=== PATIENT | female | born 1940 | race Caucasian/White ===

== ENCOUNTER 2023-09-08 22:18 | Inpatient (IN) | payer MEDICARE, SELFPAY ==
[2023-09-08 16:51] VITALS: BP 184/76
--- NOTE | 2023-09-08 17:14 | CM ---
Addendum entered by Jayleen Vee RN 09/08/23 17:56:
Due to patients history of carrying knives on her person, CM updated bedside RN to take safety precautions when handling patient's belongings.
Original Note:
Patient was consulted for discharge planning. CM confirmed that patient has an emergency guardian Kishor Pete ([phone]). [employer] filed with the courts for guardianship and patient was ordered a temporary guardian due to patient's inability to
care for herself. As per Kishor, patient has been hallucinating and wandering multiple times a week often with extended police attempts to find her. Patient has not followed up on any medical care and has not taken her medications since her last
admission in 03/2024.
Kishor is requesting placement efforts and is further requesting all information be given to him and he will updated patient's financial POA and health care POA who are listed as contacts.
Kishor is requesting that all medical decisions especially discharge disposition is to be made by him and patient cannot make decisions for herself.
CM will update bedside RN.
[2023-09-08 17:30] LABS: Urine Albumin Trace (Neg - Trace); Urine Bilirubin Negative (Negative); Urine Character Clear (Clear); Urine Color Yellow; Urine Glucose Negative (Negative); Urine Ketone Negative (Negative); Urine Leukocyte Negative (Negative); Urine Nitrite Negative (Negative); Urine Occult Blood Trace (Negative); Urine Urobilinogen Negative (Neg - 1+)
[2023-09-08 17:43] LABS: Urine Bacteria Moderate (Negative); Urine Red Blood Cell 0-2 /HPF (0-2); Urine White Cell 0-2 /HPF (0-5)
[2023-09-08 17:44] LABS: Urine Hyaline Cast 0-2 /LPF (0-2)
--- NOTE | 2023-09-08 17:50 | ED.GENMED ---
History of Present Illness
General
Chief Complaint: Change in Mental Status
Source: patient and ambulance crew
Exam Limitations: clinical condition
Time Seen by Provider: 09/08/23 16:49
Nursing documentation reviewed up to this point in time: agreed with
Travel History
Have you had any contact with someone who has COVID-19?: Unable to Answer
Do you have any symptoms of coronavirus? Fever > 100 degrees, chills, cough, shortness of breath, sore throat, loss of taste or smell, muscle aches, or headache?: Unable to Answer
History of Present Illness
History of Present Illness:
pt is a 82 y/o F from home via EMS
for fall
unwitnessed, found on ground by a tenant who lives o [facility] property pt owns.
this patient is poor historian
well known to EMS
she has had poilce or EMS calls weekly, someitimes several times a week. she tends to wander and be found by police, or a few people who check in on her find her after she has fallen or she has been confused, etc. but pt has apparently been
oriented 'enough' to decline transport
but she now is a case for department of aging and has a medical POA now
pt was on the ground unabel to get up and doesn' tknow what happened, or how long she was down there
pt has c/o lower back pain
she has bruises on her hands and eft shoulder
she denies headache
she is difficult to have converation with , she doesn't want to be here and doesn't believe she should be here.
Past History
Past History
ED Past Medical History: Cancer (Ovarian), GERD and Other (Small bowel obstruction, osteoarthritis)
ED Past Surgical History: Appendectomy, Gynecological (Hysterectomy, ovarian cancer), Orthopedic (Right knee) and Tonsilectomy
Social History
Tobacco: Non-smoker
Alcohol: None
Drug: None
Living: with roommate
Family History
Family History: Other (Noncontributory)
Review of Systems
Review of Systems
Allergies reviewed?: Yes
Unable to obtain full review of systems at this time due to: dementia
All Other Systems: Not applicable
Phy Exam
Physical Exam
Physical Exam:
GENERAL: Alert ,
HEAD: NCAT
EYE: pupils equal and reactive, no nystagmus, no photophobia
NECK: Supple,full rom, nontender
ENT: o/p clr, mmm.
CARDIAC: Regular rate and rhythm . no edema
LUNGS: Clear breath sounds bilaterally, no acute respiratory distress, no wheezes/rales/rhonchi
ABDOMEN: Soft, without focal tenderness, no r/g, no cvat
NEUROLOGICAL: Alert and orientedx2 disorienetd to situation, ocnfusing words, nonsensical words at times, tangential, cn intact, no facial asymmetry, 5/5 strength in UE/LE, sensation intact, romberg neg, ambulates wih cane , neg pronator drift
SKIN: Warm and dry, skin intact.
MUSCULOSKELETAL: No edema, well perfused.
PSYCH: agitated at times, confused
Course
Orders/Labs/Results
Orders:
Orders
09/08/23 Dinner
Regular
At Your Request: Full Participation
Does patient need a safe tray?: No
09/08/23 16:34
Case Management Consult ONCE
Case Management Consult: Discharge Planning
Requested By:: NURSING
09/08/23 16:50
Electrocardiogram (*1) Stat
Reason for Study: Other
Other Reason for Exam: neuro symptoms
CT Cervical Spine W/o Iv Contr Urgent
Comment:
Reason For Exam: on ground, ams
CT Head W/o Iv Contrast Urgent
Comment:
Reason For Exam: fall
Cardiac Monitoring- Treatment ONCE
EKG- Treatment ONCE
CR Chest - 2 Views Urgent
Comment:
Reason For Exam: fall on ground unkonwn
Lumbar Spine Complete, 4 View [CR Lumbar Spine Comp Min 4 Vw*] Urgent
Comment:
Reason For Exam: fall back ain
Pelvis, 1 or 2 Views CR [CR Pelvis - 1 Or 2 Views ] Urgent
Comment:
Reason For Exam: fall on ground
09/08/23 17:14
Urinalysis Reflex To Culture Urgent
Date Specimen was Collected: 09/08/23
Time Specimen was Collected: 17:13
Urine Microscopic Reflex Cult Urgent
Urine Culture Urgent
FRAN Source: U
Specimen Description:
Date Specimen was Collected: 09/08/23
Time Specimen was Collected: 17:13
09/08/23 19:47
CPK [Creatine Phosphokinase] Urgent
Complete Blood Count/With Diff Urgent
Comprehensive Metabolic Panel Urgent
09/08/23 21:08
Admit/Transfer Patient As Directed
Co-Sign Provider:
Level of Care: Inpatient admission
Assign to:: Medical/Surgical
Physician / Group: laura hicks
Diagnosis: fall with lower back pain compression fx lumbar, dementia
Reason for Hospitalization: fall with lower back pain compression fx lumbar, dementia
Expected length of stay greater than two midnights?: Yes
ELOS- Estimated Length of Stay in days: 3
I certify the patient meets the requirements for IP care: Yes
Code Status As Directed
Resuscitation Status: Full Code
09/08/23 21:15
0.9% Sodium Chloride 1000 ml [Nss] 1,000 ml IV 80 mls/hr
09/08/23 22:00
Flush (0.9% Sodium Chloride) [Flush (Nss)] See Dose Instructions IV PER PROTOCOL
09/08/23 22:50
Acetaminophen [Tylenol] 650 mg PO Q4HPRN PRN
09/08/23 22:50
Case Management Consult ONCE
Case Management Consult: Discharge Planning
Comment: nh placement per POa
Activity As Directed
Activity Level: With Assistance
Vital Signs As Directed
Frequency: Per unit guidelines
OT Consult [Ot Eval And Treat] Routine
PT Consult [Pt Eval And Treat] Routine
Activity Level: With Assistance
DX Deep Vein Thrombosis Video Routine
09/09/23 06:00
Basic Metabolic Panel IN AM
Complete Blood Count/With Diff IN AM
09/09/23 08:00
Amlodipine [Norvasc] 10 mg PO DAILY
09/09/23 18:00
Enoxaparin Sodium [Lovenox] 40 mg SC QPM
Abnormal Lab Results
09/08/23 09/08/23
17:14 19:47
Absolute Neuts (auto) 7.5 H 10^3/uL
(1.4-6.5)
Absolute Lymphs (auto) 1.0 L 10^3/uL
(1.2-3.4)
Absolute Monos (auto) 0.8 H 10^3/uL
(0.1-0.6)
Neutrophils % 80.2 H %
(42.2-75.2)
Lymphocytes % 10.6 L %
(20.5-51.1)
Chloride 111 H mmol/L
(98-107)
Carbon Dioxide 18 L mmol/L
(22-30)
BUN 30 H mg/dl
(7-17)
Creatinine 1.2 H mg/dL
(0.6-1.0)
Glucose 106 H mg/dl
(70-99)
Total Bilirubin 1.5 H mg/dl
(0.2-1.3)
Creatine Kinase 512 H U/L
(30-135)
Ur Occult Blood Reflex Trace A
(Negative)
Urine Bacteria (Reflex) Moderate A
(Negative)
09/08/23 19:47
09/08/23 19:47
Vital Signs
Initial and Last Documented VS:
Initial Vital Signs
Temp Pulse Resp BP Pulse Ox
97.8 F 81 18 184/76 97
09/08/23 16:51 09/08/23 16:51 09/08/23 16:51 09/08/23 16:51 09/08/23 16:51
Last Documented Vital Signs
Temp Pulse Resp BP Pulse Ox
98.3 F 86 20 143/101 97
09/08/23 22:58 09/08/23 22:58 09/08/23 22:58 09/08/23 22:58 09/08/23 22:58
MDM/Problems Addressed
Differential Diagnosis Includes:
dementia, uti, confusion, head injury, electrolyte disturbance, metnal illenss
MDM/Problems Addressed:
82 y/o F noncompliant with meds; [place]; other tenants on [place] check on her from time to time; she has been declining, wandering, confused, mixing up words for months to a year;
today someone found her on the ground, she had fallen but unknown down time, awake and alert, well known to paramedics, who go there a few times a week; pt has a case with dept of aging and she has medical POA who betty from case management called;
no obvious medical causes for her chronic confusion/dementia; case management is working on placement; head/neck ct neg; labs were difficult to obtain but are pending; ua had bacteria but she also had bm at the same time;
*Critical Care Note
Total Time (30-74mins, 75-104mins- exclusive of procedures): Not Applicable
ED Attending Note
-
Portions of this chart may have been created with voice recognition software.� Occasional wrong word or��sound alike� substitutions may have occurred due to the inherent limitations of voice recognition software.
Discharge Plan
Departure
Patient Disposition: Admit
Date of Disposition: 09/08/23
Time of Disposition: 20:09
Admit to: Med/Surg
Presentation/result/management discussed w/ accepting MD/DO: Hospitalist
Consults for patient: Case Management
Condition: Fair
Covid-19: Not Applicable
Discharge Problem:
Altered mental state, Hypertension, Unable to care for self
Interventions
Interventions:
*Risk Screen - Suicide Last Done: 09/08/23 16:36
*General Assessment Last Done: 09/08/23 16:36
*Neglect/Abuse Screening Last Done: 09/08/23 16:36
ED- Fall Risk Assessment Last Done: 09/08/23 18:38
*ED COVID-19 Vaccine History Last Done: 09/08/23 16:36
*Nursing Disposition Last Done: 09/08/23 22:46
ED- Neurological Assessment Last Done: 09/08/23 16:36
Discharge Date and Time
Discharge Date/Time: 09/08/23 22:47
[2023-09-08 19:55] LABS: % Basophils 0.5 % (0-2); % Immature Granulocytes 0.4 % (0-0.5); % Lymphocytes 10.6 % (20.5-51.1); % Monocytes 8.3 % (1.7-9.3); % Neutrophils 80.2 % (42.2-75.2); Absolute Basophils 0.1 10^3/uL (0-0.2); Absolute Monocytes 0.8 10^3/uL (0.1-0.6); Absolute Neutrophils 7.5 10^3/uL (1.4-6.5); Hematocrit 42.6 % (37.0-47.0); Hemoglobin 14.6 g/dL (12.0-16.0); Mean Corp Hgb Conc. 34.3 g/dL (33.0-37.0); Mean Corpuscular Hgb 29.7 pg (27.0-31.0); Mean Corpuscular Volume 86.8 fL (81.0-99.0); Mean Platelet Volume 10.2 fL (7.4-10.4); Nucleated Red Blood Cells % 0 %; Platelet Count 197 10^3/uL (130-400); Red Blood Cell Count 4.91 10^6/uL (4.20-5.40); Red Cell Dist. Width 13.8 % (11.5-14.5); White Blood Cell Count 9.3 10^3/uL (4.8-10.8)
[2023-09-08 20:00] VITALS: BP 190/51
[2023-09-08 20:07] LABS: ALT (SGPT) 21 U/L (0-35); AST (SGOT) 33 U/L (14-36); Albumin 3.9 g/dl (3.5-5.0); Alkaline Phosphatase 103 U/L (38-126); Blood Urea Nitrogen 30 mg/dl (7-17); Calcium 8.7 mg/dl (8.4-10.2); Carbon Dioxide 18 mmol/L (22-30); Creatine Phosphokinase 512 U/L (30-135); Glucose 106 mg/dl (70-99); Total Bilirubin 1.5 mg/dl (0.2-1.3); Total Protein 7.3 g/dl (6.3-8.2); eGFR 44.64
[2023-09-08 20:27] LABS: Chloride 111 mmol/L (98-107); Potassium 4.5 mmol/L (3.5-5.1); Sodium 141 mmol/L (135-145)
--- NOTE | 2023-09-08 20:32 | HPS.HSE ---
Addendum entered and electronically signed by Dragan Guadarrama MD 09/08/23 21:18:
Question patient compliance with hypertensive medications. Will start amlodipine at this time for elevated blood pressure. Can also add lisinopril tomorrow if persistently high blood pressure.
Addendum entered and electronically signed by Dragan Guadarrama MD 09/08/23 21:14:
Patient seen examined independently with TAPER OPERATOR. 82-year-old female past medical history of hypertension, ovarian cancer, dementia presenting with fall. She was found on the ground for unknown period of time. Complains of lower back pain. Lumbar
x-ray shows possible mild T12, L1 and L2 compression fractures. Pelvic x-ray shows no acute fracture. Labs show creatinine 1.2 likely CKD. CK of 500 mild rhabdo. Tylenol and lidocaine patch if patient agreeable. PT/OT.
Original Note:
Family Physician
-
Family Physician: NOT KNOW UNKNOWN - PT DOES
Chief Complaint
-
Fall, back pain, confusion with dementia
History of Present Illness
82-year-old female who [place] alone [place] farm has been declining, wandering with confusion for up to 1 year. She was found on the ground today unknown downtime. She believes she fell on a wet area by sleeping. When distracted she does complain of
lower back pain right and left buttocks. But then becomes agitated stating she did not fall has no memory of falling. She states that she wants to go home and has no interest in being admitted at this time. She is insisting on returning home to
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 She goes on to say she has multiple people to come out from the [facility] to help feed the horses. She is paranoid that her neighbor is' doing the wrong way' she appears to confuse her words
she thinks it is 2043. She states she does live in [place]. She denies headache, fever, chills, chest pain, abdominal pain, nausea, vomiting, diarrhea, urinary symptoms.
She is apparently well-known to paramedics who go out there a few times a week but she refused to come to the hospital. The patient was assigned a medical POA who is asking ER case management for placement.. The patient has a PMH of HTN, chronic
ambulatory dysfunction uses cane, chronic Anemia, Dementia, ovarian CA, OA.
Medical History
Past Medical History
Past Medical History: Reports Other (HTN, Chronic Anemia, Dementia, ovarian CA, OA, chronic ambulatory dysfunction uses cane)
Past Surgical History: Reports None
Social History
Tobacco: Non-smoker
Alcohol: None
Drug: None
Personal: Single
Living: Alone
Employment: Retired
Family History
Family History: Other (Patient reports old age)
Allergies / Home Medications
Allergies reflects when Allergies were last updated in [facility].
Home Medications with original date entered in [facility]
Allergy/Medication List:
Allergies
Allergy/AdvReac Type Severity Reaction Status Date / Time
No Known Allergies Allergy Unverified 03/04/23 13:41
Home Medications
amlodipine 10 mg tablet 10 mg PO DAILY #30 tabs 03/09/23
lisinopril 10 mg tablet 20 mg PO DAILY #60 tabs 03/09/23
Review of Systems
-
History Source: Patient and Other (ER record)
A 12 point ROS was completed and negative except as noted: Yes
Constitutional: Denies Fever, Fatigue or Chills
EENT: Denies Sore Throat, Mouth Swelling or Runny Nose
Respiratory: Denies Cough or Trouble Breathing
Cardiac: Denies Chest Pain, Diaphoresis or Palpitations
Abdomen/GI: Denies Abdominal Pain, Nausea, Vomiting, Diarrhea, Constipated, Bloody Stools or Black Stools
: Denies Dysuria, Frequency, Flank Pain or Incontinence
Musculoskeletal: Reports Other (Points to lower lumbar pain rating to left and right hip when distracted); Denies Joint Pain or Edema
Skin: Denies Itching or Rash
Neurological: Denies Dizzy or Weakness
Hematologic/Lymphatic: Reports No Symptoms
Psych: Reports Calm
Physical Exam
Vital Signs
Vital Signs
Temp Pulse Resp BP Pulse Ox
97.8 F 81 18 184/76 97
09/08/23 16:51 09/08/23 16:51 09/08/23 16:51 09/08/23 16:51 09/08/23 16:51
Physical Exam
General: Comfortable and Conversant; No Pain, Fever or Chills
HEENT: NormoCephalic, Anicteric, Moist mucous membranes, Atraumatic, No Ptosis and Neck Nontender
Respiratory: Clear; No Wheezes, Rales or Rhonchi
Cardiac: S1/S2 and Regular Rhythm; No Murmur, Rub, Gallop or Peripheral Edema
Breast: Deferred by me
GI: Soft, Non Tender, Non Distended, Normal Bowel Sounds and No Hepatosplenomegaly
Rectal: Deferred by Provider
Genito-urinary: Deferred by me
Musculoskeletal: No Clubbing, No Cyanosis, No Edema and Other (Tenderness lower lumbar to left and right buttocks)
Skin: Warm, Dry and Other (Red contusions bilateral knees no open abrasions); No Rash, Jaundice or Ulcers
Neuro: Awake, Alert, Oriented (To name and [place] thinks it is 2043 does speak with paranoid state and nonsensical words) and No Sensory Deficits; No Slurred Speech or Facial Droop
Psych: Agitated
Laboratory Results
-
09/08/23 19:47
09/08/23 19:47
Laboratory Results
Total Bilirubin 1.5 mg/dl (0.2-1.3) H 09/08/23 19:47
AST 33 U/L (14-36) 09/08/23 19:47
ALT 21 U/L (0-35) 09/08/23 19:47
Alkaline Phosphatase 103 U/L (38-126) 09/08/23 19:47
Troponin I Cancelled 09/08/23 19:34
Data Reviewed
-
Diagnostic Radiology: Report Reviewed by me
Lab Data: Labs Reviewed by me
Impression/Plan
-
Impression/plan:
Admit to MedSurg
# Advanced dementia with self-care deficit/Hx sundowning
Confused has medical POA assigned
Oriented to name and place , thinks it is 2043 rambles with statements nonsensical words
-Consult case management for placement
-Fall precautions
#Fall with new T12-L1 and L2 compression fractures/Recurrent falls
#Chronic ambulatory dysfunction uses cane as needed
-Tylenol as needed pain
-PT/OT/case management eval
Lumbar x-ray: Mild T12-L1 and L2 compression fractures new from previous exam
Pelvis x-ray: Mild bilateral OA left greater than right
CT cervical spine multilevel DDD
CT head: No acute intracranial abnormality
CXR: No active cardiopulmonary disease
#Mild rhabdomyolysis
-Creatinine kinase 512
-IV NSS
#CKD 3B
Creat 1.2 appears near baseline
-Follow BMP
#HTN�benign
184/76
-Resume amlodipine 10 mg daily,
HOLD lisinopril 20 mg daily has not been filled since March 2023
-IV hydralazine as needed SBP greater than 165
#Chronic anemia
Hgb 14.6
#Hx ovarian CA per chart
Hx OA per chart
DVT prophylaxis
Subcu Lovenox
Full code
[2023-09-08 22:58] VITALS: BP 143/101; BMI 22.6
[2023-09-08 23:00] VITALS: BP 143/101
[2023-09-08] MEDS: NSS 1000 IV (23:22)
--- NOTE | 2023-09-08 23:26 | PTCARENOTE ---
Pt arrived on unit @22:58. Pt apprehensive about neurological assessment and admission questions; feels she does not belong at the hospital and wants to go home. Pt oriented to room and call [place]ston. Will continue to monitor.
--- NOTE | 2023-09-09 07:00 | PTCARENOTE ---
2/- Patient is AAOX1, confused, incoherent speech, scattered thinking and paranoia. She is physically and verbally aggressive, noncompliant and refusing all care. She has a hx of carrying blades in her belongings, and a small razor blade is found
in her belongings bag at this time. Patient attempts to hit and punch staff, get out of bed despite fall precautions. Notified Physician of the behavior and the weapon found.
[2023-09-09] MEDS: NSS IV (07:22)
[2023-09-09] MEDS: NORVASC PO (07:23)
[2023-09-09 07:30] VITALS: BP 153/78
--- NOTE | 2023-09-09 09:49 | W.PN.HOSP.TC ---
Today's Communication/Plan
-
Await labs
Psychiatry consult
Discharge planning
Assessment / Plan
Assessment / Plan
Gen-awake, alert, confused, NAD
HEENT-NC, AT, anicteric, clear oral mm
Neck-supple
CV-reg, no M, +S1/S2
Lungs-clear B/L
Abd-soft, NT, ND
Ext-no edema
Musculoskeletal-no cyanosis, clubbing
Skin-warm and dry
Neuro-grossly non-focal
Psych-calm, cooperative
Delirium -with underlying cognitive impairment, likely dementia. Unclear at baseline. She remains confused today. As needed Haldol ordered for agitation.
Multiple vertebral compression fractures -likely due to trauma of fall and underlying osteoporosis. Continue analgesics.
Mild rhabdomyolysis -CPK 512 on admission. Recheck today.
Suspected dementia -likely Alzheimer's type.
Ambulatory dysfunction -PT/OT.
Essential hypertension -continue amlodipine. Lisinopril on hold for elevated creatinine.
History of ovarian cancer
GERD
Full code
Dispo -medically stable for discharge to long-term care. Ideally needs a memory care unit given her cognitive impairment. Not safe to live alone. Discussed with case management.
Anticipated Discharge: Within 24 hours
Subjective/Interval History
-
Date of Service: September 09, 2023
Patient seen and examined. No complaints. She is very confused. Not oriented.
Objective Data
-
Labs:
Laboratory Results
09/09/23
06:00
WBC Pending
Hgb Pending
Hct Pending
Plt Count Pending
Sodium Pending
Potassium Pending
Chloride Pending
Carbon Dioxide Pending
BUN Pending
Creatinine Pending
Glucose Pending
Calcium Pending
Vital Signs:
Vital Signs
Temp Pulse Resp BP Pulse Ox
97.8 F 91 18 153/78 95
09/09/23 07:30 09/09/23 07:30 09/09/23 07:30 09/09/23 07:30 09/09/23 07:30
I&O
09/08/23 09/09/23 09/10/23
06:59 06:59 06:59
Intake Total 1120 / 1120
Balance 1120 / 1120
Review of Systems
-
Unable to obtain full review of systems at this time due to: Dementia and Acuity
History Source: Patient
All other systems: Reviewed and negative
[2023-09-09] MEDS: HALDOL 2 MG IM (09:51)
--- NOTE | 2023-09-09 14:17 | CM ---
Addendum entered by Marcie West 09/10/23 09:10:
CM spoke with Valeriano Blanc from [facility], will talk to DON about accepting patient, would like to try to accept patient skilled and then transition. Per Valeriano, they do not have a memory care unit but have a dementia unit. Valeriano's contact is
[phone]. CM will update Guardian with facility information.
Addendum entered by Marcie West 09/09/23 15:50:
Per Jennifer [facility] and [facility] unable to accept patient. CM spoke with Letha from [facility], unable to accept patient, no LTC beds at this time.
Original Note:
CM spoke with patients Guardian, Vijay Freeman ([phone]). Mr. Freeman emailed CM psychological assessment for patient. Per Guardian, patient has some funds for private pay, would eventually need to transition to Medicaid. Per psychological
assessment provided by Guardian, no mental health diagnosis documented. Guardian requesting referral sent to [facility] as number once choice. Additional referrals sent to [facility], [facility], and [facility].
Psychiatry consult ordered. CM will continue to follow for discharge planning needs, will continue to update Guardian on process.
Plan; LTC with memory unit, pending accepting facilities.
--- NOTE | 2023-09-09 15:02 | CON.MD ---
Consultation - Medical
-
patient seen chart reviewed. discussed w nursing and cm. this pt is known to me from prior consultation. she was seen in march of 2023. she was here bc cellulitis from cat scratch. at that time discussion was held as to whether she required a
supervised living arrangement but in t he end she was dc to home. i suspected a degree of dementia (she has a normal cat scan of the brain) and wanted to do a moca but she refused. she is here today after being found down. she was found by a
neighbor. she has been known to wander in the neighborhood later at night. she is quite bruised. (elevated ck) she could not tell me why she is here . she told me 'here' is a movie theater. she was unable to give the year or the president. she
did say it was 'sep or october'. she then said she does not pay attention to such things. she denies that she is depressed. she denies hallucinations. it was noted last time she carried sharp objects in her purse. this time she had a cook box filler. i
asked her about it. she said she did not know why she had one. she was agitated earlier in her stay and would not take po meds and was given im haldol. at this point she is quite calm.
past psych hx to my knowledge she has no prior psych hx in terms of depression or psychosis that has been treated. it was suspected by this junior copywriter on the last admission that there was underlying paranoia
medial hx frequent falls. from the spine xrays osteoporosis and compression fx suspected hx ovarian cancer w resection gerd hx small bowel obstruction djd
family hx not known
social patient resided with a dear friend for over 50 years . that friend and left her a [address] farm and an old farm house to live in for the rest of her life. she was also left money to support self but if i remember correctly the poa told
me last go around that some of that money has dissipated for a variety of reasons including a scam
mse patient is alert but oriented only to name. she believes she is at the [employer]. speech is normal in rate and tone but nothing that she said communicated information meaningfully. thought process is rambling tangential and disorganized. her mood
right now is pleasant enough affect a bit constricted no si no hi cognitively impaired insight judgment lacking
dx likely dementia no bovious cause for tme.
plan in my opinion this patient should not reside on her own. she had someone looking in on her but that person is now on vacation. at some point she will need a guardian. at this moment no one could say she is competent to make decisions on her
own behalf. she does not know where she is. she has no concept of the dangers to her safety that wandering around late at night pose....even it one were to consider only falls given her frailty this is a real risk. prn risperdal concentrate for
agitation posing a risk to self or others
[2023-09-09] MEDS: RISPERDAL ORAL SOLUTION 0.5 MG PO (19:29)
[2023-09-09 22:45] VITALS: BP 166/65
--- NOTE | 2023-09-09 22:57 | PTCARENOTE ---
Pt refused to have temperature checked during this shift. Pt stated 'I'm not doing all this crap'. Pt educated by this RN on importance of checking temperature every 8 hours but pt is still refusing.
--- NOTE | 2023-09-10 02:00 | PTCARENOTE ---
Pt reports seeing a 'white fluffy thing' on the ground next to her Capri chair. Pt also reports seeing a chicken while sitting at the nurse's station. Will continue to monitor.
--- NOTE | 2023-09-10 05:53 | PTCARENOTE ---
Capri chair order renewed with 4 side-rails added by GALINA Fofana. Will continue to monitor.
[2023-09-10] MEDS: NORVASC PO (07:11)
[2023-09-10 07:55] VITALS: BP 141/67
--- NOTE | 2023-09-10 12:04 | W.PN.HOSP.TC ---
Today's Communication/Plan
-
Check labs
Discharge planning
Assessment / Plan
Assessment / Plan
Gen-awake, alert, confused, NAD
HEENT-NC, AT, anicteric, clear oral mm
Neck-supple
CV-reg, no M, +S1/S2
Lungs-clear B/L
Abd-soft, NT, ND
Ext-no edema
Musculoskeletal-no cyanosis, clubbing
Skin-warm and dry
Neuro-grossly non-focal
Psych-calm, cooperative
Delirium -with underlying cognitive impairment, likely dementia. Unclear at baseline. Appreciate psychiatry input. Continue as needed risperidone. Behaviors are under control.
Multiple vertebral compression fractures -likely due to trauma of fall and underlying osteoporosis. Continue analgesics.
Mild rhabdomyolysis -CPK 512 on admission. Recheck today.
Suspected dementia -likely Alzheimer's type.
Ambulatory dysfunction -PT/OT.
Essential hypertension -continue amlodipine. Lisinopril on hold for elevated creatinine.
History of ovarian cancer
GERD
Full code
Dispo -medically stable for discharge to long-term care. Ideally needs a memory care unit given her cognitive impairment. Not safe to live alone. Discussed with case management.
Anticipated Discharge: Within 24 hours
Subjective/Interval History
-
Date of Service: September 10, 2023
Patient seen and examined. Pleasantly confused. Sitting in a chair at the nurses station. No complaints.
Objective Data
-
Vital Signs:
Vital Signs
Temp Pulse Resp BP Pulse Ox
98.2 F 79 16 141/67 96
09/10/23 07:55 09/10/23 07:55 09/10/23 07:55 09/10/23 07:55 09/10/23 07:55
I&O
09/09/23 09/10/23 09/11/23
06:59 06:59 06:59
Intake Total 1120 / 1119 960 / 960
Balance 1119 960 / 960
Review of Systems
-
Unable to obtain full review of systems at this time due to: Dementia
History Source: Patient
All other systems: Reviewed and negative
--- NOTE | 2023-09-10 13:39 | W.PN.UPDATE ---
Update Note
Progress Note Update
patient seen chart reviewed. discussed with nursing mrs romero was sitting in the nurse's station w her aide in attendance while eating her lunch w gusto. she did not realize that she was about to bite into an alcohol swab and the receipt from her
lunch which was wedged in her sandwich. she can offer no logical conversation at this point . she did receive one prn over the past 24 hours. i continue to feel this patient cannot return home on her own and will require placement in a supervised
facility
--- NOTE | 2023-09-10 14:39 | CM ---
CM spoke with Guardian, Vijay [facility], confirmed CM is able to fax clinical document. Per Vijay, the financial information has been overnighted from [facility] and he will hopefully receive them tomorrow. Per Vijay, he was just informed that the
patient may have some sort of Half-Way Care Policy which he should also have more information on tomorrow. Vijay inquiring if [facility] can accept patient, per [facility], unable to accept, facility does not have dementia unit. CM reports that
[facility] may be able to accept patient pending their bed availability. CM reports that other referrals that have been unable to accept patient. CM will continue to follow for discharge planning needs, will call Vijay tomorrow
to obtain update on LTC policy and financial information as it will be needed for placement.
Plan; SNF with memory care unit, pending accepting facility
[2023-09-10 15:20] VITALS: BP 163/50
[2023-09-10 23:33] VITALS: BP 121/63
[2023-09-11 07:30] VITALS: BP 172/81
[2023-09-11] MEDS: NORVASC PO (08:33)
--- NOTE | 2023-09-11 08:35 | PN.CDI ---
CDI
- -
CDI:
Physician Documentation Request
Admit Date: 09/08/23 22:18
Dear Doctor Maycol,
Patient admitted after being found down.
ED Physician documentation: 'unwitnessed, found on ground by a tenant...pt was on the ground unabel to get up and doesn' tknow what happened, or how long she was down there'
09/10 Hospitalist PN: 'Mild rhabdomyolysis -CPK 512 on admission. Recheck today.'
Please clarify the type of rhabdomyolysis being monitored/treated:
Traumatic rhabdomyolysis
Nontraumatic rhabdomyolysis
Other
Use of terms such as suspected, likely, concern for, or probable (associated with a specific diagnosis that is being evaluated, monitored, or treated as if it exists) are acceptable and can be coded in the inpatient setting, when documented at the
time of discharge.
Thank you,
Mae Orta RN, BSN
CDI Specialist
Available via [place] text
Please use your independent medical judgment in providing your response.
--- NOTE | 2023-09-11 09:05 | W.PN.HOSP.TC ---
Addendum entered and electronically signed by Shun Severino DO 09/11/23 11:06:
Traumatic rhabdomyolysis
Addendum entered and electronically signed by Shun Severino, 09/11/23 09:35:
I spoke with POVladimir Vijay Freeman, Gave him an update. All questions answered. I explained to Kishor. Natalia remains incompetent and lacks decision-making capacity for her own safety. Not safe to live alone anymore. Will need long-term care.
Suspect she has underlying dementia.
Kishor agrees with changing CODE STATUS to DO NOT RESUSCITATE.
Original Note:
Today's Communication/Plan
-
Discharge planning
Assessment / Plan
Assessment / Plan
Gen-awake, alert, confused, NAD
HEENT-NC, AT, anicteric, clear oral mm
Neck-supple
CV-reg, no M, +S1/S2
Lungs-clear B/L
Abd-soft, NT, ND
Ext-no edema
Musculoskeletal-no cyanosis, clubbing
Skin-warm and dry
Neuro-grossly non-focal
Psych-calm, cooperative
Delirium -with underlying cognitive impairment, likely dementia. Unclear at baseline. Appreciate psychiatry input. Continue as needed risperidone. Behaviors are under control.
Multiple vertebral compression fractures -likely due to trauma of fall and underlying osteoporosis. Continue analgesics.
Mild rhabdomyolysis -CPK 512 on admission. Refusing repeat labs.
Suspected dementia -likely Alzheimer's type.
Ambulatory dysfunction -PT/OT.
Essential hypertension -continue amlodipine. Lisinopril on hold for elevated creatinine.
History of ovarian cancer
GERD
Full code
Dispo -medically stable for discharge to long-term care. Ideally needs a memory care unit given her cognitive impairment. Not safe to live alone. Discussed with case management.
I left a voicemail for POVladimir to call me back to discuss her plan of care. Also to discuss CODE STATUS as I believe she should be DNR.
Anticipated Discharge: Within 24 hours
Subjective/Interval History
-
Date of Service: September 11, 2023
Patient seen and examined. Sitting in the chair brushing her teeth. No complaints. Looks preoccupied.
Objective Data
-
Vital Signs:
Vital Signs
Temp Pulse Resp BP Pulse Ox
97.5 F 76 20 121/63 96
09/10/23 23:33 09/10/23 23:33 09/10/23 23:33 09/10/23 23:33 09/10/23 23:33
I&O
09/10/23 09/11/23 09/12/23
06:59 06:59 06:59
Intake Total 960 / 960 1560 / 1560
Balance 960 / 960 1560 / 1560
Review of Systems
-
Unable to obtain full review of systems at this time due to: Dementia
History Source: Patient
All other systems: Reviewed and negative
--- NOTE | 2023-09-11 13:06 | W.PN.UPDATE ---
Update Note
Progress Note Update
reviewed chart. did not see patient today. case toma tells me she has been more manageable. she had a visitor in her room this am when i attempted to see her and i did not disturb them. placement is being sought. she did not require a prn yesterday
nor today. filled cm in on some of the patient's background social hx.
[2023-09-11 15:30] VITALS: BP 111/68
--- NOTE | 2023-09-11 16:00 | CM ---
CM met with patients Guardian, preferring referral to [facility] as has a secure unit. Guardian still waiting to receive financials and LTC policy, will update CM once receives them. CM will place call to Milla, Liaison at , discussed no
other history of mental illness documented, discussed dementia behaviors. Per Milla, believes they can accept patient, will confirm with CM. CM will await updated PT/OT evals, will start authorization through insurance for intermediate time. CM
will continue to follow for discharge planning needs.
Plan; SNF with transition to LTC at [facility], awaiting updated PT/OT evals to begin auth.
[2023-09-11] MEDS: RISPERDAL ORAL SOLUTION 0.5 MG PO (21:25)
--- NOTE | 2023-09-11 23:00 | PTCARENOTE ---
Pt refused to have vital signs taken at 2300. Pt verbally aggressive towards staff and refusing vitals despite education from this RN on the importance of checking vital signs. Will continue to monitor.
[2023-09-12 07:30] VITALS: BP 136/64
[2023-09-12] MEDS: NORVASC PO (08:43)
--- NOTE | 2023-09-12 09:48 | W.PN.HOSP.TC ---
Today's Communication/Plan
-
Discharge planning
Assessment / Plan
Assessment / Plan
Gen-awake, alert, confused, NAD
HEENT-NC, AT, anicteric, clear oral mm
Neck-supple
CV-reg, no M, +S1/S2
Lungs-clear B/L
Abd-soft, NT, ND
Ext-no edema
Musculoskeletal-no cyanosis, clubbing
Skin-warm and dry
Neuro-grossly non-focal
Psych-calm, cooperative
Delirium -with underlying cognitive impairment, likely dementia. Unclear at baseline. Appreciate psychiatry input. Continue as needed risperidone. Behaviors are under control.
Multiple vertebral compression fractures -likely due to trauma of fall and underlying osteoporosis. Continue analgesics.
Mild rhabdomyolysis -CPK 512 on admission. Refusing repeat labs.
Suspected dementia -likely Alzheimer's type.
Ambulatory dysfunction -PT/OT.
Essential hypertension -continue amlodipine. Lisinopril on hold for elevated creatinine.
History of ovarian cancer
GERD
DNR -confirmed with POA.
Dispo -medically stable for discharge to long-term care.
Anticipated Discharge: Within 24 hours
Subjective/Interval History
-
Date of Service: September 12, 2023
Patient seen and examined. Very tangential. Concerned that her parents have . No complaints.
Objective Data
-
Vital Signs:
Vital Signs
Temp Pulse Resp BP Pulse Ox
98.1 F 51 16 111/68 96
09/11/23 15:30 09/11/23 15:30 09/11/23 15:30 09/11/23 15:30 09/11/23 15:30
I&O
09/11/23 09/12/23 09/13/23
06:59 06:59 06:59
Intake Total 1560 / 1560 600 / 600 480 / 480
Balance 1560 / 1560 600 / 600 480 / 480
Review of Systems
-
Unable to obtain full review of systems at this time due to: Dementia
History Source: Patient
All other systems: Reviewed and negative
--- NOTE | 2023-09-12 10:09 | W.PN.UPDATE ---
Update Note
Progress Note Update
patient seen chart reviewed. mrs romero is all dressed up ready to go somewhere and she continues to be very confused at times difficult to manage. two staff members were escorting her back to her room. you cannot reason with her. she has received
risperdal in the evening for the last two days which seems to be the most difficult time. will make it a scheduled order in the early evening.
[2023-09-12] MEDS: RISPERDAL ORAL SOLUTION 0.5 MG PO ×2 (10:57→22:14)
--- NOTE | 2023-09-12 12:43 | CM ---
KELLY spoke with Milla from [facility], able to accept patient for SNF. CM faxed auth with updated PT/OT evaluations to [facility], pending reference number [id number]. CM will continue to follow for discharge planning needs.
Plan; [facility], pending auth approval.
[2023-09-12] MEDS: ZYPREXA 2.5 MG IM (13:36)
[2023-09-12] MEDS: STERILE WATER FOR INJECTION 2.10000000000000009 ML IM (13:37)
--- NOTE | 2023-09-12 14:00 | PTCARENOTE ---
Addendum entered by Dagmar Rasmussen RN 09/12/23 14:11:
Dr. Severino notified of skin tear to right wrist.
Original Note:
Patient became agitated in her milka chair, taking off tray and throwing it, unable to be redirected. Code purple called. Patient tried to use her cane to swing at staff. Security assisted with removal of cane for safety and skin tear occured on her
right wrist, approximately 5cm. Area cleansed with NSS and optifoam dressing applied. Zyprexa administered IM per order to left deltoid without difficulty. At moment, eating lunch and calmer. She is confused and thinking she is at a place where she
owns the property and has responsibility for it. Attempts to reorient.
[2023-09-12] MEDS: RISPERDAL ORAL SOLUTION PO ×2 (17:59→18:03)
--- NOTE | 2023-09-12 23:38 | PTCARENOTE ---
Pt refused pm vital signs.
[2023-09-13] MEDS: NORVASC PO (08:00)
--- NOTE | 2023-09-13 12:20 | W.PN.HOSP.TC ---
Today's Communication/Plan
-
Discharge planning
Assessment / Plan
Assessment / Plan
Gen-awake, alert, confused, NAD
HEENT-NC, AT, anicteric, clear oral mm
Neck-supple
CV-reg, no M, +S1/S2
Lungs-clear B/L
Abd-soft, NT, ND
Ext-no edema
Musculoskeletal-no cyanosis, clubbing
Skin-warm and dry
Neuro-grossly non-focal
Psych-calm, cooperative
Delirium -with underlying cognitive impairment, likely dementia. Unclear at baseline. Appreciate psychiatry input. Continue risperidone. Behaviors are under control.
Multiple vertebral compression fractures -likely due to trauma of fall and underlying osteoporosis. Continue analgesics.
Mild rhabdomyolysis -CPK 512 on admission. Refusing repeat labs.
Suspected dementia -likely Alzheimer's type.
Ambulatory dysfunction -PT/OT.
Essential hypertension -continue amlodipine. Lisinopril on hold for elevated creatinine.
History of ovarian cancer
GERD
DNR -confirmed with POA.
Dispo -medically stable for discharge to long-term care. Awaiting insurance authorization.
Anticipated Discharge: 24 - 48 hours
Subjective/Interval History
-
Date of Service: September 13, 2023
Patient seen and examined. Sitting in the chair in the nurses station. Trying to eat breakfast. No complaints.
Objective Data
-
Vital Signs:
Vital Signs
Temp Pulse Resp BP Pulse Ox
98.0 F 76 16 136/64 98
09/12/23 07:30 09/12/23 07:30 09/12/23 07:30 09/12/23 07:30 09/13/23 08:00
I&O
09/12/23 09/13/23 09/14/23
06:59 06:59 06:59
Intake Total 600 / 600 1560 / 1560
Balance 600 / 600 1560 / 1560
Review of Systems
-
Unable to obtain full review of systems at this time due to: Dementia
History Source: Patient
All other systems: Reviewed and negative
[2023-09-13] MEDS: RISPERDAL ORAL SOLUTION 0.5 MG PO ×3 (15:02→23:47)
[2023-09-14] MEDS: NORVASC PO (10:00)
--- NOTE | 2023-09-14 10:04 | W.PN.HOSP.TC ---
Today's Communication/Plan
-
Discharge planning
Assessment / Plan
Assessment / Plan
Refused exam today
Delirium -with underlying cognitive impairment, likely dementia. Unclear at baseline. Appreciate psychiatry input. Continue risperidone. Behaviors improving.
Multiple vertebral compression fractures -likely due to trauma of fall and underlying osteoporosis. Continue analgesics.
Mild rhabdomyolysis -CPK 512 on admission. Refusing repeat labs.
Suspected dementia -likely Alzheimer's type.
Ambulatory dysfunction -PT/OT.
Essential hypertension -continue amlodipine. Lisinopril on hold for elevated creatinine.
History of ovarian cancer
GERD
DNR -confirmed with POA.
Dispo -medically stable for discharge to long-term care. Awaiting insurance authorization.
Anticipated Discharge: Within 24 hours
Subjective/Interval History
-
Date of Service: September 14, 2023
Patient seen but refused to be examined. Sitting in the chair at the nurses station. No complaints.
Objective Data
-
Vital Signs:
Vital Signs
Temp Pulse Resp BP Pulse Ox
98.0 F 56 16 136/64 96
09/12/23 07:30 09/13/23 15:00 09/12/23 07:30 09/12/23 07:30 09/13/23 15:00
I&O
09/13/23 09/14/23 09/15/23
06:59 06:59 06:59
Intake Total 1560 / 1560 1140 / 1140
Balance 1560 / 1560 1140 / 1140
Review of Systems
-
Unable to obtain full review of systems at this time due to: Dementia
--- NOTE | 2023-09-14 10:30 | PTCARENOTE ---
10am Pt confused most of time, refusing for pt tech to check vital signs and refused am Norvasc [address] Severino notified, continue to monitor pt closely.
--- NOTE | 2023-09-14 15:12 | CM ---
CM following re: d/c planning.
Pt remains in milka chair.
[employer] auth still pending.
D/c plan is for SNF placement at [facility].
Will continue to follow pt's behaviors.
[2023-09-14] MEDS: RISPERDAL ORAL SOLUTION 0.5 MG PO ×2 (17:22→22:53)
--- NOTE | 2023-09-15 | PTCARENOTE ---
Pt agitated, refusing 2300 vital signs tonight. Restraint order renewed.
[2023-09-15 07:24] VITALS: BP 119/62
[2023-09-15] MEDS: NORVASC PO (08:48)
[2023-09-15] MEDS: RISPERDAL ORAL SOLUTION 0.5 MG PO (10:28)
--- NOTE | 2023-09-15 11:51 | W.PN.HOSP.TC ---
Today's Communication/Plan
-
monitor vitals
see plan
cw risperidone
psych eval today
dispo planning
updated guardian over the phone
Assessment / Plan
Assessment / Plan
Gen-awake, alert, confused, NAD
HEENT-NC, AT, anicteric, clear oral mm
Neck-supple
CV-reg, no M, +S1/S2
Lungs-clear B/L
Abd-soft, NT, ND
Ext-no edema
Musculoskeletal-no cyanosis, clubbing
Skin-warm and dry
Neuro-AAOX1
Psych-calm, cooperative
Delirium -with underlying cognitive impairment, likely dementia. Unclear at baseline. Appreciate psychiatry input. Continue risperidone. Behaviors improving. Patient is hallucinating at times, she is talking to someone in the room
Multiple vertebral compression fractures -likely due to trauma of fall and underlying osteoporosis. Continue analgesics.
Mild rhabdomyolysis -CPK 512 on admission. Refusing repeat labs.
Suspected dementia -likely Alzheimer's type.
Ambulatory dysfunction -PT/OT.
Essential hypertension -continue amlodipine. Lisinopril on hold for elevated creatinine.
History of ovarian cancer
GERD
DNR -confirmed with POA.
Dispo - needs to go to [facility]. Needs psychiatry evaluation prior
Anticipated Discharge: Today
Subjective/Interval History
-
Date of Service: September 15, 2023
continues to have hallucinations
Objective Data
-
Vital Signs:
Vital Signs
Temp Pulse Resp BP Pulse Ox
97.6 F 81 18 119/62 99
09/15/23 07:24 09/15/23 07:24 09/15/23 07:24 09/15/23 07:24 09/15/23 07:24
I&O
09/14/23 09/15/23 09/16/23
06:59 06:59 06:59
Intake Total 1140 / 1140 240 / 240
Balance 1140 / 1140 240 / 240
--- NOTE | 2023-09-15 13:46 | CM ---
Addendum entered by Marcie West 09/15/23 16:13:
Per Hospitalist, plan for discharge tomorrow. Milla at [facility] updated, Guardian updated. CM will continue to follow for discharge planning needs.
Plan: [facility] SNF, will require ambulance transport.
Original Note:
CM received voicemail from [place] from [facility] [phone], patient SNF approved, skilled level 1, 09/15-09/21, next review on 09/22 to Marci: [phone], fax: [phone]. Auth #[id number].
CM spoke with Milla from [facility], discussed patient still on milka-chair restraint, Milla aware, states they can admit patient today. CM placed call to guardian Vijay Freeman, discussed SNF approval. Vijay asking for SNF approval letter,
CM faxed to Vijay. CM reviewed with Hospitalist, Psych to see patient before discharge today. CM provided update to Milla that psych will see patient before discharge. CM will continue to follow for discharge planning needs.
Plan; [facility] SNF, will require ambulance transport.
--- NOTE | 2023-09-15 14:52 | W.PN.UPDATE ---
Update Note
Progress Note Update
Pt seen, reviewed with nursing staff. Pt sitting up in chair, ate most of lunch on tray. Pt is alert, has ongoing irritable affect, uncooperative with answering questions, appears suspicious. No overt signs of hallucinations. Staff reports pt
refuses po medications, takes Risperidone liquid in coffee/juice. Reviewed record/previous consults; pt likely has dementia. Staff reports pt has a court-appointed guardian. She has been less aggressive per staff, since on Risperidone, though still
agitated at times, noted again last night. Pt noted with signs of visual hallucinations, alert and oriented x 1.
Imp: TME, resolving
Likely dementia, with intermittent agitation
Rec: Try adjusting Risperidone liquid; options are very limited since pt refusing po meds
will follow
[2023-09-15 15:17] VITALS: BP 133/72
[2023-09-15] MEDS: RISPERDAL ORAL SOLUTION 1 MG PO (18:01)
[2023-09-15 23:23] VITALS: BP 98/74
[2023-09-16 07:00] VITALS: BP 173/66
[2023-09-16] MEDS: NORVASC 10 MG PO (10:00)
--- NOTE | 2023-09-16 12:10 | W.PN.HOSP.TC ---
Today's Communication/Plan
-
Monitor vital signs see plan
Restart lisinopril
Continue with risperidone
Discharge today
Time of discharge 36 minutes
Assessment / Plan
Assessment / Plan
Gen-awake
HEENT-NC, AT, anicteric, clear oral mm
CV-reg, no M, +S1/S2
Lungs-clear B/L
Neuro-AAOX1
Psych-calm, cooperative
Delirium -with underlying cognitive impairment, likely dementia. Unclear at baseline. Appreciate psychiatry input. Continue risperidone. Behaviors improving. Patient is hallucinating at times, she is talking to someone in the room at times which
is improving. Spoke with guardian too 09/15 and it appears this has been going before july 2023. Per psych we increased risperidone
Multiple vertebral compression fractures -likely due to trauma of fall and underlying osteoporosis. Continue analgesics.
Mild rhabdomyolysis -CPK 512 on admission. Refusing repeat labs.
Suspected dementia -likely Alzheimer's type.
Ambulatory dysfunction -PT/OT.
Essential hypertension -continue amlodipine. restart Lisinopril o
History of ovarian cancer
GERD
DNR -confirmed with POA.
Dispo - needs to go to [facility]
Anticipated Discharge: Today
Subjective/Interval History
-
Date of Service: September 16, 2023
denies pain
Objective Data
-
Vital Signs:
Vital Signs
Temp Pulse Resp BP Pulse Ox
97.5 F 76 18 173/66 94
09/16/23 07:00 09/16/23 07:00 09/16/23 07:00 09/16/23 07:00 09/16/23 09:00
I&O
09/15/23 09/16/23 09/17/23
06:59 06:59 06:59
Intake Total 240 / 240 840 / 840
Balance 240 / 240 840 / 840
--- NOTE | 2023-09-16 12:14 | W.DCSUMMARY ---
Discharge Summary
Discharge Data
Date of Admission: 09/08/23
Date of Discharge: 09/16/23
-
Pending Results: No
Hospital Course
82-year-old female with past medical history of dementia, essential hypertension, amatory dysfunction, ovarian cancer, GERD, paranoia came to the hospital after a fall. Lumbar x-ray was consistent with mild T12, L1 and L2 compression fracture.
Patient hospital course was complicated by acute delirium and paranoia for which patient was seen by psychiatry. Psychiatry then started patient on risperidone which was improving her symptoms. She also had mild rhabdomyolysis.. She was also
evaluated by physical therapy who recommended 24-hour care.Once patient agitation was improving she was then discharged with instructions to follow-up outpatient.
Discharge Plan
-
Patient Disposition: Other
Discharge Diagnosis/Procedures: Suspect delirium
Dementia with behavioral disturbances
Mild rhabdomyolysis
Ambulatory dysfunction
Diet: As tolerated
Activity: With assistance and As tolerated
Driving Restrictions: Not until seen by your Dr
Bathing Restrictions: None
Referrals:
UNKNOWN - PT DOES,NOT KNOW [Family Provider] - in less than 1 week
Prescriptions:
New
risperidone 1 mg/mL Solution
0.5 mg PO [id number] PRN (Reason: agitation) Qty: 0 0RF
risperidone 1 mg/mL Solution
1 mg PO QPM Qty: 0 0RF
Continued
amlodipine 10 mg Tablet
10 mg PO DAILY Qty: 30 1RF
Patient Comments:
has not been filled since d/c in march
lisinopril 10 mg Tablet
20 mg PO DAILY Qty: 60 1RF
Hold Instructions: until BP>140/90
Patient Comments:
has not been filled since d/c in march
Discharge Orders:
Discharge Patient (As Directed); Ordered 09/16/23
Ordered By: Sigifredo Oliveros
Discharge Date and Time
Discharge Date/Time: 09/16/23 17:27
--- NOTE | 2023-09-16 12:32 | CM ---
CM sent updated clinicals to Milla at [facility], confirmed facility has liquid Risperidone. Per Hospitalist, patient clear for discharge today. CM spoke with patients Guardian, 5:00 p.m. ambulance transport to [facility]. CM discussed
patient has a knife in security, per Guardian, leave knife in security and he will pick it up later or have it destroyed. Milla at [facility] aware of transport time. CM will continue to follow for discharge planning needs.
Plan; [facility] SNF, 5:00 p.m. ambulance transport
Report: [phone]
--- NOTE | 2023-09-16 17:25 | PTCARENOTE ---
pt was received in bed with bilateral eyes closed but easily aroused to sound and touch. pt was oriented to self not to place or time. pt remains confused and forgetful. pt received her norvasc during this shift but would not allow for a repeat
blood pressure. pt refused her breakfast and ate 100% of her lunch. report was called to rodo hawk. pt did not have an iv site or tele pack to remove. all personal belongings were collected and packed. pt left hospital with acute care
--- NOTE | 2023-09-17 13:34 | CM ---
KELLY received call from person at [facility] by the name of Rosa Carty [phone]. CM called to guardian and left. CM updated material handling warehouse supervisor re call.
== END 2023-09-16 17:27 | DRG 884 ==
LOC: 4 WEST ACU 22:18
PROVIDERS: Physician Assistant; ADMITTING PHYSICIAN Hospitalist; ATTENDING PHYSICIAN Internal Medicine; EMERGENCY PHYSICIAN Emergency Medicine; OTHER PHYSICIAN Psychiatry & Neurology Psychiatry
DX: F03.918 Unspecified dementia, unspecified severity, with other behavioral disturbance (principal); G92.8 Other toxic encephalopathy; S32.018A Other fracture of first lumbar vertebra, initial encounter for closed fracture; S32.028A Other fracture of second lumbar vertebra, initial encounter for closed fracture; M80.08XA Age-related osteoporosis with current pathological fracture, vertebra(e), initial encounter for fracture; R44.3 Hallucinations, unspecified; I12.9 Hypertensive chronic kidney disease with stage 1 through stage 4 chronic kidney disease, or unspecified chronic kidney disease; F03.911 Unspecified dementia, unspecified severity, with agitation; N18.9 Chronic kidney disease, unspecified; Z85.43 Personal history of malignant neoplasm of ovary; D64.9 Anemia, unspecified; N18.32 Chronic kidney disease, stage 3b; K21.9 Gastro-esophageal reflux disease without esophagitis; T79.6XXA Traumatic ischemia of muscle, initial encounter; Z66 Do not resuscitate; W19.XXXA Unspecified fall, initial encounter
CPT/HCPCS: 70450; 71046; 72110; 72125; 72170; 80053; 81003; 81015; 82550; 85025; 87086; 93005; 96372; 97116; 97162; 97166; 97530; 97535; 99285; J2358

== ENCOUNTER 2023-11-11 11:57 | Emergency (ER) | payer MEDICARE, SELFPAY ==
[2023-11-11 12:04] VITALS: BP 116/52
[2023-11-11 12:05] VITALS: BP 116/52
[2023-11-11 12:13] LABS: % Basophils 0.7 % (0-2); % Eosinophils 0.3 % (0-6); % Immature Granulocytes 0.3 % (0-0.5); % Lymphocytes 19.3 % (20.5-51.1); % Monocytes 10.2 % (1.7-9.3); % Neutrophils 69.2 % (42.2-75.2); Absolute Basophils 0.1 10^3/uL (0-0.2); Absolute Lymphocytes 1.7 10^3/uL (1.2-3.4); Absolute Monocytes 0.9 10^3/uL (0.1-0.6); Absolute Neutrophils 6.2 10^3/uL (1.4-6.5); Hematocrit 31.5 % (37.0-47.0); Hemoglobin 9.7 g/dL (12.0-16.0); Mean Corp Hgb Conc. 30.8 g/dL (33.0-37.0); Mean Corpuscular Hgb 28.7 pg (27.0-31.0); Mean Corpuscular Volume 93.2 fL (81.0-99.0); Mean Platelet Volume 10.1 fL (7.4-10.4); Nucleated Red Blood Cells % 0 %; Platelet Count 248 10^3/uL (130-400); Red Blood Cell Count 3.38 10^6/uL (4.20-5.40); Red Cell Dist. Width 14.5 % (11.5-14.5); White Blood Cell Count 8.9 10^3/uL (4.8-10.8)
--- NOTE | 2023-11-11 12:21 | ED.GENMED ---
History of Present Illness
General
Chief Complaint: Change in Mental Status
Source: patient, ambulance crew and detention
Time Seen by Provider: 11/11/23 12:07
Travel History
Have you had any contact with someone who has COVID-19?: No
Do you have any symptoms of coronavirus? Fever > 100 degrees, chills, cough, shortness of breath, sore throat, loss of taste or smell, muscle aches, or headache?: No
History of Present Illness
History of Present Illness:
83-year-old female with past medical history of dementia, previous ovarian cancer, anxiety and depression presenting to the emergency department via EMS from [facility] after patient was found to be very argumentative with staff
today, hitting staff, attempting trip staff and other residents, through a computer screen and medications. Staff also noted that patient seemed to be somewhat delusional stating that people were poisoning her. Patient did not receive her as
needed Risperdal prior to coming due to agitation but nursing staff at [facility] did state that patient seemed to be a little bit more calm prior to her leaving to come to the hospital. Nursing staff at [facility] states they did get in
contact with patient's family member who wanted the patient to be evaluated at the hospital. Patient has no other specific concerns at this time.
Past History
Past History
ED Past Medical History: Cancer (Ovarian), GERD and Other (Small bowel obstruction, osteoarthritis)
ED Past Surgical History: Appendectomy, Gynecological (Hysterectomy, ovarian cancer), Orthopedic (Right knee) and Tonsilectomy
Social History
Tobacco: Non-smoker
Alcohol: None
Drug: None
Personal: Single
Living: detention
Family History
Family History: Other (Noncontributory)
Review of Systems
Review of Systems
All Other Systems: ROS reviewed and negative except as documented in HPI and ROS
Phy Exam
Physical Exam
Physical Exam:
GENERAL: Alert , in no apparent distress
EYE: conjunctiva clear
NECK: Supple
ENT: o/p clr, mmm.
CARDIAC: Regular rate and rhythm
LUNGS: Clear breath sounds bilaterally, no acute respiratory distress, no wheezes/rales/rhonchi
NEUROLOGICAL: Alert and oriented to self and place but not year
SKIN: Warm and dry, small contusion to the left hand and right lower extremity which appear older in nature
MUSCULOSKELETAL: well perfused.
PSYCH: Normal and appropriate interaction. Somewhat angry affect
Scores
Heart Failure Risk
Heart Failure Risk Score: Not Applicable
Heart Score for Chest Pain Patients
STEMI patient?: Not applicable
Withdrawal Assessment of Alcohol
Withdrawal Assessment Completed?: Not applicable
Course
Orders/Labs/Results
Orders:
Orders
11/11/23 12:03
Electrocardiogram (*1) Urgent
Reason for Study: Fatigue / Weakness
11/11/23 12:04
EKG- Treatment ONCE
11/11/23 12:06
Complete Blood Count/With Diff Urgent
Comprehensive Metabolic Panel Urgent
11/11/23 12:17
Risperidone [Risperdal] 0.5 mg PO NOW STA
11/11/23 12:26
Urinalysis Reflex To Culture Urgent
Date Specimen was Collected: 11/11/23
Time Specimen was Collected: 12:20
Urine Microscopic Reflex Cult Urgent
Urine Culture Urgent
FRAN Source: U
Specimen Description:
Date Specimen was Collected: 11/11/23
Time Specimen was Collected: 12:20
11/11/23 12:44
0.9% Sodium Chloride 500 ml [Nss] 500 ml IV BOLUS
Abnormal Lab Results
11/11/23 11/11/23
12:06 12:26
RBC 3.38 L 10^6/uL
(4.20-5.40)
Hgb 9.7 L g/dL
(12.0-16.0)
Hct 31.5 L %
(37.0-47.0)
MCHC 30.8 L g/dL
(33.0-37.0)
Absolute Monos (auto) 0.9 H 10^3/uL
(0.1-0.6)
Lymphocytes % 19.3 L %
(20.5-51.1)
Monocytes % 10.2 H %
(1.7-9.3)
Chloride 111 H mmol/L
(98-107)
BUN 34 H mg/dl
(7-17)
Creatinine 1.5 H mg/dL
(0.6-1.0)
Total Protein 6.2 L g/dl
(6.3-8.2)
Albumin 2.9 L g/dl
(3.5-5.0)
Urine Ketones Trace A
(Negative)
Leukocyte Esterase Rfl 1+ A
(Negative)
Urine Bacteria (Reflex) Few A
(Negative)
Urine Yeast Few A
(Negative)
11/11/23 12:06
11/11/23 12:06
Vital Signs
Initial and Last Documented VS:
Initial Vital Signs
Resp Pulse Ox
14 99
11/11/23 12:02 11/11/23 12:02
Last Documented Vital Signs
Temp Pulse Resp BP Pulse Ox
97.8 F 76 16 97/53 97
11/11/23 12:04 11/11/23 14:00 11/11/23 14:00 11/11/23 14:00 11/11/23 14:00
MDM/Problems Addressed
Differential Diagnosis Includes:
Exacerbation of dementia, urinary tract infection, electrolyte disturbance
MDM/Problems Addressed:
83-year-old female presenting to the emergency department for evaluation at the request of her detention for agitation. Patient was reportedly very difficult to redirect and argumentative towards staff and based off of the nursing staff at the
facility they were concerned for possible infectious etiology but were also having a very difficult time redirecting the patient. Patient is much more calm and cooperative here. She still notes to me that she does not wish to be here and wants to
be home. I will trial a dose of her as needed Risperdal. I do anticipate patient will be able to be discharged back to [facility] for continued care there.
Chronic conditions affecting care: Neurological disorder
Acute Exacerbation and/or Progression of Chronic Illness: Neurological disorder
*Pulse Oximetry
Patient hypoxic: no
*Critical Care Note
Total Time (30-74mins, 75-104mins- exclusive of procedures): Not Applicable
Data Reviewed
Review of Other/Old Records Reveals: Labs and Discharge Summary
Comment
Comment:
On patient's discharge summary from September 2023 it appeared that patient had a very similar presentation with acute delirium and paranoia. Seen by psychiatry who started the patient on Risperdal with reported improvement of her symptoms.
Patient Management
Social determinants of health affecting care: Living situation
Discussion with other providers: halfway staff
Escalation/DeEscalation of care consider admission/obs:
Patient's labs show mild exacerbation of her chronic kidney disease. We treated this with a 500 mL bolus of saline. She also has known chronic anemia. She remains calm and cooperative in the emergency department. No signs of infection. I
contacted [facility] again and notified them of patient's workup. Patient is otherwise stable for discharge back to [facility] for continued care.
ED Attending Note
-
Portions of this chart may have been created with voice recognition software.� Occasional wrong word or��sound alike� substitutions may have occurred due to the inherent limitations of voice recognition software.
Discharge Plan
Departure
Patient Disposition: Shelter/SNF
Date of Disposition: 11/11/23
Time of Disposition: 13:35
Patient with high blood pressure during this ER visit?: No
Discharge Problem:
Agitation
Instructions: Dementia (DC)
Prescriptions:
No Action
amlodipine 10 mg Tablet
10 mg PO DAILY Qty: 30 1RF
lisinopril 10 mg Tablet
20 mg PO DAILY Qty: 60 1RF
Hold Instructions: until BP>140/90
acetaminophen [Tylenol] 325 mg Tablet
650 mg PO Q6HPRN PRN (Reason: mild pain)
acetaminophen 650 mg Suppository
650 mg TN Q4HPRN PRN (Reason: moderate pain)
magnesium hydroxide [Milk of Magnesia] 400 mg/5 mL Suspension
2,400 mg PO [id number] PRN (Reason: if no bm by 3rd day)
fluticasone furoate 27.5 mcg/actuation [place],Suspension
1 spray INTRANASAL DAILY
melatonin 5 mg Tablet
5 mg PO HS
risperidone 1 mg/mL solution
1 mg PO DAILY
Referrals:
Eusebio Daly I., DO [Family Provider] -
Interventions
Interventions:
*Risk Screen - Suicide Last Done: 11/11/23 12:50
*General Assessment Last Done: 11/11/23 12:50
*Neglect/Abuse Screening Last Done: 11/11/23 12:50
*ED COVID-19 Vaccine History Last Done: 11/11/23 12:50
ED- Neurological Assessment Last Done: 11/11/23 12:10
ED Swallowing Screen Last Done: 11/11/23 12:10
Discharge Date and Time
Print Language: AZERBAIJANI
[2023-11-11] MEDS: RISPERDAL 0.5 MG PO (12:24)
[2023-11-11 12:39] LABS: ALT (SGPT) < 10 U/L (0-35); AST (SGOT) 18 U/L (14-36); Albumin 2.9 g/dl (3.5-5.0); Alkaline Phosphatase 97 U/L (38-126); Blood Urea Nitrogen 34 mg/dl (7-17); Calcium 8.7 mg/dl (8.4-10.2); Carbon Dioxide 22 mmol/L (22-30); Chloride 111 mmol/L (98-107); Glucose 91 mg/dl (70-99); Sodium 140 mmol/L (135-145); Total Bilirubin 0.5 mg/dl (0.2-1.3); Total Protein 6.2 g/dl (6.3-8.2); eGFR 33.94
[2023-11-11] MEDS: NSS 500 IV (12:47)
[2023-11-11 12:59] LABS: Urine Albumin Negative (Neg - Trace); Urine Bilirubin Negative (Negative); Urine Character Clear (Clear); Urine Color Yellow; Urine Glucose Negative (Negative); Urine Ketone Trace (Negative); Urine Leukocyte 1+ (Negative); Urine Nitrite Negative (Negative); Urine Occult Blood Negative (Negative); Urine Urobilinogen Negative (Neg - 1+)
[2023-11-11 13:00] VITALS: BP 108/43
[2023-11-11 13:16] LABS: Urine Bacteria Few (Negative); Urine Red Blood Cell 0-2 /HPF (0-2); Urine Yeast Few (Negative)
[2023-11-11 14:00] VITALS: BP 97/53
== END 2023-11-11 14:50 ==
LOC: EMR 11:57
PROVIDERS: Physician Assistant Medical; EMERGENCY PHYSICIAN Emergency Medicine; FAMILY PHYSICIAN Internal Medicine
DX: R45.1 Restlessness and agitation (principal); F22 Delusional disorders; S60.222A Contusion of left hand, initial encounter; S80.11XA Contusion of right lower leg, initial encounter; X58.XXXA Exposure to other specified factors, initial encounter; D64.9 Anemia, unspecified; F03.911 Unspecified dementia, unspecified severity, with agitation; N18.9 Chronic kidney disease, unspecified; K21.9 Gastro-esophageal reflux disease without esophagitis; M19.90 Unspecified osteoarthritis, unspecified site; F41.9 Anxiety disorder, unspecified; F32.A Depression, unspecified; Z85.43 Personal history of malignant neoplasm of ovary
CPT/HCPCS: 99284; 96360; 80053; 81003; 81015; 85025; 87086; 93005

== ENCOUNTER 2024-03-16 23:27 | Inpatient (IN) | payer MEDICARE, SELFPAY ==
[2024-03-16] VITALS (7 sets, daily range): BP systolic 133–144; BP diastolic 31–52
--- NOTE | 2024-03-16 18:27 | ED.GENMED ---
History of Present Illness
General
Chief Complaint: Heart Rate Problem
Source: patient
Exam Limitations: none
Time Seen by Provider: 03/16/24 18:07
Nursing documentation reviewed up to this point in time: agreed with
History of Present Illness
History of Present Illness:
83 yr old female with past medical history of dementia essential hypertension ovarian cancer GERD paranoia sent by [facility] for eval. Pt presents awake alert sent for low heart rate. PT has hx of dementia sts ' I don't want to be here.
'PT has no complaints. I spoke to legal guardian Vijay Zuniga and notify him that patient is here for a low heart rate. He does state he is aware she is a DNR however would wants her evaluated. Pt however arrives yelling non cooperative
refusing to have any blood work got up off of stretcher on her own and tried to leave.
Past History
Past History
ED Past Medical History: Cancer (Ovarian), GERD and Other (Small bowel obstruction, osteoarthritis)
ED Past Surgical History: Appendectomy, Gynecological (Hysterectomy, ovarian cancer), Orthopedic (Right knee) and Tonsilectomy
Social History
Tobacco: Non-smoker
Alcohol: None
Drug: None
Personal: Single
Living: shelter
Family History
Family History: Other (Noncontributory)
Review of Systems
Review of Systems
Allergies reviewed?: Yes
Unable to obtain full review of systems at this time due to: dementia
Phy Exam
General Physical Exam
General Presentation: no apparent distress
General age: appears stated age
General Skin: warm and dry
General Habitus: elderly
General Mental: confused and other (confused and agitated )
General Hydration: appears well hydrated
Cardiovascular Exam
Cardiovascular Exam: regular rate/rhythm, no murmur and normal peripheral pulses
Pulmonary Exam
Pulmonary Exam: lungs clear
Neurological Exam
Neurological Exam: alert and oriented x3
Musculoskeletal Exam
Musculoskeletal Exam: full ROM
Skin Exam
Skin Exam: normal color and warm/dry
Psychiatric Exam
Psychiatric Exam: normal mood/affect
Course
Orders/Labs/Results
Orders:
Orders
03/16/24 18:11
EKG [Electrocardiogram (*1)] Urgent
Reason for Study: Tachycardia
EKG- Treatment ONCE
03/16/24 19:29
Lorazepam [Ativan] 1 mg IM NOW STA
03/16/24 20:36
Complete Blood Count/With Diff Urgent
Comprehensive Metabolic Panel Urgent
03/16/24 21:28
Calcium Gluconate 1 gram/100mL [Calcium Gluconate] 1 gram in 100 ml IV ONCE
03/16/24 22:46
0.9% Sodium Chloride 500 ml [Nss] 500 ml IV BOLUS
03/16/24 23:25
Haloperidol Lactate [Haldol] 1 mg IM NOW STA
03/16/24 23:26
Haloperidol Lactate [Haldol] 5 mg .ROUTE .STK-MED ONE
03/16/24 23:27
Admit/Transfer Patient As Directed
Co-Sign Provider:
Level of Care: Inpatient admission
Assign to:: Telemetry
Physician / Group: Hussein
Diagnosis: PEDRO, Hyperkalemia, Bradycardia
Reason for Telemetry: Arrhythmia
Date to Stop Telemetry: 03/19/24
Time to Stop Telemetry: 11:00
Reason for Hospitalization: PEDRO, Hyperkalemia, Bradycardia
Expected length of stay greater than two midnights?: Yes
ELOS- Estimated Length of Stay in days: 2
I certify the patient meets the requirements for IP care: Yes
Haloperidol Lactate [Haldol] 5 mg IM NOW STA
PRN Pain Medication Management As Directed
May give lesser potent ordered pain med per pt: Yes
preference::
Protocol:: Medication orders for pain may be administered in a
manner that supports deferring to patient preference
when the pt is:
- Requesting an ordered lesser potent pain medication.
Least to most potent pain medications are defined
as: acetaminophen < NSAID < tramadol < opioids
(morphine, oxycodone, hydromorphone).
- Requesting a lesser dose of the same medication IF
ORDERED.
- Requesting a less intrusive route of administration
if both routes are prescribed by the provider (PO <
IV).
03/16/24 23:29
Code Status As Directed
Resuscitation Status: Do not resuscitate
Based on pt advanced directive or healthcare POA form: Yes
03/16/24 23:30
DNR Bracelet Application ONCE
03/17/24 00:00
Risperidone [Risperdal Oral Solution] 1 mg PO NOW STA
03/19/24 11:00
DC Protocol for Telemetry ONCE
Abnormal Lab Results
03/16/24
20:36
RBC 3.18 L 10^6/uL
(4.20-5.40)
Hgb 9.1 L g/dL
(12.0-16.0)
Hct 28.1 L %
(37.0-47.0)
MCHC 32.4 L g/dL
(33.0-37.0)
RDW 15.4 H %
(11.5-14.5)
Absolute Monos (auto) 0.7 H 10^3/uL
(0.1-0.6)
Potassium 5.7 H mmol/L
(3.5-5.1)
Chloride 113 H mmol/L
(98-107)
Carbon Dioxide 20 L mmol/L
(22-30)
BUN 51 H mg/dl
(7-17)
Creatinine 2.0 H mg/dL
(0.6-1.0)
Albumin 3.2 L g/dl
(3.5-5.0)
03/16/24 20:36
03/16/24 20:36
Vital Signs
Initial and Last Documented VS:
Initial Vital Signs
Temp Pulse Resp BP Pulse Ox
97.6 F 53 14 133/31 98
03/16/24 18:09 03/16/24 18:09 03/16/24 18:09 03/16/24 18:09 03/16/24 18:09
Last Documented Vital Signs
Temp Pulse Resp BP Pulse Ox
97.6 F 81 18 167/66 92
03/16/24 18:09 03/17/24 00:15 03/17/24 00:15 03/17/24 00:02 03/16/24 22:44
Mental Health Aides Teacher consulted with Physician
Mental Health Aides Teacher consulted with physician?: Yes
Name of Physician Consulted: DR Molina
MDM/Problems Addressed
MDM/Problems Addressed:
Patient is document is 83-year-old female with history of dementia, agitation paranoia sent by [facility] for low heart rate in the 40s. Patient presents awake alert however confused which is baseline apparently very agitated
yelling refusing initial blood work. I did speak with court appointed power of scenic artist who does acknowledge the patient is a DNR but does wish for patient to be evaluated. Case reviewed ED physician patient was given Ativan IM will attempt blood
work. EKG on arrival HR 41
Pt 's HR incidentally now in NSR 60s70s . After Ativan was given patient calmer did allow blood work however IV line needed to be attempted again. Blood work reviewed normal white count hemoglobin low at 9.1(was 9.09 November 2023) patient's potassium
however is elevated at 5.7 and her BUN/creat is 51/2.0.
Patient's blood pressure stable she remains awake alert no acute distress.
I did speak with patient's legal guardian and he does want patient evaluated, she is a DNR. She is not able to give any history. Case reviewed with nephrology bladder scan performed showing 200 cc of urine. Lokelma ordered IV calcium ordered.
Will admit to the hospital service
Chronic conditions affecting care:
dementia reflux
*Pulse Oximetry
Patient hypoxic: no
*EKG
Interpretation: abnormal
Heart Rate: 41
Rate: bradycardiac
Rhythm: sinus
Ischemia: no ischemia
*Critical Care Note
Total Time (30-74mins, 75-104mins- exclusive of procedures): Not Applicable
ED Attending Note
-
Portions of this chart may have been created with voice recognition software.� Occasional wrong word or��sound alike� substitutions may have occurred due to the inherent limitations of voice recognition software.
Discharge Plan
Departure
Patient Disposition: Admit
Date of Disposition: 03/16/24
Time of Disposition: 22:57
Presentation/result/management discussed w/ accepting MD/DO: Hospitalist
Condition: Fair
Covid-19: Not Applicable
Discharge Problem:
Bradycardia, Acute renal insufficiency, Acute hyperkalemia
Interventions
Interventions:
*Risk Screen - Suicide Last Done: 03/16/24 18:09
*General Assessment Last Done: 03/16/24 18:09
*Neglect/Abuse Screening Last Done: 03/16/24 18:09
ED- Fall Risk Assessment Last Done: 03/16/24 18:09
*ED COVID-19 Vaccine History Last Done: 03/16/24 18:09
ED- Cardiac Assessment Last Done: 03/16/24 18:32
ED- Pulmonary Assessment Last Done: 03/16/24 18:33
[2024-03-16] MEDS: ATIVAN 1 MG IM (19:52)
[2024-03-16 20:42] LABS: % Basophils 0.5 % (0-2); % Eosinophils 0.3 % (0-6); % Immature Granulocytes 0.3 % (0-0.5); % Lymphocytes 20.8 % (20.5-51.1); % Neutrophils 69.1 % (42.2-75.2); Absolute Lymphocytes 1.5 10^3/uL (1.2-3.4); Absolute Monocytes 0.7 10^3/uL (0.1-0.6); Absolute Neutrophils 5.1 10^3/uL (1.4-6.5); Hematocrit 28.1 % (37.0-47.0); Hemoglobin 9.1 g/dL (12.0-16.0); Mean Corp Hgb Conc. 32.4 g/dL (33.0-37.0); Mean Corpuscular Hgb 28.6 pg (27.0-31.0); Mean Corpuscular Volume 88.4 fL (81.0-99.0); Mean Platelet Volume 10.2 fL (7.4-10.4); Nucleated Red Blood Cells % 0 %; Platelet Count 188 10^3/uL (130-400); Red Blood Cell Count 3.18 10^6/uL (4.20-5.40); Red Cell Dist. Width 15.4 % (11.5-14.5); White Blood Cell Count 7.4 10^3/uL (4.8-10.8)
[2024-03-16 20:59] LABS: ALT (SGPT) < 10 U/L (0-35); AST (SGOT) 15 U/L (14-36); Albumin 3.2 g/dl (3.5-5.0); Alkaline Phosphatase 94 U/L (38-126); Blood Urea Nitrogen 51 mg/dl (7-17); Calcium 8.5 mg/dl (8.4-10.2); Carbon Dioxide 20 mmol/L (22-30); Chloride 113 mmol/L (98-107); Glucose 90 mg/dl (70-99); Potassium 5.7 mmol/L (3.5-5.1); Sodium 138 mmol/L (135-145); Total Bilirubin 0.2 mg/dl (0.2-1.3); Total Protein 6.5 g/dl (6.3-8.2); eGFR 24.03
[2024-03-16] MEDS: CALCIUM GLUCONATE 100 IV (21:46)
[2024-03-16] MEDS: HALDOL 5 MG IM (23:27)
--- NOTE | 2024-03-16 23:35 | HPS.HSE ---
Family Physician
-
Family Physician: NOT KNOW UNKNOWN - PT DOES
Chief Complaint
-
Low Heart Rate
History of Present Illness
Patient is an 83y F with PMH significant for senile dementia and hypertension who [place] to ED from local [place] for evaluation of low heart rate. Patient received in the EED where she was initially noted to be in sinus bradycardia with rates into
the 30s. This improved without treatment to normal sinus rhythm / normal rate. Patient does not offer any complaints. She is intermittently agitated, aggressive and combative - to the point of hitting, kicking, spitting at staff. ED discussed
case with the patient's court-appointed POA who requested Cardiology evaluation for her slow heart rate.
Patient is agitated and uncooperative with care.
Attempted to reach POA for further discussion without success.
Medical History
Past Medical History
Past Medical History: Reports Other
Additional Past Medical History:
Hypertension
Senile Dementia with Behavioral Disturbance
Ovarian Cancer
Past Surgical History: Reports Other
Additional Past Surgical History:
None Known
Social History
Unable to obtain full social history at this time due to: Dementia
Family History
Family History: Unable to Obtain
Allergies / Home Medications
Allergies reflects when Allergies were last updated in [employer].
Home Medications with original date entered in [employer]
Allergy/Medication List:
Allergies
Allergy/AdvReac Type Severity Reaction Status Date / Time
No Known Allergies Allergy Verified 03/16/24 19:56
Home Medications
amlodipine 10 mg tablet 10 mg PO DAILY #30 tabs 03/09/23
acetaminophen 325 mg tablet (Tylenol) 650 mg PO Q6HPRN PRN mild pain 11/11/23
acetaminophen 650 mg rectal suppository 650 mg MD Q4HPRN PRN moderate pain/temp>100 11/11/23
melatonin 5 mg tablet 10 mg PO HS 11/11/23
risperidone 1 mg/mL oral solution 0.25 mg PO DAILY 11/11/23
calcium carbonate (Calcium 600) 600 mg PO DAILY 03/16/24
dextromethorphan-guaifenesin 10 mg-100 mg/5 mL oral syrup 10 ml PO Q4HPRN PRN cough 03/16/24
lisinopril 20 mg tablet 20 mg PO DAILY 03/16/24
memantine 5 mg tablet 5 mg PO HS 03/16/24
risperidone 1 mg/mL oral solution 1 mg PO DAILY 03/16/24
trazodone 50 mg tablet 75 mg PO QPM 03/16/24
Review of Systems
-
Unable to obtain full review of systems at this time due to: Dementia
History Source: Patient (Patient denies any pain, dyspnea, N/V/D or urinary complaints. ROS highly questionable given baseline dementia and agitation.)
Physical Exam
Vital Signs
Vital Signs
Temp Pulse Resp BP Pulse Ox
97.6 F 72 18 144/42 92
03/16/24 18:09 03/16/24 22:44 03/16/24 22:44 03/16/24 22:44 03/16/24 22:44
Physical Exam
General: Other (83y F agitated and combative in the ED.)
HEENT: PERRLA and Other (Dry MM)
Respiratory: Clear; No Wheezes, Rales or Rhonchi
Cardiac: S1/S2 and Regular Rhythm; No Murmur
Musculoskeletal: No Clubbing, No Cyanosis and Other (Trace - 1+ pitting edema at the ankles.)
Skin: Other (Very dry skin diffusely. Skin wrinkling / changes of the LE suggestive of prior / greater edema.)
Neuro: Awake
Psych: Agitated and Apparent Dementia
Laboratory Results
-
03/16/24 20:36
03/16/24 20:36
Laboratory Results
Total Bilirubin 0.2 mg/dl (0.2-1.3) 03/16/24 20:36
AST 15 U/L (14-36) 03/16/24 20:36
ALT < 10 U/L (0-35) 03/16/24 20:36
Alkaline Phosphatase 94 U/L (38-126) 03/16/24 20:36
Impression/Plan
-
A/P: Patient is an 83y F with PMH significant for dementia with behavioral disturbance who presents to ED for evaluation of slow heart rate appreciated at the [place].
PEDRO on CKD III
Hyperkalemia
Non-Gapped Metabolic Acidosis
- Admit for further evaluation and treatment.
- Physical exam and labs are suggestive of volume contraction.
- IVF replacement overnight and follow for improvement in labs / lytes.
- Hold lisinopril.
Bradycardia
- Apparently asymptomatic sinus bradycardia as patient alert / agitated on arrival.
- This has resolved here in the ED without intervention.
- POA has requested Cardiology evaluation per discussion with ED staff.
- Monitor on tele overnight.
- Will hold trazodone for now as this appears to be the newest medication.
Senile Dementia with Behavioral Disturbance
- Patient agitated, combative and uncooperative with care here in the ED.
- Attempted unsuccessfully to reach POA to discuss goals of care / risks : benefits of inpatient evaluation.
- Continue outpatient risperidone with PRN dosing as needed for increased agitation.
- Hold nightly trazodone for now as noted above.
- Psych evaluation for additional recommendations / medication adjustments.
DVT Prophylaxis: SCDs
Code Status: DNR per [place] record and POA.
[2024-03-17] VITALS (14 sets, daily range): BP systolic 117–170; BP diastolic 41–84; PULSE 64; BMI 22.3
[2024-03-17] MEDS: RISPERDAL ORAL SOLUTION 1 MG PO ×2 (00:37→22:07)
[2024-03-17] MEDS: NSS 1000 IV ×3 (01:46→21:27)
--- NOTE | 2024-03-17 02:36 | PTCARENOTE ---
Pt transferred from the ED, AAOx2 (not to time), restless, and in 4 pt soft limb restraints. Pt cleaned, changed, and admission completed. Pt lying in bed with call thurston in reach.
[2024-03-17 05:18] LABS: Hematocrit 26.1 % (37.0-47.0); Hemoglobin 8.5 g/dL (12.0-16.0); Mean Corp Hgb Conc. 32.6 g/dL (33.0-37.0); Mean Corpuscular Hgb 29.3 pg (27.0-31.0); Mean Platelet Volume 11.1 fL (7.4-10.4); Platelet Count 163 10^3/uL (130-400); Red Cell Dist. Width 15.1 % (11.5-14.5); White Blood Cell Count 7.7 10^3/uL (4.8-10.8)
[2024-03-17 05:37] LABS: Blood Urea Nitrogen 47 mg/dl (7-17); Calcium 8.3 mg/dl (8.4-10.2); Carbon Dioxide 17 mmol/L (22-30); Chloride 118 mmol/L (98-107); Estimated Creatinine Clearance 26 ml/min; Glucose 78 mg/dl (70-99); Potassium 5.6 mmol/L (3.5-5.1); Sodium 139 mmol/L (135-145); eGFR 33.94
[2024-03-17 06:36] LABS: TSH Reflex To Free T4 1.78 uIU/ml (0.47-4.68)
--- NOTE | 2024-03-17 07:07 | PTCARENOTE ---
Pt's K today is 5.6 (yesterday 5.7). Reached out to HOLLOW HANDLE BENCH WORKER and no new orders at this time.
--- NOTE | 2024-03-17 08:02 | CON.CAR ---
Addendum entered and electronically signed by Ludwig Short MD 03/17/24 15:11:
I saw and examined the patient.
The Car And Yard Supervisor's note was reviewed and I agree with the note.
Comment: Briefly, 83-year-old woman past medical history of dementia who is presenting for evaluation of bradycardia
Initial twelve-lead ECG showing sinus bradycardia with heart rate in the 40s
Telemetry reviewed, while patient is awake heart rate seems to be in the 60s and 70s however with sleeping it may dip down into the 30s and 40s
No significant pauses seen
Difficult to assess for symptoms given her dementia, but denies lightheadedness or dizziness to me
No indication for permanent pacemaker at this time
Recommend correcting electrolytes
Would avoid AV perry blockers going forward
Original Note:
Consultation
Consultation Request
Date/Time Consultation Requested: 03/17/24 at 0104
Date/Time Consultation Performed: 03/17/24 at 0802
Requesting Provider: Dr. Casillas
Performing Provider: Dr. Short
Reason for Consultation: Bradycardia
Medical History
-
History of Present Illness:
Patient came to [facility] from [facility] last evening for bradycardia and cardiology has been consulted. Patient has no family that we know of and previously lived on a large farm that was left to her by a friend, the friend also left her money to
care for herself and the farm, but the patient lost money in a scam and during an admission 03/2023 and then readmission 09/2023 the patient was placed at [facility] as she could no longer care for herself and was found to be incompetent to make
decisions. She now has a court appointed guardian. Patient was seen by psychiatry during those admissions and has a diagnosis of likely dementia with agitation. Patient's HR was reportedly low at [facility] and she was sent to [facility] with symptoms of 'full
head' per nursing staff, but patient is a poor historian and cannot confirm or deny those symptoms now. Patient has a h/o syncope in 2021 that was evaluated at [facility] and patient ended up refusing treatment at that time. ECG in the ER showed sinus
bradycardia and overnight tele reviewed and there are less than 2 second pauses with appropriated increases in HR with periods of activity/agitation. Patient has been in 4 point restraints overnight and received Haldol 5 mg IM x1 03/16/24 plus
Risperdal 1 mg PO x1 late last night.
PMH:
CKD 3
Agitation with h/o dementia
h/o syncope 2021
Former smoker
h/o ovarian cancer local disease treated with FRANKY-BSO for cure 1999
Past Medical History
Past Medical History: Other (in HPI)
Past Surgical History: Appendectomy, Gynecological (FRANKY-BSO for ovarian CA), Orthopedic and Tonsilectomy
Social History
Tobacco: Former Smoker
Alcohol: None
Drug: None
Personal: Single
Living: [facility] (long-term SNF resident at [facility])
Family History
Family History: Cancer and Other (CVA)
Allergies / Home Medications
Allergy/AdvReac Type Severity Reaction Status Date / Time
No Known Allergies Allergy Verified 03/16/24 19:56
�Medication �Instructions �Recorded �Confirmed �Type
amlodipine 10 mg tablet 10 mg PO DAILY #30 tabs 03/09/23 03/16/24 Rx
acetaminophen 325 mg tablet 650 mg PO Q6HPRN PRN mild pain 11/11/23 03/16/24 History
(Tylenol)
acetaminophen 650 mg rectal 650 mg NH Q4HPRN PRN moderate 11/11/23 03/16/24 History
suppository pain/temp>100
melatonin 5 mg tablet 10 mg PO HS 11/11/23 03/16/24 History
risperidone 1 mg/mL oral solution 0.25 mg PO DAILY 11/11/23 03/16/24 History
calcium carbonate (Calcium 600) 600 mg PO DAILY 03/16/24 03/16/24 History
dextromethorphan-guaifenesin 10 10 ml PO Q4HPRN PRN cough 03/16/24 03/16/24 History
mg-100 mg/5 mL oral syrup
lisinopril 20 mg tablet 20 mg PO DAILY 03/16/24 03/16/24 History
memantine 5 mg tablet 5 mg PO HS 03/16/24 03/16/24 History
risperidone 1 mg/mL oral solution 1 mg PO DAILY 03/16/24 03/16/24 History
trazodone 50 mg tablet 75 mg PO QPM 03/16/24 03/16/24 History
Review of Systems
-
History Source: Transfer Record
All other systems: Negative unless noted
Physical Exam
Vital Signs
Temp Pulse Resp BP Pulse Ox
97.1 F 61 13 124/42 92
03/17/24 07:00 03/17/24 06:00 03/17/24 06:00 03/17/24 06:00 03/17/24 06:00
GEN: Laying in bed in 4 point restraints, awake and alert, but not oriented
HEENT: EOMI, MMM
LUNGS: Clear anterolaterally with poor inspiratory effort and no audible wheeze
CV: Reg, S1/S2, no murmur
ABD: soft, BS+, NT, ND
EXT: No clubbing, cyanosis, lesions or edema B/L
NEURO: Gross non-focal
SKIN: Warm, dry and pink. No rash
Lab Results
03/17/24 05:09
03/17/24 05:09
Impression / Plan
-
PCP: Ronni MOJICA at [facility]
Cardiology: Dr. Do, last seen 2021
Impression:
Sinus bradycardia
Hyperkalemia
PEDRO on CKD 3
Agitation with h/o dementia
h/o syncope 2021
Former smoker
h/o ovarian cancer local disease treated with FRANKY-BSO for cure 1999
Plan:
-Patient came to [facility] from [facility] last evening for bradycardia and cardiology has been consulted. Patient has no family that we know of and previously lived on a large farm that was left to her by a friend, the friend also left her money to
care for herself and the farm, but the patient lost money in a scam and during an admission 03/2023 and then readmission 09/2023 the patient was placed at [facility] as she could no longer care for herself and was found to be incompetent to make
decisions. She now has a court appointed guardian. Patient was seen by psychiatry during those admissions and has a diagnosis of likely dementia with agitation. Patient's HR was reportedly low at [facility] and she was sent to [facility] with symptoms of 'full
head' per nursing staff, but patient is a poor historian and cannot confirm or deny those symptoms now. Patient has a h/o syncope in 2021 that was evaluated at [facility] and patient ended up refusing treatment at that time. ECG in the ER showed sinus
bradycardia and overnight tele reviewed and there are less than 2 second pauses with appropriated increases in HR with periods of activity/agitation. Patient has been in 4 point restraints overnight and received Haldol 5 mg IM x1 03/16/24 plus
Risperdal 1 mg PO x1 late last night.
-Tele and ECGs reviewed by me, no high grade heart block and no significant pauses. There is not indication for PPM.
-Patient was not taking AV perry blockers prior to admission.
-Hyperkalemia being treated by Hospitalist attending.
-Will call patient's court appointed guardian to review. Patient is not a candidate for an outpatient monitor due to agitation. Could try to arrange for an outpatient cardiology visit, but again patient gets agitated when she has to leave [place] and this seems unlikely.
[2024-03-17] MEDS: NORVASC 10 MG PO (08:44)
[2024-03-17] MEDS: RISPERDAL ORAL SOLUTION 0.25 MG PO (08:44)
--- NOTE | 2024-03-17 09:09 | W.PN.HOSP.TC ---
Today's Communication/Plan
-
renew IVF
await psych and cards eval
hopeful d/c back to NH in AM? 03/18
Assessment / Plan
Assessment / Plan
pt is an 83 year old female
PEDRO on CKD III with Hyperkalemia and Non-Gapped Metabolic Acidosis--Physical exam and labs are suggestive of volume contraction--IVF replacement overnight and follow for improvement in labs/lytes--Hold lisinopril.
Bradycardia - Apparently asymptomatic sinus bradycardia as patient alert / agitated on arrival - This has resolved here in the ED without intervention - POA has requested Cardiology evaluation per discussion with ED staff-- Will hold trazodone for
now as this appears to be the newest medication.
Senile Dementia with Behavioral Disturbance - Patient agitated, combative and uncooperative with care here in the ED- Attempted unsuccessfully to reach POA to discuss goals of care / risks:benefits of inpatient evaluation- Continue outpatient
risperidone with PRN dosing as needed for increased agitation- Hold nightly trazodone for now as noted above- Psych evaluation for additional recommendations / medication adjustments.
DVT Prophylaxis: SCDs
Code Status: DNR per NH record and POA
.
Anticipated Discharge: 24 - 48 hours
Subjective/Interval History
-
Date of Service: March 17, 2024
pt with dementia
Objective Data
-
Labs:
Laboratory Results
03/17/24
05:09
WBC 7.7
Hgb 8.5 L
Hct 26.1 L
Plt Count 163
Sodium 139
Potassium 5.6 H
Chloride 118 H
Carbon Dioxide 17 L
BUN 47 H
Creatinine 1.5 H
Glucose 78
Calcium 8.3 L
Vital Signs:
max temp for 24 hours
03/16/24
18:09
Temp 97.6 F
Vital Signs
Temp Pulse Resp BP Pulse Ox
97.7 F 73 24 142/46 93
03/17/24 07:15 03/17/24 08:00 03/17/24 08:00 03/17/24 08:00 03/17/24 08:00
I&O
03/16/24 03/17/24 03/18/24
06:59 06:59 06:59
Intake Total 800 / 800
Output Total 200 / 200
Balance 600 / 600
Review of Systems
-
Unable to obtain full review of systems at this time due to: Dementia
Physical Exam
-
General: Well Developed, Well Nourished and No Apparent Distress
HEENT: Normocephalic and Atraumatic; Negative Oxygen
Respiratory: Rhonchi (loose sounding cough)
Cardiac: Regular Rhythm and S1/S2; Negative Murmur
GI: Soft, Nontender, Nondistended and Normal Bowel Sounds
Musculoskeletal: No Clubbing, No Cyanosis and No Edema
Neuro: Awake
--- NOTE | 2024-03-17 09:18 | PTCARENOTE ---
Plan discussed with cards and attending MD. ECG performed, pt turned and repositioned -melanie care and oral care provided, non par tray ordered. Per Dr. Casillas, restraints removed for trial at 0900. Pt stable for discharge back to [place].
--- NOTE | 2024-03-17 09:25 | CM ---
Patient seen at bedside in IMU. Patient is LTC with private pay per Adonay who is covering for Milla in admissions. Patient normally uses the wheelchair for transport, but is able to walk with walker for short distances, patient can stand pivot
transfer independently and uses the bathroom, with cueing and reminders from staff per Adonay. Patient engaged with horses and their care, patient loves [place]ia and her Guardian indicated that she previously lived on a [place] farm owned by a friend.
Patient currently is in 4 point restrains and with mask due to spitting. Patient Guardian indicated that he would like patient to return to SNF, and Adonay indicated that he would be reaching out to Guardian as patient was currently private pay.
Patient would be able to return to SNF per Admissions, pending bed hold and bed availability. Patient would need aetna auth to return. Patient has friends from prior neighborhood that do come to visit and have expressed concerns about purple
bruising and wrist color. CM will update physician. CM will continue to follow for discharge planning needs.
Plan; return to SNF pending bed availability and patient will need auth from [employer]et[employer]
--- NOTE | 2024-03-17 10:54 | PTCARENOTE ---
IV rate change ordered-decreased to 80/hr.
--- NOTE | 2024-03-17 12:36 | CON.MD ---
Consultation - Medical
-
patient seen chart reviewed. discussed with nursing and with vu/dr devine. the patient is known to me from prior admits to . she was last seen by this aligner typewriter in september of 2023 at that time there were concerns about her ability to live
alone. dementia was suspected. she did refuse to do a moca with me. she had been known to wander about the neighborhood at night. she was very confused. since that time a guardian has been court appointed for her. [facility]. she was brought to for bradycardia and has had periods of agitation. she is prescribed risperdal o.25 mg q am and one mg q hs she also takes memantine 5 mg daily and trazodone 75 mg q hs ( not continued here ) she was given haldol in the
ED for agitation. at present she is not in restraints. she is sleeping very soundly. i made several efforts to awaken her to no avail. she was sitting at the bedside with an electronic warming blanket around her. her heart rate was over sixty and
vital signs otherwise appeared okay.
past medical hx patient w hx ovarian cancer w resection gerd hx small bowel obstruction dhd frequent falls osteoporosis and compression fx htn gout it is noted in the [place] that patient has persistent cought (lisinopril???)
past psych hx from past record there is no hx of depression or anxiety but likely dementia w behavioral disturbance. i did note last admit she appeared paranoid but nursing tells me she did not note paranoia this admission although patient was
irritable
fh not known
social hx from my old record patient resided w a dear friend for half a century. when that friend she left [facility] romero well cared for but much of the money was lost for a variety of reasons including a scam.
mse unable to assess as efforts to rouse patient did not prove fruitful
dx dementia with behavioral distrubance
recommendations given how sedated she is right now would stop am risperdal. i decreased to prn from o.5 to o.25. if she continues to need it would then reinstate it. continue w hs risperdal for now. noted she had been taking trazodone while in [place]
would hold off on this given possible impact on sedation cognition dizziness etc. memantine is at a low dose and could be increased at some point in the future. consider alternative for lisinopril if ongoing cough. she was not coughing when i saw
her. will follow
--- NOTE | 2024-03-17 13:41 | W.PN.UPDATE ---
Update Note
Progress Note Update
Called and left a message for her guardian, Vijay Freeman, asking for a call back to give an update on patient. In the meantime patient with resting bradycardia and HRs 34 bpm while seated in chair. Asked nursing to apply 2 L NC and keep HOB
elevated while in bed napping/sleeping. Advised lower rate limit be reduced to 35 bpm on monitor alarm settings.
--- NOTE | 2024-03-17 14:47 | PTCARENOTE ---
Pt continues with bradycardia while dozing in chair, alarming in the low 30s. Plan discussed with Dr. Casillas and Cards, will add 2L 02 and elevate HOB, lower alarm limits. Continuing to monitor, chair alarm in place and activated.
--- NOTE | 2024-03-17 15:44 | PTCARENOTE ---
Pt again agitated and trying to get up from chair, unable to reorient, trying to scratch and bite staff, contacted for new restraint order. Clean and ready bed on 4th floor assigned. Will call report.
--- NOTE | 2024-03-17 15:51 | PTCARENOTE ---
Report called to 4th floor [facility], will send pt up on stretcher.
--- NOTE | 2024-03-17 17:15 | PTCARENOTE ---
received from IMU into room 421. VSS. NSR on telemetry. received w/ IVF infusing per order, and 4 soft limb restraints, and 4 rails. Uncooperative. threatening to hit staff with telemetry equipment. Remote video monitoring initiated d/t safety.
Repositioned for comfort.
[2024-03-17] MEDS: NAMENDA 5 MG PO (21:28)
[2024-03-18] VITALS (7 sets, daily range): BP systolic 99–160; BP diastolic 37–72
[2024-03-18] MEDS: NORVASC 10 MG PO (08:06)
--- NOTE | 2024-03-18 08:29 | PTCARENOTE ---
Assumed care at 0700. VSS. NSR/SB, 50-60bpms on telemetry. Oriented to self only. Pleasantly contributes to conversation, although confused conversation. Taken out of restraints. Bed alarm on. Plan of care ongoing.
[2024-03-18 08:36] LABS: Hematocrit 27.4 % (37.0-47.0); Hemoglobin 8.8 g/dL (12.0-16.0); Mean Corp Hgb Conc. 32.1 g/dL (33.0-37.0); Mean Corpuscular Volume 90.4 fL (81.0-99.0); Mean Platelet Volume 10.7 fL (7.4-10.4); Platelet Count 167 10^3/uL (130-400); Red Blood Cell Count 3.03 10^6/uL (4.20-5.40); Red Cell Dist. Width 15.1 % (11.5-14.5); White Blood Cell Count 5.4 10^3/uL (4.8-10.8)
[2024-03-18 09:50] LABS: Blood Urea Nitrogen 28 mg/dl (7-17); Calcium 8.5 mg/dl (8.4-10.2); Carbon Dioxide 18 mmol/L (22-30); Chloride 122 mmol/L (98-107); Estimated Creatinine Clearance 30 ml/min; Glucose 68 mg/dl (70-99); Magnesium 1.8 mg/dl (1.6-2.3); Potassium 5.3 mmol/L (3.5-5.1); Sodium 142 mmol/L (135-145)
--- NOTE | 2024-03-18 09:50 | W.PN.UPDATE ---
Update Note
Progress Note Update
it has been documented albeit not frequently that memantine can cause bradycardia. since it is unlikely that 5 mg would make a difference re dementia have dc'ed memantine.
--- NOTE | 2024-03-18 11:28 | W.PN.UPDATE ---
Update Note
Progress Note Update
patient seen chart reviewed. spoke with dr devine and ms herndon. spoke to nursing. saw patient only briefly as nursing was helping her to go to (will returnt his afternoon to see her again). the patient was cooperating w nursing staff but
earlier today had become very agitated and combative. discussed w dr devine adding back am dose of risperdal o.25 mg which had been dc'ed as she seemed sedated when seen yesterday.she was certainly not sedated this am. also noted renewed
bradycardia. have dc'ed memantine which has albeit rarely been reported to have caused bradycardia.
--- NOTE | 2024-03-18 12:55 | W.PN.HOSP.TC ---
Today's Communication/Plan
-
hopeful d/c back to SNF in AM
Assessment / Plan
Assessment / Plan
pt is an 83 year old female
PEDRO on CKD III with Hyperkalemia and Non-Gapped Metabolic Acidosis--Physical exam and labs are suggestive of volume contraction--IVF stopped--creat down to 1.3--anticipate d/c back to SNF in AM --holding lisinopril
Bradycardia - Apparently asymptomatic sinus bradycardia as patient alert / agitated on arrival- POA has requested Cardiology evaluation per discussion with ED staff-- Will hold trazodone for now as this appears to be the newest medication--no
indication for pacemaker
Senile Dementia with Behavioral Disturbance - Patient agitated, combative and uncooperative with care here in the ED- Attempted unsuccessfully to reach POA to discuss goals of care / risks:benefits of inpatient evaluation- Continue outpatient
risperidone with PRN dosing as needed for increased agitation- Hold nightly trazodone for now as noted above-apprec Psych evaluation for additional recommendations / medication adjustments.
DVT Prophylaxis: SCDs
Code Status: DNR per NH record and POA
.
Anticipated Discharge: Within 24 hours
Subjective/Interval History
-
Date of Service: March 18, 2024
pt sitting in the chair, wants to go home--out of restraints since 8:30 this AM
Objective Data
-
Labs:
Laboratory Results
03/18/24
07:42
WBC 5.4
Hgb 8.8 L
Hct 27.4 L
Plt Count 167
Sodium 142
Potassium 5.3 H
Chloride 122 H
Carbon Dioxide 18 L
BUN 28 H
Creatinine 1.3 H
Glucose 68 L
Calcium 8.5
Vital Signs:
max temp for 24 hours
03/17/24
23:29
Temp 97.4 F
Vital Signs
Temp Pulse Resp BP Pulse Ox
97.2 F 43 18 99/37 97
03/18/24 08:00 03/18/24 11:03 03/18/24 11:03 03/18/24 11:03 03/18/24 11:03
I&O
03/17/24 03/18/24 03/19/24
06:59 06:59 06:59
Intake Total 800 / 800 120 / 120
Output Total 200 / 200 1025 / 1025
Balance 600 / 600 -905 / -905
Review of Systems
-
Unable to obtain full review of systems at this time due to: Dementia
Physical Exam
-
General: Well Developed and No Apparent Distress
HEENT: Normocephalic and Atraumatic
Respiratory: Clear to Auscultation; Negative Wheezes or Rhonchi
Cardiac: Regular Rhythm and S1/S2; Negative Murmur
GI: Soft, Nontender, Nondistended and Normal Bowel Sounds
Musculoskeletal: No Clubbing, No Cyanosis and No Edema
Neuro: Awake and Alert
Psych: Calm
[2024-03-18] MEDS: DESENEX/MITRAZOL/ZEASORB 1 APPLIC TOPICAL ×2 (13:08→19:53)
--- NOTE | 2024-03-18 13:43 | W.PN.CARDCBS ---
Addendum entered and electronically signed by Jacques Sam MD 03/18/24 15:40:
I saw and examined the patient.
The Flatwork Folder's note was reviewed and I agree with the note.
Comment:
GEN: No distress, awake, demented
HEENT: supple, anicteric, mmm
LUNGS: CTA, no wheezes/rales
CV: Reg, S1/S2, 1/6 syst LSB, no gallop
ABD: soft, BS+, NT/ND
EXT: No edema
NEURO: not following commnds
SKIN: No rash
Plan:
I reviewed telemetry and she does have some 3-second pauses with sinus bradycardia. At this point though with her mental status we will hold off on pacemaker placement.
Will follow on telemetry for another 24 hours. If everything is stable okay to go back to [facility] in AM
Potassium is back down to 5.3. Creatinine improved at 1.3
Original Note:
Today's Communication / Plan
-
Follow on tele, if ongoing pauses then will ask EP to eval
Less agitated today
Impression / Plan
-
PCP: Ronni JAVA SUPPORT ENGINEER at [facility]
Cardiology: Dr. Do, last seen 2021
Impression:
Sinus bradycardia
Hyperkalemia
PEDRO on CKD 3
Agitation with h/o dementia
h/o syncope 2021
Former smoker
h/o ovarian cancer local disease treated with FRANKY-BSO for cure 1999
Plan:
-Patient with periods of sinus bradycardia and sinus pauses under 4 seconds, it is not obvious that this is associated with any symptoms. If patient has more pauses then will ask EP to evaluate in AM.
-No high grade heart block.
-Patient was not taking AV perry blockers prior to admission.
-Remains hyperkalemic. Lisinopril stopped on admission.
-B/L hand and wrist ecchymosis. Guardian says that he and other visitors noticed this prior to admission. Patient says that bruising is from being pulled up at her hands and wrists by staff where she lives. Not sure if this is true given dementia.
Will pass along to CM.
-Talked with patient's court appointed guardian, Vijay Whitey, about tele findings. Patient was severely agitated and required Haldol IM plus 4 point restraints on admission, but better now. Not sure that patient would be agreeable to a pacer
and not sure that she would be able to follow post-implant limb restrictions given her baseline dementia with agitation.
HPI: Patient came to [facility] from [facility] last evening for bradycardia and cardiology has been consulted. Patient has no family that we know of and previously lived on a large farm that was left to her by a friend, the friend also left her money
to care for herself and the farm, but the patient lost money in a scam and during an admission 03/2023 and then readmission 09/2023 the patient was placed at [facility] as she could no longer care for herself and was found to be incompetent to
make decisions. She now has a court appointed guardian. Patient was seen by psychiatry during those admissions and has a diagnosis of likely dementia with agitation. Patient's HR was reportedly low at SNF and she was sent to [facility] with symptoms of
'full head' per nursing staff, but patient is a poor historian and cannot confirm or deny those symptoms now. Patient has a h/o syncope in 2021 that was evaluated at [facility] and patient ended up refusing treatment at that time. ECG in the ER showed
sinus bradycardia and overnight tele reviewed and there are less than 2 second pauses with appropriated increases in HR with periods of activity/agitation. Patient has been in 4 point restraints overnight and received Haldol 5 mg IM x1 03/16/24 plus
Risperdal 1 mg PO x1 late last night.
Progress Note - Vice President Marketing & Development
Subjective
Date of Service: March 18, 2024
Denies feeling lightheaded
Objective
Labs:
03/18/24 07:42
03/18/24 07:42
Labs
Hgb 8.8 g/dL (12.0-16.0) L 03/18/24 07:42
Hct 27.4 % (37.0-47.0) L 03/18/24 07:42
Plt Count 167 10^3/uL (130-400) 03/18/24 07:42
Sodium 142 mmol/L (135-145) 03/18/24 07:42
Potassium 5.3 mmol/L (3.5-5.1) H 03/18/24 07:42
BUN 28 mg/dl (7-17) H 03/18/24 07:42
Creatinine 1.3 mg/dL (0.6-1.0) H 03/18/24 07:42
Glucose 68 mg/dl (70-99) L 03/18/24 07:42
Vital Signs and I&O:
Vital Signs
Temp Pulse Resp BP Pulse Ox
97.2 F 43 18 99/37 97
03/18/24 08:00 03/18/24 11:03 03/18/24 11:03 03/18/24 11:03 03/18/24 11:03
Vital Signs
Temp Pulse Resp BP Pulse Ox
97.2 F 43 18 99/37 97
03/18/24 08:00 03/18/24 11:03 03/18/24 11:03 03/18/24 11:03 03/18/24 11:03
Intake & Output
03/16/24 03/17/24 03/18/24 03/19/24
06:59 06:59 06:59 06:59
Intake Total 800 / 800 120 / 120
Output Total 200 / 200 1025 / 1025
Balance 600 / 600 -905 / -905
Physical Exam
Physical Exam
GEN: Sitting in chair, pleasant, AAO to self
HEENT: EOMI, MMM
LUNGS: No audible wheeze
CV: SR to SB on tele
ABD: ND
EXT: B/L dorsal hand and wrist ecchymosis, nontender. No edema B/L
NEURO: Gross non-focal
SKIN: No rash
--- NOTE | 2024-03-18 14:00 | CM ---
Addendum entered by Adeline Welch 03/18/24 14:50:
Physician called to patient guardian and left VM requesting call back. ACM called to Amaury/Adonay at [facility] and left requesting call back to confirm discharge bed/plan for patient at [phone].
Original Note:
Patient seen at bedside with physician. Patient off of restraints as of 8:30 am today. CM will call with physician to guardian to update needs. CM will continue to follow for discharge planning needs.
Plan; return to [facility] pending confirmation of bed availability
[2024-03-18] MEDS: RISPERDAL ORAL SOLUTION 1 MG PO (21:54)
[2024-03-19 03:36] VITALS: BP 171/70
[2024-03-19 07:00] VITALS: BP 143/59
[2024-03-19 08:34] LABS: Blood Urea Nitrogen 32 mg/dl (7-17); Calcium 8.6 mg/dl (8.4-10.2); Carbon Dioxide 17 mmol/L (22-30); Chloride 119 mmol/L (98-107); Estimated Creatinine Clearance 28 ml/min; Glucose 74 mg/dl (70-99); Potassium 5.3 mmol/L (3.5-5.1); Sodium 141 mmol/L (135-145); eGFR 36.87
[2024-03-19] MEDS: NORVASC 10 MG PO (09:34)
[2024-03-19] MEDS: RISPERDAL ORAL SOLUTION 0.25 MG PO (09:34)
[2024-03-19] MEDS: DESENEX/MITRAZOL/ZEASORB 1 APPLIC TOPICAL (09:39)
[2024-03-19 11:00] VITALS: BP 108/37
--- NOTE | 2024-03-19 11:01 | CM ---
Addendum entered by Adeline Welch 03/19/24 14:10:
CM spoke with Adonay about patient insurance status and facility to assess patient if needed upon return
Addendum entered by Adeline Welch 03/19/24 12:57:
CM left VM for Amaury and spoke with Adonay and reviewed plan for discharge back to SNF.
Addendum entered by Adeline Welch 03/19/24 12:42:
Guardian here and signed IMM, form placed on chart. Clinicals sent to SNF [phone]/fax [phone]. Pending time re ambulance and CM called and left VM for admissions at [facility].
Original Note:
CM observed patient, patient off restraints independently went to bathroom. CM spoke with Amaury from Admissions and will send clinicals via all scripts. CM and physician to call guardian with update and CM will continue to follow for discharge
planning needs.
Plan; return to [facility]
--- NOTE | 2024-03-19 11:57 | W.PN.UPDATE ---
Update Note
Progress Note Update
patient seen chart reviewed. discussed with nursing. the patient has been pleasant for the most part and cooperative. she was easily rousable when i saw her . her tray had been delivered and she said she wanted to eat. placed tray in front of her
and she began to eat quite happily. i suggested to her that she might be dc in the near future and she said that was good! noted there were more episodes of bradycardia yesterday w a three second pause and she was to be monitored for another day or
so. risperdal seems to be stabilizing her mood. trazodone dc'ed. no changes made in psych meds.
--- NOTE | 2024-03-19 12:29 | W.PN.HOSP.TC ---
Today's Communication/Plan
-
d/c
Assessment / Plan
Assessment / Plan
pt is an 83 year old female
PEDRO on CKD III with Hyperkalemia and Non-Gapped Metabolic Acidosis--Physical exam and labs are suggestive of volume contraction--IVF stopped--creat down to 1.3-- d/c back to SNF--holding lisinopril, would stop at d/c
Bradycardia - Apparently asymptomatic sinus bradycardia as patient alert / agitated on arrival- POA has requested Cardiology evaluation per discussion with ED staff-- trazodone stopped --no indication for pacemaker
Senile Dementia with Behavioral Disturbance - Patient agitated, combative and uncooperative with care here in the ED- Attempted unsuccessfully to reach POA to discuss goals of care / risks:benefits of inpatient evaluation- Continue outpatient
risperidone with PRN dosing as needed for increased agitation- Hold nightly trazodone for now as noted above-apprec Psych evaluation for additional recommendations / medication adjustments.
DVT Prophylaxis: SCDs
Code Status: DNR per NH record and POA
did speak with guardian--ok with transfer back
Anticipated Discharge: Today
Subjective/Interval History
-
Date of Service: March 19, 2024
pt happy to be discharged
Objective Data
-
Labs:
Laboratory Results
03/19/24
06:55
Sodium 141
Potassium 5.3 H
Chloride 119 H
Carbon Dioxide 17 L
BUN 32 H
Creatinine 1.4 H
Glucose 74
Calcium 8.6
Vital Signs:
max temp for 24 hours
03/19/24
03:36
Temp 97.5 F
Vital Signs
Temp Pulse Resp BP Pulse Ox
96.4 F L 40 20 108/37 97
03/19/24 11:00 03/19/24 11:00 03/19/24 11:00 03/19/24 11:00 03/19/24 11:00
I&O
03/18/24 03/19/24 03/20/24
06:59 06:59 06:59
Intake Total 120 / 120 1360 / 1360
Output Total 1025 / 1025
Balance -905 / -905 1360 / 1360
Review of Systems
-
All other systems: Reviewed and negative
Physical Exam
-
General: Well Developed, Well Nourished and No Apparent Distress
Respiratory: Clear to Auscultation; Negative Wheezes or Rhonchi
Cardiac: Regular Rhythm and S1/S2; Negative Murmur
GI: Soft, Nontender, Nondistended and Normal Bowel Sounds
Musculoskeletal: No Clubbing, No Cyanosis and No Edema
--- NOTE | 2024-03-19 14:08 | W.PN.CARDCBS ---
Addendum entered and electronically signed by Laura Solo DO 03/19/24 17:01:
The [employer] Screwhead's note was reviewed and I agree with the note.
Comment: Patient was being discharged back to [facility] prior to my evaluation. Reviewed physician appeals assistant note and plan.
Asymptomatic pauses with sinus bradycardia with advanced dementia
Pauses under 4 seconds, mostly under 3 seconds with no advanced heart block
Avoid all AV perry blocking agents
No class I indication for permanent pacemaker placement
No further lisinopril at time of discharge
Recommend outpatient cardiac follow-up
Original Note:
Today's Communication / Plan
-
Stable for d/c from cardiology standpoint
AVOID all AV perry blocking agents given bradycardia
Would keep off Lisinopril at d/c
Impression / Plan
-
PCP: Ronni MOJICA at [facility]
Cardiology: Dr. Do, last seen 2021
Impression:
Presented 03/16/2024 with bradycardia/low heart rate
Sinus bradycardia
Hyperkalemia
PEDRO on CKD 3
Agitation with h/o dementia
h/o syncope 2021
Former smoker
h/o ovarian cancer local disease treated with FRANKY-BSO for cure 1999
Plan:
-Patient with periods of sinus bradycardia and sinus pauses under 4 seconds, appears to be asymptomatic
-No high grade heart block.
-With her mental status we will hold off on pacemaker placement at this time
-Avoid AV perry blockers
-Hyperkalemia K+ 5.3 and creat 1.4 improving. Lisinopril stopped on admission. Would not restart on d/c
-Continue Amlodipine for HTN
HPI: Patient came to [facility] from [facility] last evening for bradycardia and cardiology has been consulted. Patient has no family that we know of and [place] left to her by a friend, the friend also left her money
to care for herself and the farm, but the patient lost money in a scam and during an admission 03/2023 and then readmission 09/2023 the patient was placed at [facility] as she could no longer care for herself and was found to be incompetent to
make decisions. She now has a court appointed guardian. Patient was seen by psychiatry during those admissions and has a diagnosis of likely dementia with agitation. Patient's HR was reportedly low at [facility] and she was sent to [facility] with symptoms of
'full head' per nursing staff, but patient is a poor historian and cannot confirm or deny those symptoms now. Patient has a h/o syncope in 2021 that was evaluated at [facility] and patient ended up refusing treatment at that time. ECG in the ER showed
sinus bradycardia and overnight tele reviewed and there are less than 2 second pauses with appropriated increases in HR with periods of activity/agitation. Patient has been in 4 point restraints overnight and received Haldol 5 mg IM x1 03/16/24 plus
Risperdal 1 mg PO x1 late last night.
Progress Note - Forensic Investigator
Subjective
Date of Service: March 19, 2024
Patient seen and examined. Patient pleasant sitting in chair doing word search. She offers no complaints
Objective
Labs:
03/18/24 07:42
03/19/24 06:55
Labs
Hgb 8.8 g/dL (12.0-16.0) L 03/18/24 07:42
Hct 27.4 % (37.0-47.0) L 03/18/24 07:42
Plt Count 167 10^3/uL (130-400) 03/18/24 07:42
Sodium 141 mmol/L (135-145) 03/19/24 06:55
Potassium 5.3 mmol/L (3.5-5.1) H 03/19/24 06:55
BUN 32 mg/dl (7-17) H 03/19/24 06:55
Creatinine 1.4 mg/dL (0.6-1.0) H 03/19/24 06:55
Glucose 74 mg/dl (70-99) 03/19/24 06:55
Vital Signs and I&O:
Vital Signs
Temp Pulse Resp BP Pulse Ox
96.4 F L 40 20 108/37 97
03/19/24 11:00 03/19/24 11:00 03/19/24 11:00 03/19/24 11:00 03/19/24 11:00
Vital Signs
Temp Pulse Resp BP Pulse Ox
96.4 F L 40 20 108/37 97
03/19/24 11:00 03/19/24 11:00 03/19/24 11:00 03/19/24 11:00 03/19/24 11:00
Intake & Output
03/17/24 03/18/24 03/19/24 03/20/24
06:59 06:59 06:59 06:59
Intake Total 800 / 800 120 / 120 1360 / 1360
Output Total 200 / 200 1025 / 1025
Balance 600 / 600 -905 / -905 1360 / 1360
Physical Exam
Physical Exam
GEN: No distress, awake, demented
HEENT: supple, anicteric, mmm
LUNGS: CTA, no wheezes/rales
CV: Reg, S1/S2, 1/6 syst LSB, no gallop
ABD: soft, BS+, NT/ND
EXT: No edema
NEURO: Pleasantly demented but cooperative, follows simple commands
SKIN: No rash
[2024-03-19 14:45] VITALS: BP 105/43
--- NOTE | 2024-03-19 17:10 | W.DCSUMMARY ---
Discharge Summary
Discharge Data
Date of Admission: 03/16/24
Date of Discharge: 03/19/24
-
Pending Results: No
Hospital Course
Primary care physician : Not Listed
Principal Discharge diagnosis : Acute kidney injury on chronic kidney disease stage III with hyperkalemia and nongap metabolic acidosis, bradycardia
Chronic Discharge diagnosis : Senile dementia with behavioral disturbance
Hospital Course : Patient was an 83-year-old female who presented for an evaluation of a low heart rate. Patient was noted to be in sinus bradycardia with rates into the 30s. This did improve without treatment back to normal sinus rhythm. Patient
was agitated, aggressive, and combative to the point of hitting, kicking, and spitting at the staff. Case was discussed with the patient's court appointed guardian who requested cardiology evaluation. Patient was admitted.
Problem #1: Bradycardia. This was the admitting problem. This apparently was asymptomatic sinus bradycardia. Trazodone was stopped. Namenda was stopped. She was seen in consultation by cardiology. Hyperkalemia was thought to be contributing to
the bradycardia. There was no indication for a pacemaker. It is recommended that she avoid all AV perry blocking agents and follow-up with cardiology as an outpatient.
Problem #2: Acute kidney injury on chronic any disease stage III. Patient appeared dehydrated on exam and had lisinopril. This was likely causing hyperkalemia. With holding lisinopril and giving IV fluids, numbers did improve. She was not
discharged on lisinopril and should remain off of it at this time.
Problem #3: Senile dementia with behavioral disturbance. Patient was intermittently aggressive during her hospitalization requiring restraints. Psychiatry was consulted and the patient's medications were adjusted. Restraints were able to come off
24 hours prior to discharge. Patient was cooperative without any further behavioral issues.
Patient is stable for discharge back to her nursing facility at this time. We did speak with her court appointed guardian on the day of discharge. If there are any questions regarding this dictation or her hospital stay, please do not hesitate to
call. Our office number is [phone].
Time for discharge 32 minutes.
Discharge Plan
-
Patient Disposition: Jail/SNF
Discharge Diagnosis/Procedures: Acute kidney injury on chronic kidney disease stage III with hyperkalemia and nongap metabolic acidosis, bradycardia, senile dementia with behavioral disturbance
Condition: Good
Diet: As tolerated
Activity: As tolerated
Driving Restrictions: No driving
Bathing Restrictions: None
Activity Restrictions/Additional Instructions:
-Don't pull on wrists or hands to help with bruising and healing.
Referrals:
UNKNOWN - PT DOES,NOT KNOW [Family Provider] - in less than 1 week
Prescriptions:
New
miconazole nitrate [Miconazorb AF] 2 % Powder
1 applic topical BID Qty: 0 0RF
risperidone 1 mg/mL Solution
0.25 mg PO DAILY Qty: 0 0RF
Continued
amlodipine 10 mg Tablet
10 mg PO DAILY Qty: 30 1RF
acetaminophen [Tylenol] 325 mg Tablet
650 mg PO Q6HPRN PRN (Reason: mild pain)
acetaminophen 650 mg Suppository
650 mg WV Q4HPRN PRN (Reason: moderate pain/temp>100)
melatonin 5 mg Tablet
10 mg PO HS
dextromethorphan-guaifenesin 10-100 mg/5 mL Syrup
10 ml PO Q4HPRN PRN (Reason: cough)
calcium carbonate [Calcium 600] 600 mg calcium (1,500 mg) Tablet
600 mg PO DAILY
risperidone 1 mg/mL solution
1 mg PO DAILY
Discontinued
risperidone 1 mg/mL solution
0.25 mg PO DAILY
trazodone 50 mg tablet
75 mg PO QPM
lisinopril 20 mg tablet
20 mg PO DAILY
memantine 5 mg tablet
5 mg PO HS
Discharge Orders:
Discharge Patient (As Directed); Ordered 03/19/24
Ordered By: Vika Casillas
Discharge Date and Time
Discharge Date/Time: 03/19/24 17:08
Print Language: TURKMEN
== END 2024-03-19 17:08 | DRG 683 ==
LOC: 4 WEST ACU 23:27
PROVIDERS: Nurse Practitioner; ADMITTING PHYSICIAN Hospitalist; ATTENDING PHYSICIAN Internal Medicine; CONSULT PHYSICIAN Internal Medicine Cardiovascular Disease; CONSULT PHYSICIAN Psychiatry & Neurology Psychiatry; EMERGENCY PHYSICIAN Student in an Organized Health Care Education/Training Program
DX: N17.9 Acute kidney failure, unspecified (principal); E87.20 Acidosis, unspecified; F03.918 Unspecified dementia, unspecified severity, with other behavioral disturbance; F03.911 Unspecified dementia, unspecified severity, with agitation; E87.5 Hyperkalemia; N18.30 Chronic kidney disease, stage 3 unspecified; I12.9 Hypertensive chronic kidney disease with stage 1 through stage 4 chronic kidney disease, or unspecified chronic kidney disease; R00.1 Bradycardia, unspecified; E86.0 Dehydration; K21.9 Gastro-esophageal reflux disease without esophagitis; Z66 Do not resuscitate; Z85.43 Personal history of malignant neoplasm of ovary; Z87.891 Personal history of nicotine dependence
CPT/HCPCS: 80048; 80053; 83735; 84443; 85025; 85027; 87070; 87147; 93005; 96372; 96374; 97163; 97167; 97530; 99285

== ENCOUNTER 2024-05-26 11:26 | Inpatient (IN) | payer MEDICARE, SELFPAY ==
[2024-05-26] VITALS (12 sets, daily range): BP systolic 100–137; BP diastolic 40–51; BMI 19.8; BMI 19.1
--- NOTE | 2024-05-26 08:30 | EDRN ---
Patient's pulse ox on room air 88-90%. Placed on O2 2LNC. notified at bedside.
--- NOTE | 2024-05-26 08:35 | ED.GENMED ---
History of Present Illness
General
Chief Complaint: Fall
Source: patient and records
Time Seen by Provider: 05/26/24 08:13
History of Present Illness
History of Present Illness:
83-year-old female who reportedly had a fall while walking earlier this morning witnessed by roommate. Patient did not have head injury or loss of consciousness but is reportedly describing right leg pain. No other symptoms identified.
Past History
Past History
ED Past Medical History: Cancer (Ovarian), GERD and Other (Small bowel obstruction, osteoarthritis, dementia, osteoporosis, CKD, hypertension, ovarian neoplasm)
ED Past Surgical History: Appendectomy, Gynecological (Hysterectomy, ovarian cancer), Orthopedic (Right knee) and Tonsilectomy
Social History
Tobacco: Non-smoker
Alcohol: None
Drug: None
Personal: Single
Living: jail
Family History
Family History: Other (Noncontributory)
Phy Exam
Physical Exam
Physical Exam:
GENERAL: Awake , in no apparent distress,pleasant
EYE: R pupil round and reactive, L pupil asx
NECK: Supple, no significant adenopathy, no midline ttp.
ENT: o/p clr, mmm, no castillo/raccoon, no signs head/facial inj.
CARDIAC: Regular rate and rhythm .
LUNGS: Noted breath sounds bilaterally but sl decreased L base, no acute respiratory distress, no wheezes/rales, scattered rhonchi noted
ABDOMEN: Soft, without focal tenderness, no r/g, no cvat
NEUROLOGICAL: awake but not fully oriented, is able to communicate sxs (ex. 'That ferrera' while pointing to R hand wound from prior), maee
SKIN: Warm and dry, skin intact. Scattered small, aged bruises/abrasions noted R [place], le/ue bilat
MUSCULOSKELETAL: No edema, well perfused. FROM all extrem without perceived discomfort, no deformity. R LE in specific with FROM, no shortening/rotation, nontender to palpation, no swelling/erythema/deformity
PSYCH: Normal and appropriate interaction.
Course
Orders/Labs/Results
Orders:
Orders
05/26/24 08:40
CR Chest - 2 Views Urgent
Comment:
Reason For Exam: covid, mild hypoxia
Hip, Right 2-3 Views [CR Hip - RT w/wo Pel 2-3 Vw*] Urgent
Comment:
Reason For Exam: fall
Include a pelvis x-ray?: Yes
05/26/24 09:17
Electrocardiogram (*1) Stat
Reason for Study: Other
Other Reason for Exam: pneumonia
Cardiac Monitoring- Treatment ONCE
EKG- Treatment ONCE
05/26/24 09:32
Complete Blood Count/No Diff Urgent
Comprehensive Metabolic Panel Urgent
NT-proBNP Urgent
Troponin I Urgent
05/26/24 Lunch
Cholesterol Lowering
At Your Request: Non-Participating
Does patient need a safe tray?: No
Cholesterol Lowering: Sodium, 2 Gram
05/26/24 10:28
Azithromycin 500 mg/250 ml [Zithromax Infusion] 500 mg in 250 ml IV NOW
CefTRIAXone [Rocephin] 1,000 mg IV NOW STA
05/26/24 10:39
Sterile Water [Sterile Water For Injection] 10 ml .ROUTE .K-MED ONE
05/26/24 11:06
Admit/Transfer Patient As Directed
Co-Sign Provider:
Level of Care: Inpatient admission
Assign to:: Telemetry
Physician / Group: Dr Long
Diagnosis: Pneumonia
Reason for Telemetry: Arrhythmia
Date to Stop Telemetry: 05/29/24
Time to Stop Telemetry: 11:00
Reason for Hospitalization: pte p/w hypoxia and found pna and covid-19
Expected length of stay greater than two midnights?: Yes
ELOS- Estimated Length of Stay in days: 2
I certify the patient meets the requirements for IP care: Yes
PRN Pain Medication Management As Directed
May give lesser potent ordered pain med per pt: Yes
preference::
Protocol:: Medication orders for pain may be administered in a
manner that supports deferring to patient preference
when the pt is:
- Requesting an ordered lesser potent pain medication.
Least to most potent pain medications are defined
as: acetaminophen < NSAID < tramadol < opioids
(morphine, oxycodone, hydromorphone).
- Requesting a lesser dose of the same medication IF
ORDERED.
- Requesting a less intrusive route of administration
if both routes are prescribed by the provider (PO <
IV).
05/26/24 11:08
Code Status As Directed
Resuscitation Status: Do not resuscitate
Reached after discussion with pt or family/Healthcare POA: Yes
DNR Bracelet Application ONCE
05/26/24 11:19
INFECTIOUS DISEASE CONSULT Routine
Consulting Provider: Almaz Anne
Was physician already notified: Yes
Reason for consult: PNA and Covid-19 eval
05/26/24 12:56
Bisacodyl [Dulcolax] 10 mg RECTAL [id number] PRN
Docusate W/Senna [Senokot-S] 1 tablet PO BIDPRN PRN
Polyethylene Glycol Powder [Miralax] 17 grams PO DAILYPRN PRN
05/26/24 12:56
Activity As Directed
Activity Level: Out of Bed-Early Mobility
Vital Signs As Directed
Frequency: Per unit guidelines
O2 Therapy [RESP] Routine
Titrate/Wean O2 to maintain O2 sat greater than (%): 94
DX Deep Vein Thrombosis Video Routine
05/26/24 16:00
Heparin 5,000 units SC Q8
05/26/24 22:00
Memantine HCl [Namenda] 5 mg PO HS
Trazodone [Desyrel] 50 mg PO HS
05/27/24 06:00
Basic Metabolic Panel IN AM
Complete Blood Count/With Diff IN AM
05/27/24 08:00
Amlodipine [Norvasc] 5 mg PO DAILY
Risperidone [Risperdal Oral Solution] 0.25 mg PO DAILY
Risperidone [Risperdal Oral Solution] 1.25 mg PO DAILY
05/29/24 11:00
DC Protocol for Telemetry ONCE
Abnormal Lab Results
05/26/24
09:32
RBC 3.38 L 10^6/uL
(4.20-5.40)
Hgb 9.4 L g/dL
(12.0-16.0)
Hct 28.9 L %
(37.0-47.0)
MCHC 32.5 L g/dL
(33.0-37.0)
RDW 15.9 H %
(11.5-14.5)
MPV 10.6 H fL
(7.4-10.4)
Chloride 112 H mmol/L
(98-107)
BUN 36 H mg/dl
(7-17)
Creatinine 1.4 H mg/dL
(0.6-1.0)
Calcium 8.2 L mg/dl
(8.4-10.2)
Total Protein 5.9 L g/dl
(6.3-8.2)
Albumin 2.6 L g/dl
(3.5-5.0)
05/26/24 09:32
05/26/24 09:32
Vital Signs
Initial and Last Documented VS:
Initial Vital Signs
BP
120/48
05/26/24 08:13
Last Documented Vital Signs
Temp Pulse Resp BP Pulse Ox
95.2 F L 61 18 124/49 96
05/26/24 14:00 05/26/24 13:25 05/26/24 13:25 05/26/24 13:25 05/26/24 13:25
*Critical Care Note
Total Time (30-74mins, 75-104mins- exclusive of procedures): Not Applicable
Update Note
Update Note:
Patient presents to the Emergency Department with fall from standing
Number and Complexity of Problems Addressed at the Encounter
� Chronic conditions affecting care:
� Acute Exacerbation and/or Progression of Chronic Illness:
� Differential Diagnosis includes: But not limited to fracture, contusion, closed head injury, etc. etc.
Amount and/or Complexity of Data to be Reviewed and Analyzed
� I performed an independent evaluation of and my interpretation is:
EKG:read by me, sinus alden, lvh, no acute ischemia
CT:
Xrays:L base pna, hip xray neg
Laboratory Studies:baseline anemia, ckd, bnp elevated, trop wnl
Other:
� Review of other/old records reveals: d/c summary from March reviewed, pt admitted with bradycardia/HyperK, baseline CKD.
� Clinical information was obtained by an independent historian: half-way records briefly reviewed. Patient is not on anticoagulation that I am able to note on her medication list attached.
� Prescriptions/Medications Considered but not given:
� Further testing considered but not performed: Consideration for closed head injury/cervical fracture however given patient's exam and witnessed fall, suspect extremely unlikely, no signs of head or facial injury noted on exam
nontender cervical exam, patient able to communicate pain, etc.
Risk of Complications and/or Morbidity or Mortality of Patient Management
� Social determinants of health affecting care:
� Discussion with other providers (PCP, Hospitalists, Consultants, etc):
� Escalation of care including admission/observation vs risk of discharge considered: Pt COVID +, s/p fall, now with mild hypoxia and pna noted. Will begin abx, admit for oxygen and further care. TT sent to hospitalist 1031 am
ED Attending Note
-
Portions of this chart may have been created with voice recognition software.� Occasional wrong word or��sound alike� substitutions may have occurred due to the inherent limitations of voice recognition software.
Discharge Plan
Departure
Patient Disposition: Admit
Date of Disposition: 05/26/24
Time of Disposition: 10:31
Admit to: Med/Surg
Presentation/result/management discussed w/ accepting MD/DO: Hospitalist
Condition: Fair
Discharge Problem:
Pneumonia
Interventions
Interventions:
*Risk Screen - Suicide Last Done: 05/26/24 08:14
*General Assessment Last Done: 05/26/24 08:27
*Neglect/Abuse Screening Last Done: 05/26/24 08:14
ED- Fall Risk Assessment Last Done: 05/26/24 08:23
*ED COVID-19 Vaccine History Last Done: 05/26/24 08:14
*Nursing Disposition Last Done: 05/26/24 12:50
ED-Musculoskeletal Assessment Last Done: 05/26/24 08:23
ED- Neurological Assessment Last Done: 05/26/24 08:23
ED-Skin Assessment Last Done: 05/26/24 08:23
Discharge Date and Time
Discharge Date/Time: 05/26/24 12:50
[2024-05-26 10:00] LABS: Hematocrit 28.9 % (37.0-47.0); Hemoglobin 9.4 g/dL (12.0-16.0); Mean Corp Hgb Conc. 32.5 g/dL (33.0-37.0); Mean Corpuscular Hgb 27.8 pg (27.0-31.0); Mean Corpuscular Volume 85.5 fL (81.0-99.0); Mean Platelet Volume 10.6 fL (7.4-10.4); Platelet Count 212 10^3/uL (130-400); Red Blood Cell Count 3.38 10^6/uL (4.20-5.40); Red Cell Dist. Width 15.9 % (11.5-14.5); White Blood Cell Count 6.1 10^3/uL (4.8-10.8)
[2024-05-26 10:07] LABS: ALT (SGPT) 14 U/L (0-35); AST (SGOT) 23 U/L (14-36); Albumin 2.6 g/dl (3.5-5.0); Alkaline Phosphatase 86 U/L (38-126); Blood Urea Nitrogen 36 mg/dl (7-17); Calcium 8.2 mg/dl (8.4-10.2); Carbon Dioxide 23 mmol/L (22-30); Chloride 112 mmol/L (98-107); Estimated Creatinine Clearance 26 ml/min; Glucose 90 mg/dl (70-99); Potassium 4.5 mmol/L (3.5-5.1); Sodium 144 mmol/L (135-145); Total Bilirubin 0.2 mg/dl (0.2-1.3); Total Protein 5.9 g/dl (6.3-8.2); eGFR 36.87
[2024-05-26 10:10] LABS: NT-proBNP 1940 pg/ml; Troponin I < 0.012 ng/ml
[2024-05-26] MEDS: ZITHROMAX INFUSION 250 IV (10:41)
[2024-05-26] MEDS: ROCEPHIN 1000 MG IV (10:41)
--- NOTE | 2024-05-26 11:10 | HPS.HSE ---
Family Physician
-
Family Physician: Eusebio Daly
Chief Complaint
-
fall
History of Present Illness
Patient 83 years old female history of dementia with behavioral alterations in the past, sinus bradycardia evaluated by cardiology back in March and not requiring pacemaker, hypertension, came into the hospital after a fall. Patient unable to
provide accurate information due to her dementia. Most of information gathered from ER staff and medical records. Patient had a fall and no head injury or loss of consciousness but did describe some right leg pain. She had an x-ray of the hip in
the ER that shows no acute fractures. She also requiring oxygen supplementation and she had a chest x-ray that shows possible right infiltrate as well as COVID-19 positive. She was given antibiotics in the ED. She was referred to hospitalist
service for further elevation.
Medical History
Past Medical History
Past Medical History: Reports Other
Additional Past Medical History:
Hypertension
Senile Dementia with Behavioral Disturbance
Ovarian Cancer
Past Surgical History: Reports Other
Additional Past Surgical History:
None Known
Social History
Unable to obtain full social history at this time due to: Dementia
Family History
Family History: Not pertinent and Unable to Obtain
Allergies / Home Medications
Allergies reflects when Allergies were last updated in [facility].
Home Medications with original date entered in [facility]
Allergy/Medication List:
Allergies
Allergy/AdvReac Type Severity Reaction Status Date / Time
No Known Allergies Allergy Verified 05/26/24 08:23
Home Medications
acetaminophen 325 mg tablet (Tylenol) 650 mg PO Q6HPRN PRN mild pain 11/11/23
acetaminophen 650 mg rectal suppository 650 mg KS Q4HPRN PRN moderate pain/temp>100 11/11/23
melatonin 5 mg tablet 10 mg PO HSPRN PRN sleep 11/11/23
calcium carbonate (Calcium 600) 600 mg PO DAILY Supplement 03/16/24
dextromethorphan-guaifenesin 10 mg-100 mg/5 mL oral syrup (Expectorant DM) 10 ml PO Q4HPRN PRN cough 03/16/24
risperidone 1 mg/mL oral solution 1 mg PO DAILY Mental Health/Anxiety 03/16/24
risperidone 1 mg/mL oral solution 0.25 mg (0.25 mL) PO DAILY #0 mL 03/19/24
amlodipine 10 mg tablet 5 mg PO DAILY 05/26/24
lisinopril 10 mg tablet 10 mg PO DAILY 05/26/24
memantine 5 mg tablet 5 mg PO HS 05/26/24
mupirocin 2 % topical ointment 1 applic topical DAILY b/l le 05/26/24
trazodone 50 mg tablet 50 mg PO HS 05/26/24
Review of Systems
-
Unable to obtain full review of systems at this time due to: Dementia
Physical Exam
Vital Signs
Vital Signs
Temp Pulse Resp BP Pulse Ox
97.6 F 61 18 120/48 93
05/26/24 08:14 05/26/24 08:30 05/26/24 08:30 05/26/24 08:14 05/26/24 08:30
Physical exam:
General: Acutely ill
HEENT: Normocephalic, Atraumatic and Moist Mucous Membranes
Respiratory: Clear to Auscultation; Negative Wheezes, Rales or Rhonchi
Cardiac: Regular Rhythm and S1/S2
GI: Soft, Nontender and Nondistended
Musculoskeletal: No Clubbing, No Cyanosis and No Edema
Neuro: Awake, Alert and Disoriented
Psych: Calm
Physical Exam
General: Other
Laboratory Results
-
05/26/24 09:32
05/26/24 09:32
Laboratory Results
Total Bilirubin 0.2 mg/dl (0.2-1.3) 05/26/24 09:32
AST 23 U/L (14-36) 05/26/24 09:32
ALT 14 U/L (0-35) 05/26/24 09:32
Alkaline Phosphatase 86 U/L (38-126) 05/26/24 09:32
Troponin I < 0.012 ng/ml 05/26/24 09:32
Data Reviewed
-
Diagnostic Radiology: Image Personally Visualized and interpreted
Lab Data: Labs Reviewed by me
Impression/Plan
-
IMPRESSION:
Patient 83 years old female with history of senile dementia, CKD, sinus bradycardia in the past, ovarian cancer status post FRANKY-BSO back in 1999, came into the hospital with fall. Patient was noted to have a COVID-19 positive and also has a left
basilar opacification suspicion for pneumonia.
Impression:
Mechanical fall
COVID-19
Right lower lobe pneumonia
Dementia
Conditions prior to presentation:
Hypertension
Dyslipidemia
Sinus bradycardia in the past
PLAN:
IV Rocephin and azithromycin given in the ED
Isolation for COVID-19
Oxygen supplementation
ID consult-discussed with ID via [place] text today
We will reevaluate over the next 24 hours if considered Paxlovid and hold off on further antibiotics but can restart in 24 hours if needed.
Avoid nephrotoxic
Heparin SQ for DVT prophylaxis
CODE STATUS DNR
Time spent 75 minutes.
--- NOTE | 2024-05-26 12:52 | EDRN ---
Patient taken to room 2122 on O2 2LNC on monitor by veterinary technician instructor.
[2024-05-26] MEDS: HEPARIN 5000 UNITS SC ×2 (15:35→23:03)
--- NOTE | 2024-05-26 15:53 | PTCARENOTE ---
Patient placed on bear hugger per order for persistent rectal temperatures of 95.5. Patient AAOx1 (baseline) and warm to touch.
--- NOTE | 2024-05-26 17:41 | CON.ID ---
Consultation
-
Date/Time Consultation Requested: 05/26/2024 1119
Date/Time Consultation Performed: 05/26/2024 1700
Requesting Provider: Dr. Long
Performing Provider: Dr. Boswell
Reason for Consultation: COVID-19; suspected PNA
Chief Complaint / Past History
History of Present Illness
Natalia Lewis is an 83-year-old female being evaluated the request of Dr. Long in regards to suspected pneumonia and COVID-19 positivity. History is obtained from chart review alone as patient could not provide any meaningful history to me.
The patient has a significant past medical history of dementia with behavioral disturbance. She presents to [facility] ER earlier this morning after sustaining a fall while while walking. The fall was witnessed by her roommate, and no head
injury or loss of consciousness was reported. On presentation to the ER, she was not noted to have a leukocytosis, but patient is reported to be COVID-positive, although result cannot be found at this point in time
At present, she denies shortness of breath or cough, although given underlying dementia validity of answers is of question.
Past History
Additional Past Medical History:
Hx of ovarian cancer
GERD
Hx SBO
Osteoarthritis
Dementia
Osteoporosis
CKD
HTN
Additional Past Surgical History:
Appendectomy
Hysterectomy
Right knee surgery
Tonsillectomy
Allergy History:
No Known Allergies Allergy (Verified 05/26/24 08:23)
Medications Reviewed: Yes
Current Antibiotics:
None
Ceftriaxone/Azithromycin; received in the ER
Review of Systems
Vital Signs
Temp Pulse Resp BP Pulse Ox
96.1 F L 62 16 137/51 98% RA
05/26/24 17:00 05/26/24 15:51 05/26/24 15:51 05/26/24 15:51 05/26/24 17:51
Physical Exam
Physical Exam
Constitutional: No Acute Distress, Comfortable, Chronically Ill, Non-toxic and Cachetic (mild)
Head: Normocephalic
Eyes: Pupils Equal, Pupils Round, No Conjunctival Hemorrhage and Sclera Anicteric
Oral: No Thrush and No Ulcers
Cardiovascular: Regular Rate and S1/S2; Negative S3/S4
Pulmonary: Clear and Non Labored; Negative Wheezes, Rales or Rhonchi
Gastrointestinal: Soft, Non Tender, Non Distended and Normal Bowel Sounds
Extremities: Negative Edema or Cyanosis
Neurological: Awake and Alert
Psychological: Confused
Lab / Diagnostic Study Results
05/26/24 09:32
05/26/24 09:32
Microbiology Results
Imaging:
05/26/2024 CXR (2 view): Left basilar opacification noted.
Assessment / Plan
S/p fall
Reported hypoxemia; improved. Currently 98% on room air
Reported COVID-positive
-Cannot find those results. Possible history from [facility].
-Will recheck now
Left basilar infiltrate
-Not clear if significance. Patient without fever or current shortness of breath
Hx of ovarian cancer
GERD
Hx SBO
Osteoarthritis
Dementia
Osteoporosis
CKD
HTN
Recommendations:
Will recheck COVID swab now. If negative, can likely discontinue further isolation
Hold on further antibiotics for the present and observe clinically.
Monitor white count temperature curve, along with pulse ox.
Will need follow-up chest x-ray in 4 to 6 weeks to assess persistence of left basilar opacification
Care Review
Plan reviewed with: Nurse
[2024-05-26 18:34] LABS: COVID-19 Antigen Negative (Negative)
[2024-05-26] MEDS: DESYREL 50 MG PO (21:57)
[2024-05-26] MEDS: NAMENDA 5 MG PO (23:02)
[2024-05-27] VITALS (8 sets, daily range): BP systolic 98–151; BP diastolic 39–52; PULSE 45; O2SAT 96; BMI 19.6
[2024-05-27 06:57] LABS: % Basophils 0.5 % (0-2); % Eosinophils 0.2 % (0-6); % Immature Granulocytes 0.6 % (0-0.5); % Lymphocytes 26.4 % (20.5-51.1); % Monocytes 8.1 % (1.7-9.3); % Neutrophils 64.2 % (42.2-75.2); Absolute Lymphocytes 1.7 10^3/uL (1.2-3.4); Absolute Monocytes 0.5 10^3/uL (0.1-0.6); Absolute Neutrophils 4.1 10^3/uL (1.4-6.5); Hematocrit 30.5 % (37.0-47.0); Hemoglobin 9.9 g/dL (12.0-16.0); Mean Corp Hgb Conc. 32.5 g/dL (33.0-37.0); Mean Corpuscular Hgb 28.3 pg (27.0-31.0); Mean Corpuscular Volume 87.1 fL (81.0-99.0); Mean Platelet Volume 10.5 fL (7.4-10.4); Nucleated Red Blood Cells % 0 %; Platelet Count 227 10^3/uL (130-400); Red Cell Dist. Width 15.9 % (11.5-14.5); White Blood Cell Count 6.3 10^3/uL (4.8-10.8)
[2024-05-27 07:30] LABS: Blood Urea Nitrogen 29 mg/dl (7-17); Carbon Dioxide 19 mmol/L (22-30); Chloride 111 mmol/L (98-107); Estimated Creatinine Clearance 30 ml/min; Glucose 71 mg/dl (70-99); Potassium 4.5 mmol/L (3.5-5.1); Sodium 144 mmol/L (135-145); eGFR 44.36
[2024-05-27 08:01] LABS: TSH Reflex To Free T4 1.24 uIU/ml (0.47-4.68)
[2024-05-27] MEDS: HEPARIN 5000 UNITS SC ×2 (08:06→16:51)
[2024-05-27] MEDS: NORVASC PO (08:07)
[2024-05-27] MEDS: RISPERDAL ORAL SOLUTION 1.25 MG PO (08:07)
--- NOTE | 2024-05-27 08:44 | W.PN.HOSP.TC ---
Today's Communication/Plan
-
Temperature control. Discharge planning in progress
Assessment / Plan
Assessment / Plan
Physical exam:
General: Chronically ill
HEENT: Normocephalic, Atraumatic and Moist Mucous Membranes
Respiratory: Clear to Auscultation; Negative Wheezes, Rales or Rhonchi
Cardiac: Regular Rhythm and S1/S2
GI: Soft, Nontender and Nondistended
Musculoskeletal: No Clubbing, No Cyanosis and No Edema
Neuro: Awake, Alert and Disoriented, no gross neuro-deficit
Psych: Calm
A/P:
Impression:
Hypothermia
Mechanical fall
COVID-19--> apparently positive at the skilled facility but negative here in the hospital.
Possible left lower lobe pneumonia or atelectasis
Dementia
MRSA colonizer
Conditions prior to presentation:
Hypertension
Dyslipidemia
Sinus bradycardia in the past
PLAN:
IV Rocephin and azithromycin given in the ED
Hold off on further antibiotics.
Defer isolation for COVID-19 ID and infection control
Off oxygen
Bear hugger as needed
Normal TSH and normal blood sugars
ID consulted and appreciated input
Avoid nephrotoxic
Heparin SQ for DVT prophylaxis
CODE STATUS DNR
Anticipated Discharge: Today
Subjective/Interval History
-
Date of Service: May 27, 2024
Patient at times has dropped from her temperature. Otherwise hemodynamically stable and afebrile. On room air
Objective Data
-
Labs:
Laboratory Results
05/27/24
05:16
WBC 6.3
Hgb 9.9 L
Hct 30.5 L
Plt Count 227
Sodium 144
Potassium 4.5
Chloride 111 H
Carbon Dioxide 19 L
BUN 29 H
Creatinine 1.2 H
Glucose 71
Calcium 8.0 L
Vital Signs:
Vital Signs
Temp Pulse Resp BP Pulse Ox
97.3 F 76 16 98/39 94
05/27/24 07:10 05/27/24 08:07 05/27/24 07:10 05/27/24 08:07 05/27/24 07:10
I&O
05/26/24 05/27/24 05/28/24
06:59 06:59 06:59
Intake Total 240 / 240
Balance 240 / 240
--- NOTE | 2024-05-27 10:09 | PTOTSP ---
ST Acute Care Evaluation
Pt currently presents with clinical signs of suspected mild pharyngeal dysphagia characterized by a strong cough following thin liquids 1x and brief throat clear 1x with hard solids. Difficult to differentiate from likely baseline cough (given
COVID-19 dx and audible congestion). Pt also with hx of GERD, but no esophageal s/s at bedside.
Recommendations:
- Continue with regular solids, thin liquids, meds as tolerated.
- General aspiration precautions: Fully awake, alert, and upright for PO intake; may need assistance/encouragement with feeding; small bites/sips; feed slowly.
- COMPUTER PROGRAMMER to f/u re: diet tolerance, airway protection, as well as whether or not pt would benefit from an instrumental swallow study.
--- NOTE | 2024-05-27 16:43 | CM ---
Addendum entered by Eri Cordoba 05/27/24 16:55:
Left message for Vijay Freeman explaining the IMM form.
Original Note:
Patient from [facility]
PT rec skilled PT upon return to [facility]
Authorization started with [employer]
Pended certification #[id number]
Notified [facility] liaison & given cert #. Per [facility] patient can return to facility with pended auth.
Faxed clinicals to [facility] [phone]
Ambulance forms on chart
PLAN: Return to [facility]
Ambulance forms on chart, Time TBD
[place]
Report #: [phone]
Fax #: [phone]
[2024-05-27] MEDS: DESENEX/MITRAZOL/ZEASORB 1 APPLIC TOPICAL ×2 (16:51→20:23)
[2024-05-27] MEDS: NAMENDA 5 MG PO (21:30)
[2024-05-27] MEDS: DESYREL 50 MG PO (21:31)
[2024-05-28] MEDS: HEPARIN 5000 UNITS SC ×4 (01:04→22:41)
[2024-05-28 03:01] VITALS: BP 151/61
[2024-05-28] MEDS: DESENEX/MITRAZOL/ZEASORB 1 APPLIC TOPICAL ×2 (08:04→20:55)
[2024-05-28] MEDS: NORVASC 5 MG PO (08:07)
[2024-05-28] MEDS: RISPERDAL ORAL SOLUTION 1.25 MG PO (08:07)
--- NOTE | 2024-05-28 08:46 | W.PN.HOSP.TC ---
Addendum entered and electronically signed by Victorino Long MD 05/28/24 13:20:
CKD stage IIIb.
Original Note:
Today's Communication/Plan
-
Continue monitor temperature.
Assessment / Plan
Assessment / Plan
Physical exam:
General: Chronically ill
HEENT: Normocephalic, Atraumatic and Moist Mucous Membranes
Respiratory: Clear to Auscultation; Negative Wheezes, Rales or Rhonchi
Cardiac: Regular Rhythm and S1/S2
GI: Soft, Nontender and Nondistended
Musculoskeletal: No Clubbing, No Cyanosis and No Edema
Neuro: Awake, Alert and Disoriented, no gross neuro-deficit
Psych: Calm
A/P:
Impression:
Hypothermia
Mechanical fall
COVID-19--> apparently positive at the skilled facility but negative here in the hospital.
Possible left lower lobe pneumonia or atelectasis
Dementia
MRSA colonizer
Sinus bradycardia
Conditions prior to presentation:
Hypertension
Dyslipidemia
Sinus bradycardia in the past
PLAN:
IV Rocephin and azithromycin given in the ED
Planning on hold on further antibiotics but persistent hypothermia so we will give 5 days course of oral antibiotic for possible pneumonia to see if there is any improvement in temperature (cefdinir).
Try to reach out to point of contact (guardian) but unable to reach.
Not a great candidate for pacemaker so for now monitor and will discuss further with family and or guardian.
Defer isolation for COVID-19 ID and infection control
Off oxygen
Bear hugger as needed
Normal TSH and normal blood sugars
ID consulted and appreciated input
Avoid nephrotoxic
Heparin SQ for DVT prophylaxis
CODE STATUS DNR
Anticipated Discharge: 24 - 48 hours
Subjective/Interval History
-
Date of Service: May 28, 2024
Patient still hypothermic. Patient also bradycardic.
Objective Data
-
Vital Signs:
Vital Signs
Temp Pulse Resp BP Pulse Ox
97.4 F 50 18 119/40 94
05/28/24 03:01 05/28/24 08:07 05/28/24 03:01 05/28/24 08:07 05/28/24 03:01
I&O
05/27/24 05/28/24 05/29/24
06:59 06:59 06:59
Intake Total 240 / 240 750 / 750
Balance 240 / 240 750 / 750
[2024-05-28 08:50] VITALS: BP 101/35
[2024-05-28] MEDS: OMNICEF 300 MG PO ×2 (10:29→20:55)
--- NOTE | 2024-05-28 11:05 | PN.CDI ---
CDI
- -
CDI:
Physician Documentation Request
Admit Date: 05/26/24 11:26
Dear Doctor Ethan,
Please review the following and provide your response in the progress notes.
Clinical Indicators:
Pt admitted with fall and pneumonia.
H&P includes CKD in pt's medical history
Laboratory Tests
05/26/24 05/27/24
09:32 05:16
Creatinine 1.4 H 1.2 H
eGFR 36.87 44.36
Clarify which of the following accurately represents the patient's renal status:
CKD, please provide stage - see criteria
Other
Stages of Chronic Kidney Disease*
Level Description GFR
G1 Normal or High >90
G2 Mildly decreased 60-89
G3a Mildly to moderately decreased 45-59
G3b Moderately to severely decreased 30-44
G4 Severely decreased 15-29
G5 Kidney failure <15
Use of terms such as suspected, likely, concern for, or probable (associated with a specific diagnosis that is being evaluated, monitored, or treated as if it exists) are acceptable and can be coded in the inpatient setting, when documented at the
time of discharge.
Thank you,
Cassidy Almanzar RN, BSN
CDI Specialist
Available via [facility] [employer]
Please use your independent medical judgment in providing your response.
*Source: Kidney Disease: Improving Global Outcomes (KDIGO) 2012
[2024-05-28 12:09] VITALS: BP 95/36
--- NOTE | 2024-05-28 14:24 | CM ---
Addendum entered by Eri Cordoba 05/28/24 16:12:
Approval of insurance auth received via fax from Luis Alberto Spaulding at [facility]
Notified [facility] liaison at [facility]
Reference #: [id number]
Start date 05/28/24 - NRD 06/03/24
Fax updates to: [phone]
Addendum entered by Eri Cordoba 05/28/24 14:28:
[place]
Report #: [phone] Fax #: [phone]
Original Note:
[employer] Pended certification #[id number]
Patient hypothermic
Notified [facility] liaison at [facility]
PLAN: Discharge when stable to [facility]
[2024-05-28 15:15] VITALS: BP 100/40
[2024-05-28 19:27] VITALS: BP 131/51
[2024-05-28] MEDS: DESYREL 50 MG PO (22:36)
[2024-05-28] MEDS: NAMENDA 5 MG PO (22:36)
[2024-05-28 23:10] VITALS: BP 121/49
[2024-05-29] VITALS (7 sets, daily range): BP systolic 101–131; BP diastolic 46–53
[2024-05-29] MEDS: RISPERDAL ORAL SOLUTION 1.25 MG PO (07:50)
[2024-05-29] MEDS: OMNICEF 300 MG PO (07:50)
[2024-05-29] MEDS: NORVASC 5 MG PO (07:50)
[2024-05-29] MEDS: HEPARIN 5000 UNITS SC ×3 (07:52→23:57)
[2024-05-29] MEDS: DESENEX/MITRAZOL/ZEASORB 1 APPLIC TOPICAL ×2 (07:52→21:49)
--- NOTE | 2024-05-29 08:48 | W.PN.HOSP.TC ---
Addendum entered and electronically signed by Victorino Long MD 05/30/24 13:24:
Sorry the last 2 addendum is for today 05/30/2024 not for 05/29-Disregard those 2 addendums.
Addendum entered and electronically signed by Victorino Long MD 05/30/24 13:23:
Also updated legal guardian today and he is aware-he mentions if needs a pacemaker he is okay with that, but await for cardiology input( also relayed that information to cardiology).
Addendum entered and electronically signed by Victorino Long MD 05/30/24 13:10:
Heart rate dipping into the 20s-30s--> will get cardiology consult today for further advice ([place] texted cardiology today).
Addendum entered and electronically signed by Victorino Long MD 05/29/24 12:04:
I was able to talk to legal guardian and explained plan of care and guarded prognosis and also discussion about hospice. He will think about the issue of hospice. Also he pointed out nobody else should be on her contact list. He wants case
customer account manager to reach out to him.
Original Note:
Today's Communication/Plan
-
CT of the head. Stop antibiotics. Discussion with ID. Probably hospice eval
Assessment / Plan
Assessment / Plan
Physical exam:
General: Acute on chronically ill
HEENT: Normocephalic, Atraumatic and Moist Mucous Membranes
Respiratory: Clear to Auscultation; Negative Wheezes, Rales or Rhonchi
Cardiac: Regular Rhythm and S1/S2
GI: Soft, Nontender and Nondistended
Musculoskeletal: No Clubbing, No Cyanosis and No Edema
Neuro: Lethargic and Disoriented, appears no gross neuro-deficit
Psych: Calm, lack of judgment and insight
A/P:
Hypothermia:
No clear signs of active infection
TSH normal
Blood sugar is normal
Obtain CT scan of the head and no acute abnormality
Unclear etiology, probably related to advanced aging and/or thermostat dysregulation
Will continue bear hugger as needed
Seems appropriate for hospice care
Today on 05/29, discussed with friend, Maritza Sullivan and she agrees with above and will pass on the message to her guardian.
Today on 05/29, I left a message to her guardian, Vijay Freeman and awaiting for callback
Discussed with attending RN today on 05/29
Will have hospice involved if all parties agree
COVID-19:
Tested positive at the alf and tested negative here in the hospital.
Symptomatic care
Keep isolation per hospital policy
Left opacification on chest x-ray:
Unclear significance
Does not appear to be consistent with pneumonia.
She did receive IV Rocephin and azithromycin and then oral Omnicef for a couple of days. I discussed with ID today on 05/29 and ID recommends to discontinue all antibiotics which is actually consistent with what they said before.
Acute metabolic encephalopathy, POA:
Obtain CT scan of the head and no acute abnormality
Due to some lethargy will decrease risperidone doses and trazodone.
Continue to monitor mental status
Sinus bradycardia:
Intermittent sinus bradycardia
Twelve-lead EKG this morning on 05/29 and it shows normal sinus rhythm
Avoid AV perry agents
Might not be a candidate for pacemaker if required but continue cardiac monitoring for now until goals of care clarified
CKD stage IIIb:
Avoid nephrotoxic
Monitor renal function
Anemia:
Hemoglobin 9.9--> 7.8
Continue to monitor
Dementia:
She is on Namenda 5 mg p.o. daily and risperidone 1.25 mg daily and trazodone 50 mg nightly--> due to some lethargy will decrease risperidone doses and trazodone.
Monitor mental status and behavior
Mechanical fall:
PT OT eval
MRSA colonizer:
Local measures
Hypertension:
Continue amlodipine 5 mg p.o. daily
Monitor blood pressure adjust medications accordingly
DVT prophylaxis:
Heparin SQ
CODE STATUS:
DNR
Total time spent on today's encounter was 52 minutes which included time spent in counseling the patient/family regarding diagnosis and treatment plan as listed above, goals of care, and symptom management. Case was discussed with nursing staff,
specialists, and care coordinators/case management. All labs and imaging personally reviewed by me. Remainder the time spent in detailed review of previous records, lab data, imaging, and other medical provider documentation.
Anticipated Discharge: > 48 hours
Subjective/Interval History
-
Date of Service: May 29, 2024
Patient still hypothermic. Lethargic this morning. At times restless but not agitated.
Objective Data
-
Labs:
Laboratory Results
05/29/24
06:00
WBC Pending
Hgb Pending
Hct Pending
Plt Count Pending
Sodium Pending
Potassium Pending
Chloride Pending
Carbon Dioxide Pending
BUN Pending
Creatinine Pending
Glucose Pending
Calcium Pending
Vital Signs:
Vital Signs
Temp Pulse Resp BP Pulse Ox
95.4 F L 73 16 124/51 93
05/29/24 08:31 05/29/24 08:31 05/29/24 08:31 05/29/24 08:31 05/29/24 08:31
I&O
05/28/24 05/29/24 05/30/24
06:59 06:59 06:59
Intake Total 750 / 750 1140 / 1140
Balance 750 / 750 1140 / 1140
--- NOTE | 2024-05-29 11:00 | PTCARENOTE ---
Patient lethargic after administration of scheduled 1.25 mg PO risperidone, grimaces and moans to sternal rub in bed but does not open eyes. MD made aware and at bedside to assess patient, scheduled PO risperidone dose decreased per MD. Patient
ordered Head CT per MD. Patient with rectal temp 95.4F this AM, placed on moe hugger in bed with goal temp of 97F per MD order. MD made aware.
[2024-05-29 11:17] LABS: Blood Urea Nitrogen 27 mg/dl (7-17); Carbon Dioxide 25 mmol/L (22-30); Chloride 108 mmol/L (98-107); Estimated Creatinine Clearance 25 ml/min; Glucose 90 mg/dl (70-99); Potassium 5.1 mmol/L (3.5-5.1); Sodium 138 mmol/L (135-145); eGFR 36.87
[2024-05-29 11:21] LABS: % Basophils 0.3 % (0-2); % Eosinophils 0.5 % (0-6); % Lymphocytes 25.6 % (20.5-51.1); % Monocytes 9.9 % (1.7-9.3); % Neutrophils 62.7 % (42.2-75.2); Absolute Immature Granulocytes 0.1 10^3/uL (0-0.05); Absolute Lymphocytes 1.5 10^3/uL (1.2-3.4); Absolute Monocytes 0.6 10^3/uL (0.1-0.6); Absolute Neutrophils 3.7 10^3/uL (1.4-6.5); Hematocrit 23.8 % (37.0-47.0); Hemoglobin 7.8 g/dL (12.0-16.0); Mean Corp Hgb Conc. 32.8 g/dL (33.0-37.0); Mean Corpuscular Hgb 28.6 pg (27.0-31.0); Mean Corpuscular Volume 87.2 fL (81.0-99.0); Mean Platelet Volume 10.4 fL (7.4-10.4); Nucleated Red Blood Cells % 0 %; Platelet Count 251 10^3/uL (130-400); Red Blood Cell Count 2.73 10^6/uL (4.20-5.40); Red Cell Dist. Width 15.9 % (11.5-14.5); White Blood Cell Count 5.9 10^3/uL (4.8-10.8)
--- NOTE | 2024-05-29 14:00 | PTCARENOTE ---
Patient with visitor in room, visitor came out to nurses's station stating to this RN she is longtime friend of patient, requesting to leave name and number for update from MD regarding potential plan of hospice. This RN communicated with MD; per
MD, patient's legal guardian stated that no one else can have information on patient besides him. Contact list updated to reflect only legal guardian as primary contact.
--- NOTE | 2024-05-29 15:00 | PTCARENOTE ---
Patient with rectal temp 98.2F, moe hugger turned off and removed from patient per order. Patient drowsy but lethargy improving throughout shift, opens eyes to sternal rub and answers to name, states no concerns at this time.
--- NOTE | 2024-05-29 16:07 | CM ---
Addendum entered by Bernice Wasserman RN 05/29/24 16:11:
Guardian Vijay returned call and is not interested in hospice a this time. Updated him that he is the only contact listed in the patient's chart. Hospice consult closed.
Original Note:
Received hospice consult. Reviewed the chart notes and left voice message for the patient's guardian Vijay to discuss hospice.
--- NOTE | 2024-05-29 20:57 | VATNOTE ---
Called by staff trainer to place peripheral IV. Pt. states,' If it's a needle I don't want it'. I explained need for IV and pt. stated No again. fuel cell battery technician aware of same.
--- NOTE | 2024-05-29 21:01 | PTCARENOTE ---
Upon assessment patient noted to have pulled her only IV site out. Pt refusing to get another one placed. She states it hurts and doesn't want 'another needle'. Pt gets no IV medications. CHUCKING MACHINE SET UP OPERATOR TOOL notified.
[2024-05-29] MEDS: DESYREL 25 MG PO (21:47)
[2024-05-29] MEDS: NAMENDA 5 MG PO (21:48)
[2024-05-30 03:11] VITALS: BP 146/73
[2024-05-30 05:41] LABS: Hematocrit 27.7 % (37.0-47.0); Hemoglobin 9.1 g/dL (12.0-16.0); Mean Corp Hgb Conc. 32.9 g/dL (33.0-37.0); Mean Corpuscular Hgb 28.1 pg (27.0-31.0); Mean Corpuscular Volume 85.5 fL (81.0-99.0); Mean Platelet Volume 10.4 fL (7.4-10.4); Platelet Count 255 10^3/uL (130-400); Red Blood Cell Count 3.24 10^6/uL (4.20-5.40); Red Cell Dist. Width 15.6 % (11.5-14.5); White Blood Cell Count 7.1 10^3/uL (4.8-10.8)
[2024-05-30 06:03] LABS: Blood Urea Nitrogen 24 mg/dl (7-17); Calcium 8.2 mg/dl (8.4-10.2); Carbon Dioxide 21 mmol/L (22-30); Chloride 112 mmol/L (98-107); Estimated Creatinine Clearance 27 ml/min; Glucose 87 mg/dl (70-99); Potassium 4.8 mmol/L (3.5-5.1); Sodium 140 mmol/L (135-145)
[2024-05-30 09:00] VITALS: BP 117/48
--- NOTE | 2024-05-30 09:08 | W.PN.HOSP.TC ---
Today's Communication/Plan
-
Bear hugger. Cardiology consult.
Assessment / Plan
Assessment / Plan
Physical exam:
General: Acute on chronically ill
HEENT: Normocephalic, Atraumatic and Moist Mucous Membranes
Respiratory: Clear to Auscultation; Negative Wheezes, Rales or Rhonchi
Cardiac: Regular Rhythm, at times bradycardic, and S1/S2
GI: Soft, Nontender and Nondistended
Musculoskeletal: No Clubbing, No Cyanosis and No Edema
Neuro: Lethargic and Disoriented, appears no gross neuro-deficit
Psych: Calm, lack of judgment and insight
A/P:
Hypothermia:
No clear signs of active infection
TSH normal
Blood sugar is normal
Obtain CT scan of the head and no acute abnormality
Unclear etiology, probably related to advanced aging and/or thermostat dysregulation
Will continue bear hugger as needed
Seems appropriate for hospice care
On 05/29, I left a message to her guardian, Vijay Freeman and awaiting for callback
On 05/29 since I did not hear back from guardian I called next contact listed on her contacts and discussed with friend, Maritza Sullivan.
Later on 05/29 guardian Vijay Pete called back and actually did mention that he is the only one to be contacted for any discussions about plan of care for this patient since he is the court appointed legal guardian. Discussed about plan of
care and overall poor prognosis and also possibility of hospice and he will think about it and will get back to us and he is welcome to have lead case manager to call him.
Discussed with attending RN today on 05/30 and explained plan of care and discussions as above
A friend who is an DRIER TAKE OFF TENDER and patient's neighbor was at the bedside today on 05/30 and I explained to her that I am not allow to give any medical updates as discussed above.
Hospice consulted but discussions have not taken place yet.
Continue medical care as appropriate for now.
Updated legal guardian again today on 05/30.
Sinus bradycardia:
Intermittent sinus bradycardia
Twelve-lead EKG on 05/29 and it shows normal sinus rhythm. Repeat another twelve-lead EKG stat.
Avoid AV perry agents
Cardiology consult-discussed with cardiology today on 05/30 via [place] text
Also discussed with legal guardian who is okay if she requires pacemaker
COVID-[facility] the [facility].
Symptomatic care
Keep isolation per hospital policy
Left opacification on chest x-ray:
Unclear significance
Does not appear to be consistent with pneumonia.
She did receive IV Rocephin and azithromycin and then oral Omnicef for a couple of days. I discussed with ID on 05/29 and ID recommends to discontinue all antibiotics which is actually consistent with what they said before.
Acute metabolic encephalopathy, POA:
Obtained CT scan of the head and no acute abnormality
Due to some lethargy will decrease risperidone doses and trazodone.
Continue to monitor mental status
CKD stage IIIb:
Avoid nephrotoxic
Monitor renal function
Anemia:
Hemoglobin 9.1 today
Continue to monitor
Dementia:
She is on Namenda 5 mg p.o. daily and risperidone 1.25 mg daily and trazodone 50 mg nightly--> due to some lethargy decreased risperidone doses and trazodone.
Monitor mental status and behavior
Mechanical fall:
PT OT eval
Hypertension:
Continue amlodipine 5 mg p.o. daily
No BELKIS inhibitor as recommended on last hospitalization.
Monitor blood pressure adjust medications accordingly
DVT prophylaxis:
Heparin SQ
CODE STATUS:
DNR
Total time spent on today's encounter was 52 minutes which included time spent in counseling the patient/family regarding diagnosis and treatment plan as listed above, goals of care, and symptom management. Case was discussed with nursing staff,
specialists, and care coordinators/case management. All labs and imaging personally reviewed by me. Remainder the time spent in detailed review of previous records, lab data, imaging, and other medical provider documentation.
Anticipated Discharge: 24 - 48 hours
Subjective/Interval History
-
Date of Service: May 30, 2024
Patient hypothermic this morning, intermittent bradycardia, encephalopathic overall. Looks frail
Objective Data
-
Labs:
Laboratory Results
05/30/24
05:27
WBC 7.1
Hgb 9.1 L
Hct 27.7 L
Plt Count 255
Sodium 140
Potassium 4.8
Chloride 112 H
Carbon Dioxide 21 L
BUN 24 H
Creatinine 1.3 H
Glucose 87
Calcium 8.2 L
Vital Signs:
Vital Signs
Temp Pulse Resp BP Pulse Ox
97.0 F 88 16 146/73 94
05/29/24 20:38 05/30/24 03:11 05/30/24 03:11 05/30/24 03:11 05/30/24 03:11
I&O
05/29/24 05/30/24 05/31/24
06:59 06:59 06:59
Intake Total 1140 / 1140 960 / 960
Balance 1140 / 1140 960 / 960
[2024-05-30] MEDS: DESENEX/MITRAZOL/ZEASORB 1 APPLIC TOPICAL ×2 (09:38→20:42)
[2024-05-30] MEDS: HEPARIN 5000 UNITS SC ×2 (09:38→16:06)
[2024-05-30] MEDS: NORVASC 5 MG PO (09:39)
[2024-05-30] MEDS: RISPERDAL ORAL SOLUTION 1 MG PO (09:40)
[2024-05-30 11:41] VITALS: BP 110/37
[2024-05-30 15:00] VITALS: BP 100/37
[2024-05-30 19:09] VITALS: BP 124/49
[2024-05-30] MEDS: NAMENDA 5 MG PO (20:41)
[2024-05-30] MEDS: DESYREL 25 MG PO (20:41)
[2024-05-30 23:03] VITALS: BP 126/48
[2024-05-31] MEDS: HEPARIN 5000 UNITS SC ×3 (00:36→15:06)
[2024-05-31 03:20] VITALS: BP 120/66
[2024-05-31 07:04] LABS: Hematocrit 30.8 % (37.0-47.0); Mean Corp Hgb Conc. 32.5 g/dL (33.0-37.0); Mean Corpuscular Hgb 27.5 pg (27.0-31.0); Mean Corpuscular Volume 84.6 fL (81.0-99.0); Mean Platelet Volume 10.3 fL (7.4-10.4); Platelet Count 305 10^3/uL (130-400); Red Blood Cell Count 3.64 10^6/uL (4.20-5.40); Red Cell Dist. Width 15.8 % (11.5-14.5)
[2024-05-31 07:10] VITALS: BP 130/54
[2024-05-31 07:33] LABS: Blood Urea Nitrogen 21 mg/dl (7-17); Calcium 8.6 mg/dl (8.4-10.2); Carbon Dioxide 21 mmol/L (22-30); Chloride 109 mmol/L (98-107); Estimated Creatinine Clearance 27 ml/min; Glucose 81 mg/dl (70-99); Sodium 141 mmol/L (135-145)
[2024-05-31] MEDS: DESENEX/MITRAZOL/ZEASORB 1 APPLIC TOPICAL ×2 (07:54→21:23)
--- NOTE | 2024-05-31 08:05 | PTCARENOTE ---
Patient drowsy/lethargic this AM, does not open eyes or respond to name/sternal rub. MD at bedside, scheduled PO medications held at this time. Axillary temp taken by tech 97.4F, moe galeano removed from patient.
[2024-05-31 11:00] VITALS: BP 146/47
[2024-05-31] MEDS: DULCOLAX 10 MG RECTAL (12:19)
--- NOTE | 2024-05-31 12:28 | W.PN.HOSP.TC ---
Today's Communication/Plan
-
.
Monitor mental status as pt was sleepy this morning
Assessment / Plan
Assessment / Plan
Physical exam:
General: chronically ill
HEENT: Normocephalic, Atraumatic and Moist Mucous Membranes
Respiratory: Clear to Auscultation; Negative Wheezes.
Cardiac: Regular Rhythm, at times bradycardic, and S1/S2
GI: Soft, Nontender and Nondistended
Musculoskeletal: No Clubbing, No Cyanosis and No Edema
Neuro: Lethargic and Disoriented, appears no gross neuro-deficit
Psych: Calm, lack of judgment and insight
A/P:
Hypothermia:
No clear signs of active infection
TSH normal
Blood sugar is normal
Obtain CT scan of the head and no acute abnormality
Unclear etiology, probably related to advanced aging and/or thermostat dysregulation
Will continue bear hugger as needed
Seems appropriate for hospice care
On 05/29, Dr Long left a message to her guardian, Vijay Freeman.
On 05/[address] Long did not hear back from guardian called next contact listed on her contacts and discussed with friend, Maritza Sullivan.
Later on 05/29 guardian Vijay Freeman called back and actually did mention that he is the only one to be contacted for any discussions about plan of care for this patient since he is the court appointed legal guardian. Discussed about plan of
care and overall poor prognosis and also possibility of hospice and he will think about it and will get back to us and he is welcome to have caser to call him.
Hospice consulted but discussions have not taken place yet.
Continue medical care as appropriate for now.
Dr Long updated legal guardian on 05/30.
Sinus bradycardia:
No hypotension
Intermittent sinus bradycardia
Twelve-lead EKG on 05/29 and it shows normal sinus rhythm. Repeat another twelve-lead EKG stat.
Avoid AV perry agents
Dr Long discussed with legal guardian who is okay if she requires pacemaker
COVID-19:
[facility] and tested negative here in the hospital.
Symptomatic care
No hypoxia, no coughing.
Keep isolation per Infection control in hospital
Left opacification on chest x-ray:
Unclear significance
Does not appear to be consistent with pneumonia. No leukocytosis.
She did receive IV Rocephin and azithromycin and then oral Omnicef for a couple of days. I discussed with ID on 05/29 and ID recommends to discontinue all antibiotics which is actually consistent with what they said before.
Acute metabolic encephalopathy, POA:
Obtained CT scan of the head and no acute abnormality
Due to some lethargy will decrease risperidone doses and trazodone.
Continue to monitor mental status
CKD stage IIIb:
Avoid nephrotoxic
Monitored renal function
Anemia:
Hemoglobin 9.1 today
Continue to monitor
Dementia:Advanced
lethargic earlier, will monitor
She is on Namenda 5 mg p.o. daily and risperidone 1.25 mg daily and trazodone 50 mg nightly--> due to some lethargy decreased risperidone doses and trazodone.
Monitored mental status and behavior
Mechanical fall:
PT OT eval
Essential Hypertension:
Continue amlodipine 5 mg p.o. daily when able
No BELKIS inhibitor as recommended on last hospitalization.
Monitor blood pressure adjust medications accordingly
DVT prophylaxis:
Heparin SQ
CODE STATUS:
DNR
Total time spent to see the patient, examine the patient on the floor, review data and lab results, discuss treatment plan with nursing staff around 55 minutes
Anticipated Discharge: Within 24 hours
Subjective/Interval History
-
Date of Service: May 31, 2024
She is sleepy this morning, could not take her pills
Objective Data
-
Labs:
Laboratory Results
05/31/24
05:41
WBC 6.0
Hgb 10.0 L
Hct 30.8 L
Plt Count 305
Sodium 141
Potassium 5.0
Chloride 109 H
Carbon Dioxide 21 L
BUN 21 H
Creatinine 1.3 H
Glucose 81
Calcium 8.6
Vital Signs:
Vital Signs
Temp Pulse Resp BP Pulse Ox
97.4 F 61 16 130/54 95
05/31/24 08:00 05/31/24 07:10 05/31/24 07:10 05/31/24 07:10 05/31/24 10:07
I&O
05/30/24 05/31/24 06/01/24
06:59 06:59 06:59
Intake Total 960 / 960 1080 / 1080
Balance 960 / 960 1080 / 1080
[2024-05-31] MEDS: NORVASC PO (12:45)
[2024-05-31] MEDS: RISPERDAL ORAL SOLUTION PO (12:45)
--- NOTE | 2024-05-31 13:00 | PTCARENOTE ---
MD made aware patient still lethargic in bed, occasionally moaning/grimacing to sternal rub but unable to take 0800 PO medications. IVF ordered per MD. Patient with no urine output on this shift, bladder scan 123 ml. Patient with no documented BM
this admission, PRN rectal suppository administered. Protective B/L heel and elbow foams applied, protective sacrum foam intact.
[2024-05-31] MEDS: D5/0.9% SODIUM CHLORIDE 1000 IV (13:44)
[2024-05-31 15:23] VITALS: BP 129/49
--- NOTE | 2024-05-31 15:41 | CM ---
Patient seen at bedside.
Patient friend Rosa visiting with patient.
Per case work aide note on 05/29 guardian Vijay was not interested in hospice & hospice consult closed
Updated [facility] liaison at [facility]
Auth Reference #: [id number]
Start date 05/28/24 - NRD 06/03/24
Fax updates to: [phone]
PLAN: [facility] when medically stable
[2024-05-31 19:15] VITALS: BP 101/42
[2024-05-31] MEDS: DESYREL PO ×2 (21:08→21:30)
[2024-05-31] MEDS: NAMENDA PO ×2 (21:09→21:29)
[2024-05-31 23:02] VITALS: BP 114/40
[2024-06-01] VITALS (8 sets, daily range): BP systolic 100–147; BP diastolic 36–74
[2024-06-01] MEDS: HEPARIN 5000 UNITS SC ×3 (00:50→15:13)
[2024-06-01] MEDS: D5/0.9% SODIUM CHLORIDE 1000 IV ×2 (00:50→10:54)
--- NOTE | 2024-06-01 07:53 | PTCARENOTE ---
per IP patient was tested +covid 05/22/2024 and will come off of isolation 06/02/2024.
[2024-06-01] MEDS: RISPERDAL ORAL SOLUTION PO (09:11)
[2024-06-01] MEDS: DESENEX/MITRAZOL/ZEASORB 1 APPLIC TOPICAL ×2 (09:14→20:27)
[2024-06-01] MEDS: NORVASC PO (09:15)
--- NOTE | 2024-06-01 12:02 | W.PN.HOSP.TC ---
Today's Communication/Plan
-
Discharge in AM
Assessment / Plan
Assessment / Plan
Physical exam:
General: chronically ill
HEENT: Normocephalic, Atraumatic and Moist Mucous Membranes
Respiratory: Clear to Auscultation; Negative Wheezes.
Cardiac: Regular Rhythm, at times bradycardic, and S1/S2
GI: Soft, Nontender and Nondistended
Musculoskeletal: No Clubbing, No Cyanosis and No Edema
Neuro: Lethargic and Disoriented, appears no gross neuro-deficit
Psych: Calm, lack of judgment and insight
A/P:
# Hypothermia:
I think her body temperature was fluctuating due to combination of viral infection and advanced aging and/or thermostat dysregulation
TSH normal
Blood sugar is normal
Obtain CT scan of the head and no acute abnormality
# failure to thrive
Pt seems more alert to me today, she answered few simple questions, still disoriented X2
No agitation noted
s/p IVF and reducing anti-psychotic med doses.
# Sinus bradycardia:
No hypotension
Intermittent sinus bradycardia
Twelve-lead EKG on 05/29 and it shows normal sinus rhythm. Repeat another twelve-lead EKG stat.
Avoid AV perry agents
Dr Long discussed with legal guardian who is okay if she requires pacemaker
COVID-19:
[facility] and tested negative here in the hospital.
Symptomatic care. Good oxygen level without need for nasal oxygen. Mild cough reported by staff but armstrong snot seem persistent. Lung exam no wheezes or crackles.
It seems isolation can come off by 06/02
Left opacification on chest x-ray:
Unclear significance
Does not appear to be consistent with pneumonia. No leukocytosis.
She did receive IV Rocephin and azithromycin and then oral Omnicef for a couple of days. I discussed with ID on 05/29 and ID recommends to discontinue all antibiotics which is actually consistent with what they said before.
Acute metabolic encephalopathy, POA:
Obtained CT scan of the head and no acute abnormality
Due to some lethargy, reduced risperidone doses and trazodone.
Continue to monitor mental status
#CKD stage IIIb:
Avoid nephrotoxic
Monitored renal function
#Anemia:
Hemoglobin 9.1
No bleeding
Continue to monitor
Dementia:Advanced
lethargic at times but overall seems to approach her baseline.
She is on Namenda 5 mg p.o. daily, due to some lethargy decreased risperidone doses and trazodone.
Monitored mental status and behavior
Mechanical fall:
PT OT eval
Essential Hypertension:
Continue amlodipine 5 mg p.o. daily when able
No BELKIS inhibitor as recommended on last hospitalization.
Monitor blood pressure adjust medications accordingly
DVT prophylaxis:
Heparin SQ
CODE STATUS:
DNR
Total time spent to see the patient, examine the patient on the floor, review data and lab results, discuss treatment plan with nursing staff. POA around 55 minutes
Anticipated Discharge: Within 24 hours
Subjective/Interval History
-
Date of Service: June 01, 2024
Doing better today
No fevers
No hypoxia
Denies pain in chest or abdomen
Objective Data
-
Vital Signs:
Vital Signs
Temp Pulse Resp BP Pulse Ox
97.9 F 60 16 105/38 93
06/01/24 11:00 06/01/24 11:00 06/01/24 11:00 06/01/24 11:00 06/01/24 11:00
I&O
05/31/24 06/01/24 06/02/24
06:59 06:59 06:59
Intake Total 1080 / 1080 2200 / 2200
Output Total 600 / 600
Balance 1080 / 1080 1600 / 1600
[2024-06-01] MEDS: RISPERDAL 0.5 MG PO (15:13)
--- NOTE | 2024-06-01 16:55 | CM ---
Per Hospitalist note discharge in am
Notified [facility] liaison at [facility] who has ins auth #[id number]
Start 05/28/24 NRD 06/03/24
Fax updates to [phone]
ambulance transport forms on chart.
Updated [facility]port
PLAN: Return to [facility]
transport via ambulance - forms on chart - time TBD
[facility]
Report #: [phone] Fax #: [phone]
--- NOTE | 2024-06-01 18:39 | PTCARENOTE ---
pt was upset and agitated in the afternoon, getting up and walking without walker, stable on her legs/feet, gave Risperidone as per order, after dinner wanted to go to bed, but HR in the site monitor showing as low as 29, went in the room checked
pulse and temp HR in the dynomap was registering 71 Pox 99 RA, Temp 97.7. NO complains at this time, will pass it on report to shift engineer.
[2024-06-01] MEDS: DESYREL 12.5 MG PO (20:25)
[2024-06-01] MEDS: NAMENDA 5 MG PO (20:27)
[2024-06-02] MEDS: HEPARIN SC ×3 (00:03→08:29)
[2024-06-02 02:55] VITALS: BP 134/49
[2024-06-02 08:00] VITALS: BP 135/49
[2024-06-02] MEDS: RISPERDAL ORAL SOLUTION 0.5 MG PO (08:19)
[2024-06-02] MEDS: NORVASC 5 MG PO (08:20)
[2024-06-02] MEDS: DESENEX/MITRAZOL/ZEASORB 1 APPLIC TOPICAL (08:20)
[2024-06-02 11:15] VITALS: BP 102/41
--- NOTE | 2024-06-02 12:43 | W.PN.HOSP.TC ---
Today's Communication/Plan
-
dc
Assessment / Plan
Assessment / Plan
Physical exam:
General: chronically ill
HEENT: Normocephalic, Atraumatic and Moist Mucous Membranes
Respiratory: Clear to Auscultation; Negative Wheezes.
Cardiac: Regular Rhythm, at times bradycardic, and S1/S2
GI: Soft, Nontender and Nondistended
Musculoskeletal: No Clubbing, No Cyanosis and No Edema
Neuro: Lethargic and Disoriented, appears no gross neuro-deficit
Psych: Calm, lack of judgment and insight
A/P:
# Hypothermia:
resolved
I think her body temperature was fluctuating due to combination of viral infection and advanced aging and/or thermostat dysregulation
TSH normal
Blood sugar is normal
CT scan of the head and no acute abnormality
# failure to thrive
Pt seems more alert to me today, she answered few simple questions, still disoriented X2
No agitation noted
s/p IVF and reducing anti-psychotic med doses.
# Sinus bradycardia:
No hypotension
Intermittent sinus bradycardia
Twelve-lead EKG on 05/29 and it shows normal sinus rhythm. Repeat another twelve-lead EKG stat.
Avoid AV perry agents
Dr Long discussed with legal guardian who is okay if she requires pacemaker
COVID-19:
[facility] and tested negative here in the hospital.
Symptomatic care. Good oxygen level without need for nasal oxygen. Mild cough reported by staff but does not seem persistent. Lung exam no wheezes or crackles.
It seems isolation can come off by 06/02
Left opacification on chest x-ray:
Unclear significance
Does not appear to be consistent with pneumonia. No leukocytosis.
She did receive IV Rocephin and azithromycin and then oral Omnicef for a couple of days. I discussed with ID on 05/29 and ID recommends to discontinue all antibiotics which is actually consistent with what they said before.
Acute metabolic encephalopathy, POA:
Seems back to baseline. She talked today, followed commands, discussed what was on TV for short time, responded well to questions. Pleasantly confused to details, no agitation.
Obtained CT scan of the head and no acute abnormality
Due to some lethargy, reduced risperidone doses and trazodone.
Continue to monitor mental status
#CKD stage IIIb:
Avoid nephrotoxic
Monitored renal function
#Anemia:
Hemoglobin 9.1
No bleeding
Continue to monitor
Dementia:Advanced
lethargic at times but overall seems to approach her baseline.
She is on Namenda 5 mg p.o. daily, due to some lethargy decreased risperidone doses and trazodone.
Monitored mental status and behavior
Mechanical fall:
PT OT eval
Essential Hypertension:
Continue amlodipine 5 mg p.o. daily when able
No BELKIS inhibitor as recommended on last hospitalization.
Monitor blood pressure adjust medications accordingly
DVT prophylaxis:
Heparin SQ
CODE STATUS:
DNR
Total discharge time spent to see the patient, examine the patient on the floor, review data and lab results, discuss discharge plan with nursing staff around 65 minutes
Anticipated Discharge: Today
Subjective/Interval History
-
Date of Service: June 02, 2024
She is doing much better
Awake, alert
Objective Data
-
Vital Signs:
Vital Signs
Temp Pulse Resp BP Pulse Ox
97.3 F 44 16 102/41 96
06/02/24 11:15 06/02/24 11:15 06/02/24 11:15 06/02/24 11:15 06/02/24 11:15
I&O
06/01/24 06/02/24 06/03/24
06:59 06:59 06:59
Intake Total 2200 / 2200 600 / 600
Output Total 600 / 600
Balance 1600 / 1600 600 / 600
--- NOTE | 2024-06-02 13:23 | CM ---
software development project manager reviewed patient's chart and met with patient and left message for patient's guardian regarding discharge today. Patint to return to [facility].
[facility]
Report #: [phone]
Fax #: [phone]
Plan; Patient to return to [facility] today, message left for guardian.
--- NOTE | 2024-06-02 14:10 | PTCARENOTE ---
Patient discharged back to [facility], report called to Sofiya at facility. This RN removed patient's tele pack, belongings gathered in room prior to transport and handed to transport team. Patient taken to [facility] via EMS transport. No
IV on patient. Vitals taken within four hours.
--- NOTE | 2024-06-03 06:26 | W.DCSUMMARY ---
Discharge Summary
Discharge Data
Date of Admission: 05/26/24
Date of Discharge: 06/02/24
-
Pending Results: No
Hospital Course
83 years old female presented to the hospital after a fall. Patient has history of advanced dementia and was unable to provide history. Patient had a fall with no head injury or loss of consciousness but described right leg pain. Imaging studies
of the right lower extremity did not show acute fractures. Reportedly, patient tested positive for COVID-19 at the alf. Recheck the test came back negative. Chest radiography showed left basilar infiltrate but was not significant.
Patient had mild hypoxemia but later improvement, she did not need oxygen supplementation. Infectious diseases retail sales vitamin consultant was consulted. Patient was evaluated and was did not have active symptoms of infection and she did not receive course of
antibiotics. Patient was noted to have hypothermia. Unclear etiology of the temperature dysregulation but could be related to advanced age. She did not have gastrointestinal or respiratory symptoms other than mild cough. Normal TSH and normal
blood sugars. She had a transient bradycardia that later resolved. Patient was noted to have lethargy. Her antipsychotic medications were adjusted by lowering the dosage. Patient started to improve with resuming oral intake. She seemed to be
back to her baseline and did not have fevers. She remained hemodynamically stable and was discharged back to alf in a stable condition. Her legal guardian was updated.
Discharge Plan
-
Patient Disposition: Halfway/SNF
Discharge Diagnosis/Procedures: COVID infection, resolved. No hypoxia.
Lethargy, we reduced dose of anti-psychotic medications
Borderline low blood pressure, we reduced dose of Lisinopril for now. Monitor blood pressure.
Diet: As tolerated
Referrals:
Eusebio Daly I., DO [Family Provider] -
Prescriptions:
Continued
acetaminophen [Tylenol] 325 mg Tablet
650 mg PO Q6HPRN PRN (Reason: mild pain)
acetaminophen 650 mg Suppository
650 mg CO Q4HPRN PRN (Reason: moderate pain/temp>100)
melatonin 5 mg Tablet
10 mg PO HSPRN PRN (Reason: sleep)
dextromethorphan-guaifenesin [Expectorant DM] 10-100 mg/5 mL Syrup
10 ml PO Q4HPRN PRN (Reason: cough)
calcium carbonate [Calcium 600] 600 mg calcium (1,500 mg) Tablet
600 mg PO DAILY
risperidone 1 mg/mL solution
1 mg PO DAILY
memantine 5 mg Tablet
5 mg PO HS
amlodipine 10 mg tablet
5 mg PO DAILY
Changed
trazodone 50 mg Tablet
25 mg PO HS Qty: 0 0RF
lisinopril 10 mg Tablet
5 mg PO DAILY Qty: 0 0RF
risperidone 1 mg/mL Solution
0.5 mg PO DAILYPRN PRN (Reason: agitation) Qty: 0 0RF
Discontinued
mupirocin 2 % Ointment
1 applic TOPICAL DAILY
Discharge Orders:
Discharge Patient (As Directed); Ordered 06/02/24
Ordered By: Emma Plunkett
Discharge Date and Time
Discharge Date/Time: 06/02/24 14:11
Print Language: MACEDONIAN
== END 2024-06-02 14:11 | DRG 193 ==
LOC: 2 NORTH 11:26
PROVIDERS: ADMITTING PHYSICIAN Hospitalist; ATTENDING PHYSICIAN Internal Medicine; EMERGENCY PHYSICIAN Emergency Medicine; FAMILY PHYSICIAN Internal Medicine; OTHER PHYSICIAN Internal Medicine Infectious Disease
DX: J18.9 Pneumonia, unspecified organism (principal); G93.41 Metabolic encephalopathy; Z68.1 Body mass index [BMI] 19.9 or less, adult; R62.7 Adult failure to thrive; I12.9 Hypertensive chronic kidney disease with stage 1 through stage 4 chronic kidney disease, or unspecified chronic kidney disease; N18.32 Chronic kidney disease, stage 3b; Z66 Do not resuscitate; Z11.52 Encounter for screening for COVID-19
CPT/HCPCS: 70450; 71046; 73502; 80048; 80053; 83880; 84443; 84484; 85025; 85027; 87811; 92526; 92610; 93005; 96365; 96375; 97163; 97167; 97530; 99285

== ENCOUNTER 2024-08-02 16:02 | Inpatient (IN) | payer MEDICARE, SELFPAY ==
[2024-08-02] VITALS (10 sets, daily range): BP systolic 98–166; BP diastolic 35–95; BMI 25.2
--- NOTE | 2024-08-02 11:54 | ED.GENMED ---
History of Present Illness
General
Chief Complaint: Heart Rate Problem
Source: records, [facility] records and other (Guardian, Nixon)
Exam Limitations: dementia
Time Seen by Provider: 08/02/24 11:53
History of Present Illness
History of Present Illness:
This patient is an 83-year-old female was brought to the emergency department because staff noted that she seemed more drowsy than usual and was noted to be bradycardic. Here in the emergency department, the patient is awake and alert. She is at
times physically combative with staff and states 'I hate you' when I introduced myself. She denies any specific complaints such as chest pain.
Past History
Past History
ED Past Medical History: Cancer (Ovarian), GERD and Other (Small bowel obstruction, osteoarthritis, dementia, osteoporosis, CKD, hypertension, ovarian neoplasm)
ED Past Surgical History: Appendectomy, Gynecological (Hysterectomy, ovarian cancer), Orthopedic (Right knee) and Tonsilectomy
Social History
Tobacco: Non-smoker
Alcohol: None
Drug: None
Personal: Single
Living: [facility]
Family History
Family History: Other (Noncontributory)
Phy Exam
Physical Exam
Physical Exam:
GENERAL: Alert , in no apparent distress
EYE: pupils equal and reactive
NECK: Supple, no significant adenopathy.
ENT: o/p clr, mmm.
CARDIAC: Regular rate and rhythm, bradycardic.
LUNGS: Clear breath sounds bilaterally, no acute respiratory distress, no wheezes/rales/rhonchi
ABDOMEN: Soft, without focal tenderness, no r/g
NEUROLOGICAL: Alert, speech clear, uncooperative with formal neurological exam
SKIN: Warm and dry, skin intact.
MUSCULOSKELETAL: No edema, well perfused.
PSYCH: Normal and appropriate interaction although agitated at times.
Course
Orders/Labs/Results
Orders:
Orders
08/02/24 11:42
Electrocardiogram (*1) Urgent
Reason for Study: Bradycardia / Tachycardia
08/02/24 11:43
EKG- Treatment ONCE
08/02/24 11:56
Complete Blood Count/No Diff Urgent
08/02/24 11:58
0.9% Sodium Chloride 500 ml [Nss] 500 ml IV BOLUS
08/02/24 12:21
Basic Metabolic Panel Urgent
Troponin I Urgent
08/02/24 14:07
EKG- Treatment ONCE
08/02/24 14:33
Potassium Urgent
08/02/24 Dinner
Regular
At Your Request: Full Participation
08/02/24 15:02
Albuterol Sulfate [Ventolin Nebules] 10 mg INH R NOW STA
Calcium Gluconate 1,000 mg IV NOW STA
Dextrose 50%-Water [Dextrose 50% Syringe] 12.5 grams IV [id number] PRN
Dextrose 50%-Water [Dextrose 50% Syringe] 25 grams IV NOW STA
Furosemide [Lasix] 40 mg IV NOW STA
Insulin Human Regular [Novolin R] 10 units IV NOW STA
Sodium Bicarbonate 50 meq IV NOW STA
08/02/24 15:04
Bedside Glucose PRE IV Insulin- HyperK+ NOW
08/02/24 15:43
Admit/Transfer Patient As Directed
Co-Sign Provider:
Level of Care: Inpatient admission
Assign to:: Telemetry
Physician / Group: kurt
Diagnosis: bradycardia
Reason for Telemetry: Arrhythmia
Date to Stop Telemetry: 08/05/24
Time to Stop Telemetry: 11:00
Reason for Hospitalization: bradycardia
Expected length of stay greater than two midnights?: Yes
ELOS- Estimated Length of Stay in days: 2
I certify the patient meets the requirements for IP care: Yes
Code Status As Directed
Resuscitation Status: Full Code
PRN Pain Medication Management As Directed
May give lesser potent ordered pain med per pt: Yes
preference::
Protocol:: Medication orders for pain may be administered in a
manner that supports deferring to patient preference
when the pt is:
- Requesting an ordered lesser potent pain medication.
Least to most potent pain medications are defined
as: acetaminophen < NSAID < tramadol < opioids
(morphine, oxycodone, hydromorphone).
- Requesting a lesser dose of the same medication IF
ORDERED.
- Requesting a less intrusive route of administration
if both routes are prescribed by the provider (PO <
IV).
08/02/24 15:55
Urinalysis Reflex To Culture Urgent
Date Specimen was Collected: 08/03/24
Time Specimen was Collected: 02:07
CR Chest Portable - 1 View Urgent
Comment:
Reason For Exam: bradycardia
Reason Study Needs to be Portable: Unable to Transport
08/02/24 15:56
Code Status As Directed
Resuscitation Status: Do not resuscitate
Reached after discussion with pt or family/Healthcare POA: Yes
DNR Bracelet Application ONCE
08/02/24 16:24
COVID-19 Antigen Urgent
Source: Nasal Swab
08/02/24 16:34
Bedside Glucose POST IV Insulin- HyperK+ Q1HX2,Q2HX2
08/02/24 18:00
Sodium Zirconium Cyclosilicate [Lokelma] 10 gram PO TID@0600,1400,1800
08/02/24 21:25
Acetaminophen [Tylenol/Feverall] 650 mg RECTAL Q4HPRN PRN
Acetaminophen [Tylenol] 650 mg PO Q6HPRN PRN
Guaifenesin/Dextromethorphan [Robitussin Dm] 10 ml PO Q4HPRN PRN
Heparin 5,000 units SC Q12
Latanoprost [Xalatan Ophthalmic Solution] See Dose Instructions BOTH EYES QPM
Magnesium Hydroxide [Milk of Magnesia] 30 ml PO DAILYPRN PRN
Melatonin 10 mg PO HSPRN PRN
Risperidone [Risperdal] 0.5 mg PO BID
08/02/24 21:25
Activity As Directed
Activity Level: As Tolerated
Vital Signs As Directed
Frequency: Per unit guidelines
DX Deep Vein Thrombosis Video Routine
08/02/24 22:00
Memantine HCl [Namenda] 5 mg PO HS
08/03/24 06:48
Complete Blood Count/With Diff IN AM
Comprehensive Metabolic Panel IN AM
08/03/24 08:00
Calcium Carbonate [Oscal Nicola 500] 500 mg PO DAILY
08/05/24 11:00
DC Protocol for Telemetry ONCE
Abnormal Lab Results
08/02/24 08/02/24 08/02/24
11:56 12:21 14:33
RBC 2.77 L 10^6/uL
(4.20-5.40)
Hgb 8.1 L g/dL
(12.0-16.0)
Hct 26.2 L %
(37.0-47.0)
MCHC 30.9 L g/dL
(33.0-37.0)
RDW 18.0 H %
(11.5-14.5)
MPV 11.2 H fL
(7.4-10.4)
Potassium 6.5 H* mmol/L
(3.5-5.1)
Chloride 114 H mmol/L
(98-107)
Carbon Dioxide 18 L mmol/L
(22-30)
BUN 44 H mg/dl
(7-17)
Creatinine 1.5 H mg/dL
(0.6-1.0)
Calcium 7.9 L mg/dl
(8.4-10.2)
08/02/24 11:56
08/02/24 14:33
Vital Signs
Initial and Last Documented VS:
Initial Vital Signs
Pulse Resp Pulse Ox
35 20 98
08/02/24 11:44 08/02/24 11:44 08/02/24 11:44
Last Documented Vital Signs
Temp Pulse Resp BP Pulse Ox
96 F L 71 17 157/56 97
08/05/24 06:30 08/05/24 07:20 08/05/24 07:20 08/05/24 07:20 08/05/24 07:20
*Critical Care Note
Total Time (30-74mins, 75-104mins- exclusive of procedures): Not Applicable
Update Note
Update Note:
Patient presents to the Emergency Department with ____drowsiness
Number and Complexity of Problems Addressed at the Encounter
� Chronic conditions affecting care:
� Acute Exacerbation and/or Progression of Chronic Illness:
� Differential Diagnosis includes: But not limited to infection, electrolyte disorder, ACS, etc.
Amount and/or Complexity of Data to be Reviewed and Analyzed
� I performed an independent evaluation of and my interpretation is:
EKG: Read by me, sinus bradycardia at a rate of 34, no acute ischemia
CT:
Xrays:
Laboratory Studies: Anemia noted mild worsening of known renal insufficiency
Other:
� Review of other/old records reveals: Patient was admitted with hyperkalemia March 2024 and at that time noted to be bradycardic, resolved spontaneously after medications were removed and hyperkalemia was corrected.
� Clinical information was obtained by an independent historian: Case discussed with patient's guardian Vijay Freeman, especially regarding her wishes for pacer placement.
� Prescriptions/Medications Considered but not given:
� Further testing considered but not performed:
Risk of Complications and/or Morbidity or Mortality of Patient Management
� Social determinants of health affecting care:
� Discussion with other providers (PCP, Hospitalists, Consultants, etc):
� Escalation of care including admission/observation vs risk of discharge considered: Bradycardia has resolved, repeat ECG normal sinus rhythm at 68. Potassium pending.
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 While stable now, I recommend she d/c amlodipine upon discharge. Pt awake
and alert. bp 107/71. hr 60's. K just resulted at 6.5 Will treat hyperkalemia, admit/obs overnight for monitoring.
ED Attending Note
-
Portions of this chart may have been created with voice recognition software.� Occasional wrong word or��sound alike� substitutions may have occurred due to the inherent limitations of voice recognition software.
Discharge Plan
Departure
Patient Disposition: Admit
Date of Disposition: 08/02/24
Time of Disposition: 15:08
Admit to: Telemetry
Presentation/result/management discussed w/ accepting MD/DO: Hospitalist
Condition: Fair
Discharge Problem:
Acute hyperkalemia, Bradycardia
Interventions
Interventions:
*Risk Screen - Suicide Last Done: 08/02/24 11:44
*General Assessment Last Done: 08/02/24 12:00
*Neglect/Abuse Screening Last Done: 08/02/24 11:44
ED- Fall Risk Assessment Last Done: 08/02/24 11:55
*ED COVID-19 Vaccine History Last Done: 08/02/24 11:54
*Nursing Disposition Last Done: 08/02/24 21:01
ED- Cardiac Assessment Last Done: 08/02/24 11:45
ED- Pulmonary Assessment Last Done: 08/02/24 11:54
Discharge Date and Time
Discharge Date/Time: 08/02/24 21:01
[2024-08-02] MEDS: NSS 500 IV (12:04)
[2024-08-02 12:05] LABS: Hematocrit 26.2 % (37.0-47.0); Hemoglobin 8.1 g/dL (12.0-16.0); Mean Corp Hgb Conc. 30.9 g/dL (33.0-37.0); Mean Corpuscular Hgb 29.2 pg (27.0-31.0); Mean Corpuscular Volume 94.6 fL (81.0-99.0); Mean Platelet Volume 11.2 fL (7.4-10.4); Platelet Count 168 10^3/uL (130-400); Red Blood Cell Count 2.77 10^6/uL (4.20-5.40); White Blood Cell Count 8.3 10^3/uL (4.8-10.8)
[2024-08-02 13:07] LABS: Blood Urea Nitrogen 44 mg/dl (7-17); Calcium 7.9 mg/dl (8.4-10.2); Carbon Dioxide 18 mmol/L (22-30); Chloride 114 mmol/L (98-107); Glucose 88 mg/dl (70-99); Sodium 137 mmol/L (135-145); eGFR 33.94
[2024-08-02 13:08] LABS: Troponin I < 0.012 ng/ml
[2024-08-02 14:59] LABS: Potassium 6.5 mmol/L (3.5-5.1)
[2024-08-02] MEDS: DEXTROSE 50% SYRINGE 25 GRAMS IV (15:25)
[2024-08-02] MEDS: VENTOLIN NEBULES 10 MG INH (15:26)
[2024-08-02] MEDS: LASIX 40 MG IV (15:26)
[2024-08-02] MEDS: NOVOLIN R 10 UNITS IV (15:34)
[2024-08-02] MEDS: CALCIUM GLUCONATE 1000 MG IV (15:38)
[2024-08-02] MEDS: SODIUM BICARBONATE 50 MEQ IV (15:39)
[2024-08-02 15:45] LABS: Glucose - Point of Care 91 mg/dl (70-99)
--- NOTE | 2024-08-02 15:52 | HPS.HSE ---
Family Physician
-
Family Physician: Eusebio Daly
Chief Complaint
-
drowsiness, bradycardia
History of Present Illness
83-year-old female past medical history of CKD 3B, anemia, advanced dementia, hypertension, presenting with increased drowsiness and bradycardia noted at skilled nursing. Patient is physically combative with staff. She denies any specific complaints.
When she came in she was found to be cursing and yelling at staff. Now not answering any questions.
Medical History
Past Medical History
Past Medical History: Reports Other (CKD 3B, anemia, advanced dementia, hypertension,)
Past Surgical History: Reports None
Social History
Tobacco: Non-smoker
Alcohol: None
Drug: None
Family History
Family History: Not pertinent
Allergies / Home Medications
Allergies reflects when Allergies were last updated in [facility].
Home Medications with original date entered in [facility]
Allergy/Medication List:
Allergies
Allergy/AdvReac Type Severity Reaction Status Date / Time
No Known Allergies Allergy Verified 05/26/24 08:23
Home Medications
acetaminophen 325 mg tablet (Tylenol) 650 mg PO Q6HPRN PRN mild pain 11/11/23
acetaminophen 650 mg rectal suppository 650 mg [place] Q4HPRN PRN moderate pain/temp>100 11/11/23
melatonin 5 mg tablet 10 mg PO HSPRN PRN sleep 11/11/23
calcium carbonate (Calcium 600) 600 mg PO DAILY Supplement 03/16/24
dextromethorphan-guaifenesin 10 mg-100 mg/5 mL oral syrup (Expectorant DM) 10 ml PO Q4HPRN PRN cough 03/16/24
amlodipine 10 mg tablet 5 mg PO DAILY Blood Pressure 05/26/24
memantine 5 mg tablet 5 mg PO HS Neurological Condition 05/26/24
lisinopril 10 mg tablet 5 mg (1/2 x 10 mg) PO DAILY Blood Pressure #0 tabs 06/02/24
latanoprost 0.005 % eye drops 1 drp BOTH EYES QPM 08/02/24
magnesium hydroxide 400 mg/5 mL oral suspension (Milk of Magnesia) 2,400 mg PO DAILYPRN PRN if no bm by 3rd day 08/02/24
risperidone 0.5 mg tablet (Risperdal) 0.5 mg PO BID 08/02/24
trazodone 50 mg tablet 25 mg PO HSPRN PRN sleep 08/02/24
Review of Systems
-
History Source: Patient
A 12 point ROS was completed and negative except as noted: Yes
Constitutional: Reports No Symptoms
EENT: Reports No Symptoms
Respiratory: Reports No Symptoms
Cardiac: Reports No Symptoms
Abdomen/GI: Reports No Symptoms
: Reports No Symptoms
Musculoskeletal: Reports No Symptoms
Skin: Reports No Symptoms
Neurological: Reports No Symptoms
Endocrine: Reports No Symptoms
Hematologic/Lymphatic: Reports No Symptoms
Psych: Reports No Symptoms
Physical Exam
Vital Signs
Vital Signs
Pulse Resp BP Pulse Ox
69 22 128/54 100
08/02/24 15:26 08/02/24 14:30 08/02/24 15:26 08/02/24 11:54
Physical Exam
General: Well Developed, Well Nourished and No Apparent Distress
HEENT: NormoCephalic, Moist mucous membranes and Atraumatic
Respiratory: Clear
Cardiac: S1/S2 and Regular Rhythm; No Murmur or Rub
GI: Soft, Non Tender, Non Distended and Normal Bowel Sounds; No Organomegaly
Rectal: Deferred by Provider
Musculoskeletal: No Clubbing, No Cyanosis and No Edema
Skin: No Rash
Neuro: Nonfocal/grossly intact
Laboratory Results
-
08/02/24 11:56
08/02/24 14:33
Laboratory Results
PT Cancelled 08/02/24 11:42
INR Cancelled 08/02/24 11:42
Total Bilirubin Cancelled 08/02/24 12:21
AST Cancelled 08/02/24 12:21
ALT Cancelled 08/02/24 12:21
Alkaline Phosphatase Cancelled 08/02/24 12:21
Troponin I < 0.012 ng/ml 08/02/24 12:21
Data Reviewed
-
Lab Data: Labs Reviewed by me
Old Records: Reviewed
Impression/Plan
-
IMPRESSION:
PLAN:
# Junctional bradycardia now resolved
-Heart rate 30s initially
-Heart rate now 60s
-No clear symptoms
-IV fluids were given
-Telemetry monitoring for recurrence
-Would likely not be a good candidate for pacemaker even if necessary
# Severe hyperkalemia secondary to lisinopril
-Lasix 40 given
-Calcium gluconate given
-Sodium bicarbonate given
-Insulin dextrose given
-Stop lisinopril
-Recheck BMP
# Agitation secondary to dementia
-Cursing at staff and yelling previously and now not answering questions
-Continue memantine, Risperdal, trazodone
-Consider psychiatry
-Drowsiness
-Check UA and COVID , CXR
Chronic kidney disease
-Renal function stable
Chronic anemia
-Hemoglobin 8.1 relatively stable
Essential hypertension
-Hold lisinopril
-Continue amlodipine
DNR/DNI
DVT prophylaxis�heparin
Regular diet
[2024-08-02 16:17] LABS: Glucose - Point of Care 170 mg/dl (70-99)
[2024-08-02 16:52] LABS: COVID-19 Antigen Negative (Negative)
[2024-08-02 17:26] LABS: Blood Urea Nitrogen 45 mg/dl (7-17); Calcium 8.4 mg/dl (8.4-10.2); Carbon Dioxide 24 mmol/L (22-30); Chloride 114 mmol/L (98-107); Glucose 99 mg/dl (70-99); Potassium 5.2 mmol/L (3.5-5.1); Sodium 145 mmol/L (135-145); eGFR 33.94
[2024-08-02] MEDS: DEXTROSE 50% SYRINGE 12.5 GRAMS IV ×2 (18:36→19:24)
[2024-08-02 18:39] LABS: Glucose - Point of Care 50 mg/dl (70-99)
[2024-08-02 18:53] LABS: Glucose - Point of Care 99 mg/dl (70-99)
[2024-08-02 19:13] LABS: Glucose - Point of Care 86 mg/dl (70-99)
[2024-08-02 19:21] LABS: Glucose - Point of Care 72 mg/dl (70-99)
[2024-08-02] MEDS: LOKELMA PO (20:27)
[2024-08-02 20:28] LABS: Glucose - Point of Care 96 mg/dl (70-99)
[2024-08-02] MEDS: HEPARIN SC ×2 (22:07→22:20)
[2024-08-02] MEDS: NAMENDA PO ×2 (22:08→22:21)
[2024-08-02] MEDS: XALATAN OPHTHALMIC SOLUTION BOTH EYES ×2 (22:09→22:21)
[2024-08-02] MEDS: RISPERDAL PO ×2 (22:09→22:20)
[2024-08-02 23:38] LABS: Glucose - Point of Care 161 mg/dl (70-99)
--- NOTE | 2024-08-02 23:55 | PTCARENOTE ---
Pt admitted to 1 ACU. Pt refused everything. Pt becomes combative and aggressive toward staff when providing care. pt wants to be left alone. will continue w/ tx plan.
[2024-08-03 02:59] LABS: Urine Albumin Negative (Neg - Trace); Urine Bilirubin Negative (Negative); Urine Character Clear (Clear); Urine Color Straw; Urine Glucose Negative (Negative); Urine Ketone Negative (Negative); Urine Leukocyte Negative (Negative); Urine Nitrite Negative (Negative); Urine Occult Blood Negative (Negative); Urine Urobilinogen Negative (Neg - 1+)
[2024-08-03 03:52] VITALS: BP 100/64
[2024-08-03] MEDS: LOKELMA PO ×2 (05:51→13:57)
[2024-08-03 07:07] LABS: % Basophils 0.5 % (0-2); % Eosinophils 0.4 % (0-6); % Immature Granulocytes 0.3 % (0-0.5); % Monocytes 11.6 % (1.7-9.3); % Neutrophils 66.2 % (42.2-75.2); Absolute Basophils 0.1 10^3/uL (0-0.2); Absolute Lymphocytes 2.1 10^3/uL (1.2-3.4); Absolute Monocytes 1.1 10^3/uL (0.1-0.6); Absolute Neutrophils 6.5 10^3/uL (1.4-6.5); Hematocrit 28.9 % (37.0-47.0); Hemoglobin 8.8 g/dL (12.0-16.0); Mean Corp Hgb Conc. 30.4 g/dL (33.0-37.0); Mean Corpuscular Volume 95.4 fL (81.0-99.0); Mean Platelet Volume 10.9 fL (7.4-10.4); Nucleated Red Blood Cells % 0 %; Platelet Count 179 10^3/uL (130-400); Red Blood Cell Count 3.03 10^6/uL (4.20-5.40); Red Cell Dist. Width 17.5 % (11.5-14.5); White Blood Cell Count 9.8 10^3/uL (4.8-10.8)
--- NOTE | 2024-08-03 07:20 | W.PN.HOSP.TC ---
Addendum entered and electronically signed by Chung Honeycutt MD 08/03/24 08:17:
Spoke to patient's guardian. Updated patient's refusal of taking medicines and complying with medical instructions. Guardian is going to get a friend of her's to come and talk to the patient. He is aware about cardiology evaluation and also
psychiatric evaluation. DNR confirmed
Addendum entered and electronically signed by Chung Honeycutt MD 08/03/24 08:02:
Check lower extremity Doppler and also TSH
Original Note:
Today's Communication/Plan
-
Psychiatric evaluation to see if meds need to be adjusted for patient's behavior for her to be cooperative to take medicines.
Try and persuade the patient to take medicines if possible
Cardiology evaluation for bradycardia
Assessment / Plan
Assessment / Plan
83-year-old female past medical history of CKD 3B, anemia, advanced dementia, hypertension, presenting with increased drowsiness and bradycardia noted at assisted. Patient is physically combative with staff. She denies any specific complaints.
says she wants to go home. She thinks she lives in [place] with her parents. States that she does not want a thing which does not belong to her body. Discussed about getting sick or even says she does not care.
On examination wakes up when name called does not want to engage in a conversation does not want to be touched
Cardiovascular system S1-S2 appreciated
Chest clear to auscultation
Abdomen soft and nontender
Left lower extremity mild redness (states she has RSD in the left leg)
Chronic venous stasis changes bilateral lower extremities
# Junctional bradycardia now resolved
EKG reviewed by me
Heart rate 30s initially ,No clear symptoms
Hyperkalemia may be a reason
Monitor on tele
Cardiology eval
# Severe hyperkalemia secondary to lisinopril
Hold BELKIS, do not restart
Got Lasix/Calcium gluconate / Sodium bacarb/ Insulin and Dextrose
Unfortunately potassium is still high but she has been refusing to take p.o. medicines. Lokelma ordered
Follow BMP
# TME versus behavioral disturbance in patient with dementia
Unclear if she also has anxiety and depression
Continue memantine, Risperdal, trazodone
UA neg and COVID Neg
CXR no Pneumonia
Continue Memantine
Patient not cooperating with staff for vital signs or taking medicines
Psychiatry consulted
# Chronic kidney disease
# Chronic Anemia- Check Iron studies
# RSD left leg
# Essential hypertension- Hold Lisinopril, Continue Amlodipine
# H/O Ovarian Cancer
# DVT prophylaxis�SC Heparin
# DNR/DNI
Discussed with nursing at bedside
Left a message for patient's legal guardian Vijay Freeman
Anticipated Discharge: 24 - 48 hours
Subjective/Interval History
-
Date of Service: August 03, 2024
Objective Data
-
Labs:
Laboratory Results
08/03/24
06:48
WBC 9.8
Hgb 8.8 L
Hct 28.9 L
Plt Count 179
Sodium Pending
Potassium Pending
Chloride Pending
Carbon Dioxide Pending
BUN Pending
Creatinine Pending
Glucose Pending
Calcium Pending
Total Bilirubin Pending
AST Pending
ALT Pending
Alkaline Phosphatase Pending
Vital Signs:
Vital Signs
Temp Pulse Resp BP Pulse Ox
97.5 F 76 20 100/64 96
08/03/24 03:52 08/03/24 03:52 08/03/24 03:52 08/03/24 03:52 08/03/24 03:52
I&O
08/02/24 08/03/24 08/04/24
06:59 06:59 06:59
Intake Total 240 / 240
Output Total 700 / 700
Balance -460 / -460
--- NOTE | 2024-08-03 07:40 | PTCARENOTE ---
MD Honeycutt notified in person upon walking round that pt, per overnight Rn shift report, has been combative, not cooperating and has been refusing her medications along with care throughout the night into this AM as PCT reports pt refusing AM vital
signs. no new verbal orders at this time. plan of care continues.
[2024-08-03 07:42] LABS: ALT (SGPT) 12 U/L (0-35); AST (SGOT) 18 U/L (14-36); Alkaline Phosphatase 107 U/L (38-126); Blood Urea Nitrogen 42 mg/dl (7-17); Calcium 8.4 mg/dl (8.4-10.2); Carbon Dioxide 18 mmol/L (22-30); Chloride 113 mmol/L (98-107); Estimated Creatinine Clearance 21 ml/min; Glucose 79 mg/dl (70-99); Potassium 5.9 mmol/L (3.5-5.1); Sodium 141 mmol/L (135-145); Total Bilirubin 0.4 mg/dl (0.2-1.3); Total Protein 6.4 g/dl (6.3-8.2); eGFR 31.41
[2024-08-03] MEDS: LOKELMA 10 GRAM PO (08:54)
[2024-08-03] MEDS: RISPERDAL 0.5 MG PO ×2 (08:54→20:14)
[2024-08-03] MEDS: HEPARIN SC (09:07)
[2024-08-03] MEDS: OSCAL CAL 500 PO (09:08)
--- NOTE | 2024-08-03 11:10 | CON.CAR ---
Addendum entered and electronically signed by Dioni Do DO 08/03/24 15:58:
I saw and examined the patient.
The Blankbook Stitching Machine Operator's note was reviewed and I agree with the note.
Comment:
Plan:
HPI: Patient came to ER yesterday from her residential with complaints of lethargy and bradycardia and was admitted, cardiology is now consulted. Patient lives at [facility] and has no family. Patient used to live on [place] large farm that [place]
left to her by a friend, the friend also left her money to care for herself and the farm, but the patient lost money in a scam and during an admission 03/2023 and then readmission 09/2023 the patient was placed at [facility] as she could no longer
care for herself and was found to be incompetent to make decisions. She now has a court appointed guardian, Vijay. Patient was seen by psychiatry during those admissions and has a diagnosis of likely dementia with agitation. Cardiology evaluated
the patient for bradycardia in the setting of hyperkalemia during her admission 03/2024 and at that time it was felt that the patient was having asymptomatic pauses due in part to her hyperkalemia and that there was not a class I indication for PPM
placement at that time. It was also recommended the patient stopped taking lisinopril at that time. Patient returned to ER yesterday and is back on lisinopril 5 mg daily and her initial potassium was 6.5. Patient has been refusing to take the
Lokelma as ordered. Cardiology has been consulted for junctional bradycardia on initial ECG, but review of telemetry now looks like sinus bradycardia. Patient does not take any AV perry blockers.
Junctional bradycardia likely secondary to hypokalemia, now improved and sinus rhythm with controlled HR.
-Potassium as high as 6.5 on admission and patient has been refusing Lokelma. Potassium improved to 5.9 on 08/03/2024.
Currently, no high grade heart block and no significant pauses. Recommend avoiding all AV perry blocking agents. There is no class I indication for PPM at this time
Call was placed to her guardian, Vijay, explaining the hyperkalemia and initial junctional bradycardia.
Please recall if needed.
�
Original Note:
Consultation
Consultation Request
Date/Time Consultation Requested: 08/03/24 at 0733
Date/Time Consultation Performed: 08/03/24 at 1345
Requesting Provider: Dr. Honeycutt
Performing Provider: Dr. Do
Reason for Consultation: Sinus bradycardia
Medical History
-
History of Present Illness:
Patient came to ER yesterday from her residential with complaints of lethargy and bradycardia and was admitted, cardiology is now consulted. Patient lives at [facility] and has no family. Patient used to live on a large farm that was left to
her by a friend, the friend also left her money to care for herself and the farm, but the patient lost money in a scam and during an admission 03/2023 and then readmission 09/2023 the patient was placed at [facility] as she could no longer care
for herself and was found to be incompetent to make decisions. She now has a court appointed guardian, Vijay. Patient was seen by psychiatry during those admissions and has a diagnosis of likely dementia with agitation. Cardiology evaluated the
patient for bradycardia in the setting of hyperkalemia during her admission 03/2024 and at that time it was felt that the patient was having asymptomatic pauses due in part to her hyperkalemia and that there was not a class I indication for PPM
placement at that time. It was also recommended the patient stopped taking lisinopril at that time. Patient returned to ER yesterday and is back on lisinopril 5 mg daily and her initial potassium was 6.5. Patient has been refusing to take the
Lokelma as ordered. Cardiology has been consulted for junctional bradycardia on initial ECG, but review of telemetry now looks more like sinus bradycardia. Patient does not take any AV perry blockers.
PMH:
Sinus bradycardia
CKD 3
Agitation with h/o dementia
h/o syncope 2021
Former smoker
h/o ovarian cancer local disease treated with FRANKY-BSO for cure 1999
Past Medical History
Past Medical History: Other (in HPI)
Past Surgical History: Appendectomy, Gynecological (FRANKY-BSO for ovarian CA), Orthopedic and Tonsilectomy
Social History
Tobacco: Former Smoker
Alcohol: None
Drug: None
Personal: Single
Living: Halfway (long-term SNF resident at [facility])
Family History
Family History: Cancer and Other (CVA)
Allergies / Home Medications
Allergy/AdvReac Type Severity Reaction Status Date / Time
No Known Allergies Allergy Verified 05/26/24 08:23
�Medication �Instructions �Recorded �Confirmed �Type
acetaminophen 325 mg tablet 650 mg PO Q6HPRN PRN mild pain 11/11/23 08/02/24 History
(Tylenol)
acetaminophen 650 mg rectal 650 mg WV Q4HPRN PRN moderate 11/11/23 08/02/24 History
suppository pain/temp>100
melatonin 5 mg tablet 10 mg PO HSPRN PRN sleep 11/11/23 08/02/24 History
calcium carbonate (Calcium 600) 600 mg PO DAILY Supplement 03/16/24 08/02/24 History
dextromethorphan-guaifenesin 10 10 ml PO Q4HPRN PRN cough 03/16/24 08/02/24 History
mg-100 mg/5 mL oral syrup
(Expectorant DM)
amlodipine 10 mg tablet 5 mg PO DAILY Blood Pressure 05/26/24 08/02/24 History
memantine 5 mg tablet 5 mg PO HS Neurological Condition 05/26/24 08/02/24 History
lisinopril 10 mg tablet 5 mg (1/2 x 10 mg) PO DAILY Blood 06/02/24 08/02/24 Rx
Pressure #0 tabs
latanoprost 0.005 % eye drops 1 drp BOTH EYES QPM 08/02/24 08/02/24 History
magnesium hydroxide 400 mg/5 mL 2,400 mg PO DAILYPRN PRN if no bm 08/02/24 08/02/24 History
oral suspension (Milk of Magnesia) by 3rd day
risperidone 0.5 mg tablet 0.5 mg PO BID 08/02/24 08/02/24 History
(Risperdal)
trazodone 50 mg tablet 25 mg PO HSPRN PRN sleep 08/02/24 08/02/24 History
Review of Systems
-
History Source: Transfer Record
All other systems: Negative unless noted
Physical Exam
Vital Signs
Temp Pulse Resp BP Pulse Ox
97.5 F 76 20 100/64 96
08/03/24 03:52 08/03/24 03:52 08/03/24 03:52 08/03/24 03:52 08/03/24 03:52
GEN: NAD. Sleeping, but awakens to touch and then closes eyes again.
HEENT: EOMI, MMM
LUNGS: RA. Clear anterolaterally. No audible wheeze
CV: SR to SB on tele. Reg, no murmur
ABD: ND
EXT: No clubbing, cyanosis, lesions or edema B/L
NEURO: Gross non-focal
SKIN: Warm, dry and pink. No rash
Lab Results
08/03/24 06:48
08/03/24 06:48
Troponin I < 0.012 ng/ml 08/02/24 12:21
Impression / Plan
-
PCP: Ronni TIE IN [facility] at [facility]
Cardiology: Dr. Do, last seen 2021
Impression:
Admitted with bradycardia and hyperkalemia 08/02/24
Junctional bradycardia
Sinus bradycardia
Hyperkalemia
CKD 3
Agitation with h/o dementia
h/o syncope 2021
Former smoker
h/o ovarian cancer local disease treated with FRANKY-BSO for cure 1999
Plan:
-Patient came to ER yesterday from her residential with complaints of lethargy and bradycardia and was admitted, cardiology is now consulted. Patient lives at [facility] and has no family. Patient used to live on a large farm that was left
to her by a friend, the friend also left her money to care for herself and the farm, but the patient lost money in a scam and during an admission 03/2023 and then readmission 09/2023 the patient was placed at [facility] as she could no longer care
for herself and was found to be incompetent to make decisions. She now has a court appointed guardian, Vijay. Patient was seen by psychiatry during those admissions and has a diagnosis of likely dementia with agitation. Cardiology evaluated the
patient for bradycardia in the setting of hyperkalemia during her admission 03/2024 and at that time it was felt that the patient was having asymptomatic pauses due in part to her hyperkalemia and that there was not a class I indication for PPM
placement at that time. It was also recommended the patient stopped taking lisinopril at that time. Patient returned to ER yesterday and is back on lisinopril 5 mg daily and her initial potassium was 6.5. Patient has been refusing to take the
Lokelma as ordered. Cardiology has been consulted for junctional bradycardia on initial ECG, but review of telemetry now looks more like sinus bradycardia. Patient does not take any AV perry blockers.
-ECG reviewed by me shows junctional bradycardia on admission. Telemetry reviewed by me now shows sinus bradycardia.
-Potassium as high as 6.5 on admission and patient has been refusing Lokelma. Potassium improved to 5.9 on 08/03/2024.
-It was recommended that lisinopril be stopped at last discharge, but patient returns to the hospital on lisinopril 5 mg daily.
-Suspect junctional bradycardia is due to hyperkalemia.
-Currently, no high grade heart block and no significant pauses. Recommend avoiding all AV perry blocking agents. There is no class I indication for PPM at this time
-BP controlled while lisinopril is on hold. Would not restart lisinopril, even at a lower dose. Could use amlodipine 5 mg daily if BP med needed.
-Called and left a message for her guardian, Vijay, explaining the hyperkalemia and initial junctional bradycardia. Offered my number for a call back.
[2024-08-03 11:38] VITALS: BP 135/53
--- NOTE | 2024-08-03 13:51 | CS.PSYCHR ---
Consult Summary - Psychiatry
-
83-year-old female past medical history of CKD 3B, anemia, advanced dementia, hypertension, presenting with increased drowsiness and bradycardia noted at assisted. Pt was reportedly combative with staff at nursing facility. Pt noted cursing
and yelling, not able to answer any questions on admission. Pt took existing med Risperidone 0.5 mg this am; was off the floor for an ultrasound. Pt seen early this afternoon, was sound asleep.
PMH: hx of ovarian cancer S/P resection, GERD, hx of small bowel obstruction, frequent falls, osteoporosis and compression fx, HTN, Gout
Psych Hx: from record- dementia with behavior disturbance.
SH: from prior record- resided with a friend for many years until her friend . Residing at [facility].
MSE: currently sound asleep. Unable to attempt interview
Imp/Rec: Dementia with behavioral disturbance. Would continue current Risperidone, Memantine, melatonin prn
Will follow
[2024-08-03 15:44] VITALS: BP 134/53
[2024-08-03] MEDS: XALATAN OPHTHALMIC SOLUTION BOTH EYES (17:05)
[2024-08-03 20:00] VITALS: BP 171/59
[2024-08-03] MEDS: NAMENDA 5 MG PO (20:15)
[2024-08-03] MEDS: HEPARIN 5000 UNITS SC (20:15)
--- NOTE | 2024-08-03 20:37 | TRANSFER ---
Pt AAOx1 with advanced dementia, confused/agitated and difficult to reorient, intermittently refusing medication/care. Pt continuously attempting to get out of bed, increasingly agitated with staff when attempts are made to safely place pt back in
bed. Pt currently in a semi-private; d/w admissions and current nursing supervisor [facility] facility, pt transferred to [id number] to a private room. Report called to SKY Nguyen. Pt transported on tele via wheelchair with pt belongings from her room.
[2024-08-03 20:47] VITALS: BP 174/61; BMI 24.2
[2024-08-03 23:18] VITALS: BP 142/76
[2024-08-04 03:45] VITALS: BP 154/58
[2024-08-04 05:30] VITALS: BMI 23.8
[2024-08-04 06:20] LABS: Hematocrit 28.7 % (37.0-47.0); Hemoglobin 9.2 g/dL (12.0-16.0); Mean Corp Hgb Conc. 32.1 g/dL (33.0-37.0); Mean Corpuscular Hgb 29.4 pg (27.0-31.0); Mean Corpuscular Volume 91.7 fL (81.0-99.0); Mean Platelet Volume 11.1 fL (7.4-10.4); Platelet Count 177 10^3/uL (130-400); Red Blood Cell Count 3.13 10^6/uL (4.20-5.40); Red Cell Dist. Width 17.3 % (11.5-14.5); White Blood Cell Count 8.8 10^3/uL (4.8-10.8)
[2024-08-04 07:05] VITALS: BP 169/70
[2024-08-04 07:09] LABS: Blood Urea Nitrogen 33 mg/dl (7-17); Calcium 8.5 mg/dl (8.4-10.2); Carbon Dioxide 19 mmol/L (22-30); Chloride 112 mmol/L (98-107); Estimated Creatinine Clearance 26 ml/min; Glucose 91 mg/dl (70-99); Potassium 5.3 mmol/L (3.5-5.1); Sodium 139 mmol/L (135-145)
--- NOTE | 2024-08-04 07:16 | PTCARENOTE ---
Patient attempting to get out of bed multiple times and unable to be redirected. Patient combative/aggressive w/ staff. Redirection strategies unsuccessful after multiple attempts. Patient pulled out IV. BODYBUILDER notified. B/L soft wrist restraints and 4
side rails applied.
[2024-08-04] MEDS: OSCAL CAL 500 500 MG PO (07:50)
[2024-08-04] MEDS: RISPERDAL 0.5 MG PO ×2 (07:50→21:08)
[2024-08-04] MEDS: HEPARIN 5000 UNITS SC (07:50)
--- NOTE | 2024-08-04 10:16 | PTCARENOTE ---
Restraints removed from this pt at 0900. AM meds administered, B/L wrists with skin intact, pt assisted to bathroom and washed up. Pt resting comfortably in chair at this time for breakfast. Bed and chair alarm in place. Medsitter placed for pt
safety. No new orders at this time.
[2024-08-04 11:05] VITALS: BP 139/87
--- NOTE | 2024-08-04 12:49 | W.PN.UPDATE ---
Addendum entered and electronically signed by Thelma Gavin MD 08/04/24 15:06:
namenda dose is low but unlikely to do much at this later stage of dementia
Original Note:
Update Note
Progress Note Update
patient seen chart reviewed. this patient is very well known to me from prior admits to . she has hx dementia and has had periods of agitation and irritabiity. i had started her in the past on risperdal which she continues to be prescribed she
did take today. nursing tells me she can be difficult. i had spoken to her nurse on first floor prior to tf to [facility] and at that point she was refusing medications which she later agreed take and risperdal seems to have settled her down. she was
quite pleasant albeit confused (she asked me if i brought the keys) when i saw her around one. at this point would continue with meds as currently . will add a prn of risperdal .25 mg m tabs for agitation ms romero told me today about the of
a dear friend navneet with whom she lived for many years who left her a farmhouse and the money to care for it much of which was lost bc of an elder scan. she had told me this when i first met her and it was verified by her a poa who was looking
after her. please see my note in march of 2023 for details. will follow
[2024-08-04] MEDS: RISPERDAL M-TAB (ORALLY DISINTEGRATING) 0.25 MG PO (14:03)
[2024-08-04 15:05] VITALS: BP 158/54
--- NOTE | 2024-08-04 16:23 | W.PN.HOSP.TC ---
Today's Communication/Plan
-
Psychiatry adjusting patient's medicines. Still requiring restraints. Patient needs to be off of restraints for discharge.
Continue Lokelma until potassium normalizes
Continue to hold lisinopril
Assessment / Plan
Assessment / Plan
83-year-old female past medical history of CKD 3B, anemia, advanced dementia, hypertension, presenting with increased drowsiness and bradycardia noted at correction. Patient is physically combative with staff. She denies any specific complaints.
says she wants to go home. She thinks she lives in [place] with her parents. States that she does not want a thing which does not belong to her body. Discussed about getting sick or even says she does not care.
On examination mo
Cardiovascular system S1-S2 appreciated
Chest clear to auscultation
Abdomen soft and nontender
Left lower extremity mild redness (states she has RSD in the left leg)
# Junctional bradycardia now resolved
EKG reviewed by me
Heart rate 30s initially ,No clear symptoms
Hyperkalemia may be a reason
Cardiology eval appreciated.
No interventions from cardiology
# Severe hyperkalemia secondary to lisinopril
Hold BELKIS, do not restart
Got Lasix/Calcium gluconate / Sodium bacarb/ Insulin and Dextrose
Potassium better
# TME versus behavioral disturbance in patient with dementia
Unclear if she also has anxiety and depression
Continue memantine, Risperdal, trazodone
UA neg and COVID Neg
CXR no Pneumonia
Continue Memantine
Dosing restraints as needed for safety
Psychiatry consulted and following. Risperidone 0.25 mg extra twice daily as needed started
# Chronic kidney disease-stable
# Chronic Anemia- Check Iron studies-add on
# RSD left leg
# Essential hypertension- Hold Lisinopril, Continue Amlodipine
# H/O Ovarian Cancer
# DVT prophylaxis�SC Heparin
# DNR/DNI
Discussed with nursing at bedside
08/03/24-discussed with legal guardian Vijay [facility]
Anticipated Discharge: Within 24 hours
Subjective/Interval History
-
Date of Service: August 04, 2024
Objective Data
-
Labs:
Laboratory Results
08/04/24
06:11
WBC 8.8
Hgb 9.2 L
Hct 28.7 L
Plt Count 177
Sodium 139
Potassium 5.3 H
Chloride 112 H
Carbon Dioxide 19 L
BUN 33 H
Creatinine 1.3 H
Glucose 91
Calcium 8.5
Vital Signs:
Vital Signs
Temp Pulse Resp BP Pulse Ox
97.2 F 57 17 158/54 98
08/04/24 15:05 08/04/24 15:05 08/04/24 15:05 08/04/24 15:05 08/04/24 15:05
I&O
08/03/24 08/04/24 08/05/24
06:59 06:59 06:59
Intake Total 240 / 240 720 / 720
Output Total 700 / 700
Balance -460 / -460 720 / 720
--- NOTE | 2024-08-04 16:31 | PTCARENOTE ---
Pt becoming increasingly agitated, PRN medication administered with no relief, this RN and PCT unable to provide adequate safety with medsitter only. Pt assisted back to bed by two RNs and PCT, pt combative with staff, B/L wrist restraints and 4
side rails ordered and applied by this RN. No new orders at this time.
[2024-08-04 17:11] LABS: Iron 55 ug/dl (37-170)
[2024-08-04 17:21] LABS: Percent Saturation 18 % (20-50); Total Iron Binding Capacity 299 ug/dl (265-497)
[2024-08-04 17:42] LABS: Ferritin 56.7 ng/ml (11.1-264.0)
[2024-08-04 17:56] LABS: Vitamin B12 170 pg/ml (239-931)
[2024-08-04] MEDS: XALATAN OPHTHALMIC SOLUTION 1 DROP BOTH EYES (18:30)
[2024-08-04 19:19] VITALS: BP 169/71
[2024-08-04] MEDS: HEPARIN SC (21:08)
[2024-08-04] MEDS: NAMENDA 5 MG PO (21:13)
[2024-08-04 23:07] VITALS: BP 133/84
[2024-08-05] VITALS (7 sets, daily range): BP systolic 110–165; BP diastolic 35–58; PULSE 45
[2024-08-05] MEDS: HEPARIN SC (00:45)
--- NOTE | 2024-08-05 03:08 | PTCARENOTE ---
restraints removed 23:45. trial off due to increased cooperation, med compliance, and ability to redirect. Pt on medsitter, bed-alarm in place.
--- NOTE | 2024-08-05 07:34 | PTCARENOTE ---
Pt put back on restraints at 0333. Patient trialed off but was up multiple times, not able to be redirected. Attempted to get patient back in bed,but patient became aggressive/ combative. See worklist for restraint documentation.
--- NOTE | 2024-08-05 07:37 | PTCARENOTE ---
Unable to get oral temp with 0300 vitals. Rectal temp obtained. Was 94.6. BRAKE REPAIRER AIR notified, moe galeano ordered and applied. See worklist.
[2024-08-05] MEDS: RISPERDAL 0.5 MG PO ×2 (08:13→19:57)
[2024-08-05] MEDS: HEPARIN 5000 UNITS SC ×2 (08:14→19:57)
[2024-08-05] MEDS: OSCAL CAL 500 500 MG PO (08:14)
--- NOTE | 2024-08-05 10:00 | PTCARENOTE ---
Patient sitting up in chair. Restraints off. Patient calm and cooperative. Bear hugger off. Patient temp 97.
--- NOTE | 2024-08-05 10:20 | W.PN.HOSP.TC ---
Today's Communication/Plan
-
Replace B12
Add additional dose of risperidone at 2:00
Keep restraints off as much as possible
PT evaluation
Assessment / Plan
Assessment / Plan
83-year-old female past medical history of CKD 3B, anemia, advanced dementia, hypertension, presenting with increased drowsiness and bradycardia noted at skilled nursing. Patient is physically combative with staff. She has improved
Awake and alert
Cardiovascular system S1-S2 appreciated
Chest clear to auscultation
Abdomen soft and nontender
No edema or redness of lower extremities
# Junctional bradycardia now resolved
EKG reviewed by me
Heart rate 30s initially ,No clear symptoms
Heart rate has improved
Hyperkalemia may be a reason
Cardiology eval appreciated.
No interventions from cardiology
# Severe hyperkalemia secondary to lisinopril
Hold BELKIS, do not restart
Got Lasix/Calcium gluconate / Sodium bicarb/ Insulin and Dextrose
Potassium better
# TME versus behavioral disturbance in patient with dementia
Unclear if she also has anxiety and depression
Continue memantine, Risperdal, trazodone
Patient pleasant today. Nursing reports that she has more sundowning in the afternoon hours
UA neg and COVID Neg
Repeat CXR today
Continue Memantine
Psychiatry consulted and following. Risperidone 0.25 mg extra twice daily as needed started.
Patient has sundowning. Will add another dose of risperidone at 2:00 to avoid restraints
# B 12 def- Replace IM
# Chronic kidney disease-stable
# Chronic Anemia- PO iron
# RSD left leg
# Essential hypertension- Hold Lisinopril, Continue Amlodipine
# H/O Ovarian Cancer
# DVT prophylaxis�SC Heparin
# DNR/DNI
Discussed with nursing at bedside
08/03/24- and 08/05/24-discussed with legal guardian Vijay [facility]
Anticipated Discharge: Within 24 hours
Subjective/Interval History
-
Date of Service: August 05, 2024
Objective Data
-
Labs:
Laboratory Results
08/05/24
08:36
Sodium Pending
Potassium Pending
Chloride Pending
Carbon Dioxide Pending
BUN Pending
Creatinine Pending
Glucose Pending
Calcium Pending
Vital Signs:
Vital Signs
Temp Pulse Resp BP Pulse Ox
96 F L 71 17 157/56 97
08/05/24 06:30 08/05/24 07:20 08/05/24 07:20 08/05/24 07:20 08/05/24 07:20
I&O
08/04/24 08/05/24 08/06/24
06:59 06:59 06:59
Intake Total 720 / 720 880 / 880
Balance 720 / 720 880 / 880
[2024-08-05 10:36] LABS: Blood Urea Nitrogen 26 mg/dl (7-17); Calcium 8.7 mg/dl (8.4-10.2); Carbon Dioxide 21 mmol/L (22-30); Chloride 113 mmol/L (98-107); Estimated Creatinine Clearance 28 ml/min; Glucose 83 mg/dl (70-99); Potassium 5.6 mmol/L (3.5-5.1); Sodium 140 mmol/L (135-145); eGFR 44.36
[2024-08-05] MEDS: NORVASC 5 MG PO (11:18)
[2024-08-05] MEDS: CYANOCOBALAMIN 1000 MCG IM (11:19)
--- NOTE | 2024-08-05 13:37 | W.PN.UPDATE ---
Update Note
Progress Note Update
patient seen chart reviewed. discussed w nursing. ms romero had several periods of agitation since seen yesterday which necessitated restraints for safety. note dr orellana ordered a third dose of risperdal o.25 at 2 pm today. when i saw her today
she was calm and not in restraints. she was alert but notably more confused than yesterday. when i spoke w her yesterday she was also confused but she had moments where she was appropriately engaged in conversation but that was not the case today.
this could be secondary to medical issues..cxr shows findings that could represent pneumonia..potassium up a little , she is still on the dehydrated side but she was eating some today . would hold the 2 pm risperdal if she continues like this and
is not agitated. do not want to oversedate her but of course on the other hand she needs to be safe. will continue to follow
[2024-08-05] MEDS: RISPERDAL 0.25 MG PO (13:54)
--- NOTE | 2024-08-05 14:08 | CM ---
Patient resident of [facility]
patient has guardian Vijay -[phone]
Spoke with [facility] liaison & updated
referral placed in [facility] to return to [facility]
Will need auth per Milla
PLAN: Return to [facility], will need authorization
[facility]
Report #: [phone]
Fax #: [phone]
[2024-08-05] MEDS: XALATAN OPHTHALMIC SOLUTION 1 DROP BOTH EYES (16:47)
[2024-08-05] MEDS: NAMENDA 5 MG PO (21:25)
[2024-08-05] MEDS: RISPERDAL M-TAB (ORALLY DISINTEGRATING) 0.25 MG PO (21:43)
[2024-08-05] MEDS: MELATONIN 10 MG PO (21:43)
[2024-08-06 03:05] VITALS: BP 120/47
[2024-08-06 07:30] VITALS: BP 163/49
[2024-08-06 08:34] LABS: Blood Urea Nitrogen 35 mg/dl (7-17); Calcium 8.1 mg/dl (8.4-10.2); Carbon Dioxide 21 mmol/L (22-30); Chloride 112 mmol/L (98-107); Estimated Creatinine Clearance 20 ml/min; Glucose 77 mg/dl (70-99); Potassium 5.6 mmol/L (3.5-5.1); Sodium 140 mmol/L (135-145); eGFR 29.21
[2024-08-06] MEDS: CYANOCOBALAMIN 1000 MCG IM (09:26)
[2024-08-06] MEDS: RISPERDAL 0.5 MG PO (09:26)
[2024-08-06] MEDS: LOKELMA 10 GRAM PO ×2 (09:26→22:35)
[2024-08-06] MEDS: NORVASC 5 MG PO (09:27)
[2024-08-06] MEDS: OSCAL CAL 500 500 MG PO (09:27)
[2024-08-06] MEDS: HEPARIN SC (09:36)
--- NOTE | 2024-08-06 10:22 | W.PN.HOSP.TC ---
Today's Communication/Plan
-
Start antibiotics
Ultrasound of the chest
Lokelma
Assessment / Plan
Assessment / Plan
83-year-old female past medical history of CKD 3B, anemia, advanced dementia, hypertension, presenting with [facility] d[facility] and [facility] Patient was physically combative with staff. She has improved
Awake and alert
Cardiovascular system S1-S2 appreciated
Chest clear to auscultation
Abdomen soft and nontender
No edema or redness of lower extremities
Drowsy today. Arousable
# Junctional bradycardia now resolved
EKG reviewed by me
Heart rate 30s initially ,No clear symptoms
Heart rate has improved
Hyperkalemia may be a reason
Cardiology eval appreciated.
No interventions from cardiology
# Severe hyperkalemia secondary to lisinopril
Hold BELKIS, do not restart
Got Lasix/Calcium gluconate / Sodium bicarb/ Insulin and Dextrose
Potassium better
Add More Lokelma
# Chest x-ray showing effusion and infiltrate on the right side-treat as pneumonia doxycycline and ceftriaxone
Rule out aspiration. Speech evaluation
# TME versus behavioral disturbance in patient with dementia
Unclear if she also has anxiety and depression
Continue memantine, Risperdal, trazodone
UA neg and influenza and COVID Neg
Continue Memantine
Psychiatry consulted and following. Risperidone 0.25 mg extra twice daily as needed started.
Patient has . Added additional dose of risperidone at 2 PM yesterday
Discussion with psychiatry risperidone can cause hypothermia, therefore planning to start a low-dose of Depakote
# Hypothermia-resolved. Possible infection playing a role. If not getting better may consider changing risperidone to Depakote. Start antibiotics
# Pleural effusion-check ultrasound
# B 12 def- Replace IM
# Chronic kidney disease-stage III -acute kidney injury- check bladder scan
# Chronic Anemia- PO iron
# RSD left leg
# Essential hypertension- Hold Lisinopril, Continue Amlodipine
# H/O Ovarian Cancer
# DVT prophylaxis�SC Heparin
# DNR/DNI
Discussed with nursing at bedside
08/03/24- and 08/05/24-discussed with legal guardian Vijay [facility]
Spoke to Pharmacy today-no other medicines on the list can cause hyperkalemia
D/w psychiatry
Anticipated Discharge: 24 - 48 hours
Subjective/Interval History
-
Date of Service: August 06, 2024
Objective Data
-
Labs:
Laboratory Results
08/06/24
06:52
Sodium 140
Potassium 5.6 H
Chloride 112 H
Carbon Dioxide 21 L
BUN 35 H
Creatinine 1.7 H
Glucose 77
Calcium 8.1 L
Vital Signs:
Vital Signs
Temp Pulse Resp BP Pulse Ox
97.4 F 73 18 163/49 94
08/06/24 07:30 08/06/24 09:27 08/06/24 07:30 08/06/24 09:27 08/06/24 10:00
I&O
08/05/24 08/06/24 08/07/24
06:59 06:59 06:59
Intake Total 880 / 880 960 / 960
Balance 880 / 880 960 / 960
--- NOTE | 2024-08-06 11:03 | W.PN.UPDATE ---
Update Note
Progress Note Update
patient seen chart reviewed. patient was sleeping this am when i attempted to see her. not clear if the risperdal is sedating her. in any case risperdal could cause hypothermia although it is not a common side effect. in any case risperdal has
not succeeded greatly inl keeping patient calm and it seems to be sedating in the am. of course there are other causes of the hypothermia...she may have pneumonia which is being assessed. all antipsychotics can (albeit infrequently cause
hypothermia atypicals greater than first generation antipsychotics). for now will see if depakote helps w agitation start with small doses 125 mg bid . psych continuing to follow
[2024-08-06 11:18] VITALS: BP 115/39
--- NOTE | 2024-08-06 11:30 | PTCARENOTE ---
pt noted to be drowsy/ sleepy. arouse to voice, opened eyes and back to sleep. HR. 39 vs: 115/39,97.1,94 %RA, 14. denies pain at this time.dr. jones. EKG ordered. cardio made aware. plan of care ongoing.
[2024-08-06] MEDS: VIBRAMYCIN PO ×2 (12:29→12:34)
[2024-08-06] MEDS: STERILE WATER FOR INJECTION 10 ML IV (12:35)
[2024-08-06] MEDS: ROCEPHIN 1000 MG IV (12:36)
--- NOTE | 2024-08-06 13:00 | PTCARENOTE ---
Pt spit out the depakote. dr. Gavin and reyna lowe
--- NOTE | 2024-08-06 13:06 | W.PN.UPDATE ---
Update Note
Progress Note Update
returned to see if patient had awakened since this am. she was sleeping again. i could rouse her but rapidly fell back to sleep. nursing said she did waken for a short time but went back to sleep. she spit out the depakote. heart rate had dropped
earlier to [address] late morning[address] nursing made dr orellana aware . for now dc depakote. will see her again in am and go from there.
--- NOTE | 2024-08-06 13:20 | W.PN.UPDATE ---
Update Note
Progress Note Update
EKG noted sinus bradycardia
Blood pressure stable
Cardiology had evaluated during this admission
Check TSH
Ambulate and record heart rate
--- NOTE | 2024-08-06 15:11 | CM ---
Patient is a resident at [facility]
patient has guardian Vijay -[phone]
ordered chest US today
On medsitter
Per Milla will need auth
Plan: [facility]
Report #: [phone]
Fax #: [phone]
[2024-08-06 15:30] VITALS: BP 142/46
--- NOTE | 2024-08-06 16:09 | PTOTSP ---
Dysphagia Evaluation
No significant signs concerning for oral/pharyngeal dysphagia or aspiration with limited PO accepted at time of this evaluation. Consider video swallow study if concerned for silent aspiration given CXR with R PNA and diagnosis of dementia.
Recommend:
1. Regular, Thin Liquids
2. Medications: crushed in puree if medically cleared to do so
3. Strategies: upright to 90 degrees, PO only when awake/alert, 1:1 supervision/assistance, small single sips/bites, slow rate
4. Video swallow study as appropriate
[2024-08-06] MEDS: XALATAN OPHTHALMIC SOLUTION BOTH EYES (17:53)
[2024-08-06 18:38] LABS: Cortisol, Random 6.6 ug/dl; TSH 3.52 uIU/ml (0.47-4.68)
[2024-08-06 19:05] VITALS: BP 135/48
[2024-08-06] MEDS: HEPARIN 5000 UNITS SC (20:16)
[2024-08-06] MEDS: VIBRAMYCIN 100 MG PO (20:16)
[2024-08-06] MEDS: NAMENDA 5 MG PO (20:16)
[2024-08-06 23:10] VITALS: BP 114/53
[2024-08-06] MEDS: MELATONIN 10 MG PO (23:55)
[2024-08-07] VITALS (7 sets, daily range): BP systolic 98–152; BP diastolic 45–65
--- NOTE | 2024-08-07 06:14 | PTCARENOTE ---
Patient attempting to get out of bed multiple times and unable to be redirected. Agitated and combative at times. Melatonin administered (some spit out) Patient calmed down when taken in recliner to nurse's station and slept most of night.
[2024-08-07 07:27] LABS: Hematocrit 26.9 % (37.0-47.0); Hemoglobin 8.6 g/dL (12.0-16.0); Mean Corpuscular Hgb 29.6 pg (27.0-31.0); Mean Corpuscular Volume 92.4 fL (81.0-99.0); Mean Platelet Volume 10.5 fL (7.4-10.4); Platelet Count 172 10^3/uL (130-400); Red Blood Cell Count 2.91 10^6/uL (4.20-5.40); Red Cell Dist. Width 16.9 % (11.5-14.5); White Blood Cell Count 6.6 10^3/uL (4.8-10.8)
[2024-08-07 07:53] LABS: Blood Urea Nitrogen 32 mg/dl (7-17); Calcium 8.3 mg/dl (8.4-10.2); Carbon Dioxide 21 mmol/L (22-30); Chloride 112 mmol/L (98-107); Estimated Creatinine Clearance 23 ml/min; Glucose 123 mg/dl (70-99); Potassium 5.1 mmol/L (3.5-5.1); Sodium 141 mmol/L (135-145); eGFR 33.94
[2024-08-07] MEDS: NORVASC 5 MG PO (09:37)
[2024-08-07] MEDS: VIBRAMYCIN PO ×2 (09:37→10:00)
[2024-08-07] MEDS: OSCAL CAL 500 PO ×2 (09:37→10:00)
[2024-08-07] MEDS: CYANOCOBALAMIN 1000 MCG IM (09:38)
[2024-08-07] MEDS: LOKELMA 10 GRAM PO ×2 (09:38→21:30)
[2024-08-07] MEDS: HEPARIN SC ×3 (09:38→21:38)
[2024-08-07] MEDS: ROCEPHIN 1000 MG IV (11:51)
[2024-08-07] MEDS: STERILE WATER FOR INJECTION 10 ML IV (11:51)
--- NOTE | 2024-08-07 14:26 | W.PN.HOSP.TC ---
Today's Communication/Plan
-
Head CT
Encourage patient to be awake during the daytime so she can sleep at night it seems like her heart sleep-wake cycle has switched
Assessment / Plan
Assessment / Plan
83-year-old female past medical history of CKD 3B, anemia, advanced dementia, hypertension, presenting with increased drowsiness and bradycardia noted at correction. Patient was physically combative with staff. She has improved
Awake and alert
Cardiovascular system S1-S2 appreciated
Chest clear to auscultation
Abdomen soft and nontender
No edema or redness of lower extremities
Drowsy today. Arousable
# Lethargic
Get a Head CT
She didnt sleep yesterday
But was drowsy yesterday as well. despite stopping meds still drowsy today
# Junctional bradycardia now resolved
EKG reviewed by me
Heart rate 30s initially ,No clear symptoms
Heart rate has improved, but low at times when she sleeps
Hyperkalemia may be a reason
Cardiology eval appreciated.
No interventions from cardiology
# Severe hyperkalemia secondary to lisinopril
Hold BELKIS, do not restart
Got Lasix/Calcium gluconate / Sodium bicarb/ Insulin and Dextrose
Potassium better
Continue Lokelma
# Chest x-ray showing effusion and infiltrate on the right side-treat as pneumonia doxycycline and ceftriaxone
Rule out aspiration. Speech evaluation appreciated
Regular diet
# TME versus behavioral disturbance in patient with dementia
Unclear if she also has anxiety and depression
Continue memantine
UA neg and influenza and COVID Neg
Continue Memantine
Psychiatry consulted
Patient has ing. Added additional dose of risperidone at 2 PM yesterday
Discussion with psychiatry risperidone can cause hypothermia, therefore planning to start a low-dose of Depakote, held due to drowsiness.
# Hypothermia-resolved. Possible infection playing a role. If not getting better may consider changing risperidone to Depakote.( Held due to drowsiness) Started antibiotics
# Pleural effusion-USS with moderate effusion- Will D/W POA .
# B 12 def- Replace IM
# Chronic kidney disease-stage III -acute kidney injury- retention- straight cathed yesterday
# Chronic Anemia- PO iron
# RSD left leg
# Essential hypertension- Hold Lisinopril, Continue Amlodipine
# H/O Ovarian Cancer
# DVT prophylaxis�SC Heparin
# DNR/DNI
Discussed with nursing at bedside
08/03/24- and 08/05/24-discussed with legal guardian Vijay Pete
Anticipated Discharge: 24 - 48 hours
Subjective/Interval History
-
Date of Service: August 07, 2024
Objective Data
-
Labs:
Laboratory Results
08/07/24
07:04
WBC 6.6
Hgb 8.6 L
Hct 26.9 L
Plt Count 172
Sodium 141
Potassium 5.1
Chloride 112 H
Carbon Dioxide 21 L
BUN 32 H
Creatinine 1.5 H
Glucose 123 H
Calcium 8.3 L
Vital Signs:
Vital Signs
Temp Pulse Resp BP Pulse Ox
96.3 F L 59 17 107/52 95
08/07/24 12:10 08/07/24 12:10 08/07/24 11:25 08/07/24 12:10 08/07/24 11:25
I&O
08/06/24 08/07/24 08/08/24
06:59 06:59 06:59
Intake Total 960 / 960 420 / 420
Balance 960 / 960 420 / 420
--- NOTE | 2024-08-07 16:27 | W.PN.UPDATE ---
Update Note
Progress Note Update
83 y/o NH resident with mutiple medical problems including CKD, B12 deficiency, chronic anemia, hypertension and dementia admitted with bradycardia and lethargy. Found to have very elevated K, B12 deficiency as well as anemia. Had CT of head,
results pending. Has been up all night, some sleeping during the day. Refuses many medications. Irritable.
Risperdal has been held. Depakote was prescribed, spit out first dose and discontinued. Also has right lobe pneumonia.
On exam elderly woman, no distress. Awake. Oriented to being in the hospital, but does not know why. Does not know what her usual residence is. Had trouble cutting food. Said, 'none of your business' to a basic question.
Spoke to nurse. Consulted Dr. Honeycutt and will begin Saphris 2.5 mg.SL HS which should help sleep and perhaps reduce agitation.
Psychiatry will follow.
[2024-08-07] MEDS: XALATAN OPHTHALMIC SOLUTION 1 DROP BOTH EYES (17:50)
[2024-08-07] MEDS: VIBRAMYCIN 100 MG PO (19:44)
[2024-08-07] MEDS: NAMENDA 5 MG PO (19:45)
[2024-08-07] MEDS: SAPHRIS 2.5 MG SL (19:47)
[2024-08-07] MEDS: MELATONIN 10 MG PO (23:56)
[2024-08-08] VITALS (7 sets, daily range): BP systolic 115–147; BP diastolic 40–80
[2024-08-08] MEDS: LOKELMA 10 GRAM PO (07:34)
[2024-08-08] MEDS: VIBRAMYCIN 100 MG PO (07:34)
[2024-08-08] MEDS: OSCAL CAL 500 500 MG PO (07:35)
[2024-08-08] MEDS: HEPARIN SC ×3 (07:35→21:07)
[2024-08-08] MEDS: NORVASC 5 MG PO (07:35)
[2024-08-08] MEDS: CYANOCOBALAMIN IM ×2 (07:35→07:47)
--- NOTE | 2024-08-08 10:37 | PTCARENOTE ---
Patient in chair at nurses station this AM d/t agitation and restlessness, agreeable to take PO meds but refusing scheduled IM cyanocobalamin and subq heparin. Patient AAO to self only, angry with care, frequently attempting to get up independently,
not redirectable. Patient pulled IV overnight, attempted to punch IV nurse when she attempted to reinsert IV. MD made aware, stated IV abx will be transitioned to PO, one time dose of PO Saphris ordered. Psych made aware.
[2024-08-08] MEDS: STERILE WATER FOR INJECTION IV (11:49)
--- NOTE | 2024-08-08 11:50 | W.PN.UPDATE ---
Update Note
Progress Note Update
83 y/o woman with dementia living in a NH, admitted with change in mental status and found to have hypothermia, B12 deficiency, chronic anemia and hyperkalemia. Is also being treated for pneumonia, possibly aspiration. Has had intermittent
agitation, mostly with medical procedures (IM B12, iv line insertion). She was ordered a one-time dose of Saphris this morning on my recommendation,but it was not needed. She is now seated by her bed. Is calm and pleasant. Speech is
well-articualted but some word-finding problems. Quite demented -- believes she lives with her mother in [place]. Unclear if she understands she is in a hospital and does not know why she is being treated.
I started Saphris 2.5 mg. last night for sedation and agitation which seemingly helped her sleep most of the night and was well-tolerated and not overly sedating. Her temp today is 97.
Would continue treatment without change; consider adding PRN Saphris or a morning dose if agitation in mornings recurs. Trying to avoid daytime sedation. Will probably be fine once she returns to her snf.
Psychiatry will follow.
[2024-08-08] MEDS: CEFTIN 250 MG PO (11:52)
--- NOTE | 2024-08-08 14:14 | W.PN.HOSP.TC ---
Addendum entered and electronically signed by Chung Honeycutt MD 08/09/24 07:45:
THE ADDENDUM ON THIS NOTE IS WRONG PATIENT
<del>'</del> <del>66-year-old</del> <del>female</del> <del>presented</del> <del>with</del> <del>a</del> <del>fall.</del> <del>Landed</del> <del>on</del> <del>left</del> <del>hip.</del>
<del>CVS:</del> <del>S1-S2</del> <del>normal</del>
<del>Chest:</del> <del>CTA</del> <del>B/L</del>
<del>Abdomen:</del> <del>Soft,</del> <del>NT</del> <del>/</del> <del>Bowel</del> <del>sounds</del> <del>present</del>
<del>Extremities:</del> <del>Hip</del> <del>site</del> <del>looks</del> <del>stable</del> <del>no</del> <del>bleeding</del>
<del>#</del> <del>Left</del> <del>hip</del> <del>fracture</del> <del>after</del> <del>fall-traumatic</del>
<del>Status</del> <del>post</del> <del>left</del> <del>hip</del> <del>hemiarthroplasty</del> <del>125-</del> <del>Dr.Mirza</del>
<del>Hip</del> <del>precautions</del>
<del>Aspirin</del> <del>3</del> <del>to</del> <del>5</del> <del>mg</del> <del>daily</del> <del>for</del> <del>4</del> <del>weeks</del>
<del>Pain</del> <del>management</del>
<del>PT</del> <del>OT</del>
<del>WBAT</del>
<del>#</del> <del>Hypertension-on</del> <del>valsartan</del> <del>as</del> <del>outpatient</del>
<del>Hyperlipidemia-takes</del> <del>niacin</del> <del>and</del> <del>fenofibrate</del>
<del>#</del> <del>DVT</del> <del>prophylaxis-SCDs,</del> <del>ASA</del>
<del>#</del> <del>Full</del> <del>code</del>
<del>Discussed</del> <del>with</del> <del>family</del> <del>at</del> <del>bedside</del>
<del>She</del> <del>is</del> <del>hoping</del> <del>to</del> <del>go</del> <del>home</del> <del>and</del> <del>not</del> <del>to</del> <del>rehab</del> <del>and</del> <del>at</del> <del>night</del>
<del>Discharge</del> <del>planning</del>
Original Note:
Today's Communication/Plan
-
66-year-old female presented with a fall. Landed on left hip.
CVS: S1-S2 normal
Chest: CTA B/L
Abdomen: Soft, NT / Bowel sounds present
Extremities: Hip site looks stable no bleeding
# Left hip fracture after fall-traumatic
Status post left hip hemiarthroplasty 08/06/24-
Hip precautions
Aspirin 3 to 5 mg daily for 4 weeks
Pain management
PT OT
WBAT
# Hypertension-on valsartan as outpatient
# Hyperlipidemia-takes niacin and fenofibrate
# DVT prophylaxis-SCDs, ASA
# Full code
Discussed with family at bedside
She is hoping to go home and not to rehab and at night
Discharge planning
Assessment / Plan
Assessment / Plan
83-year-old female past medical history of CKD 3B, anemia, advanced dementia, hypertension, presenting with increased drowsiness and bradycardia noted at [facility]. Patient was physically combative with staff. She has improved
Awake and alert
Cardiovascular system S1-S2 appreciated
Chest clear to auscultation
Abdomen soft and nontender
No edema or redness of lower extremities
Awake alert oriented pleasant
# Junctional bradycardia now resolved
EKG reviewed by me
Heart rate 30s initially ,No clear symptoms
Heart rate has improved, but low at times when she sleeps
Hyperkalemia may be a reason
Cardiology eval appreciated.
No interventions from cardiology
# Severe hyperkalemia secondary to lisinopril
Hold BELKIS, do not restart
Got Lasix/Calcium gluconate / Sodium bicarb/ Insulin and Dextrose
Potassium better
Continue Lokelma and Lasix should
# Chest x-ray showing effusion and infiltrate on the right side-treat as pneumonia doxycycline and ceftriaxone
Ruled out aspiration. Speech evaluation appreciated
Regular diet
# TME versus behavioral disturbance in patient with dementia
Unclear if she also has anxiety and depression
Continue memantine
UA neg and influenza and COVID Neg
Continue Memantine
Psychiatry consulted
Patient has . Added additional dose of risperidone at 2 PM yesterday
Discussion with psychiatry risperidone can cause hypothermia, therefore planning to start a low-dose of Depakote, held due to drowsiness.
# Hypothermia-resolved. Possible infection playing a role. If not getting better may consider changing risperidone to Depakote.( Held due to drowsiness) Started antibiotics.
Currently on Saphris as needed
# Pleural effusion-USS with moderate effusion- Will D/W POA . Cardiomegaly. Check echo. 20 mg of Lasix
# B 12 def- Replace IM
# Chronic kidney disease-stage III -acute kidney injury- retention- straight cathed 08/06/2024
# Chronic Anemia- PO iron
# RSD left leg
# Essential hypertension- Hold Lisinopril, hold amlodipine blood pressure running on the low side-
# H/O Ovarian Cancer
# DVT prophylaxis�SC Heparin
# DNR/DNI
Discussed with nursing
08/03/24- and 08/05/24-discussed with legal guardian Vijay Freeman
Left a message for POA
Anticipated Discharge: Within 24 hours
Subjective/Interval History
-
Date of Service: August 08, 2024
Objective Data
-
Vital Signs:
Vital Signs
Temp Pulse Resp BP Pulse Ox
97.3 F 60 16 115/43 97
08/08/24 11:05 08/08/24 11:05 08/08/24 11:05 08/08/24 11:05 08/08/24 11:05
I&O
08/07/24 08/08/24 08/09/24
06:59 06:59 06:59
Intake Total 420 / 420 1200 / 1200
Balance 420 / 420 1200 / 1200
[2024-08-08] MEDS: LASIX 20 MG PO (14:40)
[2024-08-08] MEDS: XALATAN OPHTHALMIC SOLUTION BOTH EYES (17:04)
[2024-08-08] MEDS: LOKELMA PO ×2 (21:07→22:10)
[2024-08-08] MEDS: SAPHRIS SL ×2 (21:07→23:02)
[2024-08-08] MEDS: VIBRAMYCIN PO ×2 (21:07→23:01)
[2024-08-08] MEDS: CEFTIN PO ×2 (21:07→22:59)
[2024-08-08] MEDS: NAMENDA PO ×2 (21:08→23:00)
[2024-08-09 02:50] VITALS: BP 126/36
[2024-08-09] MEDS: LOKELMA 10 GRAM PO ×2 (05:31→10:21)
--- NOTE | 2024-08-09 05:44 | PTCARENOTE ---
08/08/24: all medications were scanned at time of administration, but unable to get patient to take her night time meds as she was agitated and refused anything. meds were than undone and missed in OCT.
[2024-08-09 08:11] VITALS: BP 138/44
[2024-08-09] MEDS: OSCAL CAL 500 PO ×2 (08:54→09:17)
[2024-08-09] MEDS: VIBRAMYCIN PO ×2 (08:54→09:16)
[2024-08-09] MEDS: NORVASC PO ×2 (08:55→09:17)
[2024-08-09] MEDS: LASIX PO ×2 (08:55→09:17)
[2024-08-09] MEDS: CEFTIN PO ×2 (08:55→09:16)
[2024-08-09] MEDS: CYANOCOBALAMIN IM ×2 (08:58→09:17)
[2024-08-09 09:05] LABS: Blood Urea Nitrogen 33 mg/dl (7-17); Calcium 8.1 mg/dl (8.4-10.2); Carbon Dioxide 22 mmol/L (22-30); Chloride 112 mmol/L (98-107); Estimated Creatinine Clearance 26 ml/min; Glucose 83 mg/dl (70-99); Potassium 5.2 mmol/L (3.5-5.1); Sodium 143 mmol/L (135-145)
[2024-08-09] MEDS: HEPARIN SC (09:07)
--- NOTE | 2024-08-09 09:27 | W.PN.HOSP.TC ---
Addendum entered and electronically signed by Chung Honeycutt MD 08/09/24 16:26:
Dictation- [id number]
Addendum entered and electronically signed by Chung Honeycutt MD 08/09/24 16:21:
Left a message for POA regarding discharge
More than 30 minutes spent in discharge including
Final examination of the patient
Summarizing hospital stay
Instructions for continuing care to all relevant caregivers
Preparation of discharge records, prescriptions, and referral forms
Total time spent (in minutes): 45 min
Addendum entered and electronically signed by Chung Honeycutt MD 08/09/24 16:19:
Discussed with psychiatry on-call. For now will discharge patient on Saphris. She cannot eat 15 minutes before and after she takes the Saphris.
Addendum entered and electronically signed by Chung Honeycutt MD 08/09/24 16:08:
Echo 08/09/2024-normal LV size, wall thickness and systolic function. EF 60 to 65%. Mild MR trace AI pulmonary pressure 41 mmHg.
Addendum entered and electronically signed by Chung Honeycutt MD 08/09/24 11:11:
Spoke to power of employment attorney.
Discussed about pleural effusion and the possibilities including simple fluid or malignancy however given her general other medical conditions and refusal of testing I do not think she is going to sit through a thoracentesis. He is agreeable to
hold off.
Also discussed about risperidone being discontinued and psychiatry starting Saphris. POVladimir was here to see her on Friday when she was sleeping mostly.
Also discussed about echo and discharge planning.
We discussed that she will have the. Soft agitation and confusion and psychiatry has adjusted her medicines at present
I also think that she needs continued follow-up with psychiatry at the [facility]
Depending on the echo we could try and discharge her.
time spent 45 min
Original Note:
Today's Communication/Plan
-
ECHO
Discuss with POVladimir when he calls back
Psychiatry to see
Assessment / Plan
Assessment / Plan
83-year-old female past medical history of CKD 3B, anemia, advanced dementia, hypertension, presenting with increased drowsiness and bradycardia noted at [facility]. Patient was physically combative with staff. She has improved
Awake and alert
Cardiovascular system S1-S2 appreciated
Chest clear to auscultation, decreased left base
Abdomen soft and nontender
No edema or redness of lower extremities
Awake alert oriented pleasant
# Junctional bradycardia now resolved
EKG reviewed by me
Heart rate 30s initially ,No clear symptoms
Heart rate has improved, but low at times when she sleeps
Hyperkalemia may be a reason
Cardiology eval appreciated.
No interventions from cardiology
# Severe hyperkalemia secondary to lisinopril
Hold BELKIS, do not restart
Got Lasix/Calcium gluconate / Sodium bicarb/ Insulin and Dextrose
Potassium better
Continue Lokelma and Lasix should
# Chest x-ray showing left effusion and infiltrate on the right side-treat as pneumonia doxycycline and ceftriaxone
Ruled out aspiration. Speech evaluation appreciated
Regular diet
She refused to go down for video swallow evaluation despite convincing multiple times
# TME versus behavioral disturbance in patient with dementia
Unclear if she also has anxiety and depression
Continue memantine
UA neg and influenza and COVID Neg
Continue Memantine
Psychiatry consulted
Patient has . Added additional dose of risperidone at 2 PM yesterday
Discussion with psychiatry risperidone can cause hypothermia, therefore planning to start a low-dose of Depakote, held due to drowsiness.
# Hypothermia-resolved. Possible infection playing a role. If not getting better may consider changing risperidone to Depakote.( Held due to drowsiness) Started antibiotics.
Currently on Saphris as needed
# Pleural effusion-USS with moderate effusion- Will D/W POA . Cardiomegaly. Check echo. 20 mg of Lasix
# B 12 def- Replace IM
# Chronic kidney disease-stage III -acute kidney injury- retention- straight cathed 08/06/2024
# Chronic Anemia- PO iron
# RSD left leg
# Essential hypertension- Hold Lisinopril, hold amlodipine blood pressure running on the low side-
# H/O Ovarian Cancer
# DVT prophylaxis�SC Heparin
# DNR/DNI
Discussed with nursing at bedside
08/03/24- and 08/05/24-discussed with legal guardian Vijay Freeman
Left a message for POA yesterday he had called back today but I missed the call.
Left a message again today
Second visit to convince the patient to go for the test she refused
She refused IM B12 therefore changed to p.o.
Called echo to see if they can come and do echo at bedside
Discussed with speech therapy
Messaged psychiatry as patient was on risperidone and trazodone prior to coming in and she was sent here for behavioral disturbances. Now she is only on as needed Saphris. Kindly suggest a regimen for discharge
Total time spent more than 50 minutes
Anticipated Discharge: Today
Subjective/Interval History
-
Date of Service: August 09, 2024
Objective Data
-
Labs:
Laboratory Results
08/09/24
08:04
Sodium 143
Potassium 5.2 H
Chloride 112 H
Carbon Dioxide 22
BUN 33 H
Creatinine 1.3 H
Glucose 83
Calcium 8.1 L
Vital Signs:
Vital Signs
Temp Pulse Resp BP Pulse Ox
97.7 F 53 17 138/44 98
08/09/24 08:11 08/09/24 08:11 08/09/24 08:11 08/09/24 08:11 08/09/24 08:11
I&O
08/08/24 08/09/24 08/10/24
06:59 06:59 06:59
Intake Total 1200 / 1200 1320 / 1320
Balance 1200 / 1200 1320 / 1320
[2024-08-09] MEDS: VITAMIN B-12 1000 MCG PO (10:21)
--- NOTE | 2024-08-09 11:00 | PTCARENOTE ---
Patient in chair at nurses station this AM due to agitation and restlessness. Pt refused to take PO meds and refusing to go for swallow exam. MD aware and at bedside. Patient AAO only to self only, agitated with care. Pt frequently attempting to
get up independently, medsitter and bed alarm in palce. Patient attempted to punch this RN when assisting pt back to chair. MD made aware as well as psych MD.
[2024-08-09 11:15] VITALS: BP 143/50
--- NOTE | 2024-08-09 11:18 | CM ---
Addendum entered by Eri Cordoba 08/09/24 16:47:
1999 transport set up for [facility]
Updated [facility] liaison - called guardian Vijay
Original Note:
spoke with hospitalist
Patient for echo today, ? tentative d/c back to [facility]
Spoke with guardian Vijay - explained IMM, & will call him when patient is discharged.
Spoke with [facility] liaison - will not need auth
Resident [facility]
PLAN: [facility]
Report #: [phone]
Fax #: [phone]
transportation forms on chart
[2024-08-09] MEDS: STERILE WATER FOR INJECTION IV (13:49)
[2024-08-09 14:50] VITALS: PULSE 62; O2SAT 98
[2024-08-09 15:48] VITALS: BP 153/45
--- NOTE | 2024-08-09 16:20 | W.PN.UPDATE ---
Update Note
Progress Note Update
Pt seen, sitting up in chair in no apparent distress. Pt making eye contact, alert, giving answers, but irrelevant/confabulated. No agitation at present, no signs of psychosis, no signs of side effects on current medications. Pt has been
continued on Risperidone 0.5 mg BID- has been taking it. Started on Saphris 2.5 mg, took once, refused last night.
Imp: Dementia with behavioral disturbance. Would continue current Risperidone, Memantine. Unclear if Saphris is helping after only one dose
Will follow
[2024-08-09] MEDS: XALATAN OPHTHALMIC SOLUTION BOTH EYES (18:18)
[2024-08-09 19:38] VITALS: BP 158/46
--- NOTE | 2024-08-09 19:58 | PTCARENOTE ---
called twice at [facility] to give report on patient no one was opicking up to talk to. Phone number left for a call back.
--- NOTE | 2024-08-10 08:08 | W.DS.TRANS ---
DC Summary - [facility]
-
Discharge Instructions:
Discharge Diagnosis/Procedures Junctional bradycardia
Hyperkalemia
Pneumonia
Left pleural effusion
TME with behavioral disturbances
Dementia
B12 deficiency
CKD stage III
Chronic anemia
Hypertension
Diet 2 Gram Sodium
Additional Diets 4 g potassium diet
Activity As tolerated,With assistance
Driving Restrictions No driving
Blood Work BMP 4 to 5 days, CBC 4 to 5 days
Others Tests Chest x-ray 4 weeks
Other Services PT,ST
Instructions:
Stand-Alone Forms:
Changes to Home Medications: Yes
Discharge Medications:
DC Medications w/original date entered in [facility]
acetaminophen 650 mg rectal suppository 650 mg [place] Q4HPRN PRN moderate pain/temp>100 11/11/23
melatonin 5 mg tablet 10 mg PO HSPRN PRN sleep 11/11/23
calcium carbonate (Calcium 600) 600 mg PO DAILY Supplement 03/16/24
dextromethorphan-guaifenesin 10 mg-100 mg/5 mL oral syrup (Expectorant DM) 10 ml PO Q4HPRN PRN cough 03/16/24
amlodipine 10 mg tablet 5 mg PO DAILY Blood Pressure 05/26/24
memantine 5 mg tablet 5 mg PO HS Neurological Condition 05/26/24
magnesium hydroxide 400 mg/5 mL oral suspension (Milk of Magnesia) 2,400 mg PO DAILYPRN PRN if no bm by 3rd day 08/02/24
asenapine maleate 2.5 mg sublingual tablet 2.5 mg sublingual DAILYPRN PRN agitation #1 tab 08/09/24
asenapine maleate 2.5 mg sublingual tablet 2.5 mg sublingual HS agitation #30 tabs 08/09/24
cefuroxime axetil 250 mg tablet 250 mg PO BID Lung/breathing issues #8 tabs 08/09/24
cyanocobalamin (vitamin B-12) 1,000 mcg tablet 1,000 mcg PO DAILY B 12 def #0 tabs 08/09/24
doxycycline hyclate 100 mg capsule 100 mg PO Q12 Lung/breathing issues #8 caps 08/09/24
furosemide 20 mg tablet 20 mg PO TUTHSA Fluid retention/Swelling #30 tabs 08/09/24
latanoprost 0.005 % eye drops 1 drp BOTH EYES QPM Eye condition #0 mL 08/09/24
sodium zirconium cyclosilicate 10 gram oral powder packet (Lokelma) 10 g PO MOWEFR potassium #0 ea 08/09/24
Home Medication Changes
Risperidone stopped
Saphris new
Lokelma and lasix new
Pending Results: No
== END 2024-08-09 20:00 | DRG 640 ==
LOC: 2 NORTH 16:02
PROVIDERS: ADMITTING PHYSICIAN Hospitalist; ATTENDING PHYSICIAN Hospitalist; CONSULT PHYSICIAN Nuclear Medicine Nuclear Cardiology; CONSULT PHYSICIAN Psychiatry & Neurology Psychiatry; EMERGENCY PHYSICIAN Emergency Medicine; FAMILY PHYSICIAN Internal Medicine
DX: E87.5 Hyperkalemia (principal); G92.8 Other toxic encephalopathy; J18.9 Pneumonia, unspecified organism; F03.911 Unspecified dementia, unspecified severity, with agitation; F03.918 Unspecified dementia, unspecified severity, with other behavioral disturbance; F05 Delirium due to known physiological condition; J90 Pleural effusion, not elsewhere classified; I49.2 Junctional premature depolarization; D64.9 Anemia, unspecified; N18.32 Chronic kidney disease, stage 3b; I12.9 Hypertensive chronic kidney disease with stage 1 through stage 4 chronic kidney disease, or unspecified chronic kidney disease; Z66 Do not resuscitate; Z85.43 Personal history of malignant neoplasm of ovary; E53.8 Deficiency of other specified B group vitamins; Z11.52 Encounter for screening for COVID-19
CPT/HCPCS: 70450; 71045; 76604; 80048; 80053; 81003; 82533; 82607; 82728; 82962; 83540; 83550; 84132; 84443; 84484; 85025; 85027; 87502; 87811; 92610; 93005; 93306; 93971; 94640; 96361; 96374; 96375; 97163; 97530; 99285

== ENCOUNTER 2024-09-23 06:36 | Emergency (ER) | payer MEDICARE, SELFPAY ==
[2024-09-23 06:38] VITALS: BP 93/39
[2024-09-23 06:42] VITALS: BP 131/117
[2024-09-23 06:45] VITALS: BP 93/39
--- NOTE | 2024-09-23 06:59 | ED.GENMED ---
History of Present Illness
General
Chief Complaint: Change in Mental Status
Source: ambulance crew
Exam Limitations: dementia
Time Seen by Provider: 09/23/24 06:40
History of Present Illness
History of Present Illness:
83-year-old female was apparently combative this morning at the nursing facility. Medics report that the staff states this is unusual for the patient. Patient will not add a history. Was bradycardic on arrival. Was given atropine by the medics.
However blood pressure was stable. Patient refuses to give any history although does interact and talk.
Past History
Past History
ED Past Medical History: Cancer (Ovarian), GERD and Other (Small bowel obstruction, osteoarthritis, dementia, osteoporosis, CKD, hypertension, ovarian neoplasm)
ED Past Surgical History: Appendectomy, Gynecological (Hysterectomy, ovarian cancer), Orthopedic (Right knee) and Tonsilectomy
Social History
Tobacco: Non-smoker
Alcohol: None
Drug: None
Personal: Single
Living: [facility]
Family History
Family History: Other (Noncontributory)
Review of Systems
Review of Systems
Unable to obtain full review of systems at this time due to: dementia
All Other Systems: Not applicable
Phy Exam
Physical Exam
Physical Exam:
GENERAL: Alert. Elderly and frail. Eyes closed. Does not want to interact but is talking and interacting.
EYE: Orbits normal.
NECK: Supple, no significant adenopathy.
ENT: Pharynx without erythema
CARDIAC: Bradycardic and regular no murmur
LUNGS: Clear breath sounds,normal
ABDOMEN: Soft, without focal tenderness or distention
NEUROLOGICAL: Alert and oriente x 1 d , grossly non-focal
SKIN: Warm and dry, mild areas of ecchymosis to the upper extremities
MUSCULOSKELETAL: No edema,no deformity.Good color
PSYCH: Poor eye contact. Will talk and interact but does not want to follow commands. However no agitated behavior here
Course
Orders/Labs/Results
Orders:
Orders
09/23/24 06:41
Electrocardiogram (*1) Urgent
Reason for Study: Other
Other Reason for Exam: sepsis
CT Head W/o Iv Contrast Urgent
Comment:
Reason For Exam: Agitation/change in mental status
Cardiac Monitoring- Treatment ONCE
EKG- Treatment ONCE
IV Insert/Care/Rem.- Treatment PRN
Straight cath- Treatment ONCE
Pulse Ox/cont/shift [RESP] Urgent
Quantity: 1
09/23/24 06:42
CR Chest - 2 Views Urgent
Comment:
Reason For Exam: Change in mental status/cough
09/23/24 06:54
COVID-19 Antigen Urgent
Source: Nasal Swab
Complete Blood Count/With Diff Urgent
Comprehensive Metabolic Panel Urgent
Influenza A+B Rapid Molecular Urgent
FRAN Source: Nasal Swab
Specimen Description:
09/23/24 10:21
Straight cath- Treatment ONCE
09/23/24 10:26
Haloperidol Lactate [Haldol] 0.5 mg IV NOW STA
09/23/24 10:50
Urinalysis Reflex To Culture Urgent
Date Specimen was Collected: 09/23/24
Time Specimen was Collected: 10:31
Urine Microscopic Reflex Cult Urgent
Abnormal Lab Results
09/23/24 09/23/24
06:54 10:50
RBC 2.78 L 10^6/uL
(4.20-5.40)
Hgb 8.2 L g/dL
(12.0-16.0)
Hct 26.2 L %
(37.0-47.0)
MCHC 31.3 L g/dL
(33.0-37.0)
RDW 15.0 H %
(11.5-14.5)
MPV 10.6 H fL
(7.4-10.4)
Absolute Monos (auto) 0.7 H 10^3/uL
(0.1-0.6)
Monocytes % 12.0 H %
(1.7-9.3)
Potassium 5.5 H mmol/L
(3.5-5.1)
Chloride 115 H mmol/L
(98-107)
Carbon Dioxide 20 L mmol/L
(22-30)
BUN 48 H mg/dl
(7-17)
Creatinine 1.3 H mg/dL
(0.6-1.0)
Calcium 8.1 L mg/dl
(8.4-10.2)
Total Protein 5.8 L g/dl
(6.3-8.2)
Albumin 2.8 L g/dl
(3.5-5.0)
Urine Bacteria (Reflex) Few A
(Negative)
Urine Albumin (Reflex) 1+ A
(Neg - Trace)
09/23/24 06:54
09/23/24 06:54
Vital Signs
Initial and Last Documented VS:
Initial Vital Signs
Temp Pulse Resp BP Pulse Ox
97.7 F 45 16 93/39 96
09/23/24 06:38 09/23/24 06:38 09/23/24 06:38 09/23/24 06:38 09/23/24 06:38
Last Documented Vital Signs
Temp Pulse Resp BP Pulse Ox
97.7 F 78 19 105/37 99
09/23/24 06:38 09/23/24 11:30 09/23/24 11:30 09/23/24 08:28 09/23/24 07:15
MDM/Problems Addressed
Differential Diagnosis Includes:
Patient sent for agitation and bradycardia. Similar to when she was here at the end of July. Clinically nontoxic. She is nonfocal. She will follow commands. Bradycardia is old. Blood pressure minimally low. Will check labs urine head CT
fluids COVID flu.
*Pulse Oximetry
Patient hypoxic: no
*Retirement Consultant Interpretation
Rate: bradycardiac
Interpretation: abnormal
Heart Rate: 42
Rhythm: sinus
*Critical Care Note
Total Time (30-74mins, 75-104mins- exclusive of procedures): Not Applicable
Update Note
Update Note:
1030... Patient has remained medically stable. There is no family. There is a guardian power of county attorney. Discussed with him. No medical reason for admission. This apparently has been a recurring issue in the past. We do need to get a
urinalysis done on her however. Will give her a small dose of Haldol which may help her agitation and hopefully allow for a urinalysis by straight cath
ED Attending Note
-
Portions of this chart may have been created with voice recognition software.� Occasional wrong word or��sound alike� substitutions may have occurred due to the inherent limitations of voice recognition software.
Discharge Plan
Departure
Patient Disposition: Home (Routine Discharge)
Date of Disposition: 09/23/24
Time of Disposition: 12:03
Patient with high blood pressure during this ER visit?: No
Discharge Problem:
Agitation/mental status change, Anemia, Mild hyperkalemia
Instructions: Altered Mental Status (DC), Dementia (DC)
Prescriptions:
No Action
acetaminophen 650 mg Suppository
650 mg UT Q4HPRN MDD 3000mg PRN (Reason: mild pain/temp>100)
calcium carbonate [Calcium 600] 600 mg calcium (1,500 mg) Tablet
600 mg PO DAILY
memantine 5 mg Tablet
5 mg PO HS
magnesium hydroxide [Milk of Magnesia] 400 mg/5 mL Suspension
2,400 mg PO HSPRN PRN (Reason: if no bm by 3rd day)
furosemide 20 mg Tablet
20 mg PO TUTHSA Qty: 30 0RF
latanoprost 0.005 % Drops
1 drp BOTH EYES QPM Qty: 0 0RF
acetaminophen 325 mg Tablet
650 mg PO Q6HPRN MDD 3000mg PRN (Reason: temp>100.4)
dextromethorphan-guaifenesin [Guaifenesin DM] 10-100 mg/5 mL Syrup
10 ml PO Q4H PRN (Reason: cough)
amlodipine 5 mg Tablet
5 mg PO DAILY
guaifenesin 100 mg/5 mL Liquid
300 mg PO BID
emollient Lotion
1 ea TOPICAL BID
aripiprazole 2 mg Tablet
2 mg PO DAILY
cyanocobalamin (vitamin B-12) 1,000 mcg tablet
1,000 mcg PO DAILY
Lokelma 10 gram powder in packet
10 g PO MOWEFR
Referrals:
UNKNOWN - PT DOES,NOT KNOW [Family Provider] -
Activity Restrictions/Additional Instructions:
Get a repeat potassium in 2 to 3 days
Return with any concerns including worsening agitation fever or any other concerning symptoms
Interventions
Interventions:
*Risk Screen - Suicide Last Done: 09/23/24 06:38
*General Assessment Last Done: 09/23/24 06:38
*Neglect/Abuse Screening Last Done: 09/23/24 06:38
ED- Fall Risk Assessment Last Done: 09/23/24 07:07
*ED COVID-19 Vaccine History Last Done: 09/23/24 06:38
ED- Neurological Assessment Last Done: 09/23/24 07:07
ED- Cardiac Assessment Last Done: 09/23/24 07:07
Discharge Date and Time
Print Language: PASHTO
[2024-09-23 07:00] VITALS: BP 102/47
[2024-09-23 07:05] LABS: % Basophils 0.7 % (0-2); % Eosinophils 0.9 % (0-6); % Immature Granulocytes 0.2 % (0-0.5); % Lymphocytes 41.5 % (20.5-51.1); % Neutrophils 44.7 % (42.2-75.2); Absolute Eosinophils 0.1 10^3/uL (0-0.7); Absolute Lymphocytes 2.3 10^3/uL (1.2-3.4); Absolute Monocytes 0.7 10^3/uL (0.1-0.6); Absolute Neutrophils 2.5 10^3/uL (1.4-6.5); Hematocrit 26.2 % (37.0-47.0); Hemoglobin 8.2 g/dL (12.0-16.0); Mean Corp Hgb Conc. 31.3 g/dL (33.0-37.0); Mean Corpuscular Hgb 29.5 pg (27.0-31.0); Mean Corpuscular Volume 94.2 fL (81.0-99.0); Mean Platelet Volume 10.6 fL (7.4-10.4); Nucleated Red Blood Cells % 0 %; Platelet Count 175 10^3/uL (130-400); Red Blood Cell Count 2.78 10^6/uL (4.20-5.40); White Blood Cell Count 5.6 10^3/uL (4.8-10.8)
[2024-09-23 07:18] LABS: ALT (SGPT) 12 U/L (0-35); AST (SGOT) 17 U/L (14-36); Albumin 2.8 g/dl (3.5-5.0); Alkaline Phosphatase 95 U/L (38-126); Blood Urea Nitrogen 48 mg/dl (7-17); Calcium 8.1 mg/dl (8.4-10.2); Carbon Dioxide 20 mmol/L (22-30); Chloride 115 mmol/L (98-107); Glucose 77 mg/dl (70-99); Potassium 5.5 mmol/L (3.5-5.1); Sodium 141 mmol/L (135-145); Total Bilirubin 0.2 mg/dl (0.2-1.3); Total Protein 5.8 g/dl (6.3-8.2)
[2024-09-23 07:27] LABS: COVID-19 Antigen Negative (Negative)
[2024-09-23 08:28] VITALS: BP 105/37
[2024-09-23] MEDS: HALDOL 0.5 MG IV (10:29)
[2024-09-23 11:21] LABS: Urine Albumin 1+ (Neg - Trace); Urine Bilirubin Negative (Negative); Urine Character Slightly Cloudy (Clear); Urine Color Yellow; Urine Glucose Negative (Negative); Urine Ketone Negative (Negative); Urine Leukocyte Negative (Negative); Urine Nitrite Negative (Negative); Urine Occult Blood Negative (Negative); Urine Urobilinogen Negative (Neg - 1+)
[2024-09-23 11:32] LABS: Urine Bacteria Few (Negative); Urine Squamous Cell 0-2 /LPF (Few)
[2024-09-23 11:33] LABS: Urine Hyaline Cast 0-2 /LPF (0-2); Urine Red Blood Cell 0-2 /HPF (0-2); Urine White Cell 0-2 /HPF (0-5)
== END 2024-09-23 13:23 ==
LOC: EMR 06:36
PROVIDERS: EMERGENCY PHYSICIAN Emergency Medicine
DX: F03.911 Unspecified dementia, unspecified severity, with agitation (principal); D64.9 Anemia, unspecified; E87.5 Hyperkalemia; I12.9 Hypertensive chronic kidney disease with stage 1 through stage 4 chronic kidney disease, or unspecified chronic kidney disease; N18.9 Chronic kidney disease, unspecified; K21.9 Gastro-esophageal reflux disease without esophagitis; Z85.43 Personal history of malignant neoplasm of ovary; Z90.710 Acquired absence of both cervix and uterus; Z90.49 Acquired absence of other specified parts of digestive tract; Z11.52 Encounter for screening for COVID-19
CPT/HCPCS: 99285; 96374; 70450; 71046; 80053; 81003; 81015; 85025; 87502; 87811; 93005

== ENCOUNTER 2024-09-27 10:03 | Emergency (ER) | payer MEDICARE, SELFPAY ==
[2024-09-27 10:17] VITALS: BP 157/49
--- NOTE | 2024-09-27 10:23 | ED.GENMED ---
History of Present Illness
General
Chief Complaint: Fatigue
Time Seen by Provider: 09/27/24 10:06
History of Present Illness
History of Present Illness:
83-year-old female with history of dementia, hypertension, chronic kidney disease, anemia for concern of 'lethargy 'at nursing facility. Also noted to be bradycardic. On medics arrival, report no bradycardia. Patient had been aggressive and
route, spitting and biting. Patient is a limited historian given her underlying dementia. Patient at this time is not cooperating with questioning. No additional history obtained at this time.
Past History
Past History
ED Past Medical History: Cancer (Ovarian), GERD and Other (Small bowel obstruction, osteoarthritis, dementia, osteoporosis, CKD, hypertension, ovarian neoplasm)
ED Past Surgical History: Appendectomy, Gynecological (Hysterectomy, ovarian cancer), Orthopedic (Right knee) and Tonsilectomy
Social History
Tobacco: Non-smoker
Alcohol: None
Drug: None
Personal: Single
Living: senior care
Family History
Family History: Other (Noncontributory)
Phy Exam
Physical Exam
Physical Exam:
General: no clinical signs of dehydration, nontoxic and in no acute distress
HEENT: protecting airway
Neck: appears supple
CV: Normal heart rate, regular rhythm
Resp: No accessory muscle use, no increased work of breathing, lungs clear to auscultation bilaterally
Abd: Soft and non-distended, no tenderness to palpation
Extremities: No deformities, no swelling, no erythema
Neuro: alert, not cooperative with questioning
: deferred
Rectal: deferred
Psych: Normal affect
Skin: Intact
Course
Orders/Labs/Results
Orders:
Orders
09/27/24 10:13
Urinalysis Reflex To Culture Urgent
09/27/24 10:17
COVID-19 Antigen Urgent
Source: Nasal Swab
Comprehensive Metabolic Panel Urgent
Influenza A+B Rapid Molecular Urgent
FRAN Source: Nasal Swab
Specimen Description:
09/27/24 10:45
Complete Blood Count/With Diff Urgent
Abnormal Lab Results
09/27/24 09/27/24
10:17 10:45
RBC 3.09 L 10^6/uL
(4.20-5.40)
Hgb 8.8 L g/dL
(12.0-16.0)
Hct 28.6 L %
(37.0-47.0)
MCHC 30.8 L g/dL
(33.0-37.0)
RDW 15.5 H %
(11.5-14.5)
MPV 10.8 H fL
(7.4-10.4)
Absolute Monos (auto) 0.9 H 10^3/uL
(0.1-0.6)
Monocytes % 11.5 H %
(1.7-9.3)
Potassium 5.4 H mmol/L
(3.5-5.1)
Chloride 116 H mmol/L
(98-107)
Carbon Dioxide 20 L mmol/L
(22-30)
BUN 40 H mg/dl
(7-17)
Creatinine 1.4 H mg/dL
(0.6-1.0)
Total Protein 6.2 L g/dl
(6.3-8.2)
Albumin 2.9 L g/dl
(3.5-5.0)
09/27/24 10:45
09/27/24 10:17
Vital Signs
Initial and Last Documented VS:
Initial Vital Signs
Pulse Resp Pulse Ox
78 14 96
09/27/24 10:11 09/27/24 10:11 09/27/24 10:11
Last Documented Vital Signs
Temp Pulse Resp BP Pulse Ox
97.6 F 76 12 170/67 97
09/27/24 10:17 09/27/24 11:30 09/27/24 11:30 09/27/24 11:03 09/27/24 11:30
MDM/Problems Addressed
MDM/Problems Addressed:
83-year-old female with history of dementia presenting for concern of fatigue and bradycardia. Vital signs on arrival are normal.
On exam, patient is resting comfortably, no acute distress. Patient is slightly aggressive, however at this time does not appear to be lethargic. No present bradycardia. No medications given in route. On review of EMR, patient seen in the
hospital on 09/23 for concern of aggression. At that time patient had normal laboratory analysis and urinalysis, without any signs of underlying infection. Do suspect secondary to patient's dementia. Will again screen with laboratory analysis and
viral swabs and continue to closely monitor
12:00 -patient's labs are unremarkable. Patient with known history of chronic kidney disease, prior history of hyperkalemia. Patient had a urine assessed on 07/23, no signs of infection. Vital signs remained stable, no bradycardia. Feel stable
for discharge with outpatient follow-up. Return precautions discussed and patient verbalized understanding. Will arrive transportation back to facility
*Critical Care Note
Total Time (30-74mins, 75-104mins- exclusive of procedures): Not Applicable
ED Attending Note
-
Portions of this chart may have been created with voice recognition software.� Occasional wrong word or��sound alike� substitutions may have occurred due to the inherent limitations of voice recognition software.
Discharge Plan
Departure
Prescriptions:
No Action
acetaminophen 650 mg Suppository
650 mg AR Q4HPRN PRN (Reason: mild pain/temp>100)
calcium carbonate [Calcium 600] 600 mg calcium (1,500 mg) Tablet
600 mg PO DAILY
memantine 5 mg Tablet
5 mg PO HS
magnesium hydroxide [Milk of Magnesia] 400 mg/5 mL Suspension
2,400 mg PO HSPRN PRN (Reason: if no bm by 3rd day)
furosemide 20 mg Tablet
20 mg PO TUTHSA Qty: 30 0RF
acetaminophen 325 mg Tablet
650 mg PO Q6HPRN PRN (Reason: MILD PAIN/temp>100.4)
amlodipine 5 mg Tablet
5 mg PO DAILY
guaifenesin 100 mg/5 mL Liquid
600 mg PO BID
emollient Lotion
1 ea TOPICAL BID
Rx Instructions:
arms and legs
aripiprazole 2 mg Tablet
2 mg PO DAILY
Lokelma 10 gram powder in packet
10 g PO MOWEFR
dextromethorphan-guaifenesin [Guaifenesin DM] 10-100 mg/5 mL Syrup
10 ml PO Q4HPRN PRN (Reason: COUGH)
cyanocobalamin (vitamin B-12) 1,000 mcg Tablet
1,000 mcg PO DAILY
latanoprost 0.005 % drops
1 drp BOTH EYES HS
Referrals:
Eusebio Daly I., DO [Family Provider] -
Interventions
Interventions:
*Risk Screen - Suicide Last Done: 09/27/24 10:17
*General Assessment Last Done: 09/27/24 10:17
*Neglect/Abuse Screening Last Done: 09/27/24 10:23
*ED COVID-19 Vaccine History Last Done: 09/27/24 10:17
Discharge Date and Time
Print Language: INDIAN
[2024-09-27 10:43] LABS: ALT (SGPT) 24 U/L (0-35); AST (SGOT) 25 U/L (14-36); Albumin 2.9 g/dl (3.5-5.0); Alkaline Phosphatase 110 U/L (38-126); Blood Urea Nitrogen 40 mg/dl (7-17); Calcium 8.6 mg/dl (8.4-10.2); Carbon Dioxide 20 mmol/L (22-30); Chloride 116 mmol/L (98-107); Glucose 87 mg/dl (70-99); Potassium 5.4 mmol/L (3.5-5.1); Sodium 142 mmol/L (135-145); Total Bilirubin 0.4 mg/dl (0.2-1.3); Total Protein 6.2 g/dl (6.3-8.2); eGFR 36.87
[2024-09-27 10:55] LABS: COVID-19 Antigen Negative (Negative)
[2024-09-27 10:58] LABS: % Basophils 0.5 % (0-2); % Eosinophils 0.3 % (0-6); % Immature Granulocytes 0.4 % (0-0.5); % Lymphocytes 29.3 % (20.5-51.1); % Monocytes 11.5 % (1.7-9.3); Absolute Lymphocytes 2.2 10^3/uL (1.2-3.4); Absolute Monocytes 0.9 10^3/uL (0.1-0.6); Absolute Neutrophils 4.4 10^3/uL (1.4-6.5); Hematocrit 28.6 % (37.0-47.0); Hemoglobin 8.8 g/dL (12.0-16.0); Mean Corp Hgb Conc. 30.8 g/dL (33.0-37.0); Mean Corpuscular Hgb 28.5 pg (27.0-31.0); Mean Corpuscular Volume 92.6 fL (81.0-99.0); Mean Platelet Volume 10.8 fL (7.4-10.4); Nucleated Red Blood Cells % 0 %; Platelet Count 159 10^3/uL (130-400); Red Blood Cell Count 3.09 10^6/uL (4.20-5.40); Red Cell Dist. Width 15.5 % (11.5-14.5); White Blood Cell Count 7.6 10^3/uL (4.8-10.8)
[2024-09-27 11:02] VITALS: BP 154/137
[2024-09-27 11:03] VITALS: BP 170/67
[2024-09-27 13:00] VITALS: BP 112/91
== END 2024-09-27 15:45 | disposition home or self-care (01) ==
LOC: EMR 10:03
PROVIDERS: EMERGENCY PHYSICIAN Student in an Organized Health Care Education/Training Program; FAMILY PHYSICIAN Internal Medicine
DX: F03.90 Unspecified dementia, unspecified severity, without behavioral disturbance, psychotic disturbance, mood disturbance, and anxiety (principal); R00.1 Bradycardia, unspecified; I12.9 Hypertensive chronic kidney disease with stage 1 through stage 4 chronic kidney disease, or unspecified chronic kidney disease; N18.9 Chronic kidney disease, unspecified
CPT/HCPCS: 99283; 80053; 85025; 87502; 87811

== ENCOUNTER 2024-11-23 09:39 | Inpatient (IN) | payer MEDICARE, SELFPAY ==
[2024-11-20] VITALS (7 sets, daily range): BP systolic 102–179; BP diastolic 33–75; BMI 20.8
--- NOTE | 2024-11-20 19:32 | ED.GENMED ---
History of Present Illness
General
Chief Complaint: Fall
Source: ambulance crew, [facility] and [facility] records
Exam Limitations: dementia
Time Seen by Provider: 11/20/24 18:36
Nursing documentation reviewed up to this point in time: agreed with except (Additionally the patient was noted to be more fatigued than usual and not at her exact baseline according to nursing staff)
History of Present Illness
History of Present Illness:
84-year-old female presenting to the emergency department after a fall. This was not seen directly but the staff was at the site within a few seconds after hearing a thud. Did not sure if she hit her head but they note only evidence of trauma to
the left hand no additional signs of trauma. She did not lose consciousness. No vomiting past day or 2 she has not been quite acting herself and has seemingly been more tired than usual. She has had an ongoing cough for multiple weeks. Denies
any specific fevers or any specific complaints from the patient.
Past History
Past History
ED Past Medical History: Cancer (Ovarian), GERD and Other (Small bowel obstruction, osteoarthritis, dementia, osteoporosis, CKD, hypertension, ovarian neoplasm)
ED Past Surgical History: Appendectomy, Gynecological (Hysterectomy, ovarian cancer), Orthopedic (Right knee) and Tonsilectomy
Social History
Tobacco: Non-smoker
Alcohol: None
Drug: None
Personal: Single
Living: [facility]dc
Family History
Family History: Other (Noncontributory)
Review of Systems
Review of Systems
Allergies reviewed?: Yes
All Other Systems: ROS reviewed and negative except as documented in HPI and ROS
Phy Exam
Physical Exam
Physical Exam:
GENERAL: Alert , in no apparent distress
EYE: pupils equal and reactive
NECK: Supple, no significant adenopathy.
ENT: o/p clr, mmm.
CARDIAC: Regular rate and rhythm .
LUNGS: Clear breath sounds bilaterally, no acute respiratory distress, no wheezes/rales/rhonchi
ABDOMEN: Soft, without focal tenderness, no r/g, no cvat
NEUROLOGICAL: Alert patient is not oriented to person place or time no focal neuro deficits moving extremities normally
SKIN: Skin tear to the left hand roughly 4 cm in total length as a superficial skin flap similar superficial skin flap between the 1st and 2nd digit in the webspace mainly on the dorsal aspect 1.5 cm in length warm and dry, skin intact.
MUSCULOSKELETAL: No edema, well perfused.
PSYCH: Normal and appropriate interaction.
Course
Orders/Labs/Results
Orders:
Orders
11/20/24 Dinner
Regular
At Your Request: Limited Participation
11/20/24 18:52
CT Cervical Spine W/o Iv Contr Urgent
Comment:
Reason For Exam: Fall unknonw head strike
CT Head W/o Iv Contrast Urgent
Comment:
Reason For Exam: fall uknown head strike
11/20/24 19:04
EKG [Electrocardiogram (*1)] Urgent
Reason for Study: Fatigue / Weakness
EKG- Treatment ONCE
Chest [CR Chest - 2 Views ] Urgent
Comment:
Reason For Exam: cough ams
11/20/24 19:21
Asenapine Sublingual [Saphris] 2.5 mg SL NOW STA
11/20/24 19:55
COVID-19 Antigen Urgent
Source: Nasal Swab
Complete Blood Count/With Diff Urgent
Comprehensive Metabolic Panel Urgent
Manual Differential Urgent
Influenza A+B Rapid Molecular Urgent
FRAN Source: Nasal Swab
Specimen Description:
11/20/24 20:59
Urinalysis Reflex To Culture Urgent
Date Specimen was Collected: 11/20/24
Time Specimen was Collected: 20:58
Urine Microscopic Reflex Cult Urgent
11/20/24 21:46
Cefepime HCl [Maxipime] 2,000 mg IV NOW STA
11/20/24 22:12
Admit/Transfer Patient As Directed
Co-Sign Provider:
Level of Care: Observation services
Assign to:: Medical/Surgical
Physician / Group: thierry
Diagnosis: pneumonia, flu
PRN Pain Medication Management As Directed
May give lesser potent ordered pain med per pt: Yes
preference::
Protocol:: Medication orders for pain may be administered in a
manner that supports deferring to patient preference
when the pt is:
- Requesting an ordered lesser potent pain medication.
Least to most potent pain medications are defined
as: acetaminophen < NSAID < tramadol < opioids
(morphine, oxycodone, hydromorphone).
- Requesting a lesser dose of the same medication IF
ORDERED.
- Requesting a less intrusive route of administration
if both routes are prescribed by the provider (PO <
IV).
11/20/24 22:13
Code Status As Directed
Resuscitation Status: Do not resuscitate
Reached after discussion with pt or family/Healthcare POA: Yes
Vancomycin [Vancocin] 1,250 mg 0.9% Sodium Chloride 250 ml [Nss] 250 ml IV NOW
DNR Bracelet Application ONCE
11/20/24 23:06
Acetaminophen [Tylenol] 650 mg PO Q4HPRN PRN
11/20/24 23:06
Activity As Directed
Activity Level: As Tolerated
Vital Signs As Directed
Frequency: Per unit guidelines
DX Deep Vein Thrombosis Video Routine
11/20/24 23:30
Oseltamivir Phosphate [Tamiflu] 30 mg PO BID
11/21/24 06:00
Complete Blood Count/With Diff IN AM
Comprehensive Metabolic Panel IN AM
CefTRIAXone [Rocephin] 1,000 mg IV Q24H
11/21/24 08:00
Doxycycline [Vibramycin] 100 mg PO Q12
Heparin 5,000 units SC Q12
Abnormal Lab Results
11/20/24 11/20/24
19:55 20:59
WBC 3.8 L 10^3/uL
(4.8-10.8)
RBC 3.37 L 10^6/uL
(4.20-5.40)
Hgb 9.5 L g/dL
(12.0-16.0)
Hct 29.6 L %
(37.0-47.0)
MCHC 32.1 L g/dL
(33.0-37.0)
RDW 15.6 H %
(11.5-14.5)
MPV 10.6 H fL
(7.4-10.4)
Band Neutrophils 5 H %
(0-3)
Lymphocytes (Manual) 14 L %
(20-51)
Potassium 5.6 H mmol/L
(3.5-5.1)
Chloride 109 H mmol/L
(98-107)
BUN 32 H mg/dl
(7-17)
Creatinine 1.2 H mg/dL
(0.6-1.0)
Calcium 8.3 L mg/dl
(8.4-10.2)
Albumin 3.0 L g/dl
(3.5-5.0)
Urine Albumin (Reflex) 2+ A
(Neg - Trace)
11/20/24 19:55
11/20/24 19:55
Vital Signs
Initial and Last Documented VS:
Initial Vital Signs
Temp Pulse Resp Pulse Ox
97.8 F 63 20 97
11/20/24 18:19 11/20/24 18:19 11/20/24 18:19 11/20/24 18:19
Last Documented Vital Signs
Temp Pulse Resp BP Pulse Ox
96.2 F L 55 18 102/75 94
11/20/24 23:15 11/20/24 23:15 11/20/24 23:15 11/20/24 23:15 11/20/24 23:15
MDM/Problems Addressed
MDM/Problems Addressed:
84-year-old female presenting from the dementia unit [facility] with concerns after a fall. She has been somewhat more lethargic than usual according nursing staff for the past few days. On arrival vital signs are normal patient no distress
does have superficial skin injury to the left wrist. No specific evidence of trauma elsewhere. No neck pain moving all extremities normally. Patient is interactive able to follow basic commands but not able to answer any orientation questions.
Patient became somewhat agitated while here patient was given a dose of Saphris that was previously described as a treatment for her with her recent admission. Otherwise here patient had an x-ray due to the [facility]'s concern of ongoing cough
lethargy. Patient is on have a likely consolidation to the right lower lobe. Patient was started on antibiotics. Patient did have a slightly low white count temperature seem to be somewhat on the low side as well. Otherwise head CT neck CT
without emergent findings. Slightly elevated potassium level plan to admit for further treatment monitoring considering altered mental status associate with potential pneumonia as well as positive flu test.
*Critical Care Note
Total Time (30-74mins, 75-104mins- exclusive of procedures): Not Applicable
ED Attending Note
-
Portions of this chart may have been created with voice recognition software.� Occasional wrong word or��sound alike� substitutions may have occurred due to the inherent limitations of voice recognition software.
Discharge Plan
Departure
Patient Disposition: Admit
Date of Disposition: 11/20/24
Time of Disposition: 23:01
Admit to: Telemetry
Admit to doctor: Thierry
Presentation/result/management discussed w/ accepting MD/DO: Hospitalist
Patient with high blood pressure during this ER visit?: No
Condition: Fair
Covid-19: Not Applicable
Discharge Problem:
Pneumonia, Acute hyperkalemia, AMS (altered mental status)
Interventions
Interventions:
*Risk Screen - Suicide Last Done: 11/20/24 18:21
*General Assessment Last Done: 11/20/24 18:23
*Neglect/Abuse Screening Last Done: 11/20/24 18:21
*ED- Fall Risk Assessment Last Done: 11/20/24 18:21
*ED COVID-19 Vaccine History Last Done: 11/20/24 18:21
*Nursing Disposition Last Done: 11/20/24 23:15
ED-Musculoskeletal Assessment Last Done: 11/20/24 18:22
ED- Neurological Assessment Last Done: 11/20/24 18:30
ED-Skin Assessment Last Done: 11/20/24 18:22
Discharge Date and Time
Discharge Date/Time: 11/20/24 23:16
[2024-11-20] MEDS: SAPHRIS 2.5 MG SL (19:34)
[2024-11-20 20:06] LABS: Hematocrit 29.6 % (37.0-47.0); Hemoglobin 9.5 g/dL (12.0-16.0); Mean Corp Hgb Conc. 32.1 g/dL (33.0-37.0); Mean Corpuscular Hgb 28.2 pg (27.0-31.0); Mean Corpuscular Volume 87.8 fL (81.0-99.0); Mean Platelet Volume 10.6 fL (7.4-10.4); Platelet Count 148 10^3/uL (130-400); Red Blood Cell Count 3.37 10^6/uL (4.20-5.40); Red Cell Dist. Width 15.6 % (11.5-14.5); White Blood Cell Count 3.8 10^3/uL (4.8-10.8)
[2024-11-20 20:18] LABS: ALT (SGPT) 13 U/L (0-35); AST (SGOT) 21 U/L (14-36); Alkaline Phosphatase 118 U/L (38-126); Blood Urea Nitrogen 32 mg/dl (7-17); Calcium 8.3 mg/dl (8.4-10.2); Carbon Dioxide 24 mmol/L (22-30); Chloride 109 mmol/L (98-107); Glucose 98 mg/dl (70-99); Potassium 5.6 mmol/L (3.5-5.1); Sodium 139 mmol/L (135-145); Total Bilirubin 0.4 mg/dl (0.2-1.3); Total Protein 6.7 g/dl (6.3-8.2); eGFR 44.08
[2024-11-20 20:19] LABS: COVID-19 Antigen Negative (Negative)
[2024-11-20 20:33] LABS: Absolute Neutrophils -Man Diff 2.9 10^3/uL (1.4-6.5); Band Neutrophils 5 % (0-3); Lymphocytes 14 % (20-51); Monocytes 8 % (2-9); Normal RBC Morphology Yes; Platelets Checked Yes; Segmented Neutrophils 73 % (42-75)
[2024-11-20 20:34] LABS: Total Cells Counted 100
[2024-11-20 21:08] LABS: Urine Albumin 2+ (Neg - Trace); Urine Bilirubin Negative (Negative); Urine Character Clear (Clear); Urine Color Yellow; Urine Glucose Negative (Negative); Urine Ketone Negative (Negative); Urine Leukocyte Negative (Negative); Urine Nitrite Negative (Negative); Urine Occult Blood Negative (Negative); Urine Urobilinogen Negative (Neg - 1+)
[2024-11-20 21:10] LABS: Urine Red Blood Cell 0-2 /HPF (0-2); Urine White Cell 0-2 /HPF (0-5)
[2024-11-20] MEDS: MAXIPIME 2000 MG IV (21:55)
--- NOTE | 2024-11-20 22:29 | HPS.HSE ---
Family Physician
-
Family Physician: Eusebio Daly
Chief Complaint
-
fall
History of Present Illness
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
cancer, osteoarthritis, osteopenia, GERD, presenting to the emergency room from alf after a fall. Not directly seen by the staff but they were there within a few seconds after hearing the sound. Not sure if she hit her head. But no
injuries apart from trauma to the left hand. Did not lose consciousness. She has been more tired than usual and not acting herself. Has been having ongoing cough for multiple weeks. No fever or abdominal pain or vomiting or diarrhea.
Patient currently asleep after receiving Saphris for agitation. No further history can be obtained.
Medical History
Past Medical History
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
osteoarthritis, osteopenia, GERD)
Past Surgical History: Reports Tonsilectomy (Appendectomy, Gynecological (Hysterectomy, ovarian cancer), Orthopedic (Right knee) and Tonsilectomy)
Social History
Tobacco: Non-smoker
Alcohol: None
Drug: None
Family History
Family History: Not pertinent
Allergies / Home Medications
Allergies reflects when Allergies were last updated in [facility].
Home Medications with original date entered in [facility]
Allergy/Medication List:
Allergies
Allergy/AdvReac Type Severity Reaction Status Date / Time
No Known Allergies Allergy Verified 05/26/24 08:23
Home Medications
acetaminophen 650 mg rectal suppository 650 mg WV Q4HPRN PRN mild pain/temp>100 11/11/23
calcium carbonate (Calcium 600) 600 mg PO DAILY Supplement 03/16/24
memantine 5 mg tablet 5 mg PO HS Neurological Condition 05/26/24
magnesium hydroxide 400 mg/5 mL oral suspension (Milk of Magnesia) 2,400 mg PO HSPRN PRN if no bm by 3rd day 08/02/24
furosemide 20 mg tablet 20 mg PO TUTHSA Fluid retention/Swelling #30 tabs 08/09/24
acetaminophen 325 mg tablet 650 mg PO Q6HPRN PRN MILD PAIN/temp>100.4 09/23/24
amlodipine 5 mg tablet 5 mg PO DAILY 09/23/24
aripiprazole 2 mg tablet 2 mg PO DAILY 09/23/24
emollient 1 ea topical BID 09/23/24
guaifenesin 100 mg/5 mL oral liquid 600 mg PO BID 09/23/24
sodium zirconium cyclosilicate 10 gram oral powder packet (Lokelma) 10 g PO MOWEFR hyperkalemia 09/23/24
cyanocobalamin (vitamin B-12) 1,000 mcg tablet 1,000 mcg PO DAILY 09/27/24
dextromethorphan-guaifenesin 10 mg-100 mg/5 mL oral syrup 10 ml PO Q4HPRN PRN COUGH 09/27/24
latanoprost 0.005 % eye drops 1 drp BOTH EYES HS Eye condition 09/27/24
Review of Systems
-
History Source: Patient
A 12 point ROS was completed and negative except as noted: Yes
Constitutional: Reports No Symptoms
EENT: Reports No Symptoms
Respiratory: Reports See HPI
Cardiac: Reports No Symptoms
Abdomen/GI: Reports No Symptoms
: Reports No Symptoms
Musculoskeletal: Reports No Symptoms
Skin: Reports No Symptoms
Neurological: Reports No Symptoms
Endocrine: Reports No Symptoms
Hematologic/Lymphatic: Reports No Symptoms
Psych: Reports No Symptoms
Physical Exam
Vital Signs
Vital Signs
Temp Pulse Resp BP Pulse Ox
97.8 F 63 20 125/46 95
11/20/24 18:19 11/20/24 18:19 11/20/24 18:19 11/20/24 22:00 11/20/24 22:01
Physical Exam
General: Well Developed, Well Nourished and No Apparent Distress
HEENT: NormoCephalic, Moist mucous membranes and Atraumatic
Respiratory: Clear
Cardiac: S1/S2 and Regular Rhythm; No Murmur or Rub
GI: Soft, Non Tender, Non Distended and Normal Bowel Sounds; No Organomegaly
Rectal: Deferred by Provider
Musculoskeletal: No Clubbing, No Cyanosis and No Edema
Skin: No Rash
Neuro: Nonfocal/grossly intact
Laboratory Results
-
11/20/24 19:55
11/20/24 19:55
Laboratory Results
Total Bilirubin 0.4 mg/dl (0.2-1.3) 11/20/24 19:55
AST 21 U/L (14-36) 11/20/24 19:55
ALT 13 U/L (0-35) 11/20/24 19:55
Alkaline Phosphatase 118 U/L (38-126) 11/20/24 19:55
Data Reviewed
-
Lab Data: Labs Reviewed by me
Old Records: Reviewed
Impression/Plan
-
IMPRESSION:
PLAN:
# Right lower lobe pneumonia
# Influenza A infection
-Leukopenia secondary to influenza
-Chest x-ray appears to show right lower lobe infiltrate, report pending
- Vancomycin/cefepime given in ER, de-escalate to ceftriaxone/doxycycline
- Tamiflu
# Chronic hyperkalemia
# CKD 3
- Potassium level and renal function at baseline
- Continue Lokelma
- Continue Lasix
# Ambulatory dysfunction/fall
# Left hand skin tear
- CT head and CT cervical spine negative
History of severe dementia with history of agitation
- Was agitated in ER and given Saphris
- Continue aripiprazole
- Continue memantine
Junctional bradycardia
History of moderate pleural effusion
B12 deficiency
- Continue B12
Lower extremity edema
- Continue Lasix
Chronic anemia
- Hemoglobin stable 9.5
Reflex intact dystrophy of left leg
Essential hypertension
- Continue amlodipine
Ovarian cancer
Osteoarthritis
Osteopenia
GERD
DNR/DNI
DVT prophylaxis�heparin
Regular diet
[2024-11-20] MEDS: VANCOCIN 275 MG IV (22:32)
[2024-11-21 00:08] LABS: Glucose - Point of Care 93 mg/dl (70-99)
[2024-11-21] MEDS: TAMIFLU PO (02:52)
--- NOTE | 2024-11-21 04:40 | PTCARENOTE ---
Addendum entered by Maday May RN 11/21/24 04:55:
Past medical hx obtained from past medical reports and [facility] report. Pt was too lethargic and drowsy to perform a new admission assessment upon arrival and throughout the shift.
Original Note:
Around 23:15 Pt came up from ER via stretcher. Transferred w/ assist of 3 from stretcher to bed via sliding over. Before arrival to floor, ER Nurse reported that the pt was combative in ER and they administered Saphris. During Assessment pt was very
lethargic and drowsy, would not wake up to verbal or tactile touch, even sternal rubbing did not wake her in order for me to give her her first dose of tamiflu at 23:30. LUMBER CARRIER OPERATOR notified, came up to 2N to assess pt. LUMBER CARRIER OPERATOR ordered to hold tamiflu for an hour
to see if pt will wake up. Around 0100, this RN reassessed pt to give tamiflu and pt did not wake up; med was not given (see Mar). Pt is now sleeping comfortable, with call thurston within reach.
[2024-11-21] MEDS: ROCEPHIN 1000 MG IV (05:23)
[2024-11-21] MEDS: STERILE WATER FOR INJECTION 10 ML IV (05:24)
[2024-11-21 07:40] VITALS: BP 131/42
[2024-11-21 07:59] LABS: Hematocrit 28.3 % (37.0-47.0); Mean Corp Hgb Conc. 31.8 g/dL (33.0-37.0); Mean Corpuscular Volume 87.9 fL (81.0-99.0); Mean Platelet Volume 10.6 fL (7.4-10.4); Nucleated Red Blood Cells % 0 %; Platelet Count 142 10^3/uL (130-400); Red Blood Cell Count 3.22 10^6/uL (4.20-5.40); Red Cell Dist. Width 15.6 % (11.5-14.5)
[2024-11-21 08:08] LABS: ALT (SGPT) 11 U/L (0-35); AST (SGOT) 18 U/L (14-36); Albumin 2.5 g/dl (3.5-5.0); Alkaline Phosphatase 101 U/L (38-126); Blood Urea Nitrogen 30 mg/dl (7-17); Carbon Dioxide 21 mmol/L (22-30); Chloride 113 mmol/L (98-107); Estimated Creatinine Clearance 31 ml/min; Glucose 77 mg/dl (70-99); Potassium 5.3 mmol/L (3.5-5.1); Sodium 139 mmol/L (135-145); Total Bilirubin 0.3 mg/dl (0.2-1.3); Total Protein 5.7 g/dl (6.3-8.2); eGFR 44.08
[2024-11-21 09:31] VITALS: BMI 20.8
[2024-11-21] MEDS: ABILIFY 2 MG PO (09:39)
[2024-11-21] MEDS: NORVASC 5 MG PO (09:39)
[2024-11-21] MEDS: OSCAL CAL 500 600 MG PO (09:40)
[2024-11-21] MEDS: HEPARIN 5000 UNITS SC ×2 (09:40→21:16)
[2024-11-21] MEDS: VIBRAMYCIN 100 MG PO ×2 (09:41→21:16)
[2024-11-21] MEDS: VITAMIN B-12 1000 MCG PO (09:41)
[2024-11-21] MEDS: HYDROPHOR 1 APPLIC TOPICAL ×2 (10:20→22:16)
[2024-11-21] MEDS: TAMIFLU 30 MG PO ×2 (10:20→21:16)
[2024-11-21 10:25] LABS: Absolute Neutrophils -Man Diff 1.9 10^3/uL (1.4-6.5); Band Neutrophils 18 % (0-3); Lymphocytes 22 % (20-51); Monocytes 14 % (2-9); Segmented Neutrophils 46 % (42-75)
[2024-11-21 10:26] LABS: Normal RBC Morphology Yes; Platelets Checked Yes; Total Cells Counted 100
--- NOTE | 2024-11-21 11:06 | CM ---
Reviewed the chart notes and spoke with the patient's guardian Vijay via telephone. The patient is admitted under observational status. The DYE letter was provided and explained. Guardian had no questions with regards to the letter. Letter
was left with the patient's belongings.
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 Patient requires assistance with all ADLs. CM continues to be available to patient/family and is monitoring medical plan for needs at discharge.
Plan: Discharge back to [facility] when medically stable.
--- NOTE | 2024-11-21 11:40 | W.PN.HOSP.TC ---
Today's Communication/Plan
-
Continue with CTX, doxycycline, Tamiflu
Monitor on room air
PT/OT
Assessment / Plan
Assessment / Plan
#CAP of right lower lobe
#Influenza A infection
-Presented after mechanical fall; x-ray with signs of pneumonia, flu A positive
-Has a leukopenia which is likely associated with infection, not requiring any O2
-Started on ceftriaxone and doxycycline, Tamiflu at time of admission
-Sounds rhonchorous on exam but again no hypoxemia present
-Suspect aspiration with her baseline cognitive deficits
-Continue antibiotics and Tamiflu
-Trend CBC and temperature curve
-GROUNDMAN/LINEMAN eval
-SpO2 goal >90%
#CKD stage III
#Chronic hyperkalemia
#Chronic anemia
-Creatinine baseline near 1.2, potassium always elevated at 5.1-5.6 range
-Home regimen includes Lokelma, lasix, calcium supplement
-Trend BMP
#Ambulatory dysfunction
#Mechanical fall
#Left hand skin tear
-PT/OT consulted for likely placement
-Monitor hand for signs of superimposed infection
#Severe dementia with agitation
-Was noted to have agitation in the emergency department
-Home regimen includes aripiprazole and memantine
-Appears calm this morning
#Primary hypertension
-Home regimen includes amlodipine 5 mg daily
-No known history of hypertensive systemic
#Vitamin B12 deficiency
-Unclear cause, likely nutritional
-Home meds include B12 supplement
#GERD
-Home regimen does not include any PPI or antihistamines
-Monitor for symptoms
#Chronic venous insufficiency
-Home regimen includes Lasix
#Ovarian cancer s/p FRANKY
- Not currently receiving active therapy
#RSD of the left lower extremity
-Home regimen includes Tylenol for pain, no opiates or neurotropic agents
#Osteoarthritis
#Osteopenia
-Likely age-related, Home regimen includes calcium carbonate
-Consider vitamin D supplement
#H/O junctional bradycardia
-ECG here with NSR
#H/O moderate pleural effusion
-Chest x-ray with trace bilateral pleural fluid, no effusion
Diet: Regular
DVT prophylaxis: SQ heparin
CODE STATUS: Full code
Anticipated Discharge: 24 - 48 hours
Subjective/Interval History
-
Date of Service: November 21, 2024
Seen and examined at the bedside. No acute events since admission. AFVSS on room air
White count mildly downtrending, hemoglobin stable as is renal function. Potassium stable at 5.3 (baseline 5.1-5.6)
ROS limited by advanced dementia
Objective Data
-
Labs:
Laboratory Results
11/21/24
06:30
WBC 3.0 L
Hgb 9.0 L
Hct 28.3 L
Plt Count 142
Sodium 139
Potassium 5.3 H
Chloride 113 H
Carbon Dioxide 21 L
BUN 30 H
Creatinine 1.2 H
Glucose 77
Calcium 8.0 L
Total Bilirubin 0.3
AST 18
ALT 11
Alkaline Phosphatase 101
Vital Signs:
Vital Signs
Temp Pulse Resp BP Pulse Ox
97.3 F 55 16 131/42 96
11/21/24 07:40 11/21/24 09:39 11/21/24 07:40 11/21/24 09:39 11/21/24 07:40
Review of Systems
-
Unable to obtain full review of systems at this time due to: Dementia
Physical Exam
-
General: Well Developed, Well Nourished and Comfortable
HEENT: Normocephalic, Atraumatic, Moist Mucous Membranes and Anicteric
Respiratory: Rhonchi and Non Labored Respirations; Negative Wheezes, Rales or Accessory Resp Muscle Use
Cardiac: Regular Rhythm and S1/S2; Negative Murmur, Rub or Gallop
GI: Soft, Nontender, Nondistended and Normal Bowel Sounds
Musculoskeletal: No Clubbing, No Cyanosis and No Edema
Skin: Warm, Dry and Normal Turgor; Negative Rash
Neuro: Awake, Alert and Nonfocal/Grossly Intact; Negative Tremors
Psych: Calm
Data Reviewed
-
Labs: Labs Reviewed by me and Discussed with Patient
[2024-11-21 16:00] VITALS: BP 140/51
--- NOTE | 2024-11-21 19:22 | PTCARENOTE ---
Patient's B/L lower legs warm and redness noted, Dr. Vyas made aware. US ordered. plan of care ongoing.
[2024-11-21] MEDS: ATIVAN 0.5 MG IV (22:00)
[2024-11-21] MEDS: XALATAN OPHTHALMIC SOLUTION 1 DROP BOTH EYES (23:00)
[2024-11-21 23:40] VITALS: BP 110/44
[2024-11-22] VITALS (24 sets, daily range): BP systolic 105–193; BP diastolic 37–99; PULSE 36–97; BMI 20.8; BMI 21.0
[2024-11-22] MEDS: STERILE WATER FOR INJECTION 10 ML IV (07:25)
[2024-11-22] MEDS: ROCEPHIN 1000 MG IV (07:25)
[2024-11-22 07:36] LABS: Hematocrit 28.9 % (37.0-47.0); Hemoglobin 9.5 g/dL (12.0-16.0); Mean Corp Hgb Conc. 32.9 g/dL (33.0-37.0); Mean Corpuscular Hgb 28.5 pg (27.0-31.0); Mean Corpuscular Volume 86.8 fL (81.0-99.0); Mean Platelet Volume 11.3 fL (7.4-10.4); Platelet Count 122 10^3/uL (130-400); Red Blood Cell Count 3.33 10^6/uL (4.20-5.40); Red Cell Dist. Width 15.9 % (11.5-14.5); White Blood Cell Count 3.1 10^3/uL (4.8-10.8)
--- NOTE | 2024-11-22 07:52 | PTCARENOTE ---
Around 1930 pt went down to go for a routine US. Upon arrival downstairs pt was becoming agitated and combative and started hitting staff. Pt could no do US
[2024-11-22 07:59] LABS: Blood Urea Nitrogen 36 mg/dl (7-17); Calcium 7.6 mg/dl (8.4-10.2); Carbon Dioxide 20 mmol/L (22-30); Chloride 112 mmol/L (98-107); Estimated Creatinine Clearance 27 ml/min; Glucose 77 mg/dl (70-99); Potassium 5.2 mmol/L (3.5-5.1); Sodium 139 mmol/L (135-145); eGFR 36.64
[2024-11-22 08:11] LABS: Absolute Neutrophils -Man Diff 1.8 10^3/uL (1.4-6.5); Band Neutrophils 0 % (0-3); Lymphocytes 22 % (20-51); Monocytes 18 % (2-9); Platelets Checked Yes; Segmented Neutrophils 60 % (42-75)
[2024-11-22 08:12] LABS: Anisocytosis Slight; Hypochromasia Slight; Normal RBC Morphology No; Total Cells Counted 100
--- NOTE | 2024-11-22 08:15 | W.PN.HOSP.TC ---
Today's Communication/Plan
-
Symptomatic Bradycardia and Hypotension: transfer to ICU, started epinephrine drip
Assessment / Plan
Assessment / Plan
Physical Exam
General: Not in acute distress
HEENT: Normocephalic, Atraumatic, Moist Mucous Membranes
Respiratory: Clear to Auscultation Bilaterally
Cardiac: Regular Rhythm and S1/S2 -- Bradycardic later in the day
GI: Soft, Nontender, Nondistended and Normal Bowel Sounds
Musculoskeletal: No Cyanosis and No Edema
Skin: Warm, Dry
Neuro: Lethargic but arousable.
Psych: Calm
Assessment/Plan
#Symptomatic Bradycardia with Hypotension
-FINANCIAL SERVICES ASSISTANT called on November 22, 2024 afternoon with MAP in the 50s, and HR in the 20s -- I was personally present during this Rapid and evaluated patient
-EKG with sinus bradycardia
-Atropine given without significant response
-Started Epinephrine drip -- discussed with cistern room operator and crimper assembler who agreed with this plan
-Transferred to ICU
-Stop Namenda
#History junctional bradycardia with associated hyperkalemia
#Mild Hyperkalemia
#Chronic Hyperkalemia
-Calcium gluconate given in the setting of bradycardia
#Influenza A infection with bibasilar atelectasis/infiltrates
-Presented after mechanical fall; x-ray with signs of pneumonia, flu A positive
-Has a leukopenia which is likely associated with infection, not requiring any O2
-Started on ceftriaxone and doxycycline, Tamiflu at time of admission
-Sounds rhonchorous on exam but again no hypoxemia present
-Suspect aspiration with her baseline cognitive deficits
-Continue antibiotics and Tamiflu
-Trend CBC and temperature curve
-OPHTHALMIC PHOTOGRAPHER eval
-SpO2 goal >90%
#Mild Hypothermia
-Jackie hugger as needed
#CKD stage III
#Chronic hyperkalemia
#Chronic anemia
-Creatinine baseline near 1.2, potassium always elevated at 5.1-5.6 range
-Home regimen includes Lokelma, lasix, calcium supplement
-Trend BMP
#Ambulatory dysfunction
#Mechanical fall
#Left hand skin tear
-PT/OT consulted for likely placement
-Monitor hand for signs of superimposed infection
#Severe dementia with agitation
-Was noted to have agitation in the emergency department
-Home regimen includes aripiprazole and memantine
-Appears calm this morning
#Primary hypertension
-Home regimen includes amlodipine 5 mg daily
-No known history of hypertensive systemic
#Vitamin B12 deficiency
-Unclear cause, likely nutritional
-Home meds include B12 supplement
#GERD
-Home regimen does not include any PPI or antihistamines
-Monitor for symptoms
#Chronic venous insufficiency
-Home regimen includes Lasix
#Ovarian cancer s/p FRANKY
- Not currently receiving active therapy
#RSD of the left lower extremity
-Home regimen includes Tylenol for pain, no opiates or neurotropic agents
#Osteoarthritis
#Osteopenia
-Likely age-related, Home regimen includes calcium carbonate
-Consider vitamin D supplement
#H/O moderate pleural effusion
-Chest x-ray with trace bilateral pleural fluid, no effusion
Diet: IDDSI 4/puree and thin liquids when alert (consider VSE)
DVT Prophylaxis: Subq Heparin
CODE STATUS: Full code
Rapid Response with symptomatic bradycardia and hypotension needing transfer to the ICU is a high risk encounter.
Anticipated Discharge: > 48 hours
Subjective/Interval History
-
Date of Service: November 22, 2024
Patient was seen and examined. She was more lethargic today, later in the day, rapid was called, I was present during the Rapid, patient developed symptomatic bradycardia with hypotension needing Atropine and transfer to ICU.
Objective Data
-
Labs:
Laboratory Results
11/22/24
07:16
WBC 3.1 L
Hgb 9.5 L
Hct 28.9 L
Plt Count 122 L
Sodium 139
Potassium 5.2 H
Chloride 112 H
Carbon Dioxide 20 L
BUN 36 H
Creatinine 1.4 H
Glucose 77
Calcium 7.6 L
Vital Signs:
Vital Signs
Temp Pulse Resp BP Pulse Ox
97.7 F 62 16 110/44 99
11/21/24 23:40 11/21/24 23:40 11/21/24 23:40 11/21/24 23:40 11/22/24 06:36
I&O
11/21/24 11/22/24 11/23/24
06:59 06:59 06:59
Intake Total 580 / 580
Balance 580 / 580
--- NOTE | 2024-11-22 08:18 | PTCARENOTE ---
Around 193 pt was sent down to US, upon arrival to Pt became agitated and combative towards staff. Pt was unable to get US performed. During transport back to pt was combative, kicking and punching staff and continued to do so when trying to
transfer her off transport stretcher back into bed. SECURITY CONTROL ASSESSOR was notified and ordered Ativan for pt. Pt was given Ativan and during administration this RN noticed a new skin tear on her R. hand on the middle finger. This RN assessed the skin tear,
cleansed with saline, and applied a small foam dressing to tear. Throughout the shift pt was noted to be scratching and picking at skin causing the skin have to have some abrasions throughout her body. Pt was told to stop scratching so hard but pts
skin is already very fragile and she has long nails and does not listen to stop or continues soon after. Pt assessed, pt is sleeping, call thurston within reach.
--- NOTE | 2024-11-22 08:35 | PTOTSP ---
Speech Language Pathology
Pt seen for clinical bedside swallow evaluation. Pt extremely drowsy. Apparently got up out of bed on own earlier this date, so alertness level is inconsistent. Alertness level and mentation were barriers to P.O. intake. P.O. trials of puree and
thin liquids provided. Eyes remained closed with minimal verbalizations. Pt able to drink from cup and then straw with hand over hand assist; otherwise, was resistant to RESEARCH STUDY ASSISTANT providing P.O. Also provided tsps of puree. Do not suspect oral
residue, although pt would not open mouth to ensure this. No overt signs of aspiration. Also seen for med pass. Attempted small pill whole with liquid. Intermittent swallowing noted. Attempted whole in puree with pt pocketing pill. Was able to
clear with sip of liquid. Last provided crushed in puree. Unable to trial regular solids at this time given alertness level/mentation.
Recommend:
(1) Downgrade to IDDSI Level 4 (Puree) and Thin Liquids
(2) Aspiration precautions: feed only when alert, sit upright, slow rate, ensure oral cavity clear post P.O. intake
(3) Meds as tolerated
(4) RESEARCH STUDY ASSISTANT to continue to follow
[2024-11-22] MEDS: ABILIFY 2 MG PO (08:36)
[2024-11-22] MEDS: VIBRAMYCIN 100 MG PO ×2 (08:36→19:58)
[2024-11-22] MEDS: TAMIFLU 30 MG PO (08:36)
[2024-11-22] MEDS: VITAMIN B-12 1000 MCG PO (08:36)
[2024-11-22] MEDS: NORVASC 5 MG PO (08:36)
[2024-11-22] MEDS: LOKELMA 10 GRAM PO (08:37)
[2024-11-22] MEDS: OSCAL CAL 500 600 MG PO (08:37)
[2024-11-22] MEDS: HEPARIN 5000 UNITS SC ×2 (08:37→19:58)
[2024-11-22] MEDS: HYDROPHOR 1 APPLIC TOPICAL ×2 (08:38→22:21)
--- NOTE | 2024-11-22 10:30 | CM ---
Reviewed the chart notes. CM continues to be available to patient/family and is monitoring medical plan for needs at discharge.
Plan: Discharged back to [facility] when medically stable.
Call report to: [phone]
Fax report to: [phone]
Medical necessity and transport forms on chart.
--- NOTE | 2024-11-22 14:10 | RR ---
A Rapid Response was called on this patient, please see Rapid Response form.
Pt placed on tele per MD order, moe galeano applied for rectal temp of 96.1. RR called on this pt by this RN for sustained HR on monitor of 25. VS at 1516 were 95.3 rectal temperature, BP 85/39, o2 86% on RA, 16 respirations shallow, 38 HR. Pt
drowsy but arousable to sternal rubbing, pts cognition AAOx1 which is consistent with baseline. o2 applied, order to transfer pt to ICU placed, portable monitor placed on pt for transfer. This RN transferred pt with ICU RR team at bedside. Bedside
report given, see RR form.
[2024-11-22 15:15] LABS: Glucose - Point of Care 144 mg/dl (70-99)
[2024-11-22] MEDS: ADRENALIN 250 IV (15:50)
[2024-11-22] MEDS: CALCIUM GLUCONATE 1000 MG IV (15:52)
[2024-11-22] MEDS: ATROPINE 0.1 MG/ML SYRINGE 1 MG IV (15:52)
--- NOTE | 2024-11-22 15:54 | CON.INTV ---
Consultation
Consultation Request
Date/Time Consultation Requested: 11/22/2024
Date/Time Consultation Performed: 11/22/2024
Requesting Provider: Tomasz Minor
Performing Provider: Eris Simmons
Reason for Consultation: Hypotension, Bradycardia
Medical History
-
History of Present Illness:
Patient is a 84-year-old female past medical history of hyperkalemia related bradycardia, sinus bradycardia, severe dementia with history of agitation, moderate pleural effusion, B12 deficiency, CKD 3, chronic anemia, reflux sympathetic dystrophy of
the left leg, hypertension, ovarian cancer, osteoarthritis, osteopenia, GERD, who presented to the emergency room from long term after a fall. Not directly seen by the staff but they were there within a few seconds after hearing the sound. Not
sure if she hit her head. But no injuries apart from trauma to the left hand. Did not lose consciousness. She has been more tired than usual and not acting herself. Has been having ongoing cough for multiple weeks. No fever or abdominal pain or
vomiting or diarrhea. Patient tested positive for influenza A and was admitted to the hospital for possible right lower lobe pneumonia. She was started on antibiotics and admitted to floor.
11/22, rapid response was called as patient was less responsive with bradycardia as well as hypotension. Patient received 0.5 mg of IV atropine stat and was subsequently transferred to the ICU for further workup and management. In view of
symptomatic bradycardia, hypotension, pet ambassador consult was requested for further input.
Patient has dementia and is unable to participate in any meaningful conversation. Patient has a court appointed guardian with a CODE STATUS DNR, no family available at this point to obtain additional information.
Medical History
Past Medical History
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
osteoarthritis, osteopenia, GERD)
Past Surgical History: Reports Tonsilectomy (Appendectomy, Gynecological (Hysterectomy, ovarian cancer), Orthopedic (Right knee) and Tonsilectomy)
Social History
Tobacco: Non-smoker
Alcohol: None
Drug: None
Family History
Family History: Not pertinent
Allergies / Home Medications
Allergies / Home Medications
Allergies
Allergy/AdvReac Type Severity Reaction Status Date / Time
No Known Allergies Allergy Verified 05/26/24 08:23
Home Medications
�Medication �Instructions �Recorded �Confirmed �Last Taken �Type
acetaminophen 650 mg rectal 650 mg AR Q4HPRN PRN mild 11/11/23 11/20/24 Unknown History
suppository pain/temp>100
calcium carbonate (Calcium 600) 600 mg PO DAILY Supplement 03/16/24 11/20/24 Unknown History
memantine 5 mg tablet 5 mg PO HS Neurological Condition 05/26/24 11/20/24 Unknown History
magnesium hydroxide 400 mg/5 mL 2,400 mg PO HSPRN PRN if no bm by 08/02/24 11/20/24 Unknown History
oral suspension (Milk of Magnesia) 3rd day
furosemide 20 mg tablet 20 mg PO TUTHSA Fluid 08/09/24 11/20/24 Unknown Rx
retention/Swelling #30 tabs
acetaminophen 325 mg tablet 650 mg PO Q6HPRN PRN MILD 09/23/24 11/20/24 Unknown History
PAIN/temp>100.4
amlodipine 5 mg tablet 5 mg PO DAILY Blood Pressure 09/23/24 11/20/24 Unknown History
aripiprazole 2 mg tablet 2 mg PO DAILY Neurological 09/23/24 11/20/24 Unknown History
Condition
emollient 1 ea topical BID Skin Issues 09/23/24 11/20/24 Unknown History
guaifenesin 100 mg/5 mL oral liquid 600 mg PO BID Congestion 09/23/24 11/20/24 Unknown History
sodium zirconium cyclosilicate 10 10 g PO MOWEFR hyperkalemia 09/23/24 11/20/24 Unknown History
gram oral powder packet (Lokelma)
cyanocobalamin (vitamin B-12) 1,000 mcg PO DAILY Supplement 09/27/24 11/20/24 Unknown History
1,000 mcg tablet
dextromethorphan-guaifenesin 10 10 ml PO Q4HPRN PRN COUGH 09/27/24 11/20/24 Unknown History
mg-100 mg/5 mL oral syrup
latanoprost 0.005 % eye drops 1 drp BOTH EYES HS Eye condition 09/27/24 11/20/24 Unknown History
Review of Systems
-
Unable to Obtain full review of systems at this time due to: Dementia
Vitals / Labs / Diagnostic Testing
Vital Signs
Temp Pulse Resp BP Pulse Ox
96.1 F L 48 18 127/37 92
11/22/24 13:54 11/22/24 08:36 11/22/24 08:29 11/22/24 08:36 11/22/24 13:23
Microbiology
11/20/24 19:55 Nasal Swab Influenza Types A & B (EZEQUIEL) - Final
Influenza A Positive, NAAT
Diagnostic Testing:
Physical Exam
-
HEENT: Normocephalic
Cardiovascular: S1/S2 (Bradycardiac )
Respiratory: Clear and Non-Labored Respirations
GI: Soft and Non Distended
Neurology: Other (Patient is drowsy but easily arousable.)
Skin: Warm
General: Comfortable
Assessment
-
#1. Symptomatic bradycardia with hypotension. Patient given 0.5 mg of atropine IV prior to transfer to ICU.
- Patient emergently evaluated in the ICU, noted to be bradycardic with heart rate around 35-38 and MAP of 61. 1 mg of IV atropine given without any change in heart rate or blood pressure. Repeat EKG shows sinus bradycardia with narrow QRS complex
- Start epinephrine infusion @2 and titrate as needed to a MAP of more than 65
- Continue telemetry
- Check TSH, troponin
- Discontinue amlodipine and Namenda, hold Lasix while hypotensive
- Cardiology consultation. Troponin and BNP pending.
- Check potassium level stat, earlier noted to be mildly hyperkalemic, EKG changes however are not typical of hyperkalemia. Stat IV calcium gluconate. She received Lokelma already this morning, charted at 8:37 am. Low K diet. Patient has prior
history of hyperkalemia related to junctional bradycardia in 2023, lisinopril has since been stopped.
#2. Influenza A with bibasilar atelectasis/infiltrates.
- Continue Tamiflu
- Agree with continued treatment with ceftriaxone and doxycycline to cover for community-acquired pneumonia
- Repeat CXR in view of increase O2 requirement this AM.
#3. Small left pleural effusion. ?etiology. On review of prior imaging patient was noted to have moderate left-sided pleural effusion in September 2024. Thoracentesis was not performed due to patient's intermittent agitation and inability to hold
still. Current x-ray shows only a trace pleural effusion, overall improved. Patient has prior history of ovarian cancer status post FRANKY.
- Check BNP
- Hold Lasix in view of hypotension, will resume once blood pressure allows
- Follow-up chest x-ray in AM. Currently effusion is too small for safe thoracentesis, however if it grows further we will reconsider diagnostic and therapeutic thoracentesis
#4. CKD stage III with hyperkalemia. Patient appears to have recurrent hyperkalemia and is reportedly on Lokelma and Lasix at home.
- Hold Lasix in view of hypotension
- Patient received Lokelma this morning, IV calcium also given in view of bradycardia
- Follow-up labs in a.m.
#5. Dementia. On review of prior records and review of psychiatry during last admission, patient currently has a guardian and CODE STATUS DNR. Reported episodes of intermittent agitation.
- Will try to minimize interventions which do not improve patient's quality of life
DVT prophylaxis with s.c. Heparin
Critical Care time 68 mins -- The patient is admitted for acute critical illness for the treatment of vital organ failure and/or prevention of further life-threatening conditions. Total care includes time spent in review of history, physical exam,
medications, hemodynamic/ventilator parameters, laboratory data, imaging and discussion with house staff, pharmacy, respiratory therapy, paper supervisor, and nursing.
Data:
ECHO 2023: Normal left ventricular size, wall thickness and systolic function. No regional
wall motion abnormalities are seen. LV ejection fraction is 60-65% by visual
assessment. Diastolic function indeterminate.
Mitral annular calcification. Mitral valve opens normally. Mild mitral
regurgitation.
Trileaflet aortic valve. Aortic sclerosis without stenosis. Trace aortic
regurgitation.
Structurally normal tricuspid valve. Tricuspid valve opens normally. Mild
tricuspid regurgitation. Estimated pulmonary artery pressure of 41 mmHg.
Assuming a right atrial pressure of 8 mmHg.
CXR 11/2024: Mild bibasilar atelectasis, and possible trace bilateral pleural fluid.
Venous dupplex, 11/2024, negative for any DVT
CXR 09/2024: Moderate Pleural effusion
[2024-11-22 15:55] LABS: Hematocrit 29.4 % (37.0-47.0); Hemoglobin 9.6 g/dL (12.0-16.0); Mean Corp Hgb Conc. 32.7 g/dL (33.0-37.0); Mean Corpuscular Volume 88.8 fL (81.0-99.0); Mean Platelet Volume 12.2 fL (7.4-10.4); Platelet Count 126 10^3/uL (130-400); Red Blood Cell Count 3.31 10^6/uL (4.20-5.40); Red Cell Dist. Width 15.9 % (11.5-14.5); White Blood Cell Count 2.4 10^3/uL (4.8-10.8)
[2024-11-22 15:56] LABS: PT 13.5 Sec (11.4-14.6)
[2024-11-22 15:57] LABS: APTT 43.4 Sec (23.4-35.0)
[2024-11-22 16:03] LABS: ALT (SGPT) 13 U/L (0-35); AST (SGOT) 22 U/L (14-36); Albumin 2.5 g/dl (3.5-5.0); Alkaline Phosphatase 84 U/L (38-126); Blood Urea Nitrogen 36 mg/dl (7-17); Calcium 7.7 mg/dl (8.4-10.2); Carbon Dioxide 23 mmol/L (22-30); Chloride 111 mmol/L (98-107); Estimated Creatinine Clearance 25 ml/min; Glucose 122 mg/dl (70-99); Potassium 5.2 mmol/L (3.5-5.1); Sodium 138 mmol/L (135-145); Total Bilirubin 0.2 mg/dl (0.2-1.3); Total Protein 5.5 g/dl (6.3-8.2); eGFR 33.73
[2024-11-22 16:10] LABS: Magnesium 1.9 mg/dl (1.6-2.3)
[2024-11-22 16:14] LABS: Troponin I < 0.012 ng/ml
--- NOTE | 2024-11-22 16:14 | PTCARENOTE ---
Rapid response called for HR in the 20's. Hypotensive. Drowsy but talking to staff. See RR form. Patient transferred to ICU. Instrument Tech and Cardiology TAKER OFF DRYING KILN at bedside. HR in the 30's. 1mg Atropine administered with no improvement. Epi gtt initiated.
EKG- SB. 1G calcium gluconate administered. Patient drowsy. Agitated with stimulation. Cursing at staff and telling them to 'go to hell'. Punching and kicking at staff; MAEx4. HR up to 80-90's on 2 mcg/min of Epi. NSR. +1 edema in b/l LE. Palpable
pulses. Lung sounds rhonchi throughout. Pulse ox 100% on 6L nc. Weaned to 2L nc. Hypothermic. Rectal probe placed; 96.4. Warm blankets placed on patient. 1615- HR in the 90's, BP 193/66. Epi titrated down to 1mcg/min. Bed alarm on. Safe environment
maintained.
[2024-11-22 16:29] LABS: % Basophils 0.4 % (0-2); % Immature Granulocytes 0.4 % (0-0.5); % Lymphocytes 38.7 % (20.5-51.1); % Monocytes 18.9 % (1.7-9.3); % Neutrophils 41.6 % (42.2-75.2); Absolute Lymphocytes 0.9 10^3/uL (1.2-3.4); Absolute Monocytes 0.5 10^3/uL (0.1-0.6); Nucleated Red Blood Cells % 0 %
[2024-11-22 16:35] LABS: NT-proBNP 1740 pg/ml
[2024-11-22 16:48] LABS: TSH 2.74 uIU/ml (0.47-4.68)
--- NOTE | 2024-11-22 16:58 | CON.CAR ---
Addendum entered and electronically signed by Darian Carmona MD 11/22/24 18:12:
Unfortunate 84-year-old woman who lives at [facility], prior history of hyperkalemia with bradycardia, severe dementia with agitation, CKD3B, complex regional pain syndrome left leg, hypertension, ovarian cancer in 1999 with FRANKY/BSO, GERD
admitted 419 after a fall, influenza A positive, possible right lower lobe pneumonia. Today, she had marked sinus bradycardia with hypotension, heart rate down to 30 or below, transferred to ICU. Has refused Lokelma in the past.
PMH: Sick sinus syndrome/sinus bradycardia, hyperkalemia, CKD 3B, dementia/agitation, history of syncope, remote ovarian cancer, status post FRANKY/BSO for cure, hypertension
SH: Single, court-appointed guardian, former smoker, resides at [facility]
163/47, pulse 75, resp rate 18, afebrile,, temp actually 35.9 sats 98%, weight is 59.1 kg, seems calm, limited exam due to history of agitation, lungs relatively clear regular rate and rhythm, JVD okay, extremities without clubbing cyanosis or
edema, appears comfortable
White count 2.4, hemoglobin 9.6, potassium 5.2, BUN/creatinine 36 and 1.5, proBNP 1740, first troponin is undetectable
ECG marked sinus bradycardia, prominent T waves, heart rate 38
ECG on admission sinus rhythm, left axis
Impression:
Sick sinus syndrome, severe sinus bradycardia
History of bradycardia with hyperkalemia
CKD 3b
Influenza A
Agitation/dementia
Remote ovarian cancer
Hypertension
DNR
Plan:
She presents with sick sinus syndrome and unresponsiveness with bradycardia, reportedly heart rates down into the 20s. Given her DNR status and multiple comorbidities our strategy should be conservative. She is not a candidate for pacemaker,
although we have left a message with her power of regulatory attorney.
Previously she has had bradycardia with hyperkalemia. Potassium is only 5.2 but I would have a low threshold for potassium lowering therapy. If she becomes bradycardic again, short-term measures such as D50 and insulin could be considered.
Bicarbonate could also be stabilizer.
For now, continue epinephrine. She has received atropine.
We will continue to follow.
Original Note:
Consultation
Consultation Request
Date/Time Consultation Requested: 11/22/2024, 1530
Date/Time Consultation Performed: 11/22/2024, 1545
Requesting Provider: Tomasz Minor MD
Performing Provider: GAVIN Dior for Dr Carmona
Reason for Consultation: bardycardia
Medical History
-
Chief Complaint: Bradycardia
History of Present Illness:
84-year-old female with history of hyperkalemia related bradycardia, severe dementia with agitation, chronic kidney disease stage III, chronic anemia, RSD of left leg, hypertension, ovarian cancer, GERD presented to ED 11/20/2024 after a fall at her
shelter. Fall was not seen by staff. No injuries besides trauma to left hand. No loss of consciousness. Increased fatigue x couple weeks. Tested positive for influenza A and admitted for possible right lower lobe pneumonia. Started on
antibiotics and admitted to floor. Today, 11/22/2024 patient was less responsive with bradycardia and hypotension. Heart rate to high 20s per report. Received 0.5 mg of IV atropine and transferred to ICU. Received additional 0.5 mg of atropine
with no improvement in heart rate and started on epinephrine drip. Cardiology is consulted for management of bradycardia. Patient resides at [facility] and has court appointed guardian, Vijay.
PMH:
Sinus bradycardia
CKD 3
Agitation with h/o dementia
h/o syncope 2021
Former smoker
h/o ovarian cancer local disease treated with FRANKY-BSO for cure 1999
Hypertension
Hyperkalemia
Small left pleural effusion.
Past Medical History
Past Medical History: Other (in HPI)
Past Surgical History: Appendectomy, Gynecological (FRANKY-BSO for ovarian CA), Orthopedic and Tonsilectomy
Social History
Tobacco: Former Smoker
Alcohol: None
Drug: None
Personal: Single
Living: Custodial (long-term SNF resident at [facility])
Family History
Family History: Cancer and Other (CVA)
Allergies / Home Medications
Allergy/AdvReac Type Severity Reaction Status Date / Time
No Known Allergies Allergy Verified 05/26/24 08:23
�Medication �Instructions �Recorded �Confirmed �Type
acetaminophen 650 mg rectal 650 mg AR Q4HPRN PRN mild 11/11/23 11/20/24 History
suppository pain/temp>100
calcium carbonate (Calcium 600) 600 mg PO DAILY Supplement 03/16/24 11/20/24 History
memantine 5 mg tablet 5 mg PO HS Neurological Condition 05/26/24 11/20/24 History
magnesium hydroxide 400 mg/5 mL 2,400 mg PO HSPRN PRN if no bm by 08/02/24 11/20/24 History
oral suspension (Milk of Magnesia) 3rd day
furosemide 20 mg tablet 20 mg PO TUTHSA Fluid 08/09/24 11/20/24 Rx
retention/Swelling #30 tabs
acetaminophen 325 mg tablet 650 mg PO Q6HPRN PRN MILD 09/23/24 11/20/24 History
PAIN/temp>100.4
amlodipine 5 mg tablet 5 mg PO DAILY Blood Pressure 09/23/24 11/20/24 History
aripiprazole 2 mg tablet 2 mg PO DAILY Neurological 09/23/24 11/20/24 History
Condition
emollient 1 ea topical BID Skin Issues 09/23/24 11/20/24 History
guaifenesin 100 mg/5 mL oral liquid 600 mg PO BID Congestion 09/23/24 11/20/24 History
sodium zirconium cyclosilicate 10 10 g PO MOWEFR hyperkalemia 09/23/24 11/20/24 History
gram oral powder packet (Lokelma)
cyanocobalamin (vitamin B-12) 1,000 mcg PO DAILY Supplement 09/27/24 11/20/24 History
1,000 mcg tablet
dextromethorphan-guaifenesin 10 10 ml PO Q4HPRN PRN COUGH 09/27/24 11/20/24 History
mg-100 mg/5 mL oral syrup
latanoprost 0.005 % eye drops 1 drp BOTH EYES HS Eye condition 09/27/24 11/20/24 History
Review of Systems
-
Unable to obtain full review of systems at this time due to: Dementia
Physical Exam
Vital Signs
Temp Pulse Resp BP Pulse Ox
96.6 F L 75 18 163/47 98
11/22/24 16:00 11/22/24 16:45 11/22/24 16:45 11/22/24 16:45 11/22/24 16:45
Lab Results
11/22/24 15:25
11/22/24 15:25
Troponin I Cancelled 11/22/24 15:25
Ien-F-Puyrijofnvt Pept Cancelled 11/22/24 15:25
GEN:asleep, awakens to loud voice
HEENT: supple, anicteric, mmm
LUNGS: rhonchorous breath sounds
Card:, no murmur
ABD: soft, BS+, NT/ND
EXT: No edema
NEURO: Gross non-focal
SKIN: No rash
Impression / Plan
-
PCP: Ronni STAMP CLERK at [facility]
Cardiology: Dr. Do, last seen 2021
Impression:
Symptomatic bradycardia with hypotension
Influenza A with bibasilar atelectasis/infiltrates
Small left pleural effusion
Junctional bradycardia
Sinus bradycardia
Hyperkalemia
CKD 3
Agitation with h/o dementia
h/o syncope 2021
Former smoker
h/o ovarian cancer local disease treated with FRANKY-BSO for cure 1999
Previous cardiovascular testing:
Echocardiogram 08/09/2024: Normal LV size and function, LVEF 60 to 65%, mild MR, mild TR, PAP 41 mmHg
Plan:
-84-year-old female with history of hyperkalemia related bradycardia, severe dementia with agitation, chronic kidney disease stage III, chronic anemia, RSD of left leg, hypertension, ovarian cancer (tx with FRANKY-BSP for cure 1999), GERD presented to
ED 11/20/2024 after a fall at her shelter and increased fatigue x couple weeks. Tested positive for influenza A and admitted for possible right lower lobe pneumonia. Started on antibiotics and admitted to floor. Today, 11/22/2024 patient was
less responsive with bradycardia and hypotension. Heart rate to high 20s per report. Received 0.5 mg of IV atropine and transferred to ICU. Received additional 0.5 mg of atropine with no improvement in heart rate and started on epinephrine drip.
Cardiology is consulted for management of bradycardia. Patient resides at [facility] and has court appointed guardian, Vijay.
- EKG: Sinus bradycardia heart rate 38 bpm
-Telemetry: Sinus bradycardia heart rates 40s with dips down to 30s.
- No advanced heart block noted on telemetry
-Previously had bradycardia in setting of hyperkalemia but K not significantly elevated, currently 5.2
- Not on any AV perry blocking agents
-Pt not responding to questions regarding symptoms of lightheadedness, dizziness,CP, SOB
-cont epi gtt to support BP and HR as no response with atropine
- Called her guardian Vijay to discuss her case, see if patient would want to proceed with intervention/pacemaker. Left message on voicemail with number to return call. Have not heard back from him.
-Hypertension managed with Amlodipine.
Patient previously on lisinopril but stopped due to hyperkalemia.
-currently on Lasix and Lokelma for h/o hyperkalemia.
-Troponin negative x 1
-proBNP 1740, similar range as past
Data Reviewed
-
EKG: Tracing Personally Visualized and interpreted
Labs: Labs Reviewed by me
--- NOTE | 2024-11-22 20:00 | PTCARENOTE ---
Rec'd pt awake, restless, agitated, becomes combative w/ any stimulation, rambling words, wrists restrained for pt safety, BILLS, does not follow commands, SR, epi gtt at 1mg- to keep HR > 60, weak distal pulses, skin warm/dry, O2 2liters nc, sat
99, lungs coarse/ decr, NPC, hypo bowel sounds,abd round, soft, no vomiting, inc of urine, bed alarm on
[2024-11-22 21:25] LABS: Troponin I < 0.012 ng/ml
--- NOTE | 2024-11-22 22:00 | PTCARENOTE ---
temp 97.2, moe vargas
[2024-11-22] MEDS: XALATAN OPHTHALMIC SOLUTION 1 DROP BOTH EYES (22:22)
[2024-11-23] VITALS (27 sets, daily range): BP systolic 103–173; BP diastolic 34–103; PULSE 70; BMI 20.7
--- NOTE | 2024-11-23 | PTCARENOTE ---
sys reviewed, bladder scanned for 510 ml, str cath for 610 ml zaira urine, pt very agitated and trying to punch nurses,left hand dsg inbetween thum and 1st finger fell off, sang drainage- cleansed w/ nss,vaseline gauze, 4x4 and leonel applied, CHG
bath done, linens changed, pt calmed down after no further stimulation
--- NOTE | 2024-11-23 03:57 | PTCARENOTE ---
sy reviewed, warming blanket off, epi off, awake, disoriented, rambling speech
[2024-11-23 04:10] LABS: Blood Urea Nitrogen 35 mg/dl (7-17); Calcium 7.7 mg/dl (8.4-10.2); Carbon Dioxide 20 mmol/L (22-30); Chloride 115 mmol/L (98-107); Estimated Creatinine Clearance 27 ml/min; Glucose 94 mg/dl (70-99); Magnesium 1.8 mg/dl (1.6-2.3); Potassium 5.3 mmol/L (3.5-5.1); Sodium 142 mmol/L (135-145); eGFR 36.64
[2024-11-23 04:17] LABS: % Basophils 0.6 % (0-2); % Monocytes 14.6 % (1.7-9.3); % Neutrophils 49.8 % (42.2-75.2); Absolute Lymphocytes 1.1 10^3/uL (1.2-3.4); Absolute Monocytes 0.5 10^3/uL (0.1-0.6); Absolute Neutrophils 1.6 10^3/uL (1.4-6.5); Hematocrit 29.8 % (37.0-47.0); Hemoglobin 9.8 g/dL (12.0-16.0); Mean Corp Hgb Conc. 32.9 g/dL (33.0-37.0); Mean Corpuscular Hgb 28.5 pg (27.0-31.0); Mean Corpuscular Volume 86.6 fL (81.0-99.0); Mean Platelet Volume 11.1 fL (7.4-10.4); Nucleated Red Blood Cells % 0 %; Platelet Count 143 10^3/uL (130-400); Red Blood Cell Count 3.44 10^6/uL (4.20-5.40); Red Cell Dist. Width 15.8 % (11.5-14.5); White Blood Cell Count 3.2 10^3/uL (4.8-10.8)
[2024-11-23] MEDS: STERILE WATER FOR INJECTION 10 ML IV (05:47)
[2024-11-23] MEDS: ROCEPHIN 1000 MG IV (05:47)
--- NOTE | 2024-11-23 07:00 | W.PN.INTV ---
Today's Communication / Plan
Recommendations
- Resume Lasix, resume amlodipine at reduced dose of 2.5
- Switch diet to low potassium diet
- Add sodium bicarbonate, oral, 650 mg p.o. twice daily
- Patient can be transferred out of ICU, merchandise distributor service will sign off, please call as needed
Assessment
-
Patient is a 84-year-old female past medical history of hyperkalemia related bradycardia, sinus bradycardia, severe dementia with history of agitation, moderate pleural effusion, B12 deficiency, CKD 3, chronic anemia, reflux sympathetic dystrophy of
the left leg, hypertension, ovarian cancer, osteoarthritis, osteopenia, GERD, who presented to the emergency room from intermediate after a fall. Not directly seen by the staff but they were there within a few seconds after hearing the sound. Not
sure if she hit her head. But no injuries apart from trauma to the left hand. Did not lose consciousness. She has been more tired than usual and not acting herself. Has been having ongoing cough for multiple weeks. No fever or abdominal pain or
vomiting or diarrhea. Patient tested positive for influenza A and was admitted to the hospital for possible right lower lobe pneumonia. She was started on antibiotics and admitted to floor.
11/22, rapid response was called as patient was less responsive with bradycardia as well as hypotension. Patient received 0.5 mg of IV atropine stat and was subsequently transferred to the ICU for further workup and management. In view of
symptomatic bradycardia, hypotension, merchandise distributor consult was requested for further input.
Patient has dementia and is unable to participate in any meaningful conversation. Patient has a court appointed guardian with a CODE STATUS DNR, no family available at this point to obtain additional information.
#1. Sick sinus syndrome/Symptomatic sinus bradycardia with hypotension. Patient given 0.5 mg of atropine IV prior to transfer to ICU. Patient emergently evaluated in the ICU, noted to be bradycardic with heart rate around 35-38 and MAP of 61. 1
mg of IV atropine given without any change in heart rate or blood pressure. Repeat EKG shows sinus bradycardia with narrow QRS complex, and started epinephrine infusion @2 .
- Patient has been off Levophed since 4 AM, 11/23
- Normal TSH and troponin
- Namenda on hold (bradycardia rarely noted with this medications)
- Cardiology service on case
- Mild hyperkalemia, EKG changes however are not typical of hyperkalemia. Patient received IV Calcium and Lokelma
#2. Influenza A with bibasilar atelectasis/infiltrates.
- Continue Tamiflu
- Agree with continued treatment with ceftriaxone and doxycycline to cover for community-acquired pneumonia, x 5 days
- Repeat CXR with improved aeration of right lower lobe.
#3. Small left pleural effusion. ?etiology. On review of prior imaging patient was noted to have moderate left-sided pleural effusion in September 2024. Thoracentesis was not performed due to patient's intermittent agitation and inability to hold
still. Current x-ray shows only a trace pleural effusion, overall improved. Patient has prior history of ovarian cancer status post FRANKY.
- Elevated BNP, suspect underlying CHF
- Resume lasix
- Currently effusion is too small for safe thoracentesis, however if it grows further we will reconsider diagnostic and therapeutic thoracentesis
#4. CKD stage III with hyperkalemia. Patient appears to have recurrent hyperkalemia and is reportedly on Lokelma and Lasix at home.
- Resume lasix
- Add Sodium Bicarbonate 650 mg BID
- Low Potassium diet
- Continue Lokelma
#5. Dementia. On review of prior records and review of psychiatry during last admission, patient currently has a guardian and CODE STATUS DNR. Reported episodes of intermittent agitation.
- Will try to minimize interventions which do not improve patient's quality of life
DVT prophylaxis with s.c. Heparin
Critical Care time 45 mins -- The patient is admitted for acute critical illness for the treatment of vital organ failure and/or prevention of further life-threatening conditions. Total care includes time spent in review of history, physical exam,
medications, hemodynamic/ventilator parameters, laboratory data, imaging and discussion with house staff, pharmacy, respiratory therapy, riprap placer, and nursing.
Data:
ECHO 2023: Normal left ventricular size, wall thickness and systolic function. No regional
wall motion abnormalities are seen. LV ejection fraction is 60-65% by visual
assessment. Diastolic function indeterminate.
Mitral annular calcification. Mitral valve opens normally. Mild mitral
regurgitation.
Trileaflet aortic valve. Aortic sclerosis without stenosis. Trace aortic
regurgitation.
Structurally normal tricuspid valve. Tricuspid valve opens normally. Mild
tricuspid regurgitation. Estimated pulmonary artery pressure of 41 mmHg.
Assuming a right atrial pressure of 8 mmHg.
CXR 11/2024: Mild bibasilar atelectasis, and possible trace bilateral pleural fluid.
Venous dupplex, 11/2024, negative for any DVT
CXR 09/2024: Moderate Pleural effusion
Subjective Dataa
Subjective Data
Date of Service:
Date of Service: November 23, 2024
Subjective:
Patient is awake, alert, comfortably sitting in bed, no acute distress.
Review of Systems
General: Other (Limited by underlying dementia. Appears comfortable.)
Objective Data
Data Reviewed
Vital Signs / I&O / Oxygen:
Vital Signs
Temp Pulse Resp BP Pulse Ox
97.4 F 54 19 152/53 97
11/23/24 03:56 11/23/24 06:00 11/23/24 06:00 11/23/24 05:30 11/23/24 06:00
Intake and Output
11/22/24 11/23/24 11/24/24
06:59 06:59 06:59
Intake Total 580 / 580 146.6 / 146.6
Output Total 610 / 610
Balance 580 / 580 -463.4 / -463.4
SaO2 97
Nasal Cannula flow liters per 2
minute
Physical Exam
General: Comfortable
HEENT: Normocephalic
Cardiovascular: S1-S2
Respiratory: Clear
GI: Soft and Non Distended
Neurology: Awake and Alert
Skin: Warm
Labs/Micro/Reports
Lab Data
11/23/24 03:10
11/23/24 03:10
Laboratory Results
11/22/24
15:05
PT 13.5
INR 1.00
APTT 43.4 H
Microbiology
11/20/24 19:55 Nasal Swab Influenza Types A & B (EZEQUIEL) - Final
Influenza A Positive, NAAT
[2024-11-23] MEDS: HEPARIN 5000 UNITS SC ×2 (08:16→20:29)
[2024-11-23] MEDS: ABILIFY 2 MG PO (08:16)
[2024-11-23] MEDS: TAMIFLU 30 MG PO (08:16)
[2024-11-23] MEDS: VIBRAMYCIN 100 MG PO ×2 (08:17→20:29)
[2024-11-23] MEDS: HYDROPHOR 1 APPLIC TOPICAL ×2 (08:17→20:29)
--- NOTE | 2024-11-23 08:20 | PTOTSP ---
Speech Language Pathology
New PLANT OPERATIONS WORKER orders required to continue to follow pt given move to ICU.
[2024-11-23] MEDS: VITAMIN B-12 1000 MCG PO (08:25)
[2024-11-23] MEDS: OSCAL CAL 500 500 MG PO (08:33)
[2024-11-23] MEDS: OSCAL CAL 500 PO (08:34)
--- NOTE | 2024-11-23 09:30 | PTCARENOTE ---
Rec'd care of patient at 0700. Patient confused and forgetful. Rambling, nonsensical speech. Unable to reorient. MAEx4. Agitated and combative at times. SB/NSR with prolonged QT on tele. Rate in the 50-60's. +1 edema in b/l LE. Palpable pulses.
Pulse ox 94-97% on RA. Lung sounds coarse/rhonchi throughout. Moist occasional cough; non-productive. +BS. Appetite poor. Incontinent of b&b. Geri care as needed. Safe environment maintained. Bed alarm on and functioning. B/l wrist restraints on.
Q2hr turn.
[2024-11-23] MEDS: SODIUM BICARBONATE 650 MG PO ×2 (10:18→20:29)
[2024-11-23] MEDS: NORVASC 2.5 MG PO (10:18)
[2024-11-23] MEDS: LASIX 20 MG PO (10:18)
--- NOTE | 2024-11-23 10:19 | PTCARENOTE ---
Patient downgraded to tele.
--- NOTE | 2024-11-23 12:38 | W.PN.CARDCBS ---
Today's Communication / Plan
-
Rhythm is overall stable and she remains in sinus rhythm with sinus bradycardia. No advanced heart block. Now off epinephrine.
Will hold off on any permanent pacemaker placement.
Continue treatments for pneumonia/Flu with Tamiflu and antibiotics
Creatinine overall stable at 1.4. Would resume Lasix today.
Impression / Plan
-
PCP: Ronni ACTIVITY ASSISTANT at [facility]
Cardiology: Dr. Do, last seen 2021
Impression:
Symptomatic bradycardia with hypotension
Influenza A with bibasilar atelectasis/infiltrates
Small left pleural effusion
Junctional bradycardia
Sinus bradycardia
Hyperkalemia
CKD 3
Agitation with h/o dementia
h/o syncope 2021
Former smoker
h/o ovarian cancer local disease treated with FRANKY-BSO for cure 1999
Previous cardiovascular testing:
Echocardiogram 08/09/2024: Normal LV size and function, LVEF 60 to 65%, mild MR, mild TR, PAP 41 mmHg
Plan:
-84-year-old female with history of hyperkalemia related bradycardia, severe dementia with agitation, chronic kidney disease stage III, chronic anemia, RSD of left leg, hypertension, ovarian cancer (tx with FRANKY-BSP for cure 1999), GERD presented to
ED 11/20/2024 after a fall at her shelter and increased fatigue x couple weeks. Tested positive for influenza A and admitted for possible right lower lobe pneumonia. Started on antibiotics and admitted to floor. Today, 11/22/2024 patient was
less responsive with bradycardia and hypotension. Heart rate to high 20s per report. Received 0.5 mg of IV atropine and transferred to ICU. Received additional 0.5 mg of atropine with no improvement in heart rate and started on epinephrine drip.
Cardiology is consulted for management of bradycardia. Patient resides at [facility] and has court appointed guardian, Vijay.
Her rhythm is overall improved. She remains in sinus rhythm with some sinus bradycardia. But no high-grade AV block. Per family they do not desire permanent pacemaker and this is appropriate. Would avoid all AV perry blocking agents. Now off
epinephrine drip.
Continue treatments for influenza with pneumonia.
Restart Lasix. She does have a pleural effusion.
Potassium improved and at 5.3. Continue to follow creatinine. This is overall stable at 1.4.
Progress Note - Pad Hand
Subjective
Date of Service: November 23, 2024
Awake, denies complaints with no dizziness.
Objective
Labs:
11/23/24 03:10
11/23/24 03:10
Labs
Hgb 9.8 g/dL (12.0-16.0) L 11/23/24 03:10
Hct 29.8 % (37.0-47.0) L 11/23/24 03:10
Plt Count 143 10^3/uL (130-400) 11/23/24 03:10
PT 13.5 Sec (11.4-14.6) 11/22/24 15:05
INR 1.00 11/22/24 15:05
APTT 43.4 Sec (23.4-35.0) H 11/22/24 15:05
Sodium 142 mmol/L (135-145) 11/23/24 03:10
Potassium 5.3 mmol/L (3.5-5.1) H 11/23/24 03:10
BUN 35 mg/dl (7-17) H 11/23/24 03:10
Creatinine 1.4 mg/dL (0.6-1.0) H 11/23/24 03:10
Glucose 94 mg/dl (70-99) 11/23/24 03:10
Troponins
11/22/24 11/22/24 11/22/24
15:05 15:25 20:54
Troponin I < 0.012 Cancelled < 0.012
Vital Signs and I&O:
Vital Signs
Temp Pulse Resp BP Pulse Ox
97.5 F 48 16 134/47 94
11/23/24 12:02 11/23/24 12:00 11/23/24 12:00 11/23/24 12:00 11/23/24 12:00
Vital Signs
Temp Pulse Resp BP Pulse Ox
97.5 F 48 16 134/47 94
11/23/24 12:02 11/23/24 12:00 11/23/24 12:00 11/23/24 12:00 11/23/24 12:00
Intake & Output
11/21/24 11/22/24 11/23/24 11/24/24
06:59 06:59 06:59 06:59
Intake Total 580 / 580 146.6 / 146.6
Output Total 610 / 610
Balance 580 / 580 -463.4 / -463.4
Physical Exam
Physical Exam
GEN: No distress, awake,
HEENT: supple, anicteric, mmm
LUNGS: CTA, no wheezes/rales
CV: Reg, S1/S2, 1/6 syst LSB, no murmur
ABD: soft, BS+, NT/ND
EXT: No edema
NEURO: dementia
SKIN: No rash
--- NOTE | 2024-11-23 13:56 | WOUNDNOTE ---
L GREAT-2ND FINGER WEB
--- NOTE | 2024-11-23 13:57 | WOUNDNOTE ---
L DORSAL 3RD FINGER
--- NOTE | 2024-11-23 13:58 | WOUNDNOTE ---
R 4TH TOE TIP
--- NOTE | 2024-11-23 14:05 | WOUNDNOTE ---
[facility] RN note: Patient admitted with pneumonia.
See H&P for complete history. From [facility].
PMH: ED Past Medical History: Cancer (Ovarian), GERD and Other (Small bowel obstruction, osteoarthritis, dementia, osteoporosis, CKD, hypertension, ovarian neoplasm)
ED Past Surgical History: Appendectomy, Gynecological (Hysterectomy, ovarian cancer), Orthopedic (Right knee) and Tonsilectomy
Wound Location and type/assessment: Patient admitted with: multiple skin tears on hands and L leg. L wrist skin tear with 3 intact steri strips, bruising surrounding. L dorsal 3rd finger with small skin tear. L 1st-2nd finger web with skin tear,
edges approximated. R hand and L leg with small skin tears. Patient turned self, sacrum with small creases of pink skin, shearing vs evolving stage 2 PI. Heels are intact and blanchable. R 4th toe tip with dry scabbed abrasion.
Appetite: Fair.
Pressure redistribution devices in place: On Air mattress, instructed nurse Mayte that if patient transferred to floor use a waffle air overlay or air mattress. Patient currently with soft wrist restraints and confused. Pillow under calves.
Plan: Local wound care done, repositioned patient onto L semi side lying position. Foam adhesives applied to heels.
Will confirm orders with hospitalist and update nurse. Updated care plan and will follow as needed.
Note to case management of equipment requested for discharge: air mattress
Recommend follow up at wound care center upon discharge.
--- NOTE | 2024-11-23 14:07 | CM ---
CM following re: discharge planning.
Reviewed pt's chart, met with pt.
Per UR CM pt is upgraded to inpatient level of admission. CM reviewed IMM with pt's legal guardian Vijay Freeman, placed o chart, legal guardian has a copy.
Pt is a [facility] resident at [facility], on Medicaid bed hold and a plan is for pt to return back to [facility] when medically stable.
Call report to: [phone]
Fax report to: [phone]
Medical necessity and transport forms on chart.
D/C plan: return back to [facility] when medically stable.
CM will follow to assist pt with discharge back to [facility].
--- NOTE | 2024-11-23 15:00 | PTCARENOTE ---
Patient refusing to eat pureed diet throughout shift. INSIDE METER TESTER notified and at bedside to assess for possible advancement of diet. Diet advanced to 2gK with thin liquids.
--- NOTE | 2024-11-23 15:20 | PTOTSP ---
Speech Language Pathology
Pt seen for dysphagia tx. Increased alertness noted this date. P.O. trials of regular solids and thin liquids via cup/straw provided. Pt able to self-feed. Adequate mastication, bolus formation, and A-P transit noted with no oral residue. No
overt signs of aspiration.
Recommend:
(1) Upgrade to regular solids/thin liquids
(2) General aspiration precautions
(3) Meds as tolerated
(4) COMMUNITY HEALTH NURSE STAFF to sign off as pt now back to baseline diet. Please reconsult as indicated
--- NOTE | 2024-11-23 15:21 | W.PN.HOSP.TC ---
Today's Communication/Plan
-
Off Epi drip
Hypothermia resolved
Continue antibiotics and Tamiflu
Okay to transfer to telemetry
Assessment / Plan
Assessment / Plan
Physical Exam
General: Not in acute distress
HEENT: Normocephalic, Atraumatic, Moist Mucous Membranes
Respiratory: Clear to Auscultation Bilaterally
Cardiac: Regular Rhythm and S1/S2. Bradycardia.
GI: Soft, Nontender, Nondistended and Normal Bowel Sounds
Musculoskeletal: No Cyanosis and No Edema
Skin: Warm, Dry
Neuro: Alert. Awake. Oriented x1 (to person only)
Psych: Calm
Assessment/Plan
#Symptomatic Bradycardia with Hypotension
#Sick sinus syndrome/Symptomatic sinus bradycardia with hypotension
-DATA ENTRY ASSISTANT called on November 22, 2024 afternoon with MAP in the 50s, and HR in the 20s -- I was personally present during this Rapid and evaluated patient -- patient ended up being transferred to ICU
-EKG with sinus bradycardia -- EKG changes not suggestive of hyperkalemia, but patient did receive IV calcium gluconate
-Atropine given without significant response
-Epinephrine drip was given from 11/22/24 afternoon to 11/23/24 4 AM -- then stopped Epinephrine drip -- discussed with cosmetology educator and dust mill operator who agreed with this plan
-Unremarkable TSH and troponin
-Stop Namenda (bradycardia rarely noted with this medications)
-Cardiology consulted: no permanent pacemaker at this time -- and patient's family/guardian does not was permanent pacemaker either as per cardiology notes
-Avoid all AV-Jovanni blocking agents
#History junctional bradycardia with associated hyperkalemia
#Mild Hyperkalemia
#Chronic Hyperkalemia
-Calcium gluconate given in the setting of bradycardia above
#Influenza A infection with bibasilar atelectasis/infiltrates
-Presented after mechanical fall; x-ray with signs of pneumonia, flu A positive
-Has a leukopenia which is likely associated with infection, not requiring any O2
-Started on ceftriaxone and doxycycline, Tamiflu at time of admission --> continue for 5 days
-Repeat chest x-ray with improved aeration of right lower lobe
-Trend CBC and temperature curve
-OPERATIONS PROFESSIONAL eval
-SpO2 goal >90%
#Small Left Pleural Effusion -- Unclear etiology
- Currently effusion is too small for safe thoracentesis, however if it grows further we will reconsider diagnostic and therapeutic thoracentesis
#Elevated BNP, suspect underlying CHF
- Resume Lasix
#Mild Hypothermia - RESOLVED
-Jackie hugger as needed -- last Jackie Hugger was needed 11/23/24 very early in the morning
#CKD stage III
#Chronic hyperkalemia
#Chronic anemia
-Creatinine baseline near 1.2, potassium always elevated at 5.1-5.6 range
-Home regimen includes Lokelma, lasix, calcium supplement
-Add Sodium Bicarbonate 650 mg BID
-Low potassium diet
-Trend BMP
#Ambulatory dysfunction
#Mechanical fall
#Left hand skin tear
-PT/OT consulted for likely placement
-Monitor hand for signs of superimposed infection
#Severe dementia with agitation
-Was noted to have agitation in the emergency department
-Home regimen includes aripiprazole and memantine -- holding memantine due to bradycardua
-Appears calm this morning
#Primary hypertension
-Home regimen includes amlodipine 5 mg daily -- resumed at 2.5 mg daily given hypotension episode above
-No known history of hypertensive systemic
#Vitamin B12 deficiency
-Unclear cause, likely nutritional
-Home meds include B12 supplement
#GERD
-Home regimen does not include any PPI or antihistamines
-Monitor for symptoms
#Chronic venous insufficiency
-Home regimen includes Lasix
#Ovarian cancer s/p FRANKY
- Not currently receiving active therapy
#RSD of the left lower extremity
-Home regimen includes Tylenol for pain, no opiates or neurotropic agents
#Osteoarthritis
#Osteopenia
-Likely age-related, Home regimen includes calcium carbonate
-Consider vitamin D supplement
#H/O moderate pleural effusion
-Chest x-ray with trace bilateral pleural fluid, no effusion
Diet: Upgrade to regular solids/thin liquids as per speech recommendations as of 11/23/24 -- LOW POTASSIUM DIET given chronic hyperkalemia above
DVT Prophylaxis: Subq Heparin
CODE STATUS: Full code
Anticipated Discharge: > 48 hours
Subjective/Interval History
-
Date of Service: November 23, 2024
Patient was seen and examined. She appeared much more alert and responsive today.
Objective Data
-
Labs:
Laboratory Results
11/23/24
03:10
WBC 3.2 L
Hgb 9.8 L
Hct 29.8 L
Plt Count 143
Sodium 142
Potassium 5.3 H
Chloride 115 H
Carbon Dioxide 20 L
BUN 35 H
Creatinine 1.4 H
Glucose 94
Calcium 7.7 L
Vital Signs:
Vital Signs
Temp Pulse Resp BP Pulse Ox
97.5 F 60 26 135/53 94
11/23/24 12:02 11/23/24 14:30 11/23/24 14:30 11/23/24 14:17 11/23/24 14:17
I&O
11/22/24 11/23/24 11/24/24
06:59 06:59 06:59
Intake Total 580 / 580 146.6 / 146.6
Output Total 610 / 610
Balance 580 / 580 -463.4 / -463.4
--- NOTE | 2024-11-23 21:00 | PTCARENOTE ---
Pt confused, constantly rambling on in a solo conversation with herself. Pt did state her name once with difficulty. Speech is articulate, but random. Waxes and wanes neurologically, briefly follows simple commands at times. Implusive, bed alarm on.
Bilateral restraints as ordered for safety. Afebrile, SB NSR on monitor. IV lines flushed/patent. Room air. Diminished. Tolerating diet when she will eat. Pt offered multiple options. Able to get pills crushed in applesauce. Grossly incontinent of
urine. Will monitor.
[2024-11-23] MEDS: XALATAN OPHTHALMIC SOLUTION 1 DROP BOTH EYES (22:00)
[2024-11-24] VITALS (10 sets, daily range): BP systolic 120–164; BP diastolic 49–104; BMI 19.8
[2024-11-24 02:59] LABS: Hematocrit 33.8 % (37.0-47.0); Hemoglobin 10.7 g/dL (12.0-16.0); Mean Corp Hgb Conc. 31.7 g/dL (33.0-37.0); Mean Corpuscular Hgb 27.6 pg (27.0-31.0); Mean Corpuscular Volume 87.1 fL (81.0-99.0); Platelet Count 142 10^3/uL (130-400); Red Blood Cell Count 3.88 10^6/uL (4.20-5.40); Red Cell Dist. Width 15.9 % (11.5-14.5); White Blood Cell Count 2.7 10^3/uL (4.8-10.8)
[2024-11-24 03:17] LABS: Blood Urea Nitrogen 32 mg/dl (7-17); Calcium 8.2 mg/dl (8.4-10.2); Carbon Dioxide 23 mmol/L (22-30); Chloride 114 mmol/L (98-107); Estimated Creatinine Clearance 25 ml/min; Glucose 75 mg/dl (70-99); Magnesium 1.8 mg/dl (1.6-2.3); Sodium 144 mmol/L (135-145); eGFR 33.73
[2024-11-24 03:58] LABS: Band Neutrophils 4 % (0-3); Lymphocytes 52 % (20-51); Monocytes 14 % (2-9); Normal RBC Morphology Yes; Platelets Checked Yes; Segmented Neutrophils 30 % (42-75)
[2024-11-24 03:59] LABS: Total Cells Counted 100
[2024-11-24] MEDS: STERILE WATER FOR INJECTION 10 ML IV (05:55)
[2024-11-24] MEDS: ROCEPHIN 1000 MG IV (05:55)
[2024-11-24] MEDS: TAMIFLU 30 MG PO (07:41)
[2024-11-24] MEDS: SODIUM BICARBONATE 650 MG PO (07:41)
[2024-11-24] MEDS: VIBRAMYCIN 100 MG PO (07:41)
[2024-11-24] MEDS: ABILIFY 2 MG PO (07:41)
[2024-11-24] MEDS: HEPARIN 5000 UNITS SC (07:42)
[2024-11-24] MEDS: NORVASC 2.5 MG PO (07:42)
[2024-11-24] MEDS: OSCAL CAL 500 500 MG PO (07:42)
[2024-11-24] MEDS: HYDROPHOR 1 APPLIC TOPICAL (07:43)
--- NOTE | 2024-11-24 08:21 | W.PN.CARDCBS ---
Today's Communication / Plan
-
Her HR is much improved and remains in sinus with stable bp.
Continue to avoid all AV perry blockers.
Cont supportive care and treatment of iinfluenza with pneumonia.
Lasix has been resumed and cr up slightly but overall stable with view of trends. She appears euvolemic. Cont to monitor cr.
Potassium has normalized.
Pt has been downgraded to tele.
Please recall if needed.
Impression / Plan
-
.
PCP: Ronni SECOND GRADE TEACHER at [facility]
Cardiology: Dr. Do, last seen 2021
Impression:
Symptomatic bradycardia with hypotension
Influenza A with bibasilar atelectasis/infiltrates
Small left pleural effusion
Junctional bradycardia
Sinus bradycardia
Hyperkalemia
CKD 3
Agitation with h/o dementia
h/o syncope 2021
Former smoker
h/o ovarian cancer local disease treated with FRANKY-BSO for cure 1999
Previous cardiovascular testing:
Echocardiogram 08/09/2024: Normal LV size and function, LVEF 60 to 65%, mild MR, mild TR, PAP 41 mmHg
Plan:
HPI: 84-year-old female with history of hyperkalemia related bradycardia, severe dementia with agitation, chronic kidney disease stage III, chronic anemia, RSD of left leg, hypertension, ovarian cancer (tx with FRANKY-BSP for cure 1999), GERD presented
to ED 11/20/2024 after a fall at her halfway and increased fatigue x couple weeks. Tested positive for influenza A and admitted for possible right lower lobe pneumonia. Started on antibiotics and admitted to floor. Today, 11/22/2024 patient
was less responsive with bradycardia and hypotension. Heart rate to high 20s per report. Received 0.5 mg of IV atropine and transferred to ICU. Received additional 0.5 mg of atropine with no improvement in heart rate and started on epinephrine
drip. Cardiology is consulted for management of bradycardia. Patient resides at [facility] and has court appointed guardian, Vijay.
Her HR is much improved and remains in sinus with stable bp. She remains off Epinepherine drip.
Continue to avoid all AV perry blockers.
Cont supportive care and treatment of iinfluenza with pneumonia.
Lasix has been resumed and cr up slightly but overall stable with view of trends. She appears euvolemic. Cont to monitor cr.
Potassium has normalized.
Pleural effusion was small
Pt has been downgraded to tele.
Please recall if needed.
Progress Note - Media Theorist And Author Of
Subjective
Date of Service: November 24, 2024
Pt seen and examined. No complaints. No chest pain or shortness of breath.
Objective
Labs:
11/24/24 02:44
11/24/24 02:44
Labs
Hgb 10.7 g/dL (12.0-16.0) L 11/24/24 02:44
Hct 33.8 % (37.0-47.0) L 11/24/24 02:44
Plt Count 142 10^3/uL (130-400) 11/24/24 02:44
PT 13.5 Sec (11.4-14.6) 11/22/24 15:05
INR 1.00 11/22/24 15:05
APTT 43.4 Sec (23.4-35.0) H 11/22/24 15:05
Sodium 144 mmol/L (135-145) 11/24/24 02:44
Potassium 5.0 mmol/L (3.5-5.1) 11/24/24 02:44
BUN 32 mg/dl (7-17) H 11/24/24 02:44
Creatinine 1.5 mg/dL (0.6-1.0) H 11/24/24 02:44
Glucose 75 mg/dl (70-99) 11/24/24 02:44
Troponins
11/22/24 11/22/24 11/22/24
15:05 15:25 20:54
Troponin I < 0.012 Cancelled < 0.012
Vital Signs and I&O:
Vital Signs
Temp Pulse Resp BP Pulse Ox
98.2 F 64 14 139/49 94
11/24/24 07:00 11/24/24 07:42 11/24/24 06:30 11/24/24 07:42 11/24/24 06:30
Vital Signs
Temp Pulse Resp BP Pulse Ox
98.2 F 64 14 139/49 94
11/24/24 07:00 11/24/24 07:42 11/24/24 06:30 11/24/24 07:42 11/24/24 06:30
Intake & Output
11/22/24 11/23/24 11/24/24 11/25/24
06:59 06:59 06:59 06:59
Intake Total 580 / 580 146.6 / 146.6 120 / 120
Output Total 610 / 610
Balance 580 / 580 -463.4 / -463.4 120 / 120
Physical Exam
Physical Exam
General: No acute distress, awake and alert
Neck: Negative JVD
Heart: Regular, Negative S3 positive S1/S2, Negative S4, No murmur
Lungs: CTA b/l, negative wheezes/rales/rhonchi
Abd: Positive BS, NT/ND, neg rebound/rigidity/guarding
Ext: Negative cyanosis/clubbing/edema
Neuro: nonfocal
[2024-11-24] MEDS: VITAMIN B-12 1000 MCG PO (08:53)
[2024-11-24] MEDS: LOKELMA 10 GRAM PO (11:10)
--- NOTE | 2024-11-24 11:28 | W.PN.HOSP.TC ---
Addendum entered and electronically signed by Tomasz Minor MD 11/27/24 07:52:
Concern for Sepsis POA
Stage 2 Sacrum Pressure Ulcer/Injury
Original Note:
Today's Communication/Plan
-
Discharge today
Assessment / Plan
Assessment / Plan
Physical Exam
General: Not in acute distress
HEENT: Normocephalic, Atraumatic, Moist Mucous Membranes
Respiratory: Clear to Auscultation Bilaterally
Cardiac: Regular Rhythm and S1/S2. Bradycardia intermittently.
GI: Soft, Nontender, Nondistended and Normal Bowel Sounds
Musculoskeletal: No Cyanosis and No Edema
Skin: Warm, Dry
Neuro: Alert. Awake. Oriented x1 (to person only)
Psych: Calm
Assessment/Plan
#Symptomatic Bradycardia with Hypotension
#Sick sinus syndrome/Symptomatic sinus bradycardia with hypotension
-MEASUREMENT COORDINATOR called on November 22, 2024 afternoon with MAP in the 50s, and HR in the 20s -- I was personally present during this Rapid and evaluated patient -- patient ended up being transferred to ICU
-EKG with sinus bradycardia -- EKG changes not suggestive of hyperkalemia, but patient did receive IV calcium gluconate
-Atropine given without significant response
-Epinephrine drip was given from 11/22/24 afternoon to 11/23/24 4 AM -- then stopped Epinephrine drip -- discussed with telephone advice nurse and spray pilot who agreed with this plan
-Unremarkable TSH and troponin
-Stop Namenda (bradycardia rarely noted with this medications)
-Cardiology consulted: no permanent pacemaker at this time
-Avoid all AV-Jovanni blocking agents
#History junctional bradycardia with associated hyperkalemia
#Mild Hyperkalemia
#Chronic Hyperkalemia
-Calcium gluconate given in the setting of bradycardia above
#Influenza A infection with bibasilar atelectasis/infiltrates
-Presented after mechanical fall; x-ray with signs of pneumonia, flu A positive
-Has a leukopenia which is likely associated with infection, not requiring any O2
-Started on ceftriaxone and doxycycline, Tamiflu at time of admission --> continue for 1 more day of Tamiflu 30 mg, and one more day of antibiotics Cefpodoxime 200 mg daily and Doxycycline 100 mg BID
-Repeat chest x-ray with improved aeration of right lower lobe
-Trend CBC and temperature curve
-EXPENSE CLERK eval
-SpO2 goal >90%
#Small Left Pleural Effusion -- Unclear etiology
- Currently effusion is too small for safe thoracentesis, however if it grows further we will reconsider diagnostic and therapeutic thoracentesis
#Elevated BNP, suspect underlying CHF
- Resume Lasix
#Mild Hypothermia - RESOLVED
-Jackie hugger as needed -- last Jackie Hugger was needed 11/23/24 very early in the morning
#CKD stage III
#Chronic hyperkalemia
#Chronic anemia
-Creatinine baseline near 1.2, potassium always elevated at 5.1-5.6 range
-Home regimen includes Lokelma, lasix, calcium supplement
-Add Sodium Bicarbonate 650 mg BID
-Low potassium diet
-Trend BMP
#Ambulatory dysfunction
#Mechanical fall
#Left hand skin tear
-PT/OT consulted for likely placement
-Monitor hand for signs of superimposed infection
#Severe dementia with agitation
-Was noted to have agitation in the emergency department
-Home regimen includes aripiprazole and memantine -- holding memantine due to bradycardua
-Appears calm this morning
#Primary hypertension
-Home regimen includes amlodipine 5 mg daily -- resumed at 2.5 mg daily given hypotension episode above
-No known history of hypertensive systemic
#Vitamin B12 deficiency
-Unclear cause, likely nutritional
-Home meds include B12 supplement
#GERD
-Home regimen does not include any PPI or antihistamines
-Monitor for symptoms
#Chronic venous insufficiency
-Home regimen includes Lasix
#Ovarian cancer s/p FRANKY
- Not currently receiving active therapy
#RSD of the left lower extremity
-Home regimen includes Tylenol for pain, no opiates or neurotropic agents
#Osteoarthritis
#Osteopenia
-Likely age-related, Home regimen includes calcium carbonate
-Consider vitamin D supplement
#H/O moderate pleural effusion
-Chest x-ray with trace bilateral pleural fluid, no effusion
Diet: Upgrade to regular solids/thin liquids as per speech recommendations as of 11/23/24 -- LOW POTASSIUM DIET given chronic hyperkalemia above
DVT Prophylaxis: Subq Heparin
CODE STATUS: Full code
I spoke to patient's guardian Vijay today, and answered all of Vijay's questions and concerns to satisfaction. Vijay is in agreement with patient being discharged today.
More than 30 minutes spent in discharge including
Final examination of the patient
Summarizing hospital stay
Instructions for continuing care to all relevant caregivers
Preparation of discharge records, prescriptions, and referral forms
Total time spent (in minutes): 50
Anticipated Discharge: Today
Subjective/Interval History
-
Date of Service: November 24, 2024
Patient was seen and examined. No new symptoms or complaints, eating and drinking per the nurse, has not needed Jackie Hugger for 24-36 hours at least, doing relatively well.
Objective Data
-
Labs:
Laboratory Results
11/24/24
02:44
WBC 2.7 L
Hgb 10.7 L
Hct 33.8 L
Plt Count 142
Sodium 144
Potassium 5.0
Chloride 114 H
Carbon Dioxide 23
BUN 32 H
Creatinine 1.5 H
Glucose 75
Calcium 8.2 L
Vital Signs:
Vital Signs
Temp Pulse Resp BP Pulse Ox
98.2 F 62 25 145/78 93
11/24/24 07:00 11/24/24 10:00 11/24/24 10:00 11/24/24 08:03 11/24/24 08:03
I&O
11/23/24 11/24/24 11/25/24
06:59 06:59 06:59
Intake Total 146.6 / 146.6 120 / 120
Output Total 610 / 610
Balance -463.4 / -463.4 120 / 120
--- NOTE | 2024-11-24 12:55 | PTCARENOTE ---
patient arrived to unit from ICU. Patient remains in restraints. VSS. patient unable to answer orientation questions at this time. patient disoriented. bed alarm in place. call thurston in reach. safety maintained, will continue to monitor.
--- NOTE | 2024-11-24 13:47 | PN.CDI ---
CDI
- -
CDI:
Physician Documentation Request
Admit Date: 11/23/24 09:39
Dear Doctor Iván,
Please review the following and provide your response in the progress notes.
Clinical Indicators:
Pt admitted with Influenza A/ Atelectasis
Livestock Rancher progress note 11/23,' -Started on ceftriaxone and doxycycline, Tamiflu at time of admission --> continue for 5 days...'
Documented in the record,' leukopenia which is likely associated with infection.'
On admission Temp 96.2 Leukopenia WBC 3.8
11/20/24
23:15 11/22/24
08:29 11/23/24
02:01
Temp 96.2 F L 96.0 F L 96 F L
11/20/24 11/21/24 11/22/24
19:55 06:30 15:25
WBC 3.8 L 3.0 L 2.4 L*
Band Neutrophils 5 H 18 H D
11/24/24
02:44
WBC 2.7 L
Please clarify which of the following most accurately describes the status of the patient's infection:
Sepsis-POA
- Systemic manifestations of infection, with 2 or more SIRS criteria which include:
- Fever >100.4 degrees F or hypothermia < 96.8 degrees F
- Leukocytosis - WBC > 12,000 or leukopenia - WBC < 4,000 or > 10% bands
- Tachycardia > 90 beats per minute
- Tachypnea - RR > 20 breaths per minute or PaCO2 , 32mmHg
Source: Merck Manual 2013
Influenza A with PNA only , Without Systemic Illness
Other ( please specify)
Use of terms such as suspected, likely, concern for, or probable (associated with a specific diagnosis that is being evaluated, monitored, or treated as if it exists) are acceptable and can be coded in the inpatient setting, when documented at the
time of discharge.
Thank you,
Rocio Brown RN
CDI Specialist
[place] [facility]
Please use your independent medical judgment in providing your response.
--- NOTE | 2024-11-24 13:55 | PN.CDI ---
CDI
- -
CDI:
Physician Documentation Request
Admit Date: 11/23/24 09:39
Dear Doctor Iván,
Please review the following and provide your response in the progress notes.
Clinical Indicators:
Pt admitted with Influenza A/ Atelectasis /PNA
Documented per [facility] note 11/23 ,'Patient turned self, sacrum with small creases of pink skin, shearing vs evolving stage 2 PI. ...'
Physician documentation of the type and location of wounds is required for compliant documentation. Based on the above clinical findings and your assessment, please provide the following in your progress note:
1. Location of the ulcer/wound, including laterality.
2. Type (etiology) of ulcer/wound:
- Pressure (decubitus) ulcer
- Non-pressure ulcer
- Other ( please specify)
Use of terms such as suspected, likely, concern for, or probable (associated with a specific diagnosis that is being evaluated, monitored, or treated as if it exists) are acceptable and can be coded in the inpatient setting, when documented at the
time of discharge.
Thank you,
Rocio Brown RN
CDI Specialist
[place] [facility]
Please use your independent medical judgment in providing your response.
*Source: National Pressure Ulcer Advisory Panel (NPUAP)
--- NOTE | 2024-11-24 14:34 | W.DCSUMMARY ---
Discharge Summary
Discharge Data
Date of Admission: 11/20/24
Date of Discharge: 11/24/24
Total time spent discharging patient (in min): 50
-
Pending Results: No
Hospital Course
84-year-old female with past medical history of junctional bradycardia and hyperkalemia, severe dementia with history of agitation, moderate pleural effusion, B12 deficiency, CKD 3, chronic anemia, reflux sympathetic dystrophy of the left leg,
hypertension, ovarian cancer, osteoarthritis, osteopenia and GERD, presented to the emergency room from her intermediate after a fall. Patient was found to have Influenza A and started on Tamiflu. She was also though to have a lower respiratory
infection and possible pneumonia and started on antibiotics. Patient was noted to be mildly elevated chronically and she had been on Lasix, Calcium supplement and Lokelma as an outpatient. Patient had periods of hypothermia and at one point had
symptomatic bradycardia with hypotension and increased lethargy; rapid response was called and she was given Atropine, Epinephrine Drip and transferred to the intensive care unit. Cardiology and Pmo Lead were consulted. She was soon able to be
weaned off Epinephrine drip and was doing better, was more alert. She had increased oral intake. It was noted that patient was in sinus rhythm with sinus bradycardia with no advanced heart block and cardiology recommended holding off on any
permanent pacemaker placement (given patient's multiple comorbidities). Patient's Lasix and lower dose blood pressure medication were resumed. She was stable for discharge.
Discharge Plan
-
Patient Disposition: Shelter/SNF
Discharge Diagnosis/Procedures: Influenza A infection with bibasilar atelectasis/infiltrates
Symptomatic Bradycardia with Hypotension
Sick sinus syndrome/Symptomatic sinus bradycardia with hypotension
History junctional bradycardia with associated hyperkalemia
Mild Hyperkalemia
Chronic Hyperkalemia
Atelectasis
Small Left Pleural Effusion -- Unclear etiology
Elevated BNP, possible underlying CHF
Mild Hypothermia - RESOLVED
CKD stage III
Chronic hyperkalemia
Chronic anemia
Ambulatory dysfunction
Mechanical fall
Left hand skin tear
Severe dementia with agitation
Primary hypertension
Vitamin B12 deficiency
GERD
Chronic venous insufficiency
Ovarian cancer s/p FRANKY
RSD of the left lower extremity
Osteoarthritis
Osteopenia
History of moderate pleural effusion
Condition: Fair
Diet: Other diet
Additional Diets: LOW POTASSIUM DIET. Also, any PO liquids intake should be THIN liquids.
Blood Work: CBC (with differential), BMP and Magnesium in 2 to 3 days
Activity Restrictions/Additional Instructions:
PATIENT MUST BE ON A LOW POTASSIUM DIET
AVOID AV perry blocking agents/medications
FOLLOW GENERAL ASPIRATION PRECAUTIONS WITH ANY ORAL INTAKE
Wound Care Instructions
L wrist, 1-2nd finger web and 3rd finger: clean with saline, vaseline gauze, folded 4x4 gauze and leonel change q other day and prn drainage.
R hand: clean with saline, vaseline gauze and silicone foam change q other day and prn drainage
L leg: clean with saline, vaseline gauze and silicone foam change q other day and prn drainage.
Follow up at wound care center call for an appointment.
Referrals:
Eusebio Daly I., DO [Family Provider] - in less than 1 week
Additional Discharge Medication Instructions: Cefpodoxime, Doxycycline and Oseltamivir are new medications.
Amlodipine decreased from 5 mg daily to 2.5 mg daily since patient had hypotension in the hospital.
Sodium Bicarbonate is a new medication to help with metabolic acidosis and chronic hyperkalemia.
Memantine (Namenda) STOPPED due to bradycardia.
Prescriptions:
New
cefpodoxime 200 mg tablet
200 mg PO DAILY 1 Days Qty: 1 0RF
Rx Instructions:
To be taken on 11/25/24
sodium bicarbonate 650 mg Tablet
650 mg PO BID Qty: 60 0RF
oseltamivir 30 mg Capsule
30 mg PO DAILY 1 Days Qty: 1 0RF
Rx Instructions:
To be taken on 11/25/24
doxycycline hyclate 100 mg Capsule
100 mg PO Q12 2 Days Qty: 4 0RF
Continued
calcium carbonate [Calcium 600] 600 mg calcium (1,500 mg) Tablet
600 mg PO DAILY
magnesium hydroxide [Milk of Magnesia] 400 mg/5 mL Suspension
2,400 mg PO HSPRN PRN (Reason: if no bm by 3rd day)
furosemide 20 mg Tablet
20 mg PO TUTHSA Qty: 30 0RF
acetaminophen 325 mg Tablet
650 mg PO Q6HPRN PRN (Reason: MILD PAIN/temp>100.4)
guaifenesin 100 mg/5 mL Liquid
600 mg PO BID
emollient Lotion
1 ea TOPICAL BID
Rx Instructions:
arms and legs
aripiprazole 2 mg Tablet
2 mg PO DAILY
Lokelma 10 gram powder in packet
10 g PO MOWEFR
dextromethorphan-guaifenesin 10-100 mg/5 mL Syrup
10 ml PO Q4HPRN PRN (Reason: COUGH)
cyanocobalamin (vitamin B-12) 1,000 mcg Tablet
1,000 mcg PO DAILY
latanoprost 0.005 % drops
1 drp BOTH EYES HS
Changed
amlodipine 5 mg Tablet
2.5 mg PO DAILY Qty: 0 0RF
Discontinued
acetaminophen 650 mg Suppository
650 mg [place] Q4HPRN PRN (Reason: mild pain/temp>100)
memantine 5 mg Tablet
5 mg PO HS
Discharge Orders:
Discharge Patient (As Directed); Ordered 11/24/24
Ordered By: Tomasz Minor
Discharge Date and Time
Discharge Date/Time: 11/24/24 19:25
Print Language: [id number]
--- NOTE | 2024-11-24 15:43 | CM ---
CM following re: discharger planning.
Reviewed pt's chart, met with pt and spoke to pt's legal guardian.
Discharge order noted. Pt's legal guardian is aware, expressed his agreement with discharge. IMM reviewed yesterday.
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
A referral to [facility] made, pt is accepted for admission today.
arranged transforation BLS, pick pulling machine tender time 19:00. [facility] with
[facility] nursing report: [phone]
Discharge instructions fax: [phone]
D/C plan: [facility] for a local intermodal truck driver care.
--- NOTE | 2024-11-24 17:29 | PTCARENOTE ---
attempt to call brandt hawk for report. staff will call this nurse, gian, back for report.
--- NOTE | 2024-11-24 17:52 | PTCARENOTE ---
report given to nurse Huerta at [facility]
== END 2024-11-24 19:25 | DRG 194 ==
LOC: 4 WEST ACU 09:39
PROVIDERS: Internal Medicine; Physician Assistant; ADMITTING PHYSICIAN Hospitalist; ATTENDING PHYSICIAN Hospitalist; CONSULT PHYSICIAN Internal Medicine; CONSULT PHYSICIAN Internal Medicine Cardiovascular Disease; EMERGENCY PHYSICIAN Emergency Medicine; FAMILY PHYSICIAN Internal Medicine
DX: J10.00 Influenza due to other identified influenza virus with unspecified type of pneumonia (principal); C56.9 Malignant neoplasm of unspecified ovary; F03.C11 Unspecified dementia, severe, with agitation; J98.11 Atelectasis; J90 Pleural effusion, not elsewhere classified; G90.522 Complex regional pain syndrome I of left lower limb; W19.XXXA Unspecified fall, initial encounter; E87.5 Hyperkalemia; I49.5 Sick sinus syndrome; E53.8 Deficiency of other specified B group vitamins; I12.9 Hypertensive chronic kidney disease with stage 1 through stage 4 chronic kidney disease, or unspecified chronic kidney disease; N18.32 Chronic kidney disease, stage 3b; M19.90 Unspecified osteoarthritis, unspecified site; M81.0 Age-related osteoporosis without current pathological fracture; D63.1 Anemia in chronic kidney disease; Z90.710 Acquired absence of both cervix and uterus; Z87.891 Personal history of nicotine dependence; R68.0 Hypothermia, not associated with low environmental temperature; D72.819 Decreased white blood cell count, unspecified; Z82.3 Family history of stroke; K21.9 Gastro-esophageal reflux disease without esophagitis; S61.412A Laceration without foreign body of left hand, initial encounter; Z66 Do not resuscitate; Z79.899 Other long term (current) drug therapy; Z85.43 Personal history of malignant neoplasm of ovary; Z90.722 Acquired absence of ovaries, bilateral; Z11.52 Encounter for screening for COVID-19; L89.152 Pressure ulcer of sacral region, stage 2
CPT/HCPCS: 70450; 71045; 71046; 72125; 80048; 80053; 81003; 81015; 82962; 83605; 83735; 83880; 84443; 84484; 85025; 85610; 85730; 87502; 87811; 92526; 92610; 93005; 93970; 96365; 96375; 99285

== ENCOUNTER 2024-12-21 10:54 | Emergency (ER) | payer MEDICARE, SELFPAY ==
[2024-12-21 10:58] VITALS: BP 155/54
[2024-12-21 11:06] VITALS: BP 155/54
[2024-12-21 11:20] LABS: % Basophils 0.5 % (0-2); % Eosinophils 0.5 % (0-6); % Immature Granulocytes 0.3 % (0-0.5); % Neutrophils 56.7 % (42.2-75.2); Absolute Lymphocytes 2.2 10^3/uL (1.2-3.4); Absolute Neutrophils 4.3 10^3/uL (1.4-6.5); Hematocrit 29.5 % (37.0-47.0); Hemoglobin 9.1 g/dL (12.0-16.0); Mean Corp Hgb Conc. 30.8 g/dL (33.0-37.0); Mean Corpuscular Hgb 27.8 pg (27.0-31.0); Mean Corpuscular Volume 90.2 fL (81.0-99.0); Mean Platelet Volume 11.5 fL (7.4-10.4); Nucleated Red Blood Cells % 0 %; Platelet Count 177 10^3/uL (130-400); Red Blood Cell Count 3.27 10^6/uL (4.20-5.40); Red Cell Dist. Width 16.2 % (11.5-14.5); White Blood Cell Count 7.6 10^3/uL (4.8-10.8)
[2024-12-21 11:33] LABS: ALT (SGPT) < 10 U/L (0-35); AST (SGOT) 16 U/L (14-36); Albumin 3.1 g/dl (3.5-5.0); Alkaline Phosphatase 121 U/L (38-126); Blood Urea Nitrogen 43 mg/dl (7-17); Calcium 8.2 mg/dl (8.4-10.2); Carbon Dioxide 24 mmol/L (22-30); Chloride 118 mmol/L (98-107); Glucose 101 mg/dl (70-99); Sodium 144 mmol/L (135-145); Total Bilirubin 0.4 mg/dl (0.2-1.3); Total Protein 6.5 g/dl (6.3-8.2); eGFR 36.64
[2024-12-21 11:44] LABS: Troponin I < 0.012 ng/ml
[2024-12-21] MEDS: LET TOPICAL ANESTHETIC GEL 3 ML TOPICAL (12:53)
--- NOTE | 2024-12-21 13:37 | ED.GENMED ---
History of Present Illness
General
Chief Complaint: Fainting/Passed Out
Time Seen by Provider: 12/21/24 11:04
History of Present Illness
History of Present Illness:
84-year-old female presents to the emergency department from her nursing facility due to a syncopal event. She was apparently standing at the nurses station when she lost consciousness and fell, striking her head on the nurses station desk. She
returned to her normal mental status thereafter. On arrival she is agitated and unwilling to cooperate.
Past History
Past History
ED Past Medical History: Cancer (Ovarian), GERD and Other (Small bowel obstruction, osteoarthritis, dementia, osteoporosis, CKD, hypertension, ovarian neoplasm)
ED Past Surgical History: Appendectomy, Gynecological (Hysterectomy, ovarian cancer), Orthopedic (Right knee) and Tonsilectomy
Social History
Tobacco: Non-smoker
Alcohol: None
Drug: None
Personal: Single
Living: [facility]
Family History
Family History: Other (Noncontributory)
Review of Systems
Review of Systems
Allergies reviewed?: Yes
All Other Systems: ROS reviewed and negative except as documented in HPI and ROS
Phy Exam
Physical Exam
Physical Exam:
GEN: Well appearing, NAD, WDWN
HEENT: Small subcentimeter laceration to the left parietal scalp with no cephalohematoma, oral mucosa moist, no scleral icterus
Cardiac: Regular rate
Lung: No respiratory distress, no tachypnea
MSK: No gross deformity or injuries
Skin: Good color, no pallor or jaundice, no rashes
Neuro: Alert, oriented to self, does not cooperate with majority of neurologic exam however is observed to be moving all extremities freely
Psych: Calm, cooperative
Course
Orders/Labs/Results
Orders:
Orders
12/21/24 11:09
Electrocardiogram (*1) Urgent
Reason for Study: Syncope
EKG- Treatment ONCE
12/21/24 11:10
Complete Blood Count/With Diff Urgent
Comprehensive Metabolic Panel Urgent
Troponin I Urgent
12/21/24 11:26
CT Head W/o Iv Contrast Urgent
Comment:
Reason For Exam: fall head strike
12/21/24 12:29
Lidocaine/Epinephrine/Tetracai [Let Topical Anesthetic Gel] 3 ml TOPICAL NOW STA
Abnormal Lab Results
12/21/24
11:10
RBC 3.27 L 10^6/uL
(4.20-5.40)
Hgb 9.1 L g/dL
(12.0-16.0)
Hct 29.5 L %
(37.0-47.0)
MCHC 30.8 L g/dL
(33.0-37.0)
RDW 16.2 H %
(11.5-14.5)
MPV 11.5 H fL
(7.4-10.4)
Absolute Monos (auto) 1.0 H 10^3/uL
(0.1-0.6)
Monocytes % 13.0 H %
(1.7-9.3)
Potassium 6.0 H mmol/L
(3.5-5.1)
Chloride 118 H mmol/L
(98-107)
BUN 43 H mg/dl
(7-17)
Creatinine 1.4 H mg/dL
(0.6-1.0)
Glucose 101 H mg/dl
(70-99)
Calcium 8.2 L mg/dl
(8.4-10.2)
Albumin 3.1 L g/dl
(3.5-5.0)
12/21/24 11:10
12/21/24 11:10
Vital Signs
Initial and Last Documented VS:
Initial Vital Signs
BP
155/54
12/21/24 10:58
Last Documented Vital Signs
Temp Pulse Resp BP Pulse Ox
98.2 F 67 23 155/54 98
12/21/24 11:06 12/21/24 14:38 12/21/24 14:30 12/21/24 11:06 12/21/24 11:06
Procedures
Laceration Closure
Left Scalp:
Status of Wound: clean
Size of Wound in cm: 0.5
Description of Wound Edges: sharp
Preparation: cleaned with soap & water
Anesthesia: Topical-LET
Type of Closure: single layer closure
Skin Closure Material: skin nile
Number of sutures: 1
MDM/Problems Addressed
MDM/Problems Addressed:
Likely a vasovagal mediated event. Head CT obtained due to direct head trauma in a demented patient, this was reassuring. Single staple applied to the wound
*Critical Care Note
Total Time (30-74mins, 75-104mins- exclusive of procedures): Not Applicable
ED Attending Note
-
Portions of this chart may have been created with voice recognition software.� Occasional wrong word or��sound alike� substitutions may have occurred due to the inherent limitations of voice recognition software.
Discharge Plan
Departure
Patient Disposition: Home (Routine Discharge)
Date of Disposition: 12/21/24
Time of Disposition: 13:37
Patient with high blood pressure during this ER visit?: No
Discharge Problem:
Syncope, Laceration of scalp
Instructions: Laceration Repair With Nile ED
Prescriptions:
No Action
calcium carbonate [Calcium 600] 600 mg calcium (1,500 mg) Tablet
600 mg PO DAILY
magnesium hydroxide [Milk of Magnesia] 400 mg/5 mL Suspension
2,400 mg PO HSPRN PRN (Reason: if no bm by 3rd day)
furosemide 20 mg Tablet
20 mg PO TUTHSA Qty: 30 0RF
acetaminophen 325 mg Tablet
650 mg PO Q6HPRN PRN (Reason: MILD PAIN/temp>100.4)
guaifenesin 100 mg/5 mL Liquid
600 mg PO BID
emollient Lotion
1 ea TOPICAL BID
Rx Instructions:
arms and legs
aripiprazole 2 mg Tablet
2 mg PO DAILY
Lokelma 10 gram powder in packet
10 g PO MOWEFR
dextromethorphan-guaifenesin 10-100 mg/5 mL Syrup
10 ml PO Q4HPRN PRN (Reason: COUGH)
cyanocobalamin (vitamin B-12) 1,000 mcg Tablet
1,000 mcg PO DAILY
latanoprost 0.005 % drops
1 drp BOTH EYES HS
cefpodoxime 200 mg tablet
200 mg PO DAILY 1 Days Qty: 1 0RF
Rx Instructions:
To be taken on 11/25/24
sodium bicarbonate 650 mg Tablet
650 mg PO BID Qty: 60 0RF
oseltamivir 30 mg Capsule
30 mg PO DAILY 1 Days Qty: 1 0RF
Rx Instructions:
To be taken on 11/25/24
doxycycline hyclate 100 mg Capsule
100 mg PO Q12 2 Days Qty: 4 0RF
amlodipine 5 mg Tablet
2.5 mg PO DAILY Qty: 0 0RF
Referrals:
Eusebio Daly I., DO [Family Provider] -
Activity Restrictions/Additional Instructions:
Natalia has a single staple in the scalp that will need to be removed in 5 to 7 days
Interventions
Interventions:
*General Assessment Last Done: 12/21/24 11:07
*Neglect/Abuse Screening Last Done: 12/21/24 11:07
*ED- Fall Risk Assessment Last Done: 12/21/24 11:07
*ED COVID-19 Vaccine History Last Done: 12/21/24 11:07
*Nursing Disposition Last Done: 12/21/24 15:05
ED- Cardiac Assessment Last Done: 12/21/24 11:56
ED- Neurological Assessment Last Done: 12/21/24 11:56
Discharge Date and Time
Discharge Date/Time: 12/21/24 15:06
Print Language: ROMANIAN
== END 2024-12-21 15:06 | disposition home or self-care (01) ==
LOC: EMR 10:54
PROVIDERS: Physician Assistant; EMERGENCY PHYSICIAN Student in an Organized Health Care Education/Training Program; FAMILY PHYSICIAN Internal Medicine
DX: S01.01XA Laceration without foreign body of scalp, initial encounter (principal); R55 Syncope and collapse; W19.XXXA Unspecified fall, initial encounter
CPT/HCPCS: 99285; 12001; 70450; 80053; 84484; 85025; 93005

== ENCOUNTER 2024-12-31 00:42 | Emergency (ER) | payer MEDICARE, SELFPAY ==
[2024-12-31 00:49] VITALS: BP 139/39
[2024-12-31] MEDS: SAPHRIS 5 MG SL (01:06)
--- NOTE | 2024-12-31 01:10 | ED.GENMED ---
History of Present Illness
General
Chief Complaint: Change in Mental Status
Source: patient
Time Seen by Provider: 12/31/24 00:53
History of Present Illness
History of Present Illness:
84-year-old female sent to the emergency room by [facility] where she was acting out, being combative and uncooperative. They evidently do not have a as needed sedation for her and therefore felt they had no recourse but to bring her to the
emergency room. Patient offers no complaints other than to tell us to 'go to hell'.
Past History
Past History
ED Past Medical History: Cancer (Ovarian), GERD and Other (Small bowel obstruction, osteoarthritis, dementia, osteoporosis, CKD, hypertension, ovarian neoplasm)
ED Past Surgical History: Appendectomy, Gynecological (Hysterectomy, ovarian cancer), Orthopedic (Right knee) and Tonsilectomy
Social History
Tobacco: Non-smoker
Alcohol: None
Drug: None
Personal: Single
Living: snf
Family History
Family History: Other (Noncontributory)
Phy Exam
Physical Exam
Physical Exam:
General: Awake, agitated, confused
Vitals: unremarkable
Head: Atraumatic
Eyes: Pupils equal, EOMI
Throat: Airway intact, no exudates
Neck: Trachea midline
Lungs: Clear and equal b/l
Heart: Regular rate, no murmurs
Abd: Soft, Nontender, No pulsatile mass
Neuro: Moves all extremities quite vigorously
Skin: Warm, dry, no rash
Extremities: pulses equal b/l, no edema
Course
Orders/Labs/Results
Orders:
Orders
12/31/24 00:57
Asenapine Sublingual [Saphris] 5 mg SL NOW STA
12/31/24 01:10
Olanzapine [Zyprexa] 5 mg IM NOW STA
12/31/24 01:16
Basic Metabolic Panel Urgent
Complete Blood Count/No Diff Urgent
Abnormal Lab Results
12/31/24
01:16
RBC 2.98 L 10^6/uL
(4.20-5.40)
Hgb 8.3 L g/dL
(12.0-16.0)
Hct 26.4 L %
(37.0-47.0)
MCHC 31.4 L g/dL
(33.0-37.0)
RDW 17.8 H %
(11.5-14.5)
MPV 10.8 H fL
(7.4-10.4)
Potassium 5.4 H mmol/L
(3.5-5.1)
Chloride 121 H mmol/L
(98-107)
Carbon Dioxide 19 L mmol/L
(22-30)
BUN 47 H mg/dl
(7-17)
Creatinine 1.6 H mg/dL
(0.6-1.0)
Glucose 111 H mg/dl
(70-99)
Calcium 8.3 L mg/dl
(8.4-10.2)
12/31/24 01:16
12/31/24 01:16
Vital Signs
Initial and Last Documented VS:
Initial Vital Signs
Pulse Resp BP Pulse Ox
65 18 139/39 97
12/31/24 00:49 12/31/24 00:49 12/31/24 00:49 12/31/24 00:49
Last Documented Vital Signs
Pulse Resp BP Pulse Ox
60 16 120/78 99
12/31/24 05:31 12/31/24 05:31 12/31/24 05:31 12/31/24 05:31
MDM/Problems Addressed
Differential Diagnosis Includes:
Dementia with agitation, electrolyte abnormality, adverse medication effect
MDM/Problems Addressed:
Patient presents with agitation. This is not a new problem for her. Patient has been reasonably calm here. Medicated with Zyprexa. Apparently she has no standing orders for medications at the facility. Prescription sent for Risperdal.
*Critical Care Note
Total Time (30-74mins, 75-104mins- exclusive of procedures): Not Applicable
ED Attending Note
-
Portions of this chart may have been created with voice recognition software.� Occasional wrong word or��sound alike� substitutions may have occurred due to the inherent limitations of voice recognition software.
Discharge Plan
Departure
Patient Disposition: Group Home/SNF
Date of Disposition: 12/31/24
Time of Disposition: 02:20
Condition: Fair
Discharge Problem:
Dementia with agitation
Instructions: Dementia (DC)
Prescriptions:
New
risperidone [Risperdal] 0.5 mg tablet
0.5 mg PO HS Qty: 20 0RF
No Action
calcium carbonate [Calcium 600] 600 mg calcium (1,500 mg) Tablet
600 mg PO DAILY
magnesium hydroxide [Milk of Magnesia] 400 mg/5 mL Suspension
2,400 mg PO HSPRN PRN (Reason: if no bm by 3rd day)
furosemide 20 mg Tablet
20 mg PO TUTHSA Qty: 30 0RF
acetaminophen 325 mg Tablet
650 mg PO Q6HPRN PRN (Reason: MILD PAIN/temp>100.4)
guaifenesin 100 mg/5 mL Liquid
600 mg PO BID
emollient Lotion
1 ea TOPICAL BID
Rx Instructions:
arms and legs
aripiprazole 2 mg Tablet
2 mg PO DAILY
Lokelma 10 gram powder in packet
10 g PO MOWEFR
dextromethorphan-guaifenesin 10-100 mg/5 mL Syrup
10 ml PO Q4HPRN PRN (Reason: COUGH)
cyanocobalamin (vitamin B-12) 1,000 mcg Tablet
1,000 mcg PO DAILY
latanoprost 0.005 % drops
1 drp BOTH EYES HS
cefpodoxime 200 mg tablet
200 mg PO DAILY 1 Days Qty: 1 0RF
Rx Instructions:
To be taken on 11/25/24
sodium bicarbonate 650 mg Tablet
650 mg PO BID Qty: 60 0RF
oseltamivir 30 mg Capsule
30 mg PO DAILY 1 Days Qty: 1 0RF
Rx Instructions:
To be taken on 11/25/24
doxycycline hyclate 100 mg Capsule
100 mg PO Q12 2 Days Qty: 4 0RF
amlodipine 5 mg Tablet
2.5 mg PO DAILY Qty: 0 0RF
Referrals:
Eusebio Daly I., DO [Family Provider, Internal Medicine]
Interventions
Interventions:
*Risk Screen - Suicide Last Done: 12/31/24 00:49
*General Assessment Last Done: 12/31/24 00:49
*Neglect/Abuse Screening Last Done: 12/31/24 00:49
*ED- Fall Risk Assessment Last Done: 12/31/24 00:49
*ED COVID-19 Vaccine History Last Done: 12/31/24 00:49
*Nursing Disposition Last Done: 12/31/24 05:31
ED- Pulmonary Assessment Last Done: 12/31/24 05:33
ED-Psychological Assessment Last Done: 12/31/24 01:50
ED- Neurological Assessment Last Done: 12/31/24 01:50
ED- Cardiac Assessment Last Done: 12/31/24 05:33
ED Swallowing Screen Last Done: 12/31/24 04:15
Discharge Date and Time
Discharge Date/Time: 12/31/24 05:34
Print Language: MALAY
[2024-12-31] MEDS: ZYPREXA 5 MG IM (01:21)
[2024-12-31 01:53] LABS: Hematocrit 26.4 % (37.0-47.0); Hemoglobin 8.3 g/dL (12.0-16.0); Mean Corp Hgb Conc. 31.4 g/dL (33.0-37.0); Mean Corpuscular Hgb 27.9 pg (27.0-31.0); Mean Corpuscular Volume 88.6 fL (81.0-99.0); Mean Platelet Volume 10.8 fL (7.4-10.4); Platelet Count 161 10^3/uL (130-400); Red Blood Cell Count 2.98 10^6/uL (4.20-5.40); Red Cell Dist. Width 17.8 % (11.5-14.5); White Blood Cell Count 7.7 10^3/uL (4.8-10.8)
[2024-12-31 01:55] VITALS: BP 129/34
[2024-12-31 02:01] VITALS: BMI 25.4
[2024-12-31 02:09] LABS: Blood Urea Nitrogen 47 mg/dl (7-17); Calcium 8.3 mg/dl (8.4-10.2); Carbon Dioxide 19 mmol/L (22-30); Chloride 121 mmol/L (98-107); Estimated Creatinine Clearance 21 ml/min; Glucose 111 mg/dl (70-99); Potassium 5.4 mmol/L (3.5-5.1); Sodium 144 mmol/L (135-145); eGFR 31.21
[2024-12-31 05:31] VITALS: BP 120/78
== END 2024-12-31 05:34 ==
LOC: EMR 00:42
PROVIDERS: EMERGENCY PHYSICIAN Emergency Medicine; FAMILY PHYSICIAN Internal Medicine
DX: F03.911 Unspecified dementia, unspecified severity, with agitation (principal)
CPT/HCPCS: 99284; 96372; 80048; 85027; J2358